=== PATIENT | female | born 1940 | race Caucasian/White ===

== ENCOUNTER 2022-10-30 19:25 | Inpatient (IN) ==
[2022-10-30 19:59] LABS: Hematocrit (blood only) 32.7 % (34.1-44.9); Hemoglobin 11.2 g/dl (12.0-16.0); Mean Corpuscular Hemoglobin 30.9 pg (25.0-34.0); Mean Corpuscular Hgb Conc 34.3 g/dL (32.0-36.0); Mean Corpuscular Volume 90.1 fL (80.0-100.0); Mean Platelet Volume 12.8 fL (9.4-12.3); Platelet Count 140 K/uL (130-400); RDW Coefficient of Variation 13.8 % (11.5-14.5); RDW Standard Deviation 45.6 fL (36.4-46.3); Red Blood Count 3.63 M/uL (3.93-5.22); White Blood Count 18.56 K/ul (4.8-10.8)
[2022-10-30 20:15] LABS: Basophils # (auto) 0.05 K/uL (0-0.2); Basophils % (auto) 0.3 %; Eosinophils # (auto) 0.01 K/uL (0-0.50); Eosinophils % (auto) 0.1 %; Immature Granulocytes # (auto) 0.21 K/uL (0.00-0.02); Immature Granulocytes % (auto) 1.1 %; Lymphocytes # (auto) 0.77 K/uL (1.2-3.4); Lymphocytes % (auto) 4.1 %; Monocytes # (auto) 1.13 K/uL (0.24-0.82); Monocytes % (auto) 6.1 %; Neutrophils # (auto) 16.39 K/uL (1.4-6.5); Neutrophils % (auto) 88.3 %
[2022-10-30 20:34] LABS: Appearance Urine Cloudy (Clear); Bacteria Urine Automated Negative (Negative); Blood Urine Negative (Negative); Color Urine Dark Yellow; Epithelial Cell Urine Auto >30 /lpf (0-5); Glucose Urine UA Negative (Negative); Ketones Urine Trace (Negative); Leukocyte Esterase Urine Negative (Negative); Nitrite Urine Negative (Negative); Protein Urine 1+ (Negative); RBC Urine Automated 0-4 /hpf (0-4); Specific Gravity Urine 1.024 (1.000-1.030); Urobilinogen Urine Negative (Negative)
--- NOTE | 2022-10-30 20:34 | Emergency Department Note ---
Impression & Plan Abdominal pain, LOLITA (acute kidney injury), Hyponatremia ED Provider Note ED Provider Note NAME: DONTRELL ZHENG AGE:82 SEX: Female : 1940 ARRIVES VIA: EMS INFORMANT: Patient ED PROVIDER(s): Marisol Perea DO CHIEF COMPLAINT: Abdominal pain, constipation HPI: This is an 82-year-old female presents emergency department due to concern for abdominal pain, and constipation. Patient states her last bowel movement w as on Saturday. She states she began feeling increased sense of pressure and developing pain in her abdomen on Saturday. She states following the bowel movement she had a slight improvement however symptoms slowly began again on Saturday and persisted through the weekend, slowly worsening. She states she feels distended and bloated. She states she does have an increase in her chronic back pain additionally. She states she has had a decrease in her appetite but no overt nausea or vomiting. She denies any change in her urine, and states she is staying well-hydrated. She states she did have a low-grade fever at home, no overt chills. She denies any recent change in diet or medication. No known sick contacts. Patient has had prior abdominal surgeries. PAST MEDICAL HISTORY:See Below PAST SURGICAL HISTORY:See Below FAMILY HISTORY:See Below SOCIAL HISTORY:See Below HOME MEDICATIONS:See Below ALLERGIES:See Below VITALS:See Below PHYSICAL EXAMINATION: GENERAL: alert, well appearing, well nourished, no distress, non-toxic, BMI>47 EYE EXAM: normal conjunctiva, PERRL and EOM's grossly intact OROPHARYNX: no exudate, no erythema, lips, buccal mucosa, and tongue normal and mucous membranes are dry NECK: supple, no nuchal rigidity, no adenopathy, non-tender LUNGS: Clear to auscultation. Normal chest wall mechanics, no w/r/r HEART: no murmurs, S1 normal and S2 normal ABDOMEN: abdomen soft, generalized discomfort with palpation, normo-active bowel sounds, no masses, no rebound or guarding. Dull to percussion. BACK: Back is symmetrical on inspection and there is no deformity, no midline tenderness, no CVA tenderness. SKIN: no rashes, petechiae, orbruising UPPER EXTREMITIES: upper extremities are grossly normal. FROM, nml pulses b/l. LOWER EXTREMITIES: No pitting edema. FROM, nml pulses b/l. NEURO EXAM: Normal sensorium, cranial nerves II-XII grossly intact, normal speech, no facial droop,nogross weakness of arms, no gross weakness of legs. Gross sensation intact. No ataxia. Vital Signs: reviewed and remarkable Differential Diagnosis: Differential diagnoses includes but is not limited to gastritis, peptic ulcer disease, GERD, gallbladder disease, pancreatitis, small bowel obstruction, acute coronary syndrome, AAA, dissection, ischemic bowel, irritable bowel disease, irritable bowel syndrome, diverticulitis, malignancy, hernia, urinary tract infection, perforation, trauma, infectious. MEDICAL DECISION MAKING: This is an 82 yo female who presents with abdominal pain and constipation and concern for bowel obstruction. VS stable. Labs drawn and sent, IV started, and CT ordered. Patient started on IVF and given medication for nausea and pain. Labs with new hyponatremia, leukocytosis, LOLITA, and mild hyperglycemia. CT without obstruction or other acute process. Patient covered with IV antibiotics prior to results of CT due to age, history, and leukocytosis. UA reassuring. Patient did feel improved per her report. We discussed all results at bedside as well as plan for additional inpatient monitory and treatment, she verbalized understanding and was in agreement with the plan. Tachycardia improved with hydration and pain control. Hyponatremia possibly related to medications and LOLITA. Patient did appear clinically dehydration on initial exam. Cultures sent as a precaution. Hypomagnesemia noted and pt given IV repletion in the ER. Consultation(s): 2244: Discussed with Dr. Sanchez. ER Treatment Provided: See below Diagnostics Interpreted By Me: -ECG: Sinus tachycardia 113, normal QRS and QTc, normal axis, no acute ST/T wave changes. -Cardiac Monitoring: An order was placed for continuous cardiac monitoring. The monitor shows a rate of 106 with sinus tachycardia rhythm. -Laboratory studies: As stated above and show below. 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 GERD (gastroesophageal reflux disease) HTN (hypertension) Hypothyroid Leg length discrepancy Lumbar radicular pain Pain of right sacroiliac joint Spinal stenosis of lumbar region Tachycardia Surgical History History of knee replacement both knees S/P appendectomy Social History (Updated 10/31/22 @ 05:12 by Linh Marquez RN) Smoking Status: Never smoker Second Hand Exposure: No; Do You Dip or Chew Tobacco: No; Tobacco Cessation Education Requested by Patient: No Hx Alcohol Use: Yes Alcohol type: wine Alcohol type Comment: special occasions, less than 1/month Hx Substance Use: No Preferred Language: Albanian Communication Ability: Effective Visual Impairment: No Limitations Hearing Ability: Hard of Hearing Theater Education Teacher Required: No Beliefs That Will Affect Care: None marital status: / Current Living Situation: Alone Current Living Situation Comment: with dog current occupational status: retired 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 [place] Other Information That Helps Us Care for You: No Feels Safe at Home: Yes Safety Concerns: Feels Safe At This Time Assistive Devices: Walker and Wheelchair Allergies Allergies Allergy/AdvReac Type Severity Reaction Status Date / Time cefdinir Allergy Severe ANAPHYLAXIS Verified 10/30/22 22:59 - ED adm 06/03/16 doxycycline Allergy Intermediate Rash/Hives Verified 10/30/22 22:59 Sulfa (Sulfonamide Allergy Intermediate HIVES/RASH Verified 10/30/22 22:59 Antibiotics) Sulfonylureas Allergy Unknown ON [facility] MED Verified 10/30/22 22:59 LIST alendronate sodium AdvReac Intermediate Abdominal Verified 10/30/22 22:59 Pain/ GI Upset heparin AdvReac Unknown AVOID FOR Verified 10/30/22 22:59 LOW PLATELETS Home Meds Home Medications Medication Instructions Recorded Confirmed atorvastatin 10 mg tablet 10 mg PO QAM 03/06/19 10/30/22 levothyroxine 75 mcg tablet 75 mcg PO DAILYBB 03/06/19 10/30/22 metoprolol succinate 50 mg 50 mg PO HS 03/06/19 10/30/22 tablet,extended release 24 hr venlafaxine 150 mg 150 mg PO DAILY 03/06/19 10/30/22 capsule,extended release 24 hr acetaminophen 500 mg tablet 1,000 mg PO Q6H PRN Pain 07/05/21 10/30/22 (Tylenol Extra Strength) celecoxib 200 mg capsule 200 mg PO DAILY 01/30/22 10/30/22 metformin 500 mg tablet,extended 500 mg PO QAM 02/17/22 10/30/22 release 24 hr plecanatide 3 mg tablet (Trulance) 3 mg PO QAM 02/17/22 10/30/22 Bifidobacterium infantis 4 mg 4 mg PO DAILY 10/30/22 10/30/22 capsule (Align) cholecalciferol (vitamin D3) 50 50 mcg PO DAILY 10/30/22 10/30/22 mcg (2,000 unit) capsule (Vitamin D3) fluticasone propionate 50 2 spray intranasal DAILY PRN Nasal 10/30/22 10/30/22 mcg/actuation nasal Congestion spray,suspension multivitamin 1 tab PO DAILY 10/30/22 10/30/22 oxycodone 5 mg tablet 5 mg PO DAILY PRN pain 10/30/22 10/30/22 pantoprazole 40 mg tablet,delayed 40 mg PO DAILY 10/30/22 10/30/22 release Results & Data (ED) Vital Signs Vital Signs - 24 hr 10/30/22 19:30 10/30/22 21:11 10/30/22 22:00 Temperature 37.6 C H 37 C Temperature Source Oral Oral Pulse Rate 115 H Pulse Rate [Apical] 124 H 96 H Pulse Rhythm Regular Pulse Rhythm [Apical] Regular Regular Pulse Strength Normal Pulse Strength [Apical] Normal Normal Respiratory Rate 32 H 20 25 H Respiratory Effort / Characteristics Non-Labored Non-Labored Non-Labored Respiratory Depth Normal Normal Normal Respiratory Pattern Regular Regular Regular Blood Pressure 150/81 H Blood Pressure [Right Arm] 124/74 109/70 Blood Pressure Mean 104 Blood Pressure Mean [Right Arm] 90 83 Blood Pressure Position Lying Blood Pressure Position [Right Arm] Lying Lying Pulse Oximetry 96 96 95 Oxygen Delivery Method Room Air Room Air Room Air Sepsis Recent Fever Within 48 Hours Yes Sepsis New/Unexplained Change in Mental Status N/A Sepsis Action Taken by Nursing Physician Notified Laboratory Data 10/30/22 19:42 10/30/22 19:42 Lab Results 10/30/22 10/30/22 10/30/22 Range/Units 19:42 19:42 19:42 WBC 18.56 H (4.8-10.8) K/ul RBC 3.63 L (3.93-5.22) M/uL Hgb 11.2 L (12.0-16.0) g/dl Hct 32.7 L (34.1-44.9) % MCV 90.1 (80.0-100.0) fL MCH 30.9 (25.0-34.0) pg MCHC 34.3 (32.0-36.0) g/dL RDW Std Deviation 45.6 (36.4-46.3) fL RDW Coeff of Morgan 13.8 (11.5-14.5) % Plt Count 140 (130-400) K/uL MPV 12.8 H (9.4-12.3) fL Immature Gran % (Auto) 1.1 % Neut % (Auto) 88.3 % Lymph % (Auto) 4.1 % [place] % (Auto) 6.1 % Eos % (Auto) 0.1 % Baso % (Auto) 0.3 % Neut # (Auto) 16.39 H (1.4-6.5) K/uL Lymph # (Auto) 0.77 L (1.2-3.4) K/uL [place] # (Auto) 1.13 H (0.24-0.82) K/uL Eos # (Auto) 0.01 (0-0.50) K/uL Baso # (Auto) 0.05 (0-0.2) K/uL Immature Gran # (Auto) 0.21 H (0.00-0.02) K/uL Sodium 125 L (136-145) mmol/L Potassium TNP Chloride 91 L (98-107) mmol/L Carbon Dioxide 20 L (21-32) mmol/L Anion Gap 14 H (3-11) BUN 26 H (6-23) mg/dl Creatinine 1.49 H (0.6-1.2) mg/dl Est Cr Clr Drug Dosing 32.8 ml/min Est GFR ( Amer) 37.5 ml/min Est GFR (Non-Af Amer) 32.4 ml/min BUN/Creatinine Ratio 17.4 (10-20) Glucose 147 H (70-99(Fasting)) mg/dl Osmolality (280-300) mOsm/kg Lactate 1.4 (0.4-2.0) mmol/L Calcium 8.4 L (8.5-10.1) mg/dl Magnesium 1.4 L (1.7-2.4) mg/dl Total Bilirubin 0.7 (0.2-1.0) mg/dl AST TNP ALT 15 (7-52) U/L Alkaline Phosphatase 76 (34-104) U/L Troponin I High Sens 13.7 (0-14) pg/ml Total Protein 7.0 (6.0-8.3) gm/dl Albumin 3.2 L (3.4-5.0) gm/dl Globulin 3.8 (2.5-4.0) gm/dl Albumin/Globulin Ratio 0.8 L (0.9-2) Lipase 3 L (11-82) U/L Procalcitonin (0-0.5) ng/ml TSH (0.300-4.500) uIu/ml Urine Color Urine Appearance (Clear) Urine pH (4.5-7.5) Ur Specific [place] (1.000-1.030) Urine Protein (Negative) Urine Glucose (UA) (Negative) Urine Ketones (Negative) Urine Blood (Negative) Urine Nitrite (Negative) Urine Bilirubin (Negative) Urine Urobilinogen (Negative) Ur Leukocyte Esterase (Negative) Urine WBC (Auto) (0-5) /hpf Urine RBC (Auto) (0-4) /hpf U Hyaline Cast (Auto) (0-5) /lpf U Epithel Cells (Auto) (0-5) /lpf Urine Bacteria (Auto) (Negative) Urine Yeast (None Prsent) SARS-CoV-2 (PCR) (Negative) Influenza Type A (PCR) (Neg) Influenza Type B (PCR) (Neg) RSV (RT-PCR) (Neg) 10/30/22 10/30/22 10/30/22 Range/Units 19:42 19:42 19:42 WBC (4.8-10.8) K/ul RBC (3.93-5.22) M/uL Hgb (12.0-16.0) g/dl Hct (34.1-44.9) % MCV (80.0-100.0) fL MCH (25.0-34.0) pg MCHC (32.0-36.0) g/dL RDW Std Deviation (36.4-46.3) fL RDW Coeff of Morgan (11.5-14.5) % Plt Count (130-400) K/uL MPV (9.4-12.3) fL Immature Gran % (Auto) % Neut % (Auto) % Lymph % (Auto) % [place] % (Auto) % Eos % (Auto) % Baso % (Auto) % Neut # (Auto) (1.4-6.5) K/uL Lymph # (Auto) (1.2-3.4) K/uL [place] # (Auto) (0.24-0.82) K/uL Eos # (Auto) (0-0.50) K/uL Baso # (Auto) (0-0.2) K/uL Immature Gran # (Auto) (0.00-0.02) K/uL Sodium (136-145) mmol/L Potassium Chloride (98-107) mmol/L Carbon Dioxide (21-32) mmol/L Anion Gap (3-11) BUN (6-23) mg/dl Creatinine (0.6-1.2) mg/dl Est Cr Clr Drug Dosing ml/min Est GFR ( Amer) ml/min Est GFR (Non-Af Amer) ml/min BUN/Creatinine Ratio (10-20) Glucose (70-99(Fasting)) mg/dl Osmolality 270 L (280-300) mOsm/kg Lactate (0.4-2.0) mmol/L Calcium (8.5-10.1) mg/dl Magnesium (1.7-2.4) mg/dl Total Bilirubin (0.2-1.0) mg/dl AST ALT (7-52) U/L Alkaline Phosphatase (34-104) U/L Troponin I High Sens (0-14) pg/ml Total Protein (6.0-8.3) gm/dl Albumin (3.4-5.0) gm/dl Globulin (2.5-4.0) gm/dl Albumin/Globulin Ratio (0.9-2) Lipase (11-82) U/L Procalcitonin 6.53 H (0-0.5) ng/ml TSH 0.845 (0.300-4.500) uIu/ml Urine Color Urine Appearance (Clear) Urine pH (4.5-7.5) Ur Specific [place] (1.000-1.030) Urine Protein (Negative) Urine Glucose (UA) (Negative) Urine Ketones (Negative) Urine Blood (Negative) Urine Nitrite (Negative) Urine Bilirubin (Negative) Urine Urobilinogen (Negative) Ur Leukocyte Esterase (Negative) Urine WBC (Auto) (0-5) /hpf Urine RBC (Auto) (0-4) /hpf U Hyaline Cast (Auto) (0-5) /lpf U Epithel Cells (Auto) (0-5) /lpf Urine Bacteria (Auto) (Negative) Urine Yeast (None Prsent) SARS-CoV-2 (PCR) (Negative) Influenza Type A (PCR) (Neg) Influenza Type B (PCR) (Neg) RSV (RT-PCR) (Neg) 10/30/22 10/30/22 10/30/22 Range/Units 20:52 22:50 Unknown WBC (4.8-10.8) K/ul RBC (3.93-5.22) M/uL Hgb (12.0-16.0) g/dl Hct (34.1-44.9) % MCV (80.0-100.0) fL MCH (25.0-34.0) pg MCHC (32.0-36.0) g/dL RDW Std Deviation (36.4-46.3) fL RDW Coeff of Morgan (11.5-14.5) % Plt Count (130-400) K/uL MPV (9.4-12.3) fL Immature Gran % (Auto) % Neut % (Auto) % Lymph % (Auto) % [place] % (Auto) % Eos % (Auto) % Baso % (Auto) % Neut # (Auto) (1.4-6.5) K/uL Lymph # (Auto) (1.2-3.4) K/uL [place] # (Auto) (0.24-0.82) K/uL Eos # (Auto) (0-0.50) K/uL Baso # (Auto) (0-0.2) K/uL Immature Gran # (Auto) (0.00-0.02) K/uL Sodium (136-145) mmol/L Potassium 4.0 Chloride (98-107) mmol/L Carbon Dioxide (21-32) mmol/L Anion Gap (3-11) BUN (6-23) mg/dl Creatinine (0.6-1.2) mg/dl Est Cr Clr Drug Dosing ml/min Est GFR ( Amer) ml/min Est GFR (Non-Af Amer) ml/min BUN/Creatinine Ratio (10-20) Glucose (70-99(Fasting)) mg/dl Osmolality (280-300) mOsm/kg Lactate (0.4-2.0) mmol/L Calcium (8.5-10.1) mg/dl Magnesium (1.7-2.4) mg/dl Total Bilirubin (0.2-1.0) mg/dl AST 13 ALT (7-52) U/L Alkaline Phosphatase (34-104) U/L Troponin I High Sens (0-14) pg/ml Total Protein (6.0-8.3) gm/dl Albumin (3.4-5.0) gm/dl Globulin (2.5-4.0) gm/dl Albumin/Globulin Ratio (0.9-2) Lipase (11-82) U/L Procalcitonin (0-0.5) ng/ml TSH (0.300-4.500) uIu/ml Urine Color Dark Yellow Urine Appearance Cloudy A (Clear) Urine pH 5.0 (4.5-7.5) Ur Specific [place] 1.024 (1.000-1.030) Urine Protein 1+ H (Negative) Urine Glucose (UA) Negative (Negative) Urine Ketones Trace H (Negative) Urine Blood Negative (Negative) Urine Nitrite Negative (Negative) Urine Bilirubin 1+ H (Negative) Urine Urobilinogen Negative (Negative) Ur Leukocyte Esterase Negative (Negative) Urine WBC (Auto) 1-5 (0-5) /hpf Urine RBC (Auto) 0-4 (0-4) /hpf U Hyaline Cast (Auto) 1-5 (0-5) /lpf U Epithel Cells (Auto) >30 H (0-5) /lpf Urine Bacteria (Auto) Negative (Negative) Urine Yeast Budding A (None Prsent) SARS-CoV-2 (PCR) NEGATIVE (Negative) Influenza Type A (PCR) Negative (Neg) Influenza Type B (PCR) Negative (Neg) RSV (RT-PCR) Negative (Neg) Administered Medications Acetaminophen (Acetaminophen 325 Mg Tab) 650 mg PO Q4H PRN PRN Reason: Pain or Fever Stop: 11/30/22 02:35 Last Admin: 11/01/22 11:16 Dose: 650 mg Documented By: KAITLIN Co-signed By: ZACKERY Admin: 11/01/22 05:33 Dose: 650 mg Documented By: Admin: 10/31/22 18:56 Dose: 650 mg Documented By: Admin: 10/31/22 07:49 Dose: 650 mg Documented By: CHELSEA Diclofenac Sodium (Diclofenac Sod 1% Gel 100 Gm Tube) 2 gm EXT TID PREETI; Protocol Stop: 12/01/22 13:59 Last Admin: 11/01/22 15:53 Dose: 2 gm Documented By: ZACKERY Aztreonam 1,000 mg/ Dextrose 110 mls @ 100 mls/hr IV Q12H PREETI; Protocol Stop: 11/10/22 09:59 Last Infusion: 11/01/22 12:06 Dose: 0 mls/hr Documented By: Admin: 11/01/22 11:00 Dose: 100 mls/hr Documented By: KAITLIN Co-signed By: ZACKERY Infusion: 10/31/22 23:46 Dose: 0 mls/hr Documented By: Admin: 10/31/22 22:27 Dose: 100 mls/hr Documented By: RUTHIE Insulin Aspart (Insulin Aspart Per Unit) 0 units SC ACHS PREETI Stop: 11/30/22 02:35 Last Admin: 11/01/22 13:30 Dose: 3 units Documented By: ZACKERY Co-signed By: BETHANY Admin: 11/01/22 10:40 Dose: 4 units Documented By: KAITLIN Co-signed By: ZACKERY Admin: 10/31/22 21:26 Dose: 1 units Documented By: RUTHIE Co-signed By: REBECCA Admin: 10/31/22 18:49 Dose: Not Given Documented By: Admin: 10/31/22 12:24 Dose: 2 units Documented By: SUSAN Co-signed By: HEATH Admin: 10/31/22 09:26 Dose: Not Given Documented By: Admin: 10/31/22 03:04 Dose: 3 units Documented By: PAPO Co-signed By: MONY Lactobacillus Acidophilus (Advanced Probiotic 1250 Mg Capsule) 2 cap PO DAILY [facility] Stop: 11/30/22 08:59 Last Admin: 11/01/22 10:52 Dose: 2 cap Documented By: KAITLIN Co-signed By: ZACKERY Admin: 10/31/22 08:17 Dose: 2 cap Documented By: CHELSEA Levothyroxine Sodium (Levothyroxine Sodium 75 Mcg Tablet) 75 mcg PO DAILYBB [facility] Stop: 11/30/22 06:29 Last Admin: 11/01/22 05:29 Dose: 75 mcg Documented By: Admin: 10/31/22 05:59 Dose: 75 mcg Documented By: JANETTE Metoprolol Succinate (Metoprolol Succ 50mg Ext Rel Tab) 50 mg PO HS [facility] Stop: 11/30/22 20:59 Last Admin: 10/31/22 19:57 Dose: 50 mg Documented By: RUTHIE Multivitamins (Multivitamin Tab) 1 tab PO DAILY PREETI Stop: 11/30/22 08:59 Last Admin: 11/01/22 10:51 Dose: 1 tab Documented By: KAITLIN Co-signed By: ZACKERY Admin: 10/31/22 08:17 Dose: 1 tab Documented By: CHELSEA Oxycodone HCl (Oxycodone Hcl Ir 5 Mg Tab (Immediate Release)) 5 mg PO BID PRN PRN Reason: pain Stop: 11/14/22 02:35 Last Admin: 11/01/22 13:22 Dose: 5 mg Documented By: Admin: 10/31/22 18:56 Dose: 5 mg Documented By: Admin: 10/31/22 10:42 Dose: 5 mg Documented By: CHELSEA Pantoprazole Sodium (Pantoprazole 40 Mg Tab) 40 mg PO DAILY PREETI Stop: 11/30/22 08:59 Last Admin: 11/01/22 10:51 Dose: 40 mg Documented By: KAITLIN Co-signed By: ZACKERY Admin: 10/31/22 08:17 Dose: 40 mg Documented By: CHELSEA Senna/Docusate Sodium (Docusate Sodium/Senna 50/8.6mg Tab) 1 tab PO QAM PREETI Stop: 11/30/22 08:59 Last Admin: 11/01/22 10:53 Dose: 1 tab Documented By: KAITLIN Co-signed By: ZACKERY Admin: 10/31/22 08:18 Dose: 1 tab Documented By: CHELSEA Discontinued Medications Fentanyl Citrate (Fentanyl Citrate 100 Mcg/2 Ml Vial) 50 mcg IV NOW STA Stop: 10/30/22 20:44 Last Admin: 10/30/22 21:01 Dose: 50 mcg Documented By: JANETTE Ciprofloxacin (Cipro / D5w) 400 mg in 200 mls @ 100 mls/hr IV NOW STA; Protocol Stop: 10/30/22 22:42 Last Infusion: 10/31/22 00:22 Dose: 0 mls/hr Documented By: Admin: 10/30/22 22:21 Dose: 100 mls/hr Documented By: JANETTE Metronidazole (Flagyl) 500 mg in 100 mls @ 100 mls/hr IV NOW STA Stop: 10/30/22 21:42 Last Infusion: 10/31/22 02:29 Dose: 0 mls/hr Documented By: Admin: 10/31/22 01:28 Dose: 100 mls/hr Documented By: JANETTE Acetaminophen (Ofirmev) 1,000 mg in 100 mls @ 400 mls/hr IV NOW STA Stop: 10/30/22 20:57 Last Infusion: 10/30/22 21:56 Dose: 0 mls/hr Documented By: Admin: 10/30/22 21:01 Dose: 400 mls/hr Documented By: JANETTE Magnesium Sulfate/Dextrose (Magnesium Sulfate / D5w) 1 gm in 100 mls @ 100 mls/hr IV Q1H PREETI Stop: 10/30/22 23:11 Last Infusion: 10/31/22 00:11 Dose: 0 mls/hr Documented By: Admin: 10/30/22 23:08 Dose: 100 mls/hr Documented By: Infusion: 10/30/22 23:08 Dose: 0 mls/hr Documented By: Admin: 10/30/22 22:04 Dose: 100 mls/hr Documented By: JANETTE Aztreonam 1,000 mg/ Dextrose 110 mls @ 100 mls/hr IV NOW STA; Protocol Stop: 10/31/22 00:06 Last Infusion: 10/31/22 01:29 Dose: 0 mls/hr Documented By: Admin: 10/31/22 00:16 Dose: 100 mls/hr Documented By: JANETTE Daptomycin 425 mg/ Syringe 8.5 mls @ 4.25 mls/min IV NOW STA; Protocol Stop: 10/30/22 23:02 Last Admin: 10/31/22 00:16 Dose: 4.25 mls/min Documented By: JANETTE Albumin Human (Albumin 25% 100 Ml) 25 gm in 100 mls @ 50 mls/hr IV ONE ONE Stop: 10/31/22 03:26 Last Infusion: 10/31/22 05:10 Dose: 0 mls/hr Documented By: Admin: 10/31/22 02:57 Dose: 50 mls/hr Documented By: PAPO Aztreonam 1,000 mg/ Dextrose 110 mls @ 100 mls/hr IV Q8H PREETI; Protocol Stop: 11/10/22 09:59 Last Infusion: 10/31/22 14:04 Dose: 0 mls/hr Documented By: Admin: 10/31/22 11:45 Dose: 100 mls/hr Documented By: CHELSEA Lactated Ringer's (Lr) 1,000 mls @ 60 mls/hr IV .[id number] ONE Stop: 11/01/22 04:58 Last Infusion: 11/01/22 05:28 Dose: 0 mls/hr Documented By: Admin: 10/31/22 12:29 Dose: 60 mls/hr Documented By: SUSAN Ioversol (Optiray 350 100ml) 82 ml IV ONCE ONE Stop: 10/30/22 21:34 Last Admin: 10/30/22 21:33 Dose: 82 ml Documented By: KRISTAN Metoprolol Tartrate (Metoprolol Tartrate 1 Mg/Ml Vial) 5 mg IV NOW STA Stop: 10/31/22 17:04 Last Admin: 10/31/22 17:10 Dose: 5 mg Documented By: CHELSEA Ondansetron HCl (Ondansetron Inj 2 Mg/Ml 2 Ml Vial) 4 mg IV NOW STA Stop: 10/30/22 20:44 Last Admin: 10/30/22 21:01 Dose: 4 mg Documented By: JANETTE Polyethylene Glycol (Polyethylene (Miralax) 17 Gm Pack) 17 gm PO NOW STA Stop: 10/31/22 01:39 Last Admin: 10/31/22 02:56 Dose: 17 gm Documented By: PAPO Senna/Docusate Sodium (Docusate Sodium/Senna 50/8.6mg Tab) 1 tab PO NOW STA Stop: 10/31/22 01:39 Last Admin: 10/31/22 02:56 Dose: 1 tab Documented By: PAPO Imaging Data Radiologist's Impression: Abdomen/Pelvis CT 10/30/22 19:41 CT SCAN OF THE ABDOMEN AND PELVIS WITH IV CONTRAST CLINICAL HISTORY: Generalized abdominal pain. Constipation. COMPARISON STUDY: Abdominal CT dated 02/17/2022. TECHNIQUE: Following the IV administration of 82 cc of Optiray 350, CT scan of the abdomen and pelvis is performed from the lung bases to the proximal femora. Images are reviewed in the axial, sagittal, and coronal planes. IV contrast was administered without complication. A dose lowering technique was utilized adhering to the principles of ALARA. CT DOSE: 927.63 mGy.cm FINDINGS: Lung bases: The heart is enlarged and without pericardial effusion. The lung bases are clear noting bibasilar scarring versus. A small hiatal hernia is noted. Liver: The contrast-enhanced liver is normal in size, contour, and attenuation. There is no intrahepatic biliary ductal dilatation. The hepatic veins and portal veins are patent. A 1.5 cm low-attenuation right lobe hepatic lesion is u nchanged. Gallbladder: Unremarkable. Spleen: Normal in size and attenuation. Pancreas: Atrophic and grossly unremarkable. Adrenal glands: Unremarkable. Kidneys: The contrast enhanced kidneys demonstrate cortical atrophy and are without hydronephrosis. The kidneys enhance symmetrically. Scattered hepatic cysts measuring up to 2.3 cm. A presumed complex cyst in the anterior interpolar right kidney on image #147 measures 1.4 cm. Additional subcentimeter cortical hypodensities also likely represent cysts but are too small for definitive characterization. There is a punctate nonobstructing right renal calculus. Abdominal vasculature: The abdominal aorta is normal in course and caliber noting moderate to advanced atherosclerotic calcification. Bowel: There is mild colonic diverticulosis without CT evidence of acute diverticulitis. No bowel obstruction is seen. Mild fecal retention is noted throughout the colon. The appendix is not identified and reportedly surgically absent. Peritoneum: There is no intraperitoneal free air or abdominal ascites. There is a fat-containing umbilical hernia. Lymphadenopathy: None. Pelvic viscera: The bladder is normal as visualized. The uterus is surgically absent. No adnexal lesion is seen. Skeletal structures: The skeletal structures are osteopenic. There is moderate lumbosacral spondylosis. Grade 1 anterolisthesis is noted at L4-L5. Lytic or blastic lesions are seen. IMPRESSION: 1. No acute infectious or inflammatory findings are identified in the abdomen or pelvis. 2. Cardiomegaly. 3. Mild colonic diverticulosis without CT evidence of acute diverticulitis. 4. Right-sided nephrolithiasis. 5. Additional findings as above. ACT 112: Negative or not required by law. Electronically signed by: Barry Valencia M.D. 10/30/2022 9:51 PM Discharge Plan Visit Data Chief Complaint: Abdominal Pain ED Provider: Marisol Perea Discharge Problem: Abdominal pain, LOLITA (acute kidney injury), Hyponatremia Patient Disposition: Admitted As Inpatient Discharge Instructions Interventions: ED Discharge Assessment Last Done: 10/31/22 02:35
[2022-10-30 20:36] LABS: Bilirubin Urine 1+ (Negative)
[2022-10-30 20:38] LABS: Alanine Aminotransferase 15 U/L (7-52); Albumin Globulin Ratio 0.8 (0.9-2); Albumin Level 3.2 gm/dl (3.4-5.0); Alkaline Phosphatase 76 U/L (34-104); Anion Gap 14 (3-11); BUN Creatinine Ratio 17.4 (10-20); Bilirubin,Total 0.7 mg/dl (0.2-1.0); Blood Urea Nitrogen 26 mg/dl (6-23); Calcium 8.4 mg/dl (8.5-10.1); Carbon Dioxide 20 mmol/L (21-32); Chloride 91 mmol/L (98-107); Creatinine Clr Calc Pharmacy 32.8 ml/min; Est GFR (African American) 37.5 ml/min; Est GFR (Non-African American) 32.4 ml/min; Globulin 3.8 gm/dl (2.5-4.0); Glucose 147 mg/dl (70-99(Fasting)); Lipase 3 U/L (11-82); Magnesium 1.4 mg/dl (1.7-2.4); Sodium 125 mmol/L (136-145); Troponin I High Sensitivity 13.7 pg/ml (0-14)
[2022-10-30] MEDS ORDERED: CIPROFLOXACIN / D5W 400 MG/200 ML BAG IV STA (20:43)
[2022-10-30] MEDS ORDERED: ACETAMINOPHEN 1,000 MG/100 ML VIAL IV STA (20:43)
[2022-10-30] MEDS ORDERED: metroNIDAZOLE 500 MG/100 ML BAG IV STA (20:43)
[2022-10-30] MEDS ORDERED: ONDANSETRON INJ 2 MG/ML 2 ML VIAL IV STA (20:43)
[2022-10-30] MEDS ORDERED: fentaNYL citrate 100 MCG/2 ML VIAL IV STA (20:43)
[2022-10-30] MEDS ORDERED: OPTIRAY 350 100ml IV ONE (21:33)
--- NOTE | 2022-10-30 21:53 | CT Scan Report ---
CT SCAN OF THE ABDOMEN AND PELVIS WITH IV CONTRAST CLINICAL HISTORY: Generalized abdominal pain. Constipation. COMPARISON STUDY: Abdominal CT dated 02/17/2022. TECHNIQUE: Following the IV administration of 82 cc of Optiray 350, CT scan of the abdomen and pelvi s is performed from the lung bases to the proximal femora. Images are reviewed in the axial, sagittal , and coronal planes. IV contrast was administered without complication. A dose lowering technique wa s utilized adhering to the principles of ALARA. CT DOSE: 927.63 mGy.cm FINDINGS: Lung bases: The heart is enlarged and without pericardial effusion. The lung bases are clear noting b ibasilar scarring versus. A small hiatal hernia is noted. Liver: The contrast-enhanced liver is normal in size, contour, and attenuation. There is no intrahepa tic biliary ductal dilatation. The hepatic veins and portal veins are patent. A 1.5 cm low-attenuatio n right lobe hepatic lesion is unchanged. Gallbladder: Unremarkable. Spleen: Normal in size and attenuation. Pancreas: Atrophic and grossly unremarkable. Adrenal glands: Unremarkable. Kidneys: The contrast enhanced kidneys demonstrate cortical atrophy and are without hydronephrosis. T he kidneys enhance symmetrically. Scattered hepatic cysts measuring up to 2.3 cm. A presumed complex cyst in the anterior interpolar right kidney on image #147 measures 1.4 cm. Additional subcentimeter cortical hypodensities also likely represent cysts but are too small for definitive characterization. There is a punctate nonobstructing right renal calculus. Abdominal vasculature: The abdominal aorta is normal in course and caliber noting moderate to advance d atherosclerotic calcification. Bowel: There is mild colonic diverticulosis without CT evidence of acute diverticulitis. No bowel obs truction is seen. Mild fecal retention is noted throughout the colon. The appendix is not identified and reportedly surgically absent. Peritoneum: There is no intraperitoneal free air or abdominal ascites. There is a fat-containing umbi lical hernia. Lymphadenopathy: None. Pelvic viscera: The bladder is normal as visualized. The uterus is surgically absent. No adnexal lesi on is seen. Skeletal structures: The skeletal structures are osteopenic. There is moderate lumbosacral spondylosi s. Grade 1 anterolisthesis is noted at L4-L5. Lytic or blastic lesions are seen. IMPRESSION: 1. No acute infectious or inflammatory findings are identified in the abdomen or pelvis. 2. Cardiomegaly. 3. Mild colonic diverticulosis without CT evidence of acute diverticulitis. 4. Right-sided nephrolithiasis. 5. Additional findings as above. ACT 112: Negative or not required by law. Electronically signed by: Barry Valencia M.D. 10/30/2022 9:51 PM
[2022-10-30] MEDS: MAGNESIUM SULFATE / D5W 1 GM/100 ML BAG IV SCH ×2 (22:04→23:08)
[2022-10-30] MEDS ORDERED: AZTREONAM 1,000 MG in DEXTROSE 5% 100 ML IV STA (23:01)
[2022-10-30] MEDS ORDERED: DAPTOmycin 425 MG in SYRINGE 0 ML IV STA (23:01)
--- NOTE | 2022-10-30 23:21 | XRay Report ---
SINGLE VIEW CHEST CLINICAL HISTORY: Hyponatremia. FINDINGS: An AP, portable, upright chest radiograph is compared to study dated 02/17/2022 and correlate d with chest CT dated 03/06/2019. The examination is degraded by portable technique and patient rotati on. The heart is enlarged noting atherosclerotic calcification of the thoracic aorta. There is pulmon lan vascular congestion. Chronic interstitial thickening is similar to previous. Scarring/atelectasis is noted at the lung bases. No airspace consolidation or large pleural effusion is identified. No pn eumothorax is seen. The skeletal structures are osteopenic. The bony thorax is grossly intact. IMPRESSION: Cardiomegaly with pulmonary vascular congestion. ACT 112: Negative or not required by law. Electronically signed by: Barry Valencia M.D. 10/30/2022 11:20 PM
[2022-10-30 23:55] LABS: Influenza A virus by PCR Negative (Neg); Influenza B virus by PCR Negative (Neg); RSV by PCR Negative (Neg); SARS CoV2 RNA(COVID-19) Ceph NEGATIVE (Negative)
[2022-10-31] MEDS ORDERED: ALBUMIN 25% 100 mL 25 GM/100 ML VIAL IV ONE (01:27)
[2022-10-31] MEDS ORDERED: POLYETHYLENE (MIRALAX) 17 GM PACK PO PRN (01:38)
[2022-10-31] MEDS ORDERED: DOCUSATE SODIUM/SENNA 50/8.6MG TAB PO STA (01:38)
[2022-10-31] MEDS ORDERED: POLYETHYLENE (MIRALAX) 17 GM PACK PO STA (01:38)
--- NOTE | 2022-10-31 01:38 | History & Physical Report ---
Date of Service October 31, 2022 Assessment & Plan (1) Severe sepsis: Plan: SIRS plus ARF Secondary to complicated UTI, hx recurrent infections (Enterococcus, Pseudomonas, MDR E. coli on previous urine CS) Acute on chronic hyponatremia secondary to illness Serum sodium noted to be low since last year on review of outpatient blood work SSRI, NSAID Rx contributory hypertension, slightly elevated hyperlipidemia on statin Rx DM2 on oral medications, well-controlled as of recent hemoglobin A1c of 6.7 this month hypothyroidism, euthyroid as of today's TSH chronic anemia, hemoglobin at baseline chronic ITP as per records Constipation Medical telemetry CS, Daptomycin and Azactam on the basis of microbiologic history Careful correction of sodium Monitor serum creatinine, sodium response to initial IVF bolus given at the ER Appropriate to hold SSRI and home celecoxib for now until serum sodium, kidney function back to baseline Hyponatremia work-up Nephrology consult if without improvement Bowel regimen Basal bolus insulin, ISS BG goal 1 10-1 40, carb count coverage DVT prophylaxis. SCDs Re: ITP Full code Text document was generated using [employer] voice recognition software. It may contain grammatical or spelling errors. Kindly contact undersigned for clarification of any documentation item in question. History of Present Illness Chief Complaint: Abdominal pain Primary Care Provider: Claus Rojas MD History obtained from patient and records. Medical history significant for hypertension, hyperlipidemia, recurrent UTIs, DM2 on oral medications, hypothyroidism, ankylosing spondylitis as per records, chronic anemia (baseline hemoglobin of 11), chronic ITP as per records. Last confinement July 2016 for complicated UTI/kidney stone. Few days history of achy lower abdominal pain, constipation, dysuria symptoms. Poor appetite. No fever, no chills. No chest pain, no shortness of breath. Patient given ciprofloxacin at that Emergency room. Medical History as above Surgical History : Left knee surgery, sinus surgery, right ankle surgery, urologic procedures, cataract surgeries, tonsillectomy/adenoidectomy Family History : Heart disease, blood cancer, uterine cancer Personal/Social history : Non-smoker, occasional EtOH intake Allergies Allergy/AdvReac Type Severity Reaction Status Date / Time cefdinir Allergy Severe ANAPHYLAXIS Verified 10/30/22 22:59 - ED adm 06/03/16 doxycycline Allergy Intermediate Rash/Hives Verified 10/30/22 22:59 Sulfa (Sulfonamide Allergy Intermediate HIVES/RASH Verified 10/30/22 22:59 Antibiotics) Sulfonylureas Allergy Unknown ON [facility] MED Verified 10/30/22 22:59 LIST alendronate sodium AdvReac Intermediate Abdominal Verified 10/30/22 22:59 Pain/ GI Upset heparin AdvReac Unknown AVOID FOR Verified 10/30/22 22:59 LOW PLATELETS Home Medications Medication Instructions Recorded Confirmed Type atorvastatin 10 mg tablet 10 mg PO QAM 03/06/19 10/30/22 History levothyroxine 75 mcg tablet 75 mcg PO DAILYBB 03/06/19 10/30/22 History metoprolol succinate 50 mg 50 mg PO HS 03/06/19 10/30/22 History tablet,extended release 24 hr venlafaxine 150 mg 150 mg PO DAILY 03/06/19 10/30/22 History capsule,extended release 24 hr acetaminophen 500 mg tablet 1,000 mg PO Q6H PRN Pain 07/05/21 10/30/22 History (Tylenol Extra Strength) celecoxib 200 mg capsule 200 mg PO DAILY 01/30/22 10/30/22 History metformin 500 mg tablet,extended 500 mg PO QAM 02/17/22 10/30/22 History release 24 hr plecanatide 3 mg tablet (Trulance) 3 mg PO QAM 02/17/22 10/30/22 History Bifidobacterium infantis 4 mg 4 mg PO DAILY 10/30/22 10/30/22 History capsule (Align) cholecalciferol (vitamin D3) 50 50 mcg PO DAILY 10/30/22 10/30/22 History mcg (2,000 unit) capsule (Vitamin D3) fluticasone propionate 50 2 spray intranasal DAILY PRN Nasal 10/30/22 10/30/22 History mcg/actuation nasal Congestion spray,suspension multivitamin 1 tab PO DAILY 10/30/22 10/30/22 History oxycodone 5 mg tablet 5 mg PO DAILY PRN pain 10/30/22 10/30/22 History pantoprazole 40 mg tablet,delayed 40 mg PO DAILY 10/30/22 10/30/22 History release Past Med/Surg History Medical History Ambulatory dysfunction Chronic perineal pain in female GERD (gastroesophageal reflux disease) HTN (hypertension) Hypothyroid Leg length discrepancy Lumbar radicular pain Pain of right sacroiliac joint Spinal stenosis of lumbar region Tachycardia Surgical History History of knee replacement both knees S/P appendectomy Social History (Updated 10/31/22 @ 05:12 by Linh Marquez RN) Smoking Status: Never smoker Second Hand Exposure: No; Do You Dip or Chew Tobacco: No; Tobacco Cessation Education Requested by Patient: No Hx Alcohol Use: Yes Alcohol type: wine Alcohol type Comment: special occasions, less than 1/month Hx Substance Use: No Preferred Language: Croatian Communication Ability: Effective Visual Impairment: No Limitations Hearing Ability: Hard of Hearing Principal Systems Architect Required: No Beliefs That Will Affect Care: None marital status: / Current Living Situation: Alone Current Living Situation Comment: with dog current occupational status: retired 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 [place] Other Information That Helps Us Care for You: No Feels Safe at Home: Yes Safety Concerns: Feels Safe At This Time Assistive Devices: Walker and Wheelchair Review of Systems Review of Systems: As per HPI, all other systems reviewed and negative Physical Exam Physical Exam: GENERAL: Slightly uncomfortable, morbidly obese, slightly hard of hearing, no respiratory distress SKIN: Pallor, warm HEENT pale palpebral conjunctivae, no ptosis, dry buccal mucosa NECK : Supple, no tenderness CHEST : CTA, no tenderness HEART : RRR, no obvious murmurs ABDOMEN: Some distention, hypogastric tenderness EXTREMITIES : Minimal LE swelling, no LE tenderness, no other conspicuous deformities noted NEUROLOGIC : Coherent, no facial asymmetry, slightly hard of hearing, gait and stance not assessed Results & Data Results & Data ([facility]) Vital Signs (Past 12 Hours) Vital Signs Temp Pulse Pulse Resp BP BP Pulse Ox 10/31/22 00:00 82 18 126/73 96 10/30/22 22:00 37 C 96 H 25 H 109/70 95 10/30/22 21:11 124 H 20 124/74 96 10/30/22 19:30 37.6 C H 115 H 32 H 150/81 H 96 O2 Del Method 10/31/22 00:00 Room Air 10/30/22 22:00 Room Air 10/30/22 21:11 Room Air 10/30/22 19:30 Room Air Laboratory Results Laboratory Results WBC 18.56 K/ul (4.8-10.8) H 10/30/22 19:42 RBC 3.63 M/uL (3.93-5.22) L 10/30/22 19:42 Hgb 11.2 g/dl (12.0-16.0) L 10/30/22 19:42 Hct 32.7 % (34.1-44.9) L 10/30/22 19:42 MCV 90.1 fL (80.0-100.0) 10/30/22 19:42 MCH 30.9 pg (25.0-34.0) 10/30/22 19:42 MCHC 34.3 g/dL (32.0-36.0) 10/30/22 19:42 RDW Std Deviation 45.6 fL (36.4-46.3) 10/30/22 19:42 RDW Coeff of [place] 13.8 % (11.5-14.5) 10/30/22 19:42 Plt Count 140 K/uL (130-400) 10/30/22 19:42 MPV 12.8 fL (9.4-12.3) H 10/30/22 19:42 Immature Gran % (Auto) 1.1 % 10/30/22 19:42 Neut % (Auto) 88.3 % 10/30/22 19:42 Lymph % (Auto) 4.1 % 10/30/22 19:42 [place] % (Auto) 6.1 % 10/30/22 19:42 Eos % (Auto) 0.1 % 10/30/22 19:42 Baso % (Auto) 0.3 % 10/30/22 19:42 Neut # (Auto) 16.39 K/uL (1.4-6.5) H 10/30/22 19:42 Lymph # (Auto) 0.77 K/uL (1.2-3.4) L 10/30/22 19:42 [place] # (Auto) 1.13 K/uL (0.24-0.82) H 10/30/22 19:42 Eos # (Auto) 0.01 K/uL (0-0.50) 10/30/22 19:42 Baso # (Auto) 0.05 K/uL (0-0.2) 10/30/22 19:42 Immature Gran # (Auto) 0.21 K/uL (0.00-0.02) H 10/30/22 19:42 Sodium 125 mmol/L (136-145) L 10/30/22 19:42 Potassium 4.0 mmol/L (3.5-5.1) 10/30/22 20:52 Chloride 91 mmol/L (98-107) L 10/30/22 19:42 Carbon Dioxide 20 mmol/L (21-32) L 10/30/22 19:42 Anion Gap 14 (3-11) H 10/30/22 19:42 BUN 26 mg/dl (6-23) H 10/30/22 19:42 Creatinine 1.49 mg/dl (0.6-1.2) H 10/30/22 19:42 Est Cr Clr Drug Dosing 32.8 ml/min 10/30/22 19:42 Est GFR ( Amer) 37.5 ml/min 10/30/22 19:42 Est GFR (Non-Af Amer) 32.4 ml/min 10/30/22 19:42 BUN/Creatinine Ratio 17.4 (10-20) 10/30/22 19:42 Glucose 147 mg/dl (70-99(Fasting)) H 10/30/22 19:42 Osmolality 270 mOsm/kg (280-300) L 10/30/22 19:42 Lactate 1.4 mmol/L (0.4-2.0) 10/30/22 19:42 Calcium 8.4 mg/dl (8.5-10.1) L 10/30/22 19:42 Magnesium 1.4 mg/dl (1.7-2.4) L 10/30/22 19:42 Total Bilirubin 0.7 mg/dl (0.2-1.0) 10/30/22 19:42 AST 13 U/L (13-39) 10/30/22 20:52 ALT 15 U/L (7-52) 10/30/22 19:42 Alkaline Phosphatase 76 U/L (34-104) 10/30/22 19:42 Troponin I High Sens 13.7 pg/ml (0-14) 10/30/22 19:42 Total Protein 7.0 gm/dl (6.0-8.3) 10/30/22 19:42 Albumin 3.2 gm/dl (3.4-5.0) L 10/30/22 19:42 Globulin 3.8 gm/dl (2.5-4.0) 10/30/22 19:42 Albumin/Globulin Ratio 0.8 (0.9-2) L 10/30/22 19:42 Lipase 3 U/L (11-82) L 10/30/22 19:42 Procalcitonin 6.53 ng/ml (0-0.5) H 10/30/22 19:42 TSH 0.845 uIu/ml (0.300-4.500) 10/30/22 19:42 Urine Color Dark Yellow 10/30/22 Unknown Urine Appearance Cloudy (Clear) A 10/30/22 Unknown Urine pH 5.0 (4.5-7.5) 10/30/22 Unknown Ur Specific [place] 1.024 (1.000-1.030) 10/30/22 Unknown Urine Protein 1+ (Negative) H 10/30/22 Unknown Urine Glucose (UA) Negative (Negative) 10/30/22 Unknown Urine Ketones Trace (Negative) H 10/30/22 Unknown Urine Blood Negative (Negative) 10/30/22 Unknown Urine Nitrite Negative (Negative) 10/30/22 Unknown Urine Bilirubin 1+ (Negative) H 10/30/22 Unknown Urine Urobilinogen Negative (Negative) 10/30/22 Unknown Ur Leukocyte Esterase Negative (Negative) 10/30/22 Unknown Urine WBC (Auto) 1-5 /hpf (0-5) 10/30/22 Unknown Urine RBC (Auto) 0-4 /hpf (0-4) 10/30/22 Unknown U Hyaline Cast (Auto) 1-5 /lpf (0-5) 10/30/22 Unknown U Epithel Cells (Auto) >30 /lpf (0-5) H 10/30/22 Unknown Urine Bacteria (Auto) Negative (Negative) 10/30/22 Unknown Urine Yeast Budding (None Prsent) A 10/30/22 Unknown SARS-CoV-2 (PCR) NEGATIVE (Negative) 10/30/22 22:50 Influenza Type A (PCR) Negative (Neg) 10/30/22 22:50 Influenza Type B (PCR) Negative (Neg) 10/30/22 22:50 RSV (RT-PCR) Negative (Neg) 01/17/23 22:50 Impressions Abdomen/Pelvis CT 10/30/22 19:41 CT SCAN OF THE ABDOMEN AND PELVIS WITH IV CONTRAST CLINICAL HISTORY: Generalized abdominal pain. Constipation. COMPARISON STUDY: Abdominal CT dated 02/17/2022. TECHNIQUE: Following the IV administration of 82 cc of Optiray 350, CT scan of the abdomen and pelvis is performed from the lung bases to the proximal femora. Images are reviewed in the axial, sagittal, and coronal planes. IV contrast was administered without complication. A dose lowering technique was utilized adhering to the principles of ALARA. CT DOSE: 927.63 mGy.cm FINDINGS: Lung bases: The heart is enlarged and without pericardial effusion. The lung bases are clear noting bibasilar scarring versus. A small hiatal hernia is noted. Liver: The contrast-enhanced liver is normal in size, contour, and attenuation. There is no intrahepatic biliary ductal dilatation. The hepatic veins and portal veins are patent. A 1.5 cm low-attenuation right lobe hepatic lesion is unchanged. Gallbladder: Unremarkable. Spleen: Normal in size and attenuation. Pancreas: Atrophic and grossly unremarkable. Adrenal glands: Unremarkable. Kidneys: The contrast enhanced kidneys demonstrate cortical atrophy and are without hydronephrosis. The kidneys enhance symmetrically. Scattered hepatic cysts measuring up to 2.3 cm. A presumed complex cyst in the anterior interpolar right kidney on image #147 measures 1.4 cm. Additional subcentimeter cortical hypodensities also likely represent cysts but are too small for definitive characterization. There is a punctate nonobstructing right renal calculus. Abdominal vasculature: The abdominal aorta is normal in course and caliber noting moderate to advanced atherosclerotic calcification. Bowel: There is mild colonic diverticulosis without CT evidence of acute diverticulitis. No bowel obstruction is seen. Mild fecal retention is noted throughout the colon. The appendix is not identified and reportedly surgically absent. Peritoneum: There is no intraperitoneal free air or abdominal ascites. There is a fat-containing umbilical hernia. Lymphadenopathy: None. Pelvic viscera: The bladder is normal as visualized. The uterus is surgically absent. No adnexal lesion is seen. Skeletal structures: The skeletal structures are osteopenic. There is moderate lumbosacral spondylosis. Grade 1 anterolisthesis is noted at L4-L5. Lytic or blastic lesions are seen. IMPRESSION: 1. No acute infectious or inflammatory findings are identified in the abdomen or pelvis. 2. Cardiomegaly. 3. Mild colonic diverticulosis without CT evidence of acute diverticulitis. 4. Right-sided nephrolithiasis. 5. Additional findings as above. ACT 112: Negative or not required by law. Electronically signed by: Barry Valencia M.D. 10/30/2022 9:51 PM Chest X-Ray 10/30/22 22:54 SINGLE VIEW CHEST CLINICAL HISTORY: Hyponatremia. FINDINGS: An AP, portable, upright chest radiograph is compared to study dated 02/17/2022 and correlated with chest CT dated 03/06/2019. The examination is degraded by portable technique and patient rotation. The heart is enlarged noting atherosclerotic calcification of the thoracic aorta. There is pulmonary vascular congestion. Chronic interstitial thickening is similar to previous. Scarring/atelectasis is noted at the lung bases. No airspace consolidation or large pleural effusion is identified. No pneumothorax is seen. The skeletal structures are osteopenic. The bony thorax is grossly intact. IMPRESSION: Cardiomegaly with pulmonary vascular congestion. ACT 112: Negative or not required by law. Electronically signed by: Barry Valencia M.D. 10/30/2022 11:20 PM Diagnostic Findings EKG as per my interpretation :Rate 115, sinus tachycardia, normal axis, T wave abnormalities inferior and septal leads
[2022-10-31] MEDS ORDERED: GLUCOSE 10 TAB/TUBE PO PRN (02:36)
[2022-10-31] MEDS ORDERED: GLUCOSE 40% GEL 15 GM TUBE PO PRN (02:36)
[2022-10-31] MEDS ORDERED: GLUCAGON FOR INJ 1 MG VIAL SQ PRN (02:36)
[2022-10-31] MEDS ORDERED: FLUTICASONE PROPIONATE NA SPR 16 GM BTL NAE PRN (02:36)
[2022-10-31] MEDS ORDERED: CARBOHYDRATES FOR HYPOGLYCEMIA PO PRN (02:36)
[2022-10-31] MEDS ORDERED: DEXTROSE 50% 50 ML SYRINGE IV PRN (02:36)
[2022-10-31] MEDS: INSULIN ASPART PER UNIT SC SCH ×5 (03:04→21:26)
[2022-10-31 05:28] LABS: Hematocrit (blood only) 29.4 % (34.1-44.9); Hemoglobin 9.9 g/dl (12.0-16.0); Mean Corpuscular Hemoglobin 30.6 pg (25.0-34.0); Mean Corpuscular Hgb Conc 33.7 g/dL (32.0-36.0); Mean Corpuscular Volume 90.7 fL (80.0-100.0); Mean Platelet Volume 12.7 fL (9.4-12.3); Platelet Count 125 K/uL (130-400); RDW Coefficient of Variation 13.7 % (11.5-14.5); RDW Standard Deviation 45.8 fL (36.4-46.3); Red Blood Count 3.24 M/uL (3.93-5.22); White Blood Count 21.07 K/ul (4.8-10.8)
[2022-10-31 05:29] LABS: BUN Creatinine Ratio 17.9 (10-20); Basophils # (auto) 0.04 K/uL (0-0.2); Basophils % (auto) 0.2 %; Calcium 8.3 mg/dl (8.5-10.1); Creatinine Clr Calc Pharmacy 29.1 ml/min; Dohle Bodies 2+; Eosinophils # (auto) 0.09 K/uL (0-0.50); Eosinophils % (auto) 0.4 %; Est GFR (African American) 32.5 ml/min; Immature Granulocytes # (auto) 0.09 K/uL (0.00-0.02); Immature Granulocytes % (auto) 0.4 %; Lymphocytes # (auto) 1.28 K/uL (1.2-3.4); Lymphocytes % (auto) 6.1 %; Magnesium 2.2 mg/dl (1.7-2.4); Monocytes % (auto) 7.1 %; Neutrophils # (auto) 18.07 K/uL (1.4-6.5); Neutrophils % (auto) 85.8 %; Polychromasia 1+; Toxic Vacuolation 2+
[2022-10-31] MEDS: LEVOTHYROXINE SODIUM 75 MCG TABLET PO SCH (05:59)
[2022-10-31] MEDS: ACETAMINOPHEN 325 MG TAB PO PRN ×2 (07:49→18:56)
[2022-10-31] MEDS: MULTIVITAMIN TAB PO SCH (08:17)
[2022-10-31] MEDS: PANTOprazole 40 MG TAB PO SCH (08:17)
[2022-10-31] MEDS: ADVANCED PROBIOTIC 1250 MG CAPSULE PO SCH (08:17)
[2022-10-31] MEDS: DOCUSATE SODIUM/SENNA 50/8.6MG TAB PO SCH (08:18)
[2022-10-31] MEDS ORDERED: AZTREONAM 1,000 MG in DEXTROSE 5% 100 ML IV SCH (10:00)
[2022-10-31] MEDS: oxyCODONE HCL IR 5 MG TAB (IMMEDIATE RELEASE) PO PRN ×2 (10:42→18:56)
[2022-10-31] MEDS ORDERED: LACTATED RINGER'S 1,000 ML IV ONE (12:19)
--- NOTE | 2022-10-31 13:54 | Communication Note ---
Date of Service: October 31, 2022 82-year-old female significant past medical history of hypertension, hyperlipidemia, recurrent UTI, type 2 diabetes, hypothyroidism, ankylosing spondylitis was admitted with abdominal pain likely secondary to urinary retention and will rule out UTI. She has been feeling a little better since admission and she has been on intravenous antibiotic and minimal amount of IV fluid for LOLITA. The full progress note will be done tomorrow. Dr Mary Brito
[2022-10-31] MEDS ORDERED: METOPROLOL TARTRATE 1 MG/ML VIAL IV STA (17:03)
[2022-10-31] MEDS: METOPROLOL SUCC 50MG EXT REL TAB PO SCH (19:57)
[2022-10-31 22:15] LABS: Urine Chloride < 15 mmol/L; Urine Sodium 11 mmol/L
[2022-10-31] MEDS: AZTREONAM 1,000 MG in DEXTROSE 5% 100 ML IV SCH (22:27)
[2022-11-01] MEDS ORDERED: DAPTOmycin 425 MG in SYRINGE 0 ML IV SCH
[2022-11-01] MEDS: LEVOTHYROXINE SODIUM 75 MCG TABLET PO SCH (05:29)
[2022-11-01] MEDS: ACETAMINOPHEN 325 MG TAB PO PRN ×3 (05:33→20:48)
--- NOTE | 2022-11-01 06:40 | Electrocardiogram Report ---
Test Reason : Blood Pressure : / mmHG Vent. Rate : 113 BPM Atrial Rate : 113 BPM P-R Int : 136 ms QRS Dur : 070 ms QT Int : 342 ms P-R-T Axes : 041 017 021 degrees QTc Int : 469 ms Sinus tachycardia Cannot rule out Anterior infarct , age undetermined Nonspecific ST and T wave abnormality Abnormal ECG When compared with ECG of 17-FEB-2022 13:03, Vent. rate has increased BY 41 BPM Confirmed by Tani Quinones ([id number]) on 11/01/2022 6:40:08 AM Referred By: REFERRED SELF Confirmed By:Tani Quinones
[2022-11-01 08:42] LABS: Hematocrit (blood only) 29.7 % (34.1-44.9); Hemoglobin 10.2 g/dl (12.0-16.0); Mean Corpuscular Hgb Conc 34.3 g/dL (32.0-36.0); Mean Corpuscular Volume 90.3 fL (80.0-100.0); Mean Platelet Volume 12.4 fL (9.4-12.3); Platelet Count 150 K/uL (130-400); RDW Coefficient of Variation 13.9 % (11.5-14.5); RDW Standard Deviation 45.6 fL (36.4-46.3); Red Blood Count 3.29 M/uL (3.93-5.22); White Blood Count 18.36 K/ul (4.8-10.8)
[2022-11-01 08:50] LABS: BUN Creatinine Ratio 22.7 (10-20); Calcium 7.9 mg/dl (8.5-10.1); Creatinine Clr Calc Pharmacy 26.4 ml/min; Est GFR (African American) 28.9 ml/min; Est GFR (Non-African American) 24.9 ml/min; Potassium 3.9 mmol/L (3.5-5.1)
[2022-11-01 09:32] LABS: Basophils # (auto) 0.06 K/uL (0-0.2); Basophils % (auto) 0.3 %; Eosinophils # (auto) 0.47 K/uL (0-0.50); Eosinophils % (auto) 2.6 %; Immature Granulocytes # (auto) 0.07 K/uL (0.00-0.02); Immature Granulocytes % (auto) 0.4 %; Lymphocytes % (auto) 4.4 %; Monocytes % (auto) 3.8 %; Neutrophils # (auto) 16.26 K/uL (1.4-6.5); Neutrophils % (auto) 88.5 %
[2022-11-01] MEDS: INSULIN ASPART PER UNIT SC SCH ×4 (10:40→20:49)
[2022-11-01] MEDS ORDERED: MAGNESIUM HYDROXIDE SUSP 30 ML UDC PO ONE (10:45)
[2022-11-01] MEDS: MULTIVITAMIN TAB PO SCH (10:51)
[2022-11-01] MEDS: PANTOprazole 40 MG TAB PO SCH (10:51)
[2022-11-01] MEDS: ADVANCED PROBIOTIC 1250 MG CAPSULE PO SCH (10:52)
[2022-11-01] MEDS: DOCUSATE SODIUM/SENNA 50/8.6MG TAB PO SCH (10:53)
[2022-11-01] MEDS: AZTREONAM 1,000 MG in DEXTROSE 5% 100 ML IV SCH ×2 (11:00→22:29)
--- NOTE | 2022-11-01 12:57 | Hospitalist Progress Note ---
Date of Service November 01, 2022 Assessment & Plan (1) Severe sepsis: Plan: SIRS plus ARF Secondary to complicated UTI, hx recurrent infections (Enterococcus, Pseudomonas, MDR E. coli on previous urine CS) Urine culture is growing 3 types of organisms likely contaminant Blood cultures have been We will continue aztreonam for now and discontinued daptomycin White count is minimally better and no fever and or chills PT/OT eval Hyperlipidemia on statin Rx DM2 on oral medications, well-controlled as of recent hemoglobin A1c of 6.7 this month Basal bolus insulin, ISS BG goal 1 10-1 40, carb count coverage Chronic anemia, hemoglobin at baseline Constipation Has been getting bowel regimen Suppository and/or Fleet enema may be needed (2) Hyponatremia: Plan: Acute on chronic hyponatremia secondary to illness Serum sodium noted to be low since last year on review of outpatient blood work SSRI, NSAID Rx contributory Urine osmolarity low as 330 Urine Sodium is 11 which is consistent with hyponatremia Sodium is improved to 127 today We will continue fluid restriction and monitor PRP (3) LOLITA (acute kidney injury): Plan: Creatinine remains elevated at 1.87 today Will not give any intravenous fluid due to possible pulmonary edema Patient is not having any shortness of breath and has not been requiring any oxygen to maintain saturation (4) Chronic perineal pain in female: Plan: Continues to have chronic peritoneal pain Pain in the sacral area No definite decubiti Will apply local diclofenac sodium (5) HTN (hypertension): Plan: Blood pressure is controlled (6) Hypothyroidism: Plan: Continue supplement (7) GERD (gastroesophageal reflux disease): (8) Anxiety: Plan: To anxiety and depression No acute delirium Continue current medication Plan DVT prophylaxis. SCDs Re: ITP Chronic ITP as per records Full code Admission and Anticipated Discharge Date Admission Date: October 31, 2022 Subjective 11/01/2022 The patient was seen and examined in medical telemetry unit She complains abdominal discomfort and distention without any pain Still has the sacral pain and pelvic pain without any radiation No fever and or chills, no chest pain, palpitation or shortness of breath Review of Systems Review of Systems: All systems reviewed and are unremarkable except as noted below Physical Exam Physical Exam: Lying in bed with minimal discomfort due to abdominal distention and bowel not moved Constitutional: well developed, well nourished, + ill appearing and + obese Eyes: PERRL, conjunctivae normal, anicteric sclerae ENMT: external ear and nose normal, oropharynx normal Neck: trachea midline, no thyromegaly Respiratory: no respiratory distress Auscultation: + diminished lung sounds and + crackles (Minimal crackles at the bases) Cardiovascular: Rate/Rhythm: regular rate and regular rhythm; not tachycardic Heart Sounds: normal S1 and normal S2; no murmur Extremities: + edema (Trace edema bilaterally) Gastrointestinal (Abdomen): Inspection/Auscultation: + abdomen distended and normal bowel sounds Percussion/Palpation: abdomen soft; abdomen nontender Musculoskeletal: No acute arthritis involving any joint. Movements of the lower extremities did not produce any significant pain in the hips and her knees Neurologic: normal touch/pain/proprioception and moves all extremities; no focal motor deficits Lymphatic: no cervical or axillary lymphadenopathy Results & Data Results & Data ([facility]) Vital Signs (Past 12 Hours) Vital Signs Temp Pulse Pulse Resp BP Pulse Ox O2 Del Method 11/01/22 11:54 36.8 C 87 18 114/69 97 Room Air 11/01/22 07:51 36.5 C 85 20 107/68 97 Room Air 11/01/22 07:29 85 11/01/22 02:57 36.4 C L 82 18 114/71 94 Room Air Laboratory Results Short CBC 11/01/22 Range/Units 08:06 WBC 18.36 H (4.8-10.8) K/ul Hgb 10.2 L (12.0-16.0) g/dl Hct 29.7 L (34.1-44.9) % Plt Count 150 (130-400) K/uL BMP 11/01/22 08:06 Sodium 127 L Potassium 3.9 Chloride 93 L Carbon Dioxide 25 BUN 42 H Creatinine 1.85 H Glucose 109 H Calcium 7.9 L Cardiac Enzymes 11/01/22 Range/Units 08:06 Total Creatine Kinase 38 (26-192) U/L Medications Administered Current Inpatient Medications Acetaminophen (Acetaminophen 325 Mg Tab) 650 mg PO Q4H PRN PRN Reason: Pain or Fever Stop: 11/30/22 02:35 Last Admin: 11/01/22 11:16 Dose: 650 mg Dextrose (Dextrose 50% 50 Ml Syringe) 25 - 50 ml IV UD PRN; Protocol PRN Reason: Hypoglycemia Protocol Stop: 11/30/22 02:35 Diclofenac Sodium (Diclofenac Sod 1% Gel 100 Gm Tube) 2 gm EXT TID [facility]; Protocol Stop: 12/01/22 13:59 Fluticasone Propionate (Fluticasone Propionate Na Spr 16 Gm Btl) 2 sprays WALDEMAR DAILY PRN PRN Reason: Nasal Congestion Stop: 11/30/22 02:35 Glucagon (Glucagon For Inj 1 Mg Vial) 1 mg SQ UD PRN; Protocol PRN Reason: Hypoglycemia Protocol Stop: 11/30/22 02:35 Glucose (Glucose 40% Gel 15 Gm Tube) 15 - 30 gm PO UD PRN; Protocol PRN Reason: Hypoglycemia Protocol Stop: 11/30/22 02:35 Glucose (Glucose 10 Tab/Tube) 4 - 8 tab PO UD PRN; Protocol PRN Reason: Hypoglycemia Treatment Stop: 11/30/22 02:35 Aztreonam 1,000 mg/ Dextrose 110 mls @ 100 mls/hr IV Q12H [facility]; Protocol Stop: 11/10/22 09:59 Last Infusion: 11/01/22 12:06 Dose: Infused Insulin Aspart (Insulin Aspart Per Unit) 0 units SC ACHS [facility] Stop: 11/30/22 02:35 Last Admin: 11/01/22 10:40 Dose: 4 units Lactobacillus Acidophilus (Advanced Probiotic 1250 Mg Capsule) 2 cap PO DAILY [facility] Stop: 11/30/22 08:59 Last Admin: 11/01/22 10:52 Dose: 2 cap Levothyroxine Sodium (Levothyroxine Sodium 75 Mcg Tablet) 75 mcg PO DAILYBB [facility] Stop: 11/30/22 06:29 Last Admin: 11/01/22 05:29 Dose: 75 mcg Metoprolol Succinate (Metoprolol Succ 50mg Ext Rel Tab) 50 mg PO HS [facility] Stop: 11/30/22 20:59 Last Admin: 10/31/22 19:57 Dose: 50 mg Miscellaneous (Carbohydrates For Hypoglycemia ) 15 - 30 gm PO UD PRN PRN Reason: Hypoglycemia Protocol Stop: 11/30/22 02:35 Multivitamins (Multivitamin Tab) 1 tab PO DAILY [facility] Stop: 11/30/22 08:59 Last Admin: 11/01/22 10:51 Dose: 1 tab Oxycodone HCl (Oxycodone Hcl Ir 5 Mg Tab (Immediate Release)) 5 mg PO BID PRN PRN Reason: pain Stop: 11/14/22 02:35 Last Admin: 10/31/22 18:56 Dose: 5 mg Pantoprazole Sodium (Pantoprazole 40 Mg Tab) 40 mg PO DAILY [facility] Stop: 11/30/22 08:59 Last Admin: 11/01/22 10:51 Dose: 40 mg Polyethylene Glycol (Polyethylene (Miralax) 17 Gm Pack) 17 gm PO DAILY PRN PRN Reason: Constipation Stop: 11/30/22 01:37 Senna/Docusate Sodium (Docusate Sodium/Senna 50/8.6mg Tab) 1 tab PO QAM [facility] Stop: 11/30/22 08:59 Last Admin: 11/01/22 10:53 Dose: 1 tab
[2022-11-01] MEDS: oxyCODONE HCL IR 5 MG TAB (IMMEDIATE RELEASE) PO PRN (13:22)
[2022-11-01] MEDS: DICLOFENAC SOD 1% GEL 100 GM TUBE EXT SCH ×2 (15:53→20:49)
[2022-11-01] MEDS: METOPROLOL SUCC 50MG EXT REL TAB PO SCH (20:49)
[2022-11-02] MEDS ORDERED: DAPTOmycin 425 MG in SYRINGE 0 ML IV SCH
[2022-11-02] MEDS: LEVOTHYROXINE SODIUM 75 MCG TABLET PO SCH (05:52)
[2022-11-02] MEDS: ACETAMINOPHEN 325 MG TAB PO PRN (05:59)
[2022-11-02 08:04] LABS: Basophils # (auto) 0.08 K/uL (0-0.2); Basophils % (auto) 0.5 %; Eosinophils # (auto) 0.64 K/uL (0-0.50); Eosinophils % (auto) 3.8 %; Hematocrit (blood only) 31.3 % (34.1-44.9); Hemoglobin 10.7 g/dl (12.0-16.0); Immature Granulocytes # (auto) 0.18 K/uL (0.00-0.02); Immature Granulocytes % (auto) 1.1 %; Lymphocytes # (auto) 1.19 K/uL (1.2-3.4); Mean Corpuscular Hgb Conc 34.2 g/dL (32.0-36.0); Mean Corpuscular Volume 90.7 fL (80.0-100.0); Mean Platelet Volume 12.2 fL (9.4-12.3); Monocytes # (auto) 1.22 K/uL (0.24-0.82); Monocytes % (auto) 7.2 %; Neutrophils # (auto) 13.69 K/uL (1.4-6.5); Neutrophils % (auto) 80.4 %; Platelet Count 172 K/uL (130-400); RDW Standard Deviation 46.5 fL (36.4-46.3); Red Blood Count 3.45 M/uL (3.93-5.22)
[2022-11-02 08:47] LABS: Calcium 8.2 mg/dl (8.5-10.1); Magnesium 2.4 mg/dl (1.7-2.4); Potassium 4.1 mmol/L (3.5-5.1)
[2022-11-02 08:53] LABS: Creatinine Clr Calc Pharmacy 33.6 ml/min; Est GFR (African American) 43.4 ml/min; Est GFR (Non-African American) 37.5 ml/min; Phosphorus 3.3 mg/dl (2.5-4.9)
[2022-11-02] MEDS: ADVANCED PROBIOTIC 1250 MG CAPSULE PO SCH (09:08)
[2022-11-02] MEDS: PANTOprazole 40 MG TAB PO SCH (09:08)
[2022-11-02] MEDS: MULTIVITAMIN TAB PO SCH (09:08)
[2022-11-02] MEDS: DICLOFENAC SOD 1% GEL 100 GM TUBE EXT SCH ×3 (09:13→20:42)
[2022-11-02] MEDS: INSULIN ASPART PER UNIT SC SCH ×4 (09:20→20:37)
[2022-11-02] MEDS: AZTREONAM 1,000 MG in DEXTROSE 5% 100 ML IV SCH ×2 (10:00→17:48)
[2022-11-02] MEDS ORDERED: SOD PHOSPHATE/SOD BIPHOSPHATE ENEMA 132 ML BTL PR STA ×2 (10:20→15:19)
[2022-11-02] MEDS: oxyCODONE HCL IR 5 MG TAB (IMMEDIATE RELEASE) PO PRN (12:24)
[2022-11-02] MEDS: DOCUSATE SODIUM/SENNA 50/8.6MG TAB PO SCH (12:27)
--- NOTE | 2022-11-02 14:33 | Hospitalist Progress Note ---
Date of Service November 02, 2022 Assessment & Plan (1) Severe sepsis: Plan: SIRS plus ARF Secondary to complicated UTI, hx recurrent infections (Enterococcus, Pseudomonas, MDR E. coli on previous urine CS) Urine culture is growing 3 types of organisms likely contaminant Blood cultures have been We will continue aztreonam for now and discontinued daptomycin White count is minimally better and no fever and or chills PT/OT eval-appreciate input and recommendation for rehab No more fever and or chills and white count is gradually improving Urine culture is contaminant Plan to continue antibiotic for a total of 5 days Left shoulder pain Doubt any arthritis Injured the shoulder during the fall Will apply local Voltaren (2) Hyponatremia: Plan: Acute on chronic hyponatremia secondary to illness Serum sodium noted to be low since last year on review of outpatient blood work SSRI, NSAID Rx contributory Urine osmolarity low as 330 Urine Sodium is 11 which is consistent with hyponatremia Sodium level has gone up to 131 Will monitor PRP (3) LOLITA (acute kidney injury): Plan: Creatinine remains elevated at 1.87 today Will not give any intravenous fluid due to possible pulmonary edema Patient is not having any shortness of breath and has not been requiring any oxygen to maintain saturation Advised to drink little bit more fluid Creatinine has improved to 1.32 (4) Chronic perineal pain in female: Plan: Continues to have chronic peritoneal pain Pain in the sacral area No definite decubiti Will apply local diclofenac sodium (5) HTN (hypertension): Plan: Blood pressure is controlled (6) Hypothyroidism: Plan: Continue supplement (7) GERD (gastroesophageal reflux disease): (8) Anxiety: Plan: To anxiety and depression No acute delirium Continue current medication Plan Hyperlipidemia on statin Rx DM2 on oral medications, well-controlled as of recent hemoglobin A1c of 6.7 this month Basal bolus insulin, ISS BG goal 1 10-1 40, carb count coverage Chronic anemia, hemoglobin at baseline Constipation Has been getting bowel regimen Suppository and/or Fleet enema may be needed Still has abdominal distention and bowel is not moved Will try Fleet enema DVT prophylaxis. SCDs Re: ITP Chronic ITP as per records Full code Admission and Anticipated Discharge Date Admission Date: October 31, 2022 Subjective 11/01/2022 The patient was seen and examined in medical telemetry unit She complains abdominal discomfort and distention without any pain Still has the sacral pain and pelvic pain without any radiation No fever and or chills, no chest pain, palpitation or shortness of breath 11/10/2022 The patient was seen and examined in medical telemetry unit She has been complaining of vague symptoms including left shoulder pain that she cannot move, left sided neck pain, constipation and general unwell Has not been having any acute distress No fever and no chills, no abdominal pain nausea no vomiting Review of Systems Review of Systems: All systems reviewed and are unremarkable except as noted below Physical Exam Physical Exam: Lying in bed with minimal discomfort due to abdominal distention and bowel not moved Constitutional: well developed, well nourished, + ill appearing and + obese Eyes: PERRL, conjunctivae normal, anicteric sclerae ENMT: external ear and nose normal, oropharynx normal Neck: trachea midline, no thyromegaly Respiratory: no respiratory distress Auscultation: + diminished lung sounds and + crackles (Minimal crackles at the bases) Cardiovascular: Rate/Rhythm: regular rate and regular rhythm; not tachycardic Heart Sounds: normal S1 and normal S2; no murmur Extremities: + edema (Trace edema bilaterally) Gastrointestinal (Abdomen): Inspection/Auscultation: + abdomen distended and normal bowel sounds Percussion/Palpation: abdomen soft; abdomen nontender Musculoskeletal: Shoulder: + skin erythema (Posterior part of left shoulder); normal ROM of shoulder and no joint line tenderness Neurologic: normal touch/pain/proprioception and moves all extremities; no focal motor deficits Lymphatic: no cervical or axillary lymphadenopathy Results & Data Results & Data ([facility]) Vital Signs (Past 12 Hours) Vital Signs Temp Pulse Pulse Resp BP BP Pulse Ox 11/02/22 08:00 11/02/22 11:30 36.6 C 81 20 132/67 97 11/02/22 07:52 36.8 C 82 18 149/64 H 97 11/02/22 07:12 82 11/02/22 03:28 36.8 C 83 18 141/74 H 98 O2 Del Method 11/02/22 08:00 Room Air 11/02/22 11:30 Room Air 11/02/22 07:52 Room Air 11/02/22 07:12 11/02/22 03:28 Room Air Laboratory Results Short CBC 11/02/22 Range/Units 07:42 WBC 17.00 H (4.8-10.8) K/ul Hgb 10.7 L (12.0-16.0) g/dl Hct 31.3 L (34.1-44.9) % Plt Count 172 (130-400) K/uL [facility] 11/02/22 07:42 Sodium 131 L Potassium 4.1 Chloride 98 Carbon Dioxide 24 BUN 37 H Creatinine 1.32 H D Glucose 114 H Calcium 8.2 L Medications Administered Current Inpatient Medications Acetaminophen (Acetaminophen 325 Mg Tab) 650 mg PO Q4H PRN PRN Reason: Pain or Fever Stop: 11/30/22 02:35 Last Admin: 11/02/22 05:59 Dose: 650 mg Dextrose (Dextrose 50% 50 Ml Syringe) 25 - 50 ml IV UD PRN; Protocol PRN Reason: Hypoglycemia Protocol Stop: 11/30/22 02:35 Diclofenac Sodium (Diclofenac Sod 1% Gel 100 Gm Tube) 2 gm EXT TID PREETI; Protocol Stop: 12/01/22 13:59 Last Admin: 11/02/22 09:13 Dose: 2 gm Fluticasone Propionate (Fluticasone Propionate Na Spr 16 Gm Btl) 2 sprays WALDEMAR DAILY PRN PRN Reason: Nasal Congestion Stop: 11/30/22 02:35 Glucagon (Glucagon For Inj 1 Mg Vial) 1 mg SQ UD PRN; Protocol PRN Reason: Hypoglycemia Protocol Stop: 11/30/22 02:35 Glucose (Glucose 40% Gel 15 Gm Tube) 15 - 30 gm PO UD PRN; Protocol PRN Reason: Hypoglycemia Protocol Stop: 11/30/22 02:35 Glucose (Glucose 10 Tab/Tube) 4 - 8 tab PO UD PRN; Protocol PRN Reason: Hypoglycemia Treatment Stop: 11/30/22 02:35 Aztreonam 1,000 mg/ Dextrose 110 mls @ 100 mls/hr IV Q8H [facility]; Protocol Stop: 11/10/22 09:59 Insulin Aspart (Insulin Aspart Per Unit) 0 units SC ACHS [facility] Stop: 11/30/22 02:35 Last Admin: 11/02/22 12:31 Dose: 6 units Lactobacillus Acidophilus (Advanced Probiotic 1250 Mg Capsule) 2 cap PO DAILY [facility] Stop: 11/30/22 08:59 Last Admin: 11/02/22 09:08 Dose: 2 cap Levothyroxine Sodium ([facility]othyroxine Sodium 75 Mcg Tablet) [facility] Stop: 11/30/22 06:29 Last Admin: 11/02/22 05:52 Dose: 75 mcg Metoprolol Succinate (Metoprolol Succ 50mg Ext Rel Tab) 50 mg PO HS [facility] Stop: 11/30/22 20:59 Last Admin: 11/01/22 20:49 Dose: 50 mg Miscellaneous (Carbohydrates For Hypoglycemia ) 15 - 30 gm PO UD PRN PRN Reason: Hypoglycemia Protocol Stop: 11/30/22 02:35 Multivitamins (Multivitamin Tab) 1 tab PO DAILY [facility] Stop: 11/30/22 08:59 Last Admin: 11/02/22 09:08 Dose: 1 tab Oxycodone HCl (Oxycodone Hcl Ir 5 Mg Tab (Immediate Release)) 5 mg PO BID PRN PRN Reason: pain Stop: 11/14/22 02:35 Last Admin: 11/02/22 12:24 Dose: 5 mg Pantoprazole Sodium (Pantoprazole 40 Mg Tab) 40 mg PO DAILY [facility] Stop: 11/30/22 08:59 Last Admin: 11/02/22 09:08 Dose: 40 mg Polyethylene Glycol (Polyethylene (Miralax) 17 Gm Pack) 17 gm PO DAILY PRN PRN Reason: Constipation Stop: 11/30/22 01:37 Senna/Docusate Sodium (Docusate Sodium/Senna 50/8.6mg Tab) 1 tab PO QAM [facility] Stop: 11/30/22 08:59 Last Admin: 11/02/22 12:27 Dose: 1 tab
[2022-11-02] MEDS: METOPROLOL SUCC 50MG EXT REL TAB PO SCH (20:42)
[2022-11-02] MEDS ORDERED: ONDANSETRON INJ 2 MG/ML 2 ML VIAL IV STA (21:17)
[2022-11-03] MEDS: AZTREONAM 1,000 MG in DEXTROSE 5% 100 ML IV SCH ×3 (01:58→17:50)
[2022-11-03] MEDS: oxyCODONE HCL IR 5 MG TAB (IMMEDIATE RELEASE) PO PRN (01:58)
[2022-11-03] MEDS: LEVOTHYROXINE SODIUM 75 MCG TABLET PO SCH (05:38)
[2022-11-03 08:06] LABS: Basophils # (auto) 0.07 K/uL (0-0.2); Basophils % (auto) 0.6 %; Hematocrit (blood only) 30.3 % (34.1-44.9); Hemoglobin 10.3 g/dl (12.0-16.0); Immature Granulocytes # (auto) 0.54 K/uL (0.00-0.02); Immature Granulocytes % (auto) 4.3 %; Lymphocytes % (auto) 8.8 %; Mean Corpuscular Hemoglobin 30.9 pg (25.0-34.0); Mean Platelet Volume 11.7 fL (9.4-12.3); Monocytes # (auto) 1.12 K/uL (0.24-0.82); Monocytes % (auto) 8.9 %; Neutrophils # (auto) 9.22 K/uL (1.4-6.5); Neutrophils % (auto) 73.4 %; Platelet Count 213 K/uL (130-400); RDW Coefficient of Variation 14.2 % (11.5-14.5); RDW Standard Deviation 47.5 fL (36.4-46.3); Red Blood Count 3.33 M/uL (3.93-5.22); White Blood Count 12.55 K/ul (4.8-10.8)
[2022-11-03 09:10] LABS: Calcium 8.2 mg/dl (8.5-10.1)
[2022-11-03] MEDS: INSULIN ASPART PER UNIT SC SCH ×4 (09:12→21:26)
[2022-11-03] MEDS: DOCUSATE SODIUM/SENNA 50/8.6MG TAB PO SCH (09:13)
[2022-11-03] MEDS: PANTOprazole 40 MG TAB PO SCH (09:13)
[2022-11-03] MEDS: MULTIVITAMIN TAB PO SCH (09:13)
[2022-11-03] MEDS: ADVANCED PROBIOTIC 1250 MG CAPSULE PO SCH (09:13)
[2022-11-03 09:16] LABS: BUN Creatinine Ratio 24.8 (10-20); Creatinine Clr Calc Pharmacy 40.2 ml/min; Est GFR (African American) 52.4 ml/min; Est GFR (Non-African American) 45.2 ml/min
[2022-11-03] MEDS: DICLOFENAC SOD 1% GEL 100 GM TUBE EXT SCH ×3 (09:23→19:38)
[2022-11-03] MEDS: POLYETHYLENE (MIRALAX) 17 GM PACK PO SCH (10:04)
[2022-11-03] MEDS: ACETAMINOPHEN 325 MG TAB PO PRN ×3 (11:26→19:38)
--- NOTE | 2022-11-03 16:40 | Hospitalist Progress Note ---
Date of Service November 03, 2022 Assessment & Plan (1) Severe sepsis: Plan: Per Dr. Brito's notes with addendum: (1) Severe sepsis: Plan: SIRS plus ARF Secondary to complicated UTI, hx recurrent infections (Enterococcus, Pseudomonas, MDR E. coli on previous urine CS) Urine culture is growing 3 types of organisms likely contaminant Blood cultures have been We will continue aztreonam for now and discontinued daptomycin White count is minimally better and no fever and or chills PT/OT eval-appreciate input and recommendation for rehab No more fever and or chills and white count is gradually improving Urine culture is contaminant Plan to continue antibiotic for a total of 5 days 11/03 Urine culture: Negative Blood cultures: Negative Afebrile On empiric aztreonam day #2 Left shoulder pain Doubt any arthritis Injured the shoulder during the fall Will apply local Voltaren Pain improving (2) Hyponatremia: Plan: Acute on chronic hyponatremia secondary to illness Serum sodium noted to be low since last year on review of outpatient blood work SSRI, NSAID Rx contributory Urine osmolarity low as 330 Urine Sodium is 11 which is consistent with hyponatremia Sodium level has gone up to 131 11/03 Sodium 133 (3) LOLITA (acute kidney injury): Plan: Creatinine remains elevated at 1.87 today Will not give any intravenous fluid due to possible pulmonary edema Patient is not having any shortness of breath and has not been requiring any oxygen to maintain saturation Advised to drink little bit more fluid Creatinine has improved to 1.32 11/03 Creatinine 1.1 (4) Chronic perineal pain in female: Plan: Continues to have chronic peritoneal pain Pain in the sacral area No definite decubiti Will apply local diclofenac sodium 11/03 No reported pain today (5) HTN (hypertension): Plan: Blood pressure stable (6) Hypothyroidism: Plan: Continue supplement (7) GERD (gastroesophageal reflux disease): (8) Anxiety: Plan: To anxiety and depression No acute delirium Continue current medication Plan Hyperlipidemia on statin Rx DM2 on oral medications, well-controlled as of recent hemoglobin A1c of 6.7 this month Basal bolus insulin, ISS BG goal 1 10-1 40, carb count coverage BSG 141-174 Chronic anemia, hemoglobin at baseline Constipation Has been getting bowel regimen Suppository and/or Fleet enema may be needed Still has abdominal distention and bowel is not moved Will try Fleet enema 11/03 Positive BMs last night DVT prophylaxis. SCDs Re: ITP Chronic ITP as per records Full code Disposition Will need acute rehab or usp facility Admission and Anticipated Discharge Date Admission Date: October 31, 2022 Subjective Follow-up for possible UTI, etc. Seen resting in bed, comfortable, not in distress, in good spirits States she still feels tired No fevers or chills, urinary symptoms, abdominal pain, nausea vomiting, cough, shortness of breath No other new symptoms Review of Systems Review of Systems: all noted and negative except for above Physical Exam Physical Exam: General- oriented x 3, not in distress, speaks in sentences with no effort or accessory muscle use Eyes- anicteric Neck- no JVD Lungs- clear breath sounds bilaterally, no crackles or wheezing Heart- normal rate, regular rhythm; no murmurs Abdomen- normal bowel sounds, nondistended, soft, nontender Extremities- no pretibial edema, no calf tenderness Neuro- alert, oriented x 3; no gross focal neurologic deficits Skin- warm & dry Results & Data Results & Data ([facility]) Vital Signs (Past 12 Hours) Vital Signs Temp Pulse Pulse Resp BP BP Pulse Ox 11/03/22 14:38 36.7 C 80 16 130/80 95 11/03/22 13:25 11/03/22 11:23 36.5 C 79 16 129/83 95 11/03/22 08:13 36.7 C 81 19 137/81 96 11/03/22 07:35 79 O2 Del Method 11/03/22 14:38 Room Air 11/03/22 13:25 Room Air 11/03/22 11:23 Room Air 11/03/22 08:13 Room Air 11/03/22 07:35 all noted and reviewed including below
[2022-11-03] MEDS: METOPROLOL SUCC 50MG EXT REL TAB PO SCH (19:38)
[2022-11-03] MEDS: MELATONIN 3 MG TAB PO PRN (21:30)
[2022-11-04] MEDS: AZTREONAM 1,000 MG in DEXTROSE 5% 100 ML IV SCH ×3 (02:30→17:40)
[2022-11-04] MEDS: LEVOTHYROXINE SODIUM 75 MCG TABLET PO SCH (06:39)
[2022-11-04] MEDS: ACETAMINOPHEN 325 MG TAB PO PRN ×4 (06:42→22:51)
[2022-11-04] MEDS: DICLOFENAC SOD 1% GEL 100 GM TUBE EXT SCH ×3 (09:06→20:56)
[2022-11-04] MEDS: ADVANCED PROBIOTIC 1250 MG CAPSULE PO SCH (09:06)
[2022-11-04] MEDS: PANTOprazole 40 MG TAB PO SCH (09:06)
[2022-11-04] MEDS: MULTIVITAMIN TAB PO SCH (09:06)
[2022-11-04] MEDS: POLYETHYLENE (MIRALAX) 17 GM PACK PO SCH (09:10)
[2022-11-04] MEDS: INSULIN ASPART PER UNIT SC SCH ×4 (09:16→20:56)
[2022-11-04] MEDS ORDERED: ALUMINUM/MAGNESIUM SUSP 30 ML UDC PO STA (13:54)
[2022-11-04] MEDS ORDERED: oxyCODONE HCL IR 5 MG TAB (IMMEDIATE RELEASE) PO STA ×2 (14:14→14:28)
[2022-11-04] MEDS ORDERED: NITROGLYCERIN SL 0.4 MG/TAB TAB SL STA (14:16)
--- NOTE | 2022-11-04 16:01 | Hospitalist Progress Note ---
Date of Service November 04, 2022 Assessment & Plan (1) Severe sepsis: Plan: Per Dr. Brito's notes with addendum: (1) Severe sepsis: Plan: SIRS plus ARF Secondary to complicated UTI, hx recurrent infections (Enterococcus, Pseudomonas, MDR E. coli on previous urine CS) Urine culture is growing 3 types of organisms likely contaminant Blood cultures have been We will continue aztreonam for now and discontinued daptomycin White count is minimally better and no fever and or chills PT/OT eval-appreciate input and recommendation for rehab No more fever and or chills and white count is gradually improving Urine culture is contaminant Plan to continue antibiotic for a total of 5 days 11/04 Urine culture: Negative Blood cultures: Negative Afebrile d/c aztreonam Left shoulder pain Doubt any arthritis Injured the shoulder during the fall local Voltaren Pain improving Epigastric Pain likely GERD resolved with Maalox EKG negative Troponin negative (2) Hyponatremia: Plan: Acute on chronic hyponatremia secondary to illness Serum sodium noted to be low since last year on review of outpatient blood work SSRI, NSAID Rx contributory Urine osmolarity low as 330 Urine Sodium is 11 which is consistent with hyponatremia Sodium level has gone up to 131 11/04 Sodium 133 (3) LOLITA (acute kidney injury): Plan: Creatinine remains elevated at 1.87 today Will not give any intravenous fluid due to possible pulmonary edema Patient is not having any shortness of breath and has not been requiring any oxygen to maintain saturation Advised to drink little bit more fluid Creatinine has improved to 1.32 11/04 Creatinine 1.1 (4) Chronic perineal pain in female: Plan: Continues to have chronic peritoneal pain Pain in the sacral area No definite decubiti Will apply local diclofenac sodium 11/04 No reported pain today (5) HTN (hypertension): Plan: Blood pressure stable (6) Hypothyroidism: Plan: Continue supplement (7) GERD (gastroesophageal reflux disease): (8) Anxiety: Plan: To anxiety and depression No acute delirium Continue current medication Plan Hyperlipidemia on statin Rx DM2 on oral medications, well-controlled as of recent hemoglobin A1c of 6.7 this month Basal bolus insulin, ISS BG goal 1 10-1 40, carb count coverage Chronic anemia, hemoglobin at baseline Constipation Has been getting bowel regimen Suppository and/or Fleet enema may be needed Still has abdominal distention and bowel is not moved Will try Fleet enema 11/04 Positive BMs DVT prophylaxis. SCDs Re: ITP Chronic ITP as per records Full code Disposition Will need acute rehab or usp facility Admission and Anticipated Discharge Date Admission Date: October 31, 2022 Subjective ff up for UTI, etc seen resting in bed, comfortable having epigastric pain, sharp radiating to left arm no chest pain, dyspnea, palpitations, dizziness no other symptoms given Miralax- epigastric pain resolving EKG negative troponin negative Review of Systems Review of Systems: all noted and negative except for above Physical Exam Physical Exam: General- oriented x 3, not in distress, speaks in sentences with no effort or accessory muscle use Eyes- anicteric Neck- no JVD Lungs- clear BS bilaterally, no rales/wheezes Heart- normal rate, regular rhythm; no murmurs Abdomen- normal bowel sounds, nondistended, soft, nontender Extremities- no pretibial edema, no calf tenderness Neuro- alert, oriented x 3; no gross focal neurologic deficits Skin- warm & dry Results & Data Results & Data ([facility] [place]) Vital Signs (Past 12 Hours) Vital Signs Temp Pulse Resp BP Pulse Ox O2 Del Method 11/04/22 14:58 36.7 C 86 16 160/80 H 94 Room Air 11/04/22 13:45 36.7 C 83 16 147/76 H 97 Room Air 11/04/22 09:00 Room Air 11/04/22 07:31 36.5 C 85 16 167/84 H 94 Room Air all noted and reviewed including below
[2022-11-04] MEDS: METOPROLOL SUCC 50MG EXT REL TAB PO SCH (20:55)
[2022-11-04] MEDS: MELATONIN 3 MG TAB PO PRN (21:04)
--- NOTE | 2022-11-04 23:50 | Hospitalist Progress Note ---
Date of Service November 04, 2022 Assessment & Plan Admission and Anticipated Discharge Date Admission Date: October 31, 2022 Subjective ff up for s/p fall, etc seen resting in bed, comfortable on 2 L states she feels ok overall reports L shoulder pain no chest pain, dyspnea, palpitations, dizziness no other symptoms Review of Systems Review of Systems: all noted and negative except for above Physical Exam Physical Exam: General- oriented x 3, not in distress, speaks in sentences with no effort or accessory muscle use Eyes- anicteric Neck- no JVD Lungs- clear BS bilaterally, no rales/wheezes Heart- normal rate, regular rhythm; no murmurs Abdomen- normal bowel sounds, nondistended, soft, nontender Extremities- no pretibial edema, no calf tenderness L shoulder- mild edema and erythema Neuro- alert, oriented x 3; no gross focal neurologic deficits Skin- warm & dry Results & Data Results & Data ([facility]) Vital Signs (Past 12 Hours) Vital Signs Temp Pulse Resp BP BP Pulse Ox O2 Del Method 11/04/22 19:30 Room Air 11/04/22 20:50 36.5 C 97 H 20 159/82 H 98 Room Air 11/04/22 14:58 36.7 C 86 16 160/80 H 94 Room Air 11/04/22 13:45 36.7 C 83 16 147/76 H 97 Room Air all noted and reviewed including below
[2022-11-05] MEDS: AZTREONAM 1,000 MG in DEXTROSE 5% 100 ML IV SCH ×3 (02:24→17:34)
[2022-11-05] MEDS ORDERED: ALUMINUM/MAGNESIUM/SIMETH (MAALOX MAX) 30 ML UDC PO STA (02:30)
[2022-11-05] MEDS: LEVOTHYROXINE SODIUM 75 MCG TABLET PO SCH (06:03)
[2022-11-05] MEDS: ACETAMINOPHEN 325 MG TAB PO PRN ×2 (08:27→15:20)
[2022-11-05] MEDS: DICLOFENAC SOD 1% GEL 100 GM TUBE EXT SCH ×3 (08:28→20:36)
[2022-11-05] MEDS: MULTIVITAMIN TAB PO SCH (08:28)
[2022-11-05] MEDS: PANTOprazole 40 MG TAB PO SCH (08:28)
[2022-11-05] MEDS: ADVANCED PROBIOTIC 1250 MG CAPSULE PO SCH (08:28)
[2022-11-05] MEDS: POLYETHYLENE (MIRALAX) 17 GM PACK PO SCH (08:40)
[2022-11-05] MEDS: INSULIN ASPART PER UNIT SC SCH ×4 (09:00→21:22)
[2022-11-05] MEDS ORDERED: KETOROLAC TROMETHAMINE 15 MG/ML VIAL IV ONE (09:31)
--- NOTE | 2022-11-05 09:49 | Electrocardiogram Report ---
Test Reason : Blood Pressure : / mmHG Vent. Rate : 083 BPM Atrial Rate : 083 BPM P-R Int : 150 ms QRS Dur : 084 ms QT Int : 380 ms P-R-T Axes : 051 015 046 degrees QTc Int : 446 ms Normal sinus rhythm Normal ECG When compared with ECG of 30-OCT-2022 19:33, No significant change was found Confirmed by Nuno Robertson [id number] on 11/05/2022 9:48:54 AM Referred By: REFERRED SELF Confirmed By:Seven Robertson
--- NOTE | 2022-11-05 11:10 | XRay Report ---
XR shoulder LT min 2V routine HISTORY: 82 years-old Female R/o Fracture acute left shoulder pain status post trauma COMPARISON: Chest radiograph 10/30/2022 TECHNIQUE: 2 views of the left shoulder FINDINGS: Mild AC joint with moderate glenohumeral osteoarthritis. There is no acute fracture, dislocation, opa que foreign body or osseous erosion identified. The imaged lung coates appear generally clear. IMPRESSION: No acute fracture or dislocation identified. ACT 112: Negative or not required by law. The above report was generated using voice recognition software. It may contain grammatical, syntax o r spelling errors. Electronically signed by: Lobo Tolliver M.D. 11/05/2022 11:08 AM
[2022-11-05] MEDS: CALCIUM CARBONATE 500 MG CHEWABLE TAB PO PRN (13:16)
--- NOTE | 2022-11-05 15:51 | Hospitalist Progress Note ---
Date of Service November 05, 2022 Assessment & Plan (1) Severe sepsis: Plan: SIRS plus ARF Secondary to complicated UTI, hx recurrent infections (Enterococcus, Pseudomonas, MDR E. coli on previous urine CS) Urine culture is growing 3 types of organisms likely contaminant Blood cultures have been We will continue aztreonam for now and discontinued daptomycin White count is minimally better and no fever and or chills PT/OT eval-appreciate input and recommendation for rehab No more fever and or chills and white count is gradually improving Urine culture is contaminant Plan to continue antibiotic for a total of 5 days Antibiotic has been discontinued Patient remains afebrile and free of any urinary symptoms and/or respiratory symptoms Left shoulder pain Doubt any arthritis Injured the shoulder during the fall Will apply local Voltaren Left posterior shoulder is inflamed-likely secondary to fall with minor trauma X-ray of the left shoulder remains unremarkable (2) Hyponatremia: Plan: Acute on chronic hyponatremia secondary to illness Serum sodium noted to be low since last year on review of outpatient blood work SSRI, NSAID Rx contributory Urine osmolarity low as 330 Urine Sodium is 11 which is consistent with hyponatremia Sodium level has gone up to 131 Sodium level remains around 133 (3) LOLITA (acute kidney injury): Plan: Creatinine remains elevated at 1.87 today Will not give any intravenous fluid due to possible pulmonary edema Patient is not having any shortness of breath and has not been requiring any oxygen to maintain saturation Advised to drink little bit more fluid Creatinine has improved to 1.32 (4) Chronic perineal pain in female: Plan: Continues to have chronic peritoneal pain Pain in the sacral area No definite decubiti Will apply local diclofenac sodium (5) HTN (hypertension): Plan: Blood pressure is controlled (6) Hypothyroidism: Plan: Continue supplement (7) GERD (gastroesophageal reflux disease): Plan: Will add Tums 1 g every 6 hourly as needed for dyspepsia (8) Anxiety: Plan: To anxiety and depression No acute delirium Continue current medication Plan Hyperlipidemia on statin Rx DM2 on oral medications, well-controlled as of recent hemoglobin A1c of 6.7 this month Basal bolus insulin, ISS BG goal 1 10-1 40, carb count coverage Chronic anemia, hemoglobin at baseline Constipation Has been getting bowel regimen Suppository and/or Fleet enema may be needed Still has abdominal distention and bowel is not moved Will try Fleet enema DVT prophylaxis. SCDs Re: ITP Chronic ITP as per records Full code Awaiting placement Admission and Anticipated Discharge Date Admission Date: October 31, 2022 Subjective 11/01/2022 The patient was seen and examined in medical telemetry unit She complains abdominal discomfort and distention without any pain Still has the sacral pain and pelvic pain without any radiation No fever and or chills, no chest pain, palpitation or shortness of breath 11/02/2022 The patient was seen and examined in medical telemetry unit She has been complaining of vague symptoms including left shoulder pain that she cannot move, left sided neck pain, constipation and general unwell Has not been having any acute distress No fever and no chills, no abdominal pain nausea no vomiting 11/05/2022 The patient was seen and examined in medical floor He has been feeling much better today Minimal pain left shoulder and epigastric discomfort with nausea Review of Systems Review of Systems: All systems reviewed and are unremarkable except as noted below Physical Exam Physical Exam: Lying in bed with minimal discomfort due to abdominal distention and bowel not moved Constitutional: well developed, well nourished, + ill appearing and + obese Eyes: PERRL, conjunctivae normal, anicteric sclerae ENMT: external ear and nose normal, oropharynx normal Neck: trachea midline, no thyromegaly Respiratory: no respiratory distress Auscultation: + diminished lung sounds and + crackles (Minimal crackles at the bases) Cardiovascular: Rate/Rhythm: regular rate and regular rhythm; not tachycardic Heart Sounds: normal S1 and normal S2; no murmur Extremities: + edema (Trace edema bilaterally) Gastrointestinal (Abdomen): Inspection/Auscultation: + abdomen distended and normal bowel sounds Percussion/Palpation: abdomen soft; abdomen nontender Musculoskeletal: Shoulder: + skin erythema (Posterior part of left shoulder); normal ROM of shoulder and no joint line tenderness Neurologic: normal touch/pain/proprioception and moves all extremities; no focal motor deficits Lymphatic: no cervical or axillary lymphadenopathy Results & Data Results & Data ([facility]) Vital Signs (Past 12 Hours) Vital Signs Temp Pulse Resp BP BP Pulse Ox O2 Del Method 11/05/22 14:50 36.6 C 86 16 152/78 H 100 Room Air 11/05/22 08:30 Room Air 11/05/22 08:20 90 149/85 H 98 Room Air 11/05/22 07:21 36.6 C 91 H 16 179/91 H 97 Room Air Medications Administered Current Inpatient Medications Acetaminophen (Acetaminophen 325 Mg Tab) 650 mg PO Q4H PRN PRN Reason: Pain or Fever Stop: 11/30/22 02:35 Last Admin: 11/05/22 15:20 Dose: 650 mg Calcium Carbonate (Calcium Carbonate 500 Mg Chewable Tab) 1,000 mg PO Q6H PRN PRN Reason: Indigestion Stop: 12/05/22 12:35 Last Admin: 11/05/22 13:16 Dose: 1,000 mg Dextrose (Dextrose 50% 50 Ml Syringe) 25 - 50 ml IV UD PRN; Protocol PRN Reason: Hypoglycemia Protocol Stop: 11/30/22 02:35 Diclofenac Sodium (Diclofenac Sod 1% Gel 100 Gm Tube) 2 gm EXT TID PREETI; Protocol Stop: 12/01/22 13:59 Last Admin: 11/05/22 13:11 Dose: 2 gm Fluticasone Propionate (Fluticasone Propionate Na Spr 16 Gm Btl) 2 sprays WALDEMAR DAILY PRN PRN Reason: Nasal Congestion Stop: 11/30/22 02:35 Glucagon (Glucagon For Inj 1 Mg Vial) 1 mg SQ UD PRN; Protocol PRN Reason: Hypoglycemia Protocol Stop: 11/30/22 02:35 Glucose (Glucose 40% Gel 15 Gm Tube) 15 - 30 gm PO UD PRN; Protocol PRN Reason: Hypoglycemia Protocol Stop: 11/30/22 02:35 Glucose (Glucose 10 Tab/Tube) 4 - 8 tab PO UD PRN; Protocol PRN Reason: Hypoglycemia Treatment Stop: 11/30/22 02:35 Aztreonam 1,000 mg/ Dextrose 110 mls @ 100 mls/hr IV Q8H PREETI; Protocol Stop: 11/10/22 09:59 Last Infusion: 11/05/22 11:36 Dose: Infused Insulin Aspart (Insulin Aspart Per Unit) 0 units SC ACHS [facility] Stop: 11/30/22 02:35 Last Admin: 11/05/22 13:10 Dose: 3 units Levothyroxine Sodium (Levothyroxine Sodium 75 Mcg Tablet) 75 mcg PO DAILYBB [facility] Stop: 11/30/22 06:29 Last Admin: 11/05/22 06:03 Dose: 75 mcg Melatonin (Melatonin 3 Mg Tab) 3 mg PO HS PRN PRN Reason: Sleep Stop: 12/03/22 09:34 Last Admin: 11/04/22 21:04 Dose: 3 mg Metoprolol Succinate (Metoprolol Succ 50mg Ext Rel Tab) 50 mg PO HS PREETI Stop: 11/30/22 20:59 Last Admin: 11/04/22 20:55 Dose: 50 mg Miscellaneous (Carbohydrates For Hypoglycemia ) 15 - 30 gm PO UD PRN PRN Reason: Hypoglycemia Protocol Stop: 11/30/22 02:35 Multivitamins (Multivitamin Tab) 1 tab PO DAILY PREETI Stop: 11/30/22 08:59 Last Admin: 11/05/22 08:28 Dose: 1 tab Pantoprazole Sodium (Pantoprazole 40 Mg Tab) 40 mg PO DAILY PREETI Stop: 11/30/22 08:59 Last Admin: 11/05/22 08:28 Dose: 40 mg Polyethylene Glycol (Polyethylene (Miralax) 17 Gm Pack) 17 gm PO DAILY PRN PRN Reason: Constipation Stop: 11/30/22 01:37 Polyethylene Glycol (Polyethylene (Miralax) 17 Gm Pack) 17 gm PO DAILY PREETI Stop: 12/03/22 09:59 Last Admin: 11/05/22 08:40 Dose: 17 gm
[2022-11-05] MEDS: oxyCODONE/ACETAMINOPHEN 5mg/325mg TAB PO PRN ×2 (17:34→23:41)
[2022-11-05] MEDS: METOPROLOL SUCC 50MG EXT REL TAB PO SCH (20:36)
[2022-11-06] MEDS: AZTREONAM 1,000 MG in DEXTROSE 5% 100 ML IV SCH ×2 (02:16→10:15)
[2022-11-06] MEDS: LEVOTHYROXINE SODIUM 75 MCG TABLET PO SCH (05:39)
[2022-11-06] MEDS: oxyCODONE/ACETAMINOPHEN 5mg/325mg TAB PO PRN ×3 (07:43→21:14)
[2022-11-06] MEDS: POLYETHYLENE (MIRALAX) 17 GM PACK PO SCH (07:44)
[2022-11-06] MEDS: PANTOprazole 40 MG TAB PO SCH (07:44)
[2022-11-06] MEDS: DICLOFENAC SOD 1% GEL 100 GM TUBE EXT SCH ×3 (07:44→20:03)
[2022-11-06] MEDS: MULTIVITAMIN TAB PO SCH (07:44)
[2022-11-06 08:30] LABS: Hematocrit (blood only) 32.7 % (34.1-44.9); Hemoglobin 10.8 g/dl (12.0-16.0); Mean Corpuscular Hemoglobin 30.7 pg (25.0-34.0); Mean Corpuscular Volume 92.9 fL (80.0-100.0); Mean Platelet Volume 10.6 fL (9.4-12.3); Platelet Count 276 K/uL (130-400); RDW Coefficient of Variation 14.2 % (11.5-14.5); RDW Standard Deviation 48.6 fL (36.4-46.3); Red Blood Count 3.52 M/uL (3.93-5.22); White Blood Count 24.85 K/ul (4.8-10.8)
[2022-11-06] MEDS: INSULIN ASPART PER UNIT SC SCH ×4 (09:04→21:36)
[2022-11-06 09:17] LABS: BUN Creatinine Ratio 23.7 (10-20); Calcium 8.9 mg/dl (8.5-10.1); Creatinine Clr Calc Pharmacy 59.7 ml/min; Est GFR (African American) 84.7 ml/min; Est GFR (Non-African American) 73.1 ml/min; Potassium 4.6 mmol/L (3.5-5.1)
[2022-11-06 09:18] LABS: Basophils % (auto) 0.4 %; Eosinophils # (auto) 0.43 K/uL (0-0.50); Eosinophils % (auto) 1.7 %; Immature Granulocytes # (auto) 1.48 K/uL (0.00-0.02); Lymphocytes # (auto) 1.93 K/uL (1.2-3.4); Lymphocytes % (auto) 7.8 %; Monocytes % (auto) 6.8 %; Neutrophils # (auto) 19.21 K/uL (1.4-6.5); Neutrophils % (auto) 77.3 %
--- NOTE | 2022-11-06 10:02 | Consultation ---
Date of Consultation November 06, 2022 Assessment & Plan (1) Spinal stenosis of lumbar region: Dr. Saucedo has reviewed imaging and case. In light of her acute sepsis and complicated urinary tract infection would not recommend aggressive surgical intervention at this point in time. Her urinary symptoms are improving with antibiotic treatment. Would suggest follow-up in our office once she has discontinued her antibiotic therapy. She can also follow-up with pain management. She responded well to these injections over the past 6 months. Any type of surgical intervention would be quite extensive and involving a multilevel lumbar decompression instrumented fusion. History of Present Illness Reason for Consultation: Spinal stenosis Attending Physician: Tila Brito MD History of Present Illness This is a 82-year-old female that we are asked to see in consultation regarding her lumbar spinal stenosis. She presented to the ER on October 30 with complaints of abdominal discomfort and constipation. She was admitted and found to have a complicated urinary tract infection with subsequent sepsis and ARF. We are now asked to see her regarding her lumbar stenosis. She has been under the pain management care of Ruben Jimenez and received injections over the past several months. She states they do provide long-term relief. She does have some perineum warm sensation. This is improving since her admission to the hospital and sebsequent antibiotic therapy for her urinary tract infection/sepsis. She notices numbness predominantly down the right leg but now starting to get on the left. She lives at home alone. She typically ambulates independently but will use a scooter when she is out in public. Allergies Allergy/AdvReac Type Severity Reaction Status Date / Time cefdinir Allergy Severe ANAPHYLAXIS Verified 10/30/22 22:59 - ED adm 06/03/16 doxycycline Allergy Intermediate Rash/Hives Verified 10/30/22 22:59 Sulfa (Sulfonamide Allergy Intermediate HIVES/RASH Verified 10/30/22 22:59 Antibiotics) Sulfonylureas Allergy Unknown ON [facility] MED Verified 10/30/22 22:59 LIST alendronate sodium AdvReac Intermediate Abdominal Verified 10/30/22 22:59 Pain/ GI Upset heparin AdvReac Unknown AVOID FOR Verified 10/30/22 22:59 LOW PLATELETS Home Medications Medication Instructions Recorded Confirmed Type atorvastatin 10 mg tablet 10 mg PO QAM 03/06/19 10/30/22 History levothyroxine 75 mcg tablet 75 mcg PO DAILYBB 03/06/19 10/30/22 History metoprolol succinate 50 mg 50 mg PO HS 03/06/19 10/30/22 History tablet,extended release 24 hr venlafaxine 150 mg 150 mg PO DAILY 03/06/19 10/30/22 History capsule,extended release 24 hr acetaminophen 500 mg tablet 1,000 mg PO Q6H PRN Pain 07/05/21 10/30/22 History (Tylenol Extra Strength) celecoxib 200 mg capsule 200 mg PO DAILY 01/30/22 10/30/22 History metformin 500 mg tablet,extended 500 mg PO QAM 02/17/22 10/30/22 History release 24 hr plecanatide 3 mg tablet (Trulance) 3 mg PO QAM 02/17/22 10/30/22 History Bifidobacterium infantis 4 mg 4 mg PO DAILY 10/30/22 10/30/22 History capsule (Align) cholecalciferol (vitamin D3) 50 50 mcg PO DAILY 10/30/22 10/30/22 History mcg (2,000 unit) capsule (Vitamin D3) fluticasone propionate 50 2 spray intranasal DAILY PRN Nasal 10/30/22 10/30/22 History mcg/actuation nasal Congestion spray,suspension multivitamin 1 tab PO DAILY 10/30/22 10/30/22 History oxycodone 5 mg tablet 5 mg PO DAILY PRN pain 10/30/22 10/30/22 History pantoprazole 40 mg tablet,delayed 40 mg PO DAILY 10/30/22 10/30/22 History release Patient History Medical History Ambulatory dysfunction Chronic perineal pain in female GERD (gastroesophageal reflux disease) HTN (hypertension) Hypothyroid Leg length discrepancy Lumbar radicular pain Pain of right sacroiliac joint Spinal stenosis of lumbar region Tachycardia Surgical History History of knee replacement both knees S/P appendectomy Social History Smoking Status: Never smoker Second Hand Exposure: No; Do You Dip or Chew Tobacco: No; Tobacco Cessation Education Requested by Patient: No Hx Alcohol Use: Yes Alcohol type: wine Alcohol type Comment: special occasions, less than 1/month Hx Substance Use: No Preferred Language: Iranian Communication Ability: Effective Visual Impairment: No Limitations Hearing Ability: Hard of Hearing Master Baker Required: No Beliefs That Will Affect Care: None marital status: / Current Living Situation: Alone Current Living Situation Comment: with dog current occupational status: retired 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 [place] Other Information That Helps Us Care for You: No Feels Safe at Home: Yes Safety Concerns: Feels Safe At This Time Assistive Devices: Walker and Wheelchair Review of Systems Review of Systems: All systems reviewed & are unremarkable except as noted in HPI & below Physical Exam Physical Exam: She is lying in bed in no acute distress Alert and oriented x3 Negative logrolling bilaterally Negative tension signs bilaterally Motor testing is 5 5 bilateral EHL, dorsiflexion, plantarflexion, quadriceps, hamstrings Constitutional: well developed and + morbidly obese Eyes: normal visual coates by confrontation ENMT: Ears: + hearing impairment Neck: normal visual inspection Respiratory: normal respiratory effort Cardiovascular: Extremities: normal capillary refill Gastrointestinal (Abdomen): Inspection/Auscultation: abdomen normal to inspection Musculoskeletal: Extremities: extremities normal to inspection and strength 5/5 throughout Skin: no rashes, warm and dry Neurologic: normal touch/pain/proprioception and moves all extremities Psychiatric: A+Ox3, euthymic affect Eye Contact: good eye contact Results & Data ([facility]) Vital Signs (Past 12 Hours) Vital Signs Temp Pulse Resp BP Pulse Ox O2 Del Method 11/06/22 08:00 Room Air 11/06/22 07:38 37.4 C 97 H 16 147/64 H 95 Room Air Diagnostic Findings [place], [place] [phone] Magnetic Resonance Report Patient:DONTRELL ZHENG Admit Date:05/25/22 MR#:[id number] Address1:[facility] [address] Acct ID:[id number] Address2: Date:[address] [facility] Zip:[place] [address] Age:81 Location:ED Sex:F Room/Bed: Att Phy: Diagnosis:LEG PAIN Gely Phy:Claus Rojas MD Service Date:05/25/22 [facility] Phy: Interpreting Phy:Kirill Macdonald MDAit Phy: Ordering Phy:Dalia Reina PA-C cc: ~ MR lumbar spine wo con CLINICAL HISTORY: R lower back pain into RLE TECHNIQUE: Multiplanar sequences through the lumbar spine were obtained, without intravenous contrast. Comparison: Comparison is made to MRI lumbar spine 05/12/2020 FINDINGS: Grade 1 anterolisthesis of L4-L5 is seen. L1-L2: No significant abnormality. L2-L3: There is a moderate broad-based posterior disc bulge and facet arthropathy resulting in severe canal stenosis, AP diameter 5 mm, as well as severe bilateral neuroforaminal stenosis. L3-L4: Broad-based posterior disc bulge and facet arthropathy combine to create severe canal stenosis, AP diameter 3 mm, with severe bilateral neuroforaminal stenosis. L4-L5: Facet arthropathy and posterior disc bulge result in severe canal stenosis, AP diameter 4 mm, with moderate to severe bilateral neural foraminal stenosis. L5-S1: Posterior disc bulge results in severe canal stenosis and moderate bilateral neural foraminal stenosis. The spinal ligaments are intact, without evidence of disruption or abnormal signal intensity. The spinal cord is normal in signal intensity and there is no evidence of cord contusion. There is no evidence of an extradural, intradural, extramedullary or intramedullary lesion. Visualized soft tissues are normal. IMPRESSION: Redemonstration of multilevel degenerative changes resulting in up to severe canal stenosis, AP diameter of 3 mm, severe bilateral neural foraminal stenosis. Overall findings are similar in extent to prior exam. ACT 112: Negative or not required by law. Electronically signed by: Kirill Macdonald M.D. 05/25/2022 1:26 PM Dictated:05/25/22 1310 Transcribed: 05/25/22 1310
[2022-11-06] MEDS: AMPICILLIN/SULBACTAM SOD 3,000 MG in 0.9 % SODIUM CHLORIDE 100 ML IV SCH ×3 (11:14→23:07)
[2022-11-06] MEDS: CALCIUM CARBONATE 500 MG CHEWABLE TAB PO PRN (11:14)
--- NOTE | 2022-11-06 12:50 | Hospitalist Progress Note ---
Date of Service November 06, 2022 Assessment & Plan (1) Severe sepsis: Plan: SIRS plus ARF Secondary to complicated UTI, hx recurrent infections (Enterococcus, Pseudomonas, MDR E. coli on previous urine CS) Urine culture is growing 3 types of organisms likely contaminant Blood cultures have been We will continue aztreonam for now and discontinued daptomycin White count is minimally better and no fever and or chills PT/OT eval-appreciate input and recommendation for rehab No more fever and or chills and white count is gradually improving Urine culture is contaminant Plan to continue antibiotic for a total of 5 days Aztreonam was discontinued on 11/05/2022 White count went up to 20 4K this morning Will start Unasyn intravenously to cover likely staph infection involving the left shoulder Left shoulder pain-injury during the fall Doubt any arthritis Injured the shoulder during the fall Will apply local Voltaren Left posterior shoulder is inflamed-likely secondary to fall with minor trauma X-ray of the left shoulder remains unremarkable Posterior part of left shoulder is inflamed without any fluctuation, 2 pimples Doubt any abscess, Unasyn has been added with an intention to change to oral Augmentin on discharge Spinal stenosis with radiculopathy pain Has chronic back pain with radiculopathy She has been complaining of more pain with No localized tenderness at the lumbar spine area Appreciate Ortho input and recommendation (2) Hyponatremia: Plan: Acute on chronic hyponatremia secondary to illness Serum sodium noted to be low since last year on review of outpatient blood work SSRI, NSAID Rx contributory Urine osmolarity low as 330 Urine Sodium is 11 which is consistent with hyponatremia Sodium level has gone up to 131 Sodium level remains around 133 (3) LOLITA (acute kidney injury): Plan: Creatinine remains elevated at 1.87 today Will not give any intravenous fluid due to possible pulmonary edema Patient is not having any shortness of breath and has not been requiring any oxygen to maintain saturation Advised to drink little bit more fluid Creatinine has improved to 1.32 (4) Chronic perineal pain in female: Plan: Continues to have chronic peritoneal pain Pain in the sacral area No definite decubiti Will apply local diclofenac sodium (5) HTN (hypertension): Plan: Blood pressure is controlled (6) Hypothyroidism: Plan: Continue supplement (7) GERD (gastroesophageal reflux disease): Plan: Will add Tums 1 g every 6 hourly as needed for dyspepsia Denies any more dyspeptic symptoms (8) Anxiety: Plan: To anxiety and depression No acute delirium Continue current medication Plan Hyperlipidemia on statin Rx DM2 on oral medications, well-controlled as of recent hemoglobin A1c of 6.7 this month Basal bolus insulin, ISS BG goal 1 10-1 40, carb count coverage Chronic anemia, hemoglobin at baseline Constipation Has been getting bowel regimen Suppository and/or Fleet enema may be needed Still has abdominal distention and bowel is not moved Will try Fleet enema DVT prophylaxis. SCDs Re: ITP Chronic ITP as per records Full code Awaiting placement Admission and Anticipated Discharge Date Admission Date: October 31, 2022 Subjective 11/01/2022 The patient was seen and examined in medical telemetry unit She complains abdominal discomfort and distention without any pain Still has the sacral pain and pelvic pain without any radiation No fever and or chills, no chest pain, palpitation or shortness of breath 11/02/2022 The patient was seen and examined in medical telemetry unit She has been complaining of vague symptoms including left shoulder pain that she cannot move, left sided neck pain, constipation and general unwell Has not been having any acute distress No fever and no chills, no abdominal pain nausea no vomiting 11/05/2022 The patient was seen and examined in medical floor He has been feeling much better today Minimal pain left shoulder and epigastric discomfort with nausea 11/06/2022 The patient was seen and examined in medical floor She has been complaining of back pain which seems to be chronic with radiation to the right leg Did not have any fever and or chills but her white count was elevated to 20 4K this morning Left shoulder is inflamed without fluctuation or any septic arthritis Review of Systems Review of Systems: All systems reviewed and are unremarkable except as noted below Physical Exam Physical Exam: Lying in bed with minimal discomfort due to abdominal distention and bowel not moved Constitutional: well developed, well nourished, + ill appearing and + obese Eyes: PERRL, conjunctivae normal, anicteric sclerae ENMT: external ear and nose normal, oropharynx normal Neck: trachea midline, no thyromegaly Respiratory: no respiratory distress Auscultation: + diminished lung sounds and + crackles (Minimal crackles at the bases) Cardiovascular: Rate/Rhythm: regular rate and regular rhythm; not tachycardic Heart Sounds: normal S1 and normal S2; no murmur Extremities: + edema (Trace edema bilaterally) Gastrointestinal (Abdomen): Inspection/Auscultation: + abdomen distended and normal bowel sounds Percussion/Palpation: abdomen soft; abdomen nontender Musculoskeletal: Shoulder: + skin erythema (Posterior part of left shoulder); normal ROM of shoulder and no joint line tenderness Neurologic: normal touch/pain/proprioception and moves all extremities; no focal motor deficits Psychiatric: A+Ox3, euthymic affect Lymphatic: no cervical or axillary lymphadenopathy Results & Data Results & Data ([facility]) Vital Signs (Past 12 Hours) Vital Signs Temp Pulse Resp BP Pulse Ox O2 Del Method 11/06/22 08:00 Room Air 11/06/22 07:38 37.4 C 97 H 16 147/64 H 95 Room Air Laboratory Results Short CBC 11/06/22 Range/Units 07:56 WBC 24.85 H (4.8-10.8) K/ul Hgb 10.8 L (12.0-16.0) g/dl Hct 32.7 L (34.1-44.9) % Plt Count 276 (130-400) K/uL BMP 11/06/22 07:56 Sodium 131 L Potassium 4.6 Chloride 98 Carbon Dioxide 28 BUN 18 Creatinine 0.76 Glucose 132 H Calcium 8.9 Medications Administered Current Inpatient Medications Acetaminophen (Acetaminophen 325 Mg Tab) 650 mg PO Q4H PRN PRN Reason: Pain or Fever Stop: 11/30/22 02:35 Last Admin: 11/05/22 15:20 Dose: 650 mg Calcium Carbonate (Calcium Carbonate 500 Mg Chewable Tab) 1,000 mg PO Q6H PRN PRN Reason: Indigestion Stop: 12/05/22 12:35 Last Admin: 11/06/22 11:14 Dose: 1,000 mg Dextrose (Dextrose 50% 50 Ml Syringe) 25 - 50 ml IV UD PRN; Protocol PRN Reason: Hypoglycemia Protocol Stop: 11/30/22 02:35 Diclofenac Sodium (Diclofenac Sod 1% Gel 100 Gm Tube) 2 gm EXT TID PREETI; Protocol Stop: 12/01/22 13:59 Last Admin: 11/06/22 07:44 Dose: 2 gm Fluticasone Propionate (Fluticasone Propionate Na Spr 16 Gm Btl) 2 sprays WALDEMAR DAILY PRN PRN Reason: Nasal Congestion Stop: 11/30/22 02:35 Glucagon (Glucagon For Inj 1 Mg Vial) 1 mg SQ UD PRN; Protocol PRN Reason: Hypoglycemia Protocol Stop: 11/30/22 02:35 Glucose (Glucose 40% Gel 15 Gm Tube) 15 - 30 gm PO UD PRN; Protocol PRN Reason: Hypoglycemia Protocol Stop: 11/30/22 02:35 Glucose (Glucose 10 Tab/Tube) 4 - 8 tab PO UD PRN; Protocol PRN Reason: Hypoglycemia Treatment Stop: 11/30/22 02:35 Ampicillin Sodium/Sulbactam Sodium 3,000 mg/ Sodium Chloride 108 mls @ 216 mls/hr IV Q6H [facility]; Protocol Stop: 11/13/22 10:59 Last Infusion: 11/06/22 11:48 Dose: Infused Insulin Aspart (Insulin Aspart Per Unit) 0 units SC ACHS [facility] Stop: 11/30/22 02:35 Last Admin: 11/06/22 09:04 Dose: 3 units Levothyroxine Sodium (Levothyroxine Sodium 75 Mcg Tablet) 75 mcg PO DAILYBB [facility] Stop: 11/30/22 06:29 Last Admin: 11/06/22 05:39 Dose: 75 mcg Melatonin (Melatonin 3 Mg Tab) 3 mg PO HS PRN PRN Reason: Sleep Stop: 12/03/22 09:34 Last Admin: 11/04/22 21:04 Dose: 3 mg Metoprolol Succinate (Metoprolol Succ 50mg Ext Rel Tab) 50 mg PO HS [facility] Stop: 11/30/22 20:59 Last Admin: 11/05/22 20:36 Dose: 50 mg Miscellaneous (Carbohydrates For Hypoglycemia ) 15 - 30 gm PO UD PRN PRN Reason: Hypoglycemia Protocol Stop: 11/30/22 02:35 Multivitamins (Multivitamin Tab) 1 tab PO DAILY [facility] Stop: 11/30/22 08:59 Last Admin: 11/06/22 07:44 Dose: 1 tab Oxycodone/Acetaminophen (Oxycodone/Acetaminophen 5mg/325mg Tab) 1 tab PO Q6H PRN PRN Reason: Moderate-Severe Pain Stop: 11/19/22 16:55 Last Admin: 11/06/22 07:43 Dose: 1 tab Pantoprazole Sodium (Pantoprazole 40 Mg Tab) 40 mg PO DAILY [facility] Stop: 11/30/22 08:59 Last Admin: 01/24/23 07:44 Dose: 40 mg Polyethylene Glycol (Polyethylene (Miralax) 17 Gm Pack) 17 gm PO DAILY PRN PRN Reason: Constipation Stop: 11/30/22 01:37 Polyethylene Glycol (Polyethylene (Miralax) 17 Gm Pack) 17 gm PO DAILY PREETI Stop: 12/03/22 09:59 Last Admin: 11/06/22 07:44 Dose: 17 gm
[2022-11-06] MEDS: METOPROLOL SUCC 50MG EXT REL TAB PO SCH (20:03)
[2022-11-06] MEDS: ACETAMINOPHEN 325 MG TAB PO PRN (23:46)
[2022-11-07] MEDS: AMPICILLIN/SULBACTAM SOD 3,000 MG in 0.9 % SODIUM CHLORIDE 100 ML IV SCH ×4 (05:33→23:21)
[2022-11-07] MEDS: oxyCODONE/ACETAMINOPHEN 5mg/325mg TAB PO PRN ×3 (05:40→20:53)
[2022-11-07] MEDS: LEVOTHYROXINE SODIUM 75 MCG TABLET PO SCH (05:40)
[2022-11-07] MEDS: CALCIUM CARBONATE 500 MG CHEWABLE TAB PO PRN (08:27)
[2022-11-07] MEDS: PANTOprazole 40 MG TAB PO SCH (08:28)
[2022-11-07] MEDS: MULTIVITAMIN TAB PO SCH (08:28)
[2022-11-07] MEDS: DICLOFENAC SOD 1% GEL 100 GM TUBE EXT SCH ×3 (08:29→21:00)
[2022-11-07 11:18] LABS: ANC (manual) 18.14 K/uL (1.4-6.5); BUN Creatinine Ratio 19.1 (10-20); Calcium 8.8 mg/dl (8.5-10.1); Eosinophils % (manual) 1 %; Est GFR (Non-African American) 60.4 ml/min; Hematocrit (blood only) 31.9 % (34.1-44.9); Hemoglobin 10.5 g/dl (12.0-16.0); Lymphocytes % (manual) 6 %; Mean Corpuscular Hemoglobin 30.6 pg (25.0-34.0); Mean Corpuscular Hgb Conc 32.9 g/dL (32.0-36.0); Mean Platelet Volume 10.5 fL (9.4-12.3); Metamyelocytes % (manual) 1 %; Monocytes % (manual) 1 %; Neutrophils # (manual) 18.14 K/uL (1.4-6.5); Neutrophils % (manual) 91 %; Platelet Count 249 K/uL (130-400); Potassium 4.4 mmol/L (3.5-5.1); RDW Coefficient of Variation 14.3 % (11.5-14.5); RDW Standard Deviation 48.9 fL (36.4-46.3); Red Blood Count 3.43 M/uL (3.93-5.22); White Blood Count 19.93 K/ul (4.8-10.8)
[2022-11-07] MEDS: INSULIN ASPART PER UNIT SC SCH ×4 (11:32→21:48)
[2022-11-07] MEDS ORDERED: VANCOMYCIN CONSULT ACTIVE PRN (11:37)
[2022-11-07] MEDS ORDERED: VANCOMYCIN HCL 1,500 MG in SODIUM CHLORIDE 0.9% 500 ML IV SCH (11:45)
[2022-11-07] MEDS ORDERED: VANCOMYCIN HCL 2,000 MG in SODIUM CHLORIDE 0.9% 500 ML IV ONE (13:15)
[2022-11-07] MEDS: POLYETHYLENE (MIRALAX) 17 GM PACK PO SCH (13:29)
--- NOTE | 2022-11-07 14:52 | Pharmacy Report ---
Pharmacy PK ABX Note - Date of Service November 07, 2022 - Assessment and Plan Assessment 82 year old F receiving vancomycin and ampicillin/sulbactam for treatment of posterior left shoulder skin infection. Pertinent microbiologic data includes: Blood cultures drawn 10/30 NGTD. Day #8 of total antimicrobial therapy, day # 1 of vancomycin. Plan Vancomycin * Loading dose: 2000 mg IV x 1 * Maintenance dose: 1000 mg IV once on 11/08, will schedule future doses after drug level reported tomorrow AM. * Regimen is predicted to achieve target AUC/YAYA of 400-600 mg/L.hr * Random level ordered for: 11/08/22 with AM labs. Pharmacy will continue to follow and will adjust dose/frequency as necessary. Thank you. Pharmacy has transitioned to AUC monitoring for vancomycin. AUC/YAYA is the preferred PK/PD target and is associated with decreased risk of nephrotoxicity compared to traditional trough targets.
--- NOTE | 2022-11-07 16:25 | Hospitalist Progress Note ---
Date of Service November 07, 2022 Assessment & Plan (1) Severe sepsis: Plan 82-year-old lady with PMH of HTN, HLD, recurrent UTIs, DM2 on oral meds, hypothyroidism, ankylosing spondylitis, chronic anemia [baseline hemoglobin of 11], chronic ITP presented to the ED 10/31 with complaint of lower abdominal pain, poor appetite and trauma to the back of left shoulder with cabinet door. She is being managed for the following: Severe sepsis POA: SIRS plus ARF at presentation. Believed secondary to complicated UTI, hx recurrent infections (Enterococcus, Pseudomonas, MDR E. coli on previous urine CS) Admitting urine culture was contaminant, admitting blood culture no growth for 5 days. White count was elevated at presentation, which improved with antibiotic, once UTI was ruled out, antibiotic was held and white count again went up. --> Patient was started on Unasyn to cover staph infection involving the left shoulder. Patient was febrile earlier in admission, has been afebrile for the last several days. Left shoulder cellulitis: Patient reports hitting the back of left shoulder by the kitchen cabinet door. X-ray left shoulder with no acute fracture or dislocation. Patient has erythema/tenderness/swelling at the back of left shoulder with a small superficial abscess, patient is getting Unasyn 11/06, added vancomycin 11/07 We will continue to monitor left shoulder cellulitis. Pain management, continue with antibiotic Unasyn 11/06 and vancomycin 11/07. Chronic back pain: Spinal stenosis with radiculopathy pain Has chronic back pain with radiculopathy No localized tenderness at the lumbar spine area Appreciate Ortho input and recommendation, f/u orthospine as OP. Acute on chronic hyponatremia: Admitting sodium of 125, likely secondary to acute illness at presentation. Sodium level back in 130s, stable lately. Acute kidney injury: Likely secondary to acute illness, resolved. Chronic perineal pain in female: Continue pain management. Will benefit from pain management follow-up as an outpatient. Other chronic medical conditions: HTN, hypothyroidism, GERD, anxiety, DM2, H LD----continue with home meds as able Constipation: Likely secondary to pain medication use due to ongoing chronic pain, continue with bowel regimen. Patient reports moving bowels okay. DVT prophylaxis: SCDs, ITP. Full code Disposition: Pending improvement in her left shoulder cellulitis. Admission and Anticipated Discharge Date Admission Date: October 31, 2022 Subjective Patient seen and examined at bedside as a follow-up of severe sepsis POA, left shoulder cellulitis, concern for complicated UTI, hyponatremia. Patient was lying semiupright in bed, on room air, NAD, reports no new acute event overnight, reports improvement in her left shoulder pain, reports eating okay and moving bowels okay, denies headache/dizziness/chest pain/palpitation/sore throat/cough/other review of symptoms. Physical Exam Physical Exam: GENERAL: Alert and oriented x3. NAD, on RA. HEENT: No pallor, no icterus. Pupils equal, round and reactive to light. Oral mucosa moist. NECK: No JVD, no neck masses. HEART: S1 and S2 heard. Regular rate and rhythm. No murmur, no gallop. RESPIRATORY SYSTEM: Normal AP diameter. No accessory muscle use. No wheezing, no crackles. ABDOMEN: Soft, bowel sounds present, nontender, no distention. CENTRAL NERVOUS SYSTEM: No facial droop. Speech is clear. Obeys simple commands. Moves extremities. EXTREMITIES: trace edema, no erythema seen. Posterior left shoulder w/ erythema/swelling/tenderness w/ small superficial abscess. Results & Data Results & Data ([facility]) Vital Signs (Past 12 Hours) Vital Signs Temp Pulse Resp BP Pulse Ox O2 Del Method 11/07/22 15:25 36.8 C 90 16 125/76 93 Room Air 11/07/22 08:30 36.5 C 70 16 145/82 H 98 Room Air
[2022-11-07] MEDS: MELATONIN 3 MG TAB PO PRN (20:53)
[2022-11-07] MEDS: METOPROLOL SUCC 50MG EXT REL TAB PO SCH (20:54)
[2022-11-08] MEDS: ACETAMINOPHEN 325 MG TAB PO PRN ×2 (01:51→05:49)
[2022-11-08] MEDS: AMPICILLIN/SULBACTAM SOD 3,000 MG in 0.9 % SODIUM CHLORIDE 100 ML IV SCH ×4 (05:49→23:09)
[2022-11-08] MEDS: LEVOTHYROXINE SODIUM 75 MCG TABLET PO SCH (05:50)
[2022-11-08] MEDS: CALCIUM CARBONATE 500 MG CHEWABLE TAB PO PRN (05:54)
[2022-11-08] MEDS: oxyCODONE/ACETAMINOPHEN 5mg/325mg TAB PO PRN ×2 (08:06→21:08)
[2022-11-08] MEDS: DICLOFENAC SOD 1% GEL 100 GM TUBE EXT SCH ×3 (08:08→21:09)
[2022-11-08] MEDS: PANTOprazole 40 MG TAB PO SCH (08:08)
[2022-11-08] MEDS: MULTIVITAMIN TAB PO SCH (08:08)
[2022-11-08 08:28] LABS: BUN Creatinine Ratio 19.5 (10-20); Calcium 8.5 mg/dl (8.5-10.1); Est GFR (African American) 83.3 ml/min; Est GFR (Non-African American) 71.9 ml/min; Magnesium 1.8 mg/dl (1.7-2.4); Phosphorus 3.7 mg/dl (2.5-4.9); Potassium 4.1 mmol/L (3.5-5.1)
[2022-11-08 08:34] LABS: Troponin I High Sensitivity 9.9 pg/ml (0-14)
[2022-11-08] MEDS ORDERED: VANCOMYCIN HCL 1,000 MG in SODIUM CHLORIDE 0.9% 250 ML IV ONE (09:00)
--- NOTE | 2022-11-08 09:14 | Electrocardiogram Report ---
Test Reason : Blood Pressure : / mmHG Vent. Rate : 072 BPM Atrial Rate : 072 BPM P-R Int : 150 ms QRS Dur : 076 ms QT Int : 430 ms P-R-T Axes : 050 014 037 degrees QTc Int : 470 ms Normal sinus rhythm Normal ECG When compared with ECG of 04-NOV-2022 13:59, Inverted T waves have replaced nonspecific T wave abnormality in Anterior leads Confirmed by Nuno Robertson ([id number]) on 11/08/2022 9:13:26 AM Referred By: REFERRED SELF Confirmed By:Seven Robertson
[2022-11-08] MEDS: POLYETHYLENE (MIRALAX) 17 GM PACK PO SCH (09:15)
[2022-11-08] MEDS: INSULIN ASPART PER UNIT SC SCH ×4 (09:17→21:09)
[2022-11-08 09:28] LABS: Hematocrit (blood only) 28.8 % (37.0-47.0); Hemoglobin 9.6 g/dl (12.0-16.0); Mean Corpuscular Hemoglobin 30.4 pg (25.0-34.0); Mean Corpuscular Hgb Conc 33.3 g/dL (32.0-36.0); Mean Corpuscular Volume 91.1 fL (80.0-100.0); Mean Platelet Volume 10.7 fL (9.4-12.4); Platelet Count 226 K/uL (130-400); RDW Coefficient of Variation 14.1 % (11.5-14.5); RDW Standard Deviation 47.8 fL (36.4-46.3); Red Blood Count 3.16 M/uL (4.20-5.40); White Blood Count 20.89 K/ul (4.8-10.8)
[2022-11-08 13:01] LABS: Estimated Average Glucose 148 mg/dl; Hemoglobin A1C 6.8 % (4.5-5.6)
--- NOTE | 2022-11-08 13:21 | Pharmacy Report ---
Pharmacy PK ABX Note - Date of Service November 08, 2022 - Assessment and Plan Assessment 11/08/22 * Level drawn at ~0745 this AM at 10.6 to provide additional data for AUC predictive calculations. 1000mg dose given shortly after. * Dose increased to 1000mg q12H starting tonight at 2100 to more efficiently reach AUC target. Pharmacy will continue to trend and reduce dose when AUC sufficiently achieved to prevent supratherapeutic level and associated nephrotoxicity. * Day 2 of vancomycin therapy; Level to be drawn with AM labs tomorrow. 11/07/22, Initial Assessment: * 82 year old F receiving vancomycin and ampicillin/sulbactam for treatment of posterior left shoulder skin infection. Pertinent microbiologic data includes: Blood cultures drawn 10/30 NGTD. * Day #8 of total antimicrobial therapy, day # 1 of vancomycin. Plan Vancomycin * Loading dose: 2000 mg IV x 1 * Maintenance dose: 1000 mg IV BID. * Regimen is predicted to achieve target AUC/YAYA of 400-600 mg/L.hr * Random level ordered for 11/08/22 with AM labs. Pharmacy will continue to follow and will adjust dose/frequency as necessary. Thank you. Pharmacy has transitioned to AUC monitoring for vancomycin. AUC/YAYA is the preferred PK/PD target and is associated with decreased risk of nephrotoxicity compared to traditional trough targets.
--- NOTE | 2022-11-08 17:25 | Hospitalist Progress Note ---
Date of Service November 08, 2022 Assessment & Plan (1) Severe sepsis: Plan 82-year-old lady with PMH of HTN, HLD, recurrent UTIs, DM2 on oral meds, hypothyroidism, ankylosing spondylitis, chronic anemia [baseline hemoglobin of 11], chronic ITP presented to the ED 10/31 with complaint of lower abdominal pain, poor appetite and trauma to the back of left shoulder with cabinet door. She is being managed for the following: Severe sepsis POA: SIRS plus ARF at presentation. Believed secondary to complicated UTI, hx recurrent infections (Enterococcus, Pseudomonas, MDR E. coli on previous urine CS) Admitting urine culture was contaminant, admitting blood culture no growth for 5 days. White count was elevated at presentation, which improved with antibiotic, once UTI was ruled out, antibiotic was held and white count again went up. --> Patient was started on Unasyn to cover staph infection involving the left shoulder. Patient was febrile earlier in admission, has been afebrile for the last several days. Left shoulder cellulitis: Patient reports hitting the back of left shoulder by the kitchen cabinet door. X-ray left shoulder with no acute fracture or dislocation. Patient has erythema/tenderness/swelling at the back of left shoulder with a small superficial abscess, patient is getting Unasyn 11/06, added vancomycin 11/07 We will continue to monitor left shoulder cellulitis. Pain management, continue with antibiotic Unasyn 11/06 and vancomycin 11/07. Patient had allergies to sulfa and doxycycline (skin rash to doxy) many years ago, will need MRSA coverage with clindamycin on discharge, will use probiotics along with clindamycin for the duration of antibiotic. Chronic back pain: Spinal stenosis with radiculopathy pain Has chronic back pain with radiculopathy No localized tenderness at the lumbar spine area Appreciate Ortho input and recommendation, f/u orthospine as OP. Acute on chronic hyponatremia: Admitting sodium of 125, likely secondary to acut e illness at presentation. Sodium level back in 130s, stable lately. Acute kidney injury: Likely secondary to acute illness, resolved. Chronic perineal pain in female: Continue pain management. Will benefit from pain management follow-up as an outpatient. Other chronic medical conditions: HTN, hypothyroidism, GERD, anxiety, DM2, HLD----continue with home meds as able Constipation: Likely secondary to pain medication use due to ongoing chronic pain, continue with bowel regimen. Patient reports moving bowels okay. DVT prophylaxis: SCDs, ITP. Full code Disposition: Likely DC tomorrow on oral antibiotic. CM to assist with DC planning. Admission and Anticipated Discharge Date Admission Date: October 31, 2022 Subjective Patient seen and examined at bedside as a follow-up of severe sepsis POA, left shoulder cellulitis, concern for complicated UTI, hyponatremia. Patient was lying semiupright in bed, on room air, NAD, reports no new acute event overnight, reports improvement in her left shoulder pain, reports eating okay and moving bowels okay, denies headache/dizziness/chest pain/palpitation/sore throat/cough/other review of symptoms. Physical Exam Physical Exam: GENERAL: Alert and oriented x3. NAD, on RA. HEENT: No pallor, no icterus. Pupils equal, round and reactive to light. Oral mucosa moist. NECK: No JVD, no neck masses. HEART: S1 and S2 heard. Regular rate and rhythm. No murmur, no gallop. RESPIRATORY SYSTEM: Normal AP diameter. No accessory muscle use. No wheezing, no crackles. ABDOMEN: Soft, bowel sounds present, nontender, no distention. CENTRAL NERVOUS SYSTEM: No facial droop. Speech is clear. Obeys simple commands. Moves extremities. EXTREMITIES: trace edema, no erythema seen. Posterior left shoulder w/ erythema/swelling/tenderness w/ small superficial abscess --> erythema improving, small abscess point dried up, looks significantly better. Results & Data Results & Data ([facility]) Vital Signs (Past 12 Hours) Vital Signs Temp Pulse Resp BP Pulse Ox O2 Del Method 11/08/22 15:41 36.9 C 78 16 155/76 H 97 Room Air 11/08/22 11:21 36.9 C 85 159/82 H 99 Room Air 11/08/22 07:25 Room Air 11/08/22 07:23 36.5 C 72 18 151/82 H 99 Room Air
[2022-11-08] MEDS: METOPROLOL SUCC 50MG EXT REL TAB PO SCH (21:08)
[2022-11-08] MEDS: VANCOMYCIN HCL 1,000 MG in SODIUM CHLORIDE 0.9% 250 ML IV SCH (21:08)
[2022-11-08] MEDS: MELATONIN 3 MG TAB PO PRN (21:08)
[2022-11-09] MEDS: AMPICILLIN/SULBACTAM SOD 3,000 MG in 0.9 % SODIUM CHLORIDE 100 ML IV SCH ×2 (06:01→11:51)
[2022-11-09] MEDS: LEVOTHYROXINE SODIUM 75 MCG TABLET PO SCH (06:01)
[2022-11-09] MEDS: ACETAMINOPHEN 325 MG TAB PO PRN (06:04)
[2022-11-09] MEDS ORDERED: ADVANCED PROBIOTIC 1250 MG CAPSULE PO SCH (09:00)
[2022-11-09] MEDS: DICLOFENAC SOD 1% GEL 100 GM TUBE EXT SCH ×2 (09:40→14:04)
[2022-11-09] MEDS: POLYETHYLENE (MIRALAX) 17 GM PACK PO SCH (09:40)
[2022-11-09] MEDS: MULTIVITAMIN TAB PO SCH (09:41)
[2022-11-09] MEDS: PANTOprazole 40 MG TAB PO SCH (09:41)
[2022-11-09 09:42] LABS: Hematocrit (blood only) 30.6 % (37.0-47.0); Hemoglobin 9.9 g/dl (12.0-16.0); Mean Corpuscular Hemoglobin 30.1 pg (25.0-34.0); Mean Corpuscular Hgb Conc 32.4 g/dL (32.0-36.0); Platelet Count 204 K/uL (130-400); RDW Coefficient of Variation 14.2 % (11.5-14.5); RDW Standard Deviation 48.5 fL (36.4-46.3); Red Blood Count 3.29 M/uL (4.20-5.40); White Blood Count 18.78 K/ul (4.8-10.8)
[2022-11-09] MEDS: VANCOMYCIN HCL 1,000 MG in SODIUM CHLORIDE 0.9% 250 ML IV SCH (09:44)
[2022-11-09] MEDS: INSULIN ASPART PER UNIT SC SCH ×2 (09:48→14:03)
[2022-11-09 10:22] LABS: Est GFR (African American) 83.3 ml/min; Est GFR (Non-African American) 71.9 ml/min
--- NOTE | 2022-11-09 10:43 | Pharmacy Report ---
Pharmacy PK ABX Note - Date of Service November 09, 2022 - Assessment and Plan Assessment 11/09/22 * Random AM drug level obtained at 0905 resulted at 13.4 mcg/mL. * Will continue current vanco dose as this is predicted to achieve goal AUC. * Will continue to monitor drug closely due to BMI 42. 11/08/22 * Level drawn at ~0745 this AM at 10.6 to provide additional data for AUC predictive calculations. 1000mg dose given shortly after. * Dose increased to 1000mg q12H starting tonight at 2100 to more efficiently reach AUC target. Pharmacy will continue to trend and reduce dose when AUC sufficiently achieved to prevent supratherapeutic level and associated nephrotoxicity. * Day 2 of vancomycin therapy; Level to be drawn with AM labs tomorrow. 11/07/22, Initial Assessment: * 82 year old F receiving vancomycin and ampicillin/sulbactam for treatment of posterior left shoulder skin infection. Pertinent microbiologic data includes: Blood cultures drawn 10/30 NGTD. * Day #8 of total antimicrobial therapy, day # 1 of vancomycin. Plan Continue vancomycin 1000 mg IV q12h * Regimen is predicted to achieve target AUC/YAYA of 400-600 mg/L.hr * predicted AUC at steady state: 488 * predicated trough at steady state: 15.4 mcg/mL Pharmacy will continue to follow and will adjust dose/frequency as necessary. Thank you.
[2022-11-09] MEDS: oxyCODONE/ACETAMINOPHEN 5mg/325mg TAB PO PRN (11:53)
--- NOTE | 2022-11-09 12:10 | Discharge Summary ---
Discharge Summary Date of Service November 09, 2022 Notes For Next Care Provider Complete 10-day course of linezolid and Augmentin for left shoulder cellulitis. Medication Changes From Visit Patient instructed to hold venlafaxine until 1 week after completing linezolid treatment. Continue all other home medications as prescribed. Admission HPI Per Admitting Provider History obtained from patient and records. Medical history significant for hypertension, hyperlipidemia, recurrent UTIs, DM2 on oral medications, hypothyroidism, ankylosing spondylitis as per records, chronic anemia (baseline hemoglobin of 11), chronic ITP as per records. Last confinement July 2016 for complicated UTI/kidney stone. Few days history of achy lower abdominal pain, constipation, dysuria symptoms. Poor appetite. No fever, no chills. No chest pain, no shortness of breath. Patient given ciprofloxacin at that Emergency room. Medical History as above Surgical History : Left knee surgery, sinus surgery, right ankle surgery, urologic procedures, cataract surgeries, tonsillectomy/adenoidectomy Family History : Heart disease, blood cancer, uterine cancer Personal/Social history : Non-smoker, occasional EtOH intake Admission Exam Per Admitting Provider GENERAL: Slightly uncomfortable, morbidly obese, slightly hard of hearing, no respiratory distress SKIN: Pallor, warm HEENT pale palpebral conjunctivae, no ptosis, dry buccal mucosa NECK : Supple, no tenderness CHEST : CTA, no tenderness HEART : RRR, no obvious murmurs ABDOMEN: Some distention, hypogastric tenderness EXTREMITIES : Minimal LE swelling, no LE tenderness, no other conspicuous deformities noted NEUROLOGIC : Coherent, no facial asymmetry, slightly hard of hearing, gait and stance not assessed Principal Dx & Hospital Course #1 = Principal Diagnosis (1) Severe sepsis: (2) Cellulitis of left shoulder: (3) Hyponatremia: (4) Anxiety: (5) Depression: (6) HTN (hypertension): Plan This is a 82-year-old lady with PMH of HTN, HLD, recurrent UTIs, DM2 on oral meds, hypothyroidism, ankylosing spondylitis, chronic anemia [baseline hemoglobin of 11], chronic ITP presented to the ED 10/31 with complaint of lower abdominal pain, poor appetite and trauma to the back of left shoulder with cabinet door and was found to have severe sepsis secondary to left shoulder cellulitis. X-ray left shoulder with no acute fracture or dislocation. Was treated with Unasyn and vancomycin and will be transition to Augmentin and linezolid upon discharge for total 10-day course each. Also instructed to take 2-week course of probiotics. Instructed to hold venlafaxine until 1 week following completion of linezolid due to drug drug interaction. Initially c oncern for complicated UTI due to recurrent infection but urine culture was a contaminant and no blood culture growth for 5 days. Has chronic pain due to spinal stenosis with radicular pain. No localized tenderness. Evaluated by orthopedic spine and recommended to follow-up in the clinic as outpatient. Initially noted to be hyponatremic with sodium of 125 likely secondary to illness at presentation. Sodium back to 130 and stable. Directed to continue bowel regimen with use of ongoing narcotics at home for chronic back and perineal pain. Patient comfortable at time of discharge and hemodynamically stable. Has home health set up at home. Discharge Exam Gen: WD/WN, NAD, sitting up in bed, A&Ox3 HEENT: Normocephalic, atraumatic, conjunctivae moist, sclerae anicteric, mucous membranes moist Lung: Clear to Auscultation bilaterally, no wheezes/rales/rhonchi Heart: Regular rate, regular rhythm, no murmurs, rubs, or gallops Abdomen: Soft, NT, ND +BS x 4 Extremities: no edema Skin: Warm, no rash. + L shoulder posterior aspect with improving overall appearance -still some erythema, swelling with healing of small abscess Updated Medication List Medication Instructions Recorded Confirmed Type atorvastatin 10 mg tablet 10 mg PO QAM 03/06/19 10/30/22 History levothyroxine 75 mcg tablet 75 mcg PO DAILYBB 03/06/19 10/30/22 History metoprolol succinate 50 mg 50 mg PO HS 03/06/19 10/30/22 History tablet,extended release 24 hr venlafaxine 150 mg 150 mg PO DAILY 03/06/19 10/30/22 History capsule,extended release 24 hr acetaminophen 500 mg tablet 1,000 mg PO Q6H PRN Pain 07/05/21 10/30/22 History (Tylenol Extra Strength) celecoxib 200 mg capsule 200 mg PO DAILY 01/30/22 10/30/22 History metformin 500 mg tablet,extended 500 mg PO QAM 02/17/22 10/30/22 History release 24 hr plecanatide 3 mg tablet (Trulance) 3 mg PO QAM 02/17/22 10/30/22 History Bifidobacterium infantis 4 mg 4 mg PO DAILY 10/30/22 10/30/22 History capsule (Align) cholecalciferol (vitamin D3) 50 50 mcg PO DAILY 10/30/22 10/30/22 History mcg (2,000 unit) capsule (Vitamin D3) fluticasone propionate 50 2 spray intranasal DAILY PRN Nasal 10/30/22 10/30/22 History mcg/actuation nasal Congestion spray,suspension multivitamin 1 tab PO DAILY 10/30/22 10/30/22 History oxycodone 5 mg tablet 5 mg PO DAILY PRN pain 10/30/22 10/30/22 History pantoprazole 40 mg tablet,delayed 40 mg PO DAILY 10/30/22 10/30/22 History release amoxicillin 875 mg-potassium 1 tab PO BID #13 tabs 11/09/22 Rx clavulanate 125 mg tablet lactobacillus combination no.4 3 3,000 mmu cells PO DAILY #14 caps 11/09/22 Rx billion cell capsule (Probiotic) linezolid 600 mg tablet 600 mg PO BID 9 days #17 tabs 11/09/22 Rx Hospital Stay Data Consultations 10/30/22 22:43 ED Decision to Admit Stat 11/05/22 16:55 Consult Orthopedic Surgery Routine Diagnostic Imagining Performed 10/30/22 19:41 CT abd pelvis IV con only Stat Pending Results Patient Have Any Pending Studies at Discharge: No Discharge Instructions Given to Patient (Per Discharging Provider) You were admitted for skin infection of left shoulder. Please continue 2 anti biotics until completed. Take probiotics for the next 2 weeks as well. Shoulder pain is improved. X-ray left shoulder with no acute fracture or dislocation. Sodium was initially low due to acute infection but has resolved and is back to baseline. Please hold venlafaxine until 1 week after Linezolid antibiotic has been completed -Okay to resume on November 24 SUMMARY OF TEST RESULTS: No growth on urine or blood cultures Hgb a1c 11/08/21: 6.8 PENDING TEST RESULTS: None RECOMMENDATIONS FOR FOLLOW-UP: Complete antibiotics and probiotics Continue low carb diet and good diabetes control Follow up with PCP as scheduled above OTHER INSTRUCTIONS: Seek medical attention if you have: * temperature above 101 * chest pain or trouble breathing * abdominal pain, nausea, vomiting * diarrhea, dark stools or bloody stools * any unanswered questions or concerns Call 911 if symptoms are severe. Please take good care of yourself. Call if you have any questions or problems. You can reach a [facility] hospitalist on duty at [facility] 24 hours a day by calling [phone]. Jeannette Santillan PA-C [facility] Hospitalist Total Time Total Time Spent Total Time Spent (In Minutes): 50 Supervising Physician Co-Signing Physician Notes 82-year-old lady with PMH of HTN, HLD, recurrent UTIs, DM2 on oral meds, hypothyroidism, ankylosing spondylitis, chronic anemia [baseline hemoglobin of 11], chronic ITP presented to the ED 10/31 with complaint of lower abdominal pain, poor appetite and trauma to the back of left shoulder with cabinet door. She was being managed for severe sepsis POA and left shoulder cellulitis along with her chronic back pain. She is to complete her antibiotic therapy in the form of Augmentin and linezolid to complete 10 days of therapy from 11/06 and 11/07 respectively. Probiotics has been added for 2 weeks. Patient has been recommended to go to rehab multiple times, patient has been declining and adamant on going home/patient reports she has caregivers. On examination, left shoulder cellulitis with significant decreasing erythema/swelling/tenderness, small pus point has dried out. No fluctuation noted. Rest of the examination as above. I have seen and examined the patient and have discussed the case with the provider above. I agree with the assessment and plan as stated. Patient to follow-up with her PCP in a week time upon discharge. Patient to not take her venlafaxine up to 1 week after completion of her linezolid course.
== END 2022-11-09 15:24 | disposition home health service (06) | DRG 872 ==
LOC: ED 19:25 → EDINP 10-31 01:45 → SUATTDRO 10-31 01:45 → 2N 10-31 02:35 → 3W 11-03 11:12
DX: K59.00 Constipation, unspecified; E78.5 Hyperlipidemia, unspecified; F41.8 Other specified anxiety disorders; M45.9 Ankylosing spondylitis of unspecified sites in spine; N39.0 Urinary tract infection, site not specified; R65.20 Severe sepsis without septic shock; R33.9 Retention of urine, unspecified; A41.9 Sepsis, unspecified organism; I10 Essential (primary) hypertension; E11.9 Type 2 diabetes mellitus without complications; E87.1 Hypo-osmolality and hyponatremia; L03.114 Cellulitis of left upper limb; Z79.84 Long term (current) use of oral hypoglycemic drugs; E03.9 Hypothyroidism, unspecified; Z79.890 Hormone replacement therapy; Z88.8 Allergy status to other drugs, medicaments and biological substances; N17.9 Acute kidney failure, unspecified; Z88.2 Allergy status to sulfonamides; D69.3 Immune thrombocytopenic purpura

== ENCOUNTER 2024-07-15 10:06 | Inpatient (IN) ==
[2024-07-15] MEDS: SODIUM CHLORIDE 0.9% 500 ML IV STA (11:02)
[2024-07-15] MEDS: MoRPHine SULFATE 4 MG/ML 1 ML CARP\\VIAL IV PRN (11:02)
[2024-07-15] MEDS: ONDANSETRON INJ 2 MG/ML 2 ML VIAL IV STA (11:03)
[2024-07-15 11:04] LABS: Alanine Aminotransferase 11 U/L (7-52); Albumin Globulin Ratio 1.1 (0.9-2); Albumin Level 3.7 gm/dl (3.4-5.0); Alkaline Phosphatase 83 U/L (34-104); Anion Gap 7 (3-11); Aspartate Aminotransferase 11 U/L (13-39); BUN Creatinine Ratio 18.9 (10-20); Basophils # (auto) 0.06 K/uL (0.00-0.20); Basophils % (auto) 0.7 %; Bilirubin,Total 0.3 mg/dl (0.2-1.0); Blood Urea Nitrogen 18 mg/dl (6-23); Calcium 8.9 mg/dl (8.6-10.3); Carbon Dioxide 26 mmol/L (21-32); Chloride 101 mmol/L (98-107); Eosinophils # (auto) 0.17 K/uL (0.00-0.50); Eosinophils % (auto) 2.1 %; Est GFR (African American) 64.2 ml/min; Est GFR (Non-African American) 55.4 ml/min; Globulin 3.4 gm/dl (2.5-4.0); Glucose 145 mg/dl (70-99(Fasting)); Hematocrit (blood only) 31.3 % (37.0-47.0); Hemoglobin 10.2 g/dl (12.0-16.0); Immature Granulocytes # (auto) 0.03 K/uL (0.01-0.20); Immature Granulocytes % (auto) 0.4 %; Lipase 19 U/L (11-82); Lymphocytes # (auto) 1.41 K/uL (1.20-3.40); Lymphocytes % (auto) 17.2 %; Mean Corpuscular Hemoglobin 29.2 pg (25.0-34.0); Mean Corpuscular Hgb Conc 32.6 g/dL (32.0-36.0); Mean Corpuscular Volume 89.7 fL (80.0-100.0); Mean Platelet Volume 12.5 fL (9.4-12.4); Monocytes # (auto) 0.57 K/uL (0.11-0.59); Neutrophils # (auto) 5.96 K/uL (1.40-6.50); Neutrophils % (auto) 72.6 %; Platelet Count 138 K/uL (130-400); Potassium 4.8 mmol/L (3.5-5.1); RDW Standard Deviation 45.9 fL (36.4-46.3); Red Blood Count 3.49 M/uL (4.20-5.40); Sodium 134 mmol/L (136-145); Total Protein 7.1 gm/dl (6.0-8.3)
--- NOTE | 2024-07-15 11:06 | Emergency Department Note ---
Impression & Plan Ureteral stone with hydronephrosis, Right sided abdominal pain, Mass of right kidney ED Provider Note NAME: DONTRELL ZHENG AGE: 83 SEX: F : 1940 ARRIVES VIA: Walk-In INFORMANT: Patient, ED PROVIDER(S): Frank Phillips DO CHIEF COMPLAINT: Abdominal pain HPI: The patient is an 83-year-old female who presented to the emergency department for an evaluation of abdominal pain. The patient describes right lower quadrant abdominal pain which is moderate. She also had loose stool this morning. She has no history of bowel obstruction in the past. She has not been seen by her family doctor. She called her family doctor but was referred to the emergency department for further evaluation. The patient denies having any rectal bleeding. ROS: See above HPI for pertinent positives & negatives. A total of 10 systems reviewed and were otherwise negative. PAST MEDICAL HISTORY: See Below PAST SURGICAL HISTORY: See Below FAMILY HISTORY: See Below SOCIAL HISTORY: See Below HOME MEDICATIONS: See Below ALLERGIES: See Below VITALS: See Below PHYSICAL EXAMINATION: GENERAL: The patient is awake and alert. The patient is very anxious and appears to be uncomfortable. EYES: The conjunctivae are clear. The pupils are round and reactive. EARS, NOSE, MOUTH AND THROAT: The nose is without any evidence of any deformity. NECK: The neck is nontender and supple. RESPIRATORY: Normal respiratory effort is noted there is no evidence of wheezing rhonchi or rales CARDIOVASCULAR: Regular rate and rhythm noted there no murmurs rubs or gallops normal S1 normal S2. GASTROINTESTINAL: The abdomen is moderately distended. There is tenderness in the right lower quadrant. There is guarding in the right lower quadrant. MUSCULOSKELETAL/EXTREMITIES: There is no evidence of gross deformity full range of motion is noted in the hips and shoulders. SKIN: There is no obvious evidence of any rash. There are no petechiae, pallor or cyanosis noted. NEUROLOGIC: Patient is awake alert and oriented x3 MEDICAL DECISION MAKING: The patient is an 83-year-old female who presented to the emergency department for an evaluation of loose stool and abdominal pain. The patient had abdominal distention and a physical exam that I was concerned was consistent with a surgical abdomen. For this reason further laboratory and radiographic studies were obtained. As it turns out the patient had a distal right ureteral calculus. She did have very significant pain with this and was treated with multiple rounds of IV pain medication. The patient was not significantly improved on reevaluation. Given the size of her kidney stone as well as her other findings on CAT scan I did discuss this case with the on-call [facility]ist. They have agreed to evaluate the patient in the emergency department for further management and disposition. The patient did not have a fever. Urinalysis was not consistent with infection. I will defer any antibiotics to the admitting team although the patient's degree of hydronephrosis could indicate there was a infection proximal to the stone. Triage Nursing notes reviewed. Prior medical records reviewed Vital Signs: reviewed and remarkable for no significant abnormalities Differential diagnosis: Etiologies such as appendicitis, diverticulitis, obstruction, inflammatory bowel disease, renal colic, PUD, biliary pathology, pancreatitis, mesenteric ischemia, aortic pathology, infections, genitourinary, UTI, perforated viscus, as well as others were entertained. ER treatment provided: See below Diagnostics interpreted by me: ECG: none Cardiac Monitoring: An order was placed for continuous cardiac monitoring. The monitor shows a rate of 76/min with sinus rhythm. Laboratory studies: As stated above and show below. Imaging studies: See below. Radiographic imaging was reviewed by myself Consultation(s): I discussed this case with the nurse practitioner, Atilio, who is on for the [facility]ist group. They have agreed to evaluate the patient in the emergency department. Past Med/Surg History Problem List (Updated 07/15/24 @ 14:49 by Noemi Suarez RN) Mass of right kidney (Acute) Right sided abdominal pain (Acute) Cellulitis of left shoulder Severe sepsis Hyponatremia Hyponatremia (Acute) LOLITA (acute kidney injury) (Acute) Abdominal pain (Acute) Chronic perineal pain in female Spinal stenosis of lumbar region Lumbar radicular pain Ambulatory dysfunction Pain of right sacroiliac joint Leg length discrepancy Thrombocytopenia (Chronic) Recurrent UTI H/O sinus surgery (Chronic) History of bone marrow biopsy (Chronic) S/P tonsillectomy and adenoidectomy (Chronic) S/P appendectomy (Chronic) History of hysterectomy (Chronic) History of diverticulitis (Chronic) Anxiety (Chronic) Depression (Chronic) Osteoarthritis (Chronic) GERD (gastroesophageal reflux disease) (Chronic) HTN (hypertension) (Chronic) Tachycardia Hypothyroidism (Chronic) Ureteral stone with hydronephrosis (Acute) Ankylosing spondylitis (Acute) Cervical radiculopathy (Acute) Sciatica (Acute) (ankylosing spondylitis) (Chronic) Medical History (Updated 07/15/24 @ 14:49 by Noemi Suarez RN) Hypothyroid Sciatica Spinal stenosis Hx of ankylosing spondylitis Hx of fracture of ankle right ankle surgery with screws and plates GERD (gastroesophageal reflux disease) Hypothyroid Tachycardia HTN (hypertension) Surgical History (Updated 07/15/24 @ 14:49 by Noemi Suarez RN) Hx of hysterectomy History of right cataract surgery History of left cataract surgery Hx of cataract surgery Hx of tonsillectomy History of knee replacement both knees S/P appendectomy Social History Smoking Status: Never smoker Second Hand Exposure: No; Do You Dip or Chew Tobacco: No; Hx Alcohol Use: Yes Alcohol type: wine Alcohol type Comment: special occasions, less than 1/month Hx Substance Use: No Preferred Language: Mauritian Communication Ability: Effective Visual Impairment: No Limitations Hearing Ability: Hard of Hearing Network Pricing Consultant Required: No Beliefs That Will Affect Care: None marital status: / Current Living Situation: Alone Current Living Situation Comment: with dog current occupational status: retired 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 [place] Feels Safe at Home: Yes Assistive Devices: Walker and Wheelchair Allergies Allergies Allergy/AdvReac Type Severity Reaction Status Date / Time cefdinir Allergy Severe ANAPHYLAXIS Verified 07/15/24 14:39 - ED adm 06/03/16 doxycycline Allergy Intermediate Rash/Hives Verified 07/15/24 14:39 Sulfa (Sulfonamide Allergy Intermediate HIVES/RASH Verified 07/15/24 14:39 Antibiotics) Sulfonylureas Allergy Unknown ON [facility] MED Verified 07/15/24 14:39 LIST alendronate sodium AdvReac Intermediate Abdominal Verified 07/15/24 14:39 Pain/ GI Upset heparin AdvReac Unknown AVOID FOR Verified 07/15/24 14:39 LOW PLATELETS Home Meds Home Medications Medication Instructions Recorded Confirmed atorvastatin 10 mg tablet 10 mg PO QAM 03/06/19 07/15/24 levothyroxine 75 mcg tablet 75 mcg PO DAILYBB 03/06/19 07/15/24 metoprolol succinate 50 mg 50 mg PO HS 03/06/19 07/15/24 tablet,extended release 24 hr venlafaxine 150 mg 150 mg PO HS 03/06/19 07/15/24 capsule,extended release 24 hr acetaminophen 500 mg tablet 1,000 mg PO Q6H PRN Pain 07/05/21 07/15/24 (Tylenol Extra Strength) celecoxib 200 mg capsule 200 mg PO DAILY 01/30/22 07/15/24 metformin 500 mg tablet,extended 500 mg PO QAM 02/17/22 07/15/24 release 24 hr cholecalciferol (vitamin D3) 50 50 mcg PO DAILY 10/30/22 07/15/24 mcg (2,000 unit) capsule (Vitamin D3) multivitamin 1 tab PO DAILY 10/30/22 07/15/24 oxycodone 5 mg tablet 5 mg PO QAM pain 10/30/22 07/15/24 pantoprazole 40 mg tablet,delayed 40 mg PO DAILY 10/30/22 07/15/24 release clobetasol 0.05 % topical ointment 1 applic topical 03/09/23 07/15/24 melatonin 3 mg tablet 3 mg PO HS 03/09/23 07/15/24 triamcinolone acetonide 0.1 % 1 applic topical 03/09/23 07/15/24 topical cream lubiprostone 24 mcg capsule 24 mcg PO BID 07/15/24 07/15/24 Results & Data (ED) Vital Signs Vital Signs - 24 hr 07/15/24 10:10 07/15/24 10:17 07/15/24 10:34 Temperature 36.9 C Temperature Source Temporal Artery Scan Pulse Rate 77 Pulse Rate [Apical] Pulse Rhythm [Apical] Pulse Strength [Apical] Respiratory Rate 14 22 Respiratory Effort / Characteristics Non-Labored Respiratory Depth Normal Respiratory Pattern Blood Pressure 137/91 Blood Pressure [Right Arm] Blood Pressure Mean 106 Blood Pressure Mean [Right Arm] Blood Pressure Position [Right Arm] Pulse Oximetry 96 Oxygen Delivery Method Room Air Room Air Oxygen Flow Rate Sepsis New/Unexplained Change in Mental Status No Sepsis Action Taken by Nursing No Action Required 07/15/24 12:06 07/15/24 12:15 07/15/24 14:00 Temperature Temperature Source Pulse Rate 85 Pulse Rate [Apical] 78 78 Pulse Rhythm [Apical] Pulse Strength [Apical] Respiratory Rate 22 22 Respiratory Effort / Characteristics Non-Labored Respiratory Depth Normal Normal Respiratory Pattern Blood Pressure Blood Pressure [Right Arm] 171/79 H 137/82 Blood Pressure Mean Blood Pressure Mean [Right Arm] 109 100 Blood Pressure Position [Right Arm] Pulse Oximetry 97 97 Oxygen Delivery Method Room Air Room Air Oxygen Flow Rate Sepsis New/Unexplained Change in Mental Status Sepsis Action Taken by Nursing 07/15/24 14:30 07/15/24 14:38 07/15/24 15:26 Temperature 36.8 C 36.9 C Temperature Source Oral Temporal Artery Scan Pulse Rate Pulse Rate [Apical] 82 85 Pulse Rhythm [Apical] Regular Regular Pulse Strength [Apical] Normal Respiratory Rate 20 14 Respiratory Effort / Characteristics Non-Labored Spontaneous Normal for Patient Non-Labored Spontaneous Normal for Patient Respiratory Depth Normal Normal Respiratory Pattern Regular Regular Blood Pressure Blood Pressure [Right Arm] 200/103 H 188/92 H 137/68 Blood Pressure Mean Blood Pressure Mean [Right Arm] 135 124 91 Blood Pressure Position [Right Arm] Semi-fowlers Semi-fowlers Semi-fowlers Pulse Oximetry 99 100 Oxygen Delivery Method Room Air Oxymask Oxygen Flow Rate 4 Sepsis New/Unexplained Change in Mental Status Sepsis Action Taken by Nursing 07/15/24 15:35 07/15/24 15:45 07/15/24 15:55 Temperature Temperature Source Pulse Rate Pulse Rate [Apical] 87 83 82 Pulse Rhythm [Apical] Regular Regular Regular Pulse Strength [Apical] Normal Normal Normal Respiratory Rate 19 19 18 Respiratory Effort / Characteristics Non-Labored Spontaneous Normal for Patient Non-Labored Spontaneous Normal for Patient Non-Labored Spontaneous Normal for Patient Respiratory Depth Normal Normal Normal Respiratory Pattern Regular Regular Regular Blood Pressure Blood Pressure [Right Arm] 160/99 H 187/79 H 188/105 H Blood Pressure Mean Blood Pressure Mean [Right Arm] 119 115 132 Blood Pressure Position [Right Arm] Semi-fowlers Semi-fowlers Semi-fowlers Pulse Oximetry 97 98 96 Oxygen Delivery Method Oxymask Oxymask Room Air Oxygen Flow Rate 3 2 Sepsis New/Unexplained Change in Mental Status Sepsis Action Taken by Nursing 07/15/24 16:05 07/15/24 16:08 07/15/24 16:10 Temperature Temperature Source Pulse Rate 79 Pulse Rate [Apical] 77 76 Pulse Rhythm [Apical] Regular Regular Pulse Strength [Apical] Normal Normal Respiratory Rate 18 15 Respiratory Effort / Characteristics Non-Labored Spontaneous Normal for Patient Non-Labored Spontaneous Normal for Patient Respiratory Depth Normal Normal Respiratory Pattern Regular Regular Blood Pressure 188/105 H Blood Pressure [Right Arm] 180/75 H 153/62 H Blood Pressure Mean Blood Pressure Mean [Right Arm] 110 92 Blood Pressure Position [Right Arm] Semi-fowlers Semi-fowlers Pulse Oximetry 93 93 Oxygen Delivery Method Room Air Room Air Oxygen Flow Rate Sepsis New/Unexplained Change in Mental Status Sepsis Action Taken by Intermediate Medications Current Medication List: was personally reviewed by me Laboratory Data Attestation: I reviewed the patient's lab results. 07/15/24 10:07/15/24 10: Lab Results 07/15/24 07/15/24 Range/Units 10: 12:03 WBC 8.20 (4.8-10.8) K/ul RBC 3.49 L (4.20-5.40) M/uL Hgb 10.2 L (12.0-16.0) g/dl Hct 31.3 L (37.0-47.0) % MCV 89.7 (80.0-100.0) fL MCH 29.2 (25.0-34.0) pg MCHC 32.6 (32.0-36.0) g/dL RDW Std Deviation 45.9 (36.4-46.3) fL RDW Coeff of Morgan 14.0 (11.5-14.5) % Plt Count 138 (130-400) K/uL MPV 12.5 H (9.4-12.4) fL Immature Gran % (Auto) 0.4 % Neut % (Auto) 72.6 % Lymph % (Auto) 17.2 % [place] % (Auto) 7.0 % Eos % (Auto) 2.1 % Baso % (Auto) 0.7 % Neut # (Auto) 5.96 (1.40-6.50) K/uL Lymph # (Auto) 1.41 (1.20-3.40) K/uL [place] # (Auto) 0.57 (0.11-0.59) K/uL Eos # (Auto) 0.17 (0.00-0.50) K/uL Baso # (Auto) 0.06 (0.00-0.20) K/uL Immature Gran # (Auto) 0.03 (0.01-0.20) K/uL PT 10.4 (9.0-12.0) Seconds INR 1.0 (0.9-1.1) Sodium 134 L (136-145) mmol/L Potassium 4.8 (3.5-5.1) mmol/L Chloride 101 (98-107) mmol/L Carbon Dioxide 26 (21-32) mmol/L Anion Gap 7 (3-11) BUN 18 (6-23) mg/dl Creatinine 0.95 (0.6-1.2) mg/dl Est Cr Clr Drug Dosing Not Reportable Est GFR ( Amer) 64.2 ml/min Est GFR (Non-Af Amer) 55.4 ml/min BUN/Creatinine Ratio 18.9 (10-20) Glucose 145 H (70-99(Fasting)) mg/dl Calcium 8.9 (8.6-10.3) mg/dl Total Bilirubin 0.3 (0.2-1.0) mg/dl AST 11 L (13-39) U/L ALT 11 (7-52) U/L Alkaline Phosphatase 83 (34-104) U/L Total Protein 7.1 (6.0-8.3) gm/dl Albumin 3.7 (3.4-5.0) gm/dl Globulin 3.4 (2.5-4.0) gm/dl Albumin/Globulin Ratio 1.1 (0.9-2) Lipase 19 (11-82) U/L Urine Color Yellow Urine Appearance Clear (Clear) Urine pH 7.5 (4.5-7.5) Ur Specific Macy > 1.045 H (1.000-1.030) Urine Protein Negative (Negative) Urine Glucose (UA) Negative (Negative) Urine Ketones Negative (Negative) Urine Blood Negative (Negative) Urine Nitrite Negative (Negative) Urine Bilirubin Negative (Negative) Urine Urobilinogen Negative (Negative) Ur Leukocyte Esterase Negative (Negative) Administered Medications Ciprofloxacin (Cipro / D5w) 400 mg in 200 mls @ 100 mls/hr IV PREOP PREETI; Protocol Stop: 07/16/24 14:24 Last Admin: 07/15/24 14:56 Dose: 100 mls/hr Documented By: [id number] Lactated Ringer's (Lr) 1,000 mls @ 15 mls/hr IV .Q24H PREETI Stop: 08/14/24 14:29 Last Infusion: 07/15/24 14:54 Dose: Infused Documented By: Admin: 07/15/24 14:40 Dose: 15 mls/hr Documented By: FANNIE Morphine Sulfate (Morphine Sulfate 4 Mg/Ml 1 Ml Carp\Vial) 4 mg IV Q15M PRN PRN Reason: Pain Stop: 07/29/24 10:54 Last Admin: 07/15/24 11:34 Dose: 4 mg Documented By: Admin: 07/15/24 11:02 Dose: 4 mg Documented By: MMG Discontinued Medications Diatrizoate Meglumine (Diatrizoate Meglumine 30% 100ml Vial) 8 ml INSTIL UD ONE Stop: 07/15/24 15:29 Last Admin: 07/15/24 15:15 Dose: 8 ml Documented By: [id number] Sodium Chloride (Nss) 500 mls @ 999 mls/hr IV .Q31M STA Stop: 07/15/24 11:25 Last Infusion: 07/15/24 11:34 Dose: Infused Documented By: Admin: 07/15/24 11:02 Dose: 999 mls/hr Documented By: LAMAR Ioversol (Optiray 320 100ml) 93 ml IV ONCE ONE Stop: 07/15/24 11:28 Last Admin: 07/15/24 11:27 Dose: 93 ml Documented By: BILLY Labetalol HCl (Labetalol Hcl Iv 5 Mg/Ml 20ml) Confirm Administered Dose 10 mg IV .STK-MED ONE Stop: 07/15/24 16:03 Last Admin: 07/15/24 16:09 Dose: Not Given Documented By: SED Labetalol HCl (Labetalol Hcl Iv 5 Mg/Ml 20ml) 10 mg IV NOW STA Stop: 07/15/24 16:05 Last Admin: 07/15/24 16:08 Dose: 10 mg Documented By: SED Ondansetron HCl (Ondansetron Inj 2 Mg/Ml 2 Ml Vial) 4 mg IV NOW STA Stop: 07/15/24 10:56 Last Admin: 07/15/24 11:03 Dose: 4 mg Documented By: LAMAR Imaging Data Attestation: I personally reviewed and interpreted this imaging study as follows: My Impression: CT of the abdomen and pelvis was obtained in the emergency department. My interpretation is no free air, there was hydronephrosis noted, final report below. Radiologist's Impression: Abdomen/Pelvis CT 07/15/24 10:55 CT SCAN OF THE ABDOMEN AND PELVIS WITH IV CONTRAST CLINICAL HISTORY: Right-sided abdominal pain. COMPARISON STUDY: Abdominal CT dated 10/30/2022. TECHNIQUE: Following the IV administration of 93 cc of Optiray 320, CT scan of the abdomen and pelvis is performed from the lung bases to the proximal femora. Images are reviewed in the axial, sagittal, and coronal planes. IV contrast was administered without complication. A dose lowering technique was utilized adhering to the principles of ALARA. CT DOSE: 1479.25 mGy.cm FINDINGS: Lung bases: The heart is normal in size and without pericardial effusion. There is a small hiatal hernia. Chronic scarring/atelectasis is seen at the lung bases. No airspace consolidation typical for pneumonia or pleural effusion is identified. Liver: The contrast-enhanced liver is normal in size, contour, and attenuation. There is no intrahepatic biliary ductal dilatation. The hepatic veins and portal veins are patent. A 1.9 cm right lobe hypodensity on image #87 is unchanged and likely representing hemangioma. Gallbladder: Unremarkable. Spleen: Normal in size and attenuation. Pancreas: Moderately atrophic and grossly unremarkable. Adrenal glands: Unremarkable. Kidneys: The contrast enhanced kidneys are normal in size. There is a 5 mm obstructing calculus protruding from the right vesicoureteral junction seen on image #319. This causes moderate right hydroureteronephrosis. There is associated right-sided perinephric stranding and fluid. There is diminished enhancement of the right kidney as compared to the left. There are at least 3 additional nonobstructing right renal calculi which measure up to 3 mm. There are 2 nonobstructing right renal calculi which measure up to 2 mm1. There are at least 2 left renal cysts which measure up to 2.5 cm. There is irregular/nodular urothelial thickening and enhancement in the left renal pelvis seen on image #153 with mild surrounding infiltration. Abdominal vasculature: The abdominal aorta is normal in course and caliber noting moderate to advanced atherosclerotic calcification. Bowel: There is mild to moderate colonic diverticulosis without CT evidence of acute diverticulitis. No bowel obstruction is seen. The appendix is not visualized. Peritoneum: There is no intraperitoneal free air or abdominal ascites. There is a fat-containing umbilical hernia. Lymphadenopathy: None. Pelvic viscera: The bladder is normal as visualized. The uterus is surgically absent. No adnexal lesion is seen. Skeletal structures: The skeletal structures are osteopenic. There is moderate lumbosacral spondylosis. No lytic or blastic lesions are seen. IMPRESSION: 1. There is a 5 mm obstructing calculus protruding from the right vesicoureteral junction. This causes moderate right hydroureteronephrosis. 2. Additional nonobstructing renal calculi are seen bilaterally. 3. There is irregular/nodular soft tissue thickening and enhancement in left renal pelvis. Although this could be inflammatory, the appearance is more suspicious for urothelial neoplasm. Follow-up with urology is recommended. 4. Colonic diverticulosis without CT evidence of acute diverticulitis. 5. Additional findings as above. ACT 112: Positive. There are findings on this exam that require communication between the performing entity and the patient following Patient Test Result Information Act ([place] Act 112) guidelines. Electronically signed by: Barry Valencia M.D. 07/15/2024 11:56 AM Retrograde Pyelogram 07/15/24 14:30 FL retrograde includes kub CLINICAL HISTORY: CYSTO RIGHT SIDE WITH LASERright-sided cystourethrogram COMPARISON STUDY: CT of same day FLUOROSCOPY TIME: 6.5 seconds FLUOROSCOPY IMAGES: 2 EXPOSURE DOSE: 2.12 mGy FINDINGS: Persistent hydronephrosis. A guidewire projects over a superior pole calyx. Subsequent image demonstrates placement of a right ureteral stent, proximal portion overlying the renal pelvis and distal portion is not imaged. IMPRESSION: Fluoroscopic assistance as above. ACT 112: Negative or not required by law. Electronically signed by: Lobo Tolliver M.D. 07/15/2024 4:14 PM Discharge Plan Visit Data Chief Complaint: Abdominal Pain Stated Complaint: LOWER R ABD PAIN/DIARRHEA ED Provider: Frank Phillips Discharge Problem: Ureteral stone with hydronephrosis, Right sided abdominal pain, Mass of right kidney Patient Disposition: Admitted As Inpatient Discharge Instructions Interventions: ED Discharge Assessment Last Done: 07/15/24 14:13
[2024-07-15 11:13] LABS: Prothrombin Time 10.4 Seconds (9.0-12.0)
[2024-07-15] MEDS: OPTIRAY 320 100ml IV ONE (11:27)
--- NOTE | 2024-07-15 11:58 | CT Scan Report ---
CT SCAN OF THE ABDOMEN AND PELVIS WITH IV CONTRAST CLINICAL HISTORY: Right-sided abdominal pain. COMPARISON STUDY: Abdominal CT dated 10/30/2022. TECHNIQUE: Following the IV administration of 93 cc of Optiray 320, CT scan of the abdomen and pelvi s is performed from the lung bases to the proximal femora. Images are reviewed in the axial, sagittal , and coronal planes. IV contrast was administered without complication. A dose lowering technique wa s utilized adhering to the principles of ALARA. CT DOSE: 1479.25 mGy.cm FINDINGS: Lung bases: The heart is normal in size and without pericardial effusion. There is a small hiatal her sharda. Chronic scarring/atelectasis is seen at the lung bases. No airspace consolidation typical for pn eumonia or pleural effusion is identified. Liver: The contrast-enhanced liver is normal in size, contour, and attenuation. There is no intrahepa tic biliary ductal dilatation. The hepatic veins and portal veins are patent. A 1.9 cm right lobe hyp odensity on image #87 is unchanged and likely representing hemangioma. Gallbladder: Unremarkable. Spleen: Normal in size and attenuation. Pancreas: Moderately atrophic and grossly unremarkable. Adrenal glands: Unremarkable. Kidneys: The contrast enhanced kidneys are normal in size. There is a 5 mm obstructing calculus protr uding from the right vesicoureteral junction seen on image #319. This causes moderate right hydrouret eronephrosis. There is associated right-sided perinephric stranding and fluid. There is diminished en hancement of the right kidney as compared to the left. There are at least 3 additional nonobstructing right renal calculi which measure up to 3 mm. There are 2 nonobstructing right renal calculi which m easure up to 2 mm1. There are at least 2 left renal cysts which measure up to 2.5 cm. There is irregu lar/nodular urothelial thickening and enhancement in the left renal pelvis seen on image #153 with mi ld surrounding infiltration. Abdominal vasculature: The abdominal aorta is normal in course and caliber noting moderate to advance d atherosclerotic calcification. Bowel: There is mild to moderate colonic diverticulosis without CT evidence of acute diverticulitis. No bowel obstruction is seen. The appendix is not visualized. Peritoneum: There is no intraperitoneal free air or abdominal ascites. There is a fat-containing umbi lical hernia. Lymphadenopathy: None. Pelvic viscera: The bladder is normal as visualized. The uterus is surgically absent. No adnexal lesi on is seen. Skeletal structures: The skeletal structures are osteopenic. There is moderate lumbosacral spondylosi s. No lytic or blastic lesions are seen. IMPRESSION: 1. There is a 5 mm obstructing calculus protruding from the right vesicoureteral junction. This cause s moderate right hydroureteronephrosis. 2. Additional nonobstructing renal calculi are seen bilaterally. 3. There is irregular/nodular soft tissue thickening and enhancement in left renal pelvis. Although t his could be inflammatory, the appearance is more suspicious for urothelial neoplasm. Follow-up with urology is recommended. 4. Colonic diverticulosis without CT evidence of acute diverticulitis. 5. Additional findings as above. ACT 112: Positive. There are findings on this exam that require communication between the performing entity and the patient following Patient Test Result Information Act [place] Act 112) guidelines. Electronically signed by: Barry Valencia M.D. 07/15/2024 11:56 AM
[2024-07-15 12:29] LABS: Appearance Urine Clear (Clear); Bilirubin Urine Negative (Negative); Blood Urine Negative (Negative); Color Urine Yellow; Glucose Urine UA Negative (Negative); Ketones Urine Negative (Negative); Leukocyte Esterase Urine Negative (Negative); Nitrite Urine Negative (Negative); Protein Urine Negative (Negative); Specific Gravity Urine > 1.045 (1.000-1.030); Urobilinogen Urine Negative (Negative); pH Urine 7.5 (4.5-7.5)
--- NOTE | 2024-07-15 13:56 | Urology Consultation ---
Date of Consultation July 15, 2024 Assessment & Plan (1) Ureteral stone with hydronephrosis: Plan 83-year-old female admitted with a right distal ureteral calculus as her pain could not be controlled. Afebrile with stable vitals. Labs showed a white count of 8.2, creatinine of 0.95 and a urinalysis which was negative. CT scan independently reviewed which shows a right distal ureteral calculus with subsequent right hydronephrosis possibly a punctate stone in the kidney although may be in the parenchyma. It did show some thickening of the left renal pelvis and was concerning for urothelial neoplasm. Plan to go the OR for cystoscopy, right retrograde pyelogram, possible right ureteroscopy with stone treatment, right ureteral stent placement We will address her stone first and I will likely get a CT urogram and postoperative follow-up both to ensure right hydronephrosis has resolved and no further evaluate left renal pelvis abnormality seen on CT scan. Ancef to the OR Patient consented and marked -Primary urologist is Dr. Bernal, will send back to him once stone is treated so he can follow up left renal findings on CT scan History of Present Illness History of Present Illness 83-year-old female admitted with a right distal ureteral calculus as her pain could not be controlled. Afebrile with stable vitals. Labs showed a white count of 8.2, creatinine of 0.95 and a urinalysis which was negative. CT scan independently reviewed which shows a right distal ureteral calculus with subsequent right hydronephrosis possibly a punctate stone in the kidney although may be in the parenchyma. It did show some thickening of the left renal pelvis and was concerning for urothelial neoplasm. Allergies Allergy/AdvReac Type Severity Reaction Status Date / Time cefdinir Allergy Severe ANAPHYLAXIS Verified 03/09/23 20:30 - ED adm 06/03/16 doxycycline Allergy Intermediate Rash/Hives Verified 03/09/23 20:30 Sulfa (Sulfonamide Allergy Intermediate HIVES/RASH Verified 03/09/23 20:30 Antibiotics) Sulfonylureas Allergy Unknown ON [facility] MED Verified 03/09/23 20:30 LIST alendronate sodium AdvReac Intermediate Abdominal Verified 03/09/23 20:30 Pain/ GI Upset heparin AdvReac Unknown AVOID FOR Verified 03/09/23 20:30 LOW PLATELETS Home Medications Medication Instructions Recorded Confirmed Type atorvastatin 10 mg tablet 10 mg PO QAM 03/06/19 07/15/24 History levothyroxine 75 mcg tablet 75 mcg PO DAILYBB 03/06/19 07/15/24 History metoprolol succinate 50 mg 50 mg PO HS 03/06/19 07/15/24 History tablet,extended release 24 hr venlafaxine 150 mg 150 mg PO HS 03/06/19 07/15/24 History capsule,extended release 24 hr acetaminophen 500 mg tablet 1,000 mg PO Q6H PRN Pain 07/05/21 07/15/24 History (Tylenol Extra Strength) celecoxib 200 mg capsule 200 mg PO DAILY 01/30/22 07/15/24 History metformin 500 mg tablet,extended 500 mg PO QAM 02/17/22 07/15/24 History release 24 hr cholecalciferol (vitamin D3) 50 50 mcg PO DAILY 10/30/22 07/15/24 History mcg (2,000 unit) capsule (Vitamin D3) multivitamin 1 tab PO DAILY 10/30/22 07/15/24 History oxycodone 5 mg tablet 5 mg PO QAM pain 10/30/22 07/15/24 History pantoprazole 40 mg tablet,delayed 40 mg PO DAILY 10/30/22 07/15/24 History release clobetasol 0.05 % topical ointment 1 applic topical HS 03/09/23 07/15/24 History melatonin 3 mg tablet 3 mg PO HS 03/09/23 07/15/24 History triamcinolone acetonide 0.1 % 1 applic topical HS 03/09/23 07/15/24 History topical cream lubiprostone 24 mcg capsule 24 mcg PO BID 07/15/24 07/15/24 History Patient History Medical History GERD (gastroesophageal reflux disease) Hypothyroid Tachycardia HTN (hypertension) Surgical History History of knee replacement both knees S/P appendectomy Social History Smoking Status: Never smoker Second Hand Exposure: No; Do You Dip or Chew Tobacco: No; Hx Alcohol Use: Yes Alcohol type: wine Alcohol type Comment: special occasions, less than 1/month Hx Substance Use: No Preferred Language: [place] Communication Ability: Effective Visual Impairment: No Limitations Hearing Ability: Hard of Hearing International Relations Professor Required: No Beliefs That Will Affect Care: None marital status: / Current Living Situation: Alone Current Living Situation Comment: with dog current occupational status: retired 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 [place] Feels Safe at Home: Yes Assistive Devices: Walker and Wheelchair Physical Exam Physical Exam: General: Alert and oriented, no acute distress HEENT: Normocephalic, mucous membranes moist Pulmonary: Nonlabored respirations Abdomen: Nondistended Extremities: Moves all 4 spontaneously Neuro: No gross deficits Skin: Warm, dry, no rashes noted Results & Data Vital Signs (Past 12 Hours) Vital Signs Temp Pulse Pulse Resp BP BP Pulse Ox 07/15/24 12:15 85 07/15/24 12:06 78 22 171/79 H 97 07/15/24 10:34 07/15/24 10:17 22 07/15/24 10:10 36.9 C 77 14 137/91 96 O2 Del Method 07/15/24 12:15 07/15/24 12:06 Room Air 07/15/24 10:34 Room Air 07/15/24 10:17 07/15/24 10:10 Room Air PG Care Time/CCT Total # of Minutes Spent Total Time Spent with Patient: Total time spent is greater than 50% in coordination of care (as documented) at patient's floor/unit and/or counseling patient: Coding Level of Care Code 92605 INT INP/OBS CARE 2/55MIN Diagnoses Ureteral stone with hydronephrosis N13.2
--- NOTE | 2024-07-15 14:05 | History & Physical Report ---
Date of Service July 15, 2024 Assessment & Plan (1) Mass of right kidney: (2) Hypothyroidism: (3) Ureteral stone with hydronephrosis: (4) GERD (gastroesophageal reflux disease): (5) HTN (hypertension): (6) Depression: (7) Anxiety: Plan Assessment and plan: Right obstructing kidney stone/right hydronephrosis: CT A/P showed obstructing stone and hydronephrosis Urology following, plan for OR on 07/15 for stent placement/possible stone treatment Monitor creatinine, WNL, gentle IV fluids, n.p.o. 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 Full code DVT prophylaxis: Lovenox History of Present Illness Chief Complaint: r abdominal pain Primary Care Provider: Claus Rojas MD The patient is a 83-year-old female with a past medical history of HTN, HLD, spinal stenosison chronic oxy, vitamin D deficiency, prediabetes, GERD who presents to the ED on 07/15/2024 with complaints of right abdominal pain. Reports she began having some pain last night after eating some ice cream. Woke up this morning pain was significantly worse. She reports tenderness with light palpation on exam. She denies any nausea/vomiting. Does report episode of diarrhea which is intermittent for her with her history of IBS. She otherwise denies any acute issues including fever/chills/chest pain/shortness of breath. On exam, patient still reports 5/10 pain after receiving morphine intravenously. On arrival to the ED, her labs remarkable for hemoglobin 10.2, glucose 145. UA unremarkable CT A/P showed: 1. There is a 5 mm obstructing calculus protruding from the right vesicoureteral junction. This causes moderate right hydroureteronephrosis. 2. Additional nonobstructing renal calculi are seen bilaterally. 3. There is irregular/nodular soft tissue thickening and enhancement in left renal pelvis. Although this could be inflammatory, the appearance is more suspicious for urothelial neoplasm. Follow-up with urology is recommended. 4. Colonic diverticulosis without CT evidence of acute diverticulitis. 5. Additional findings as above. The patient will be admitted for pain management consult to urology was placed for obstructing stone Allergies Allergy/AdvReac Type Severity Reaction Status Date / Time cefdinir Allergy Severe ANAPHYLAXIS Verified 07/15/24 14:39 - ED adm 06/03/16 doxycycline Allergy Intermediate Rash/Hives Verified 07/15/24 14:39 Sulfa (Sulfonamide Allergy Intermediate HIVES/RASH Verified 07/15/24 14:39 Antibiotics) Sulfonylureas Allergy Unknown ON [facility] MED Verified 07/15/24 14:39 LIST alendronate sodium AdvReac Intermediate Abdominal Verified 07/15/24 14:39 Pain/ GI Upset heparin AdvReac Unknown AVOID FOR Verified 07/15/24 14:39 LOW PLATELETS Home Medications Medication Instructions Recorded Confirmed Type atorvastatin 10 mg tablet 10 mg PO QAM 03/06/19 07/15/24 History levothyroxine 75 mcg tablet 75 mcg PO DAILYBB 03/06/19 07/15/24 History metoprolol succinate 50 mg 50 mg PO HS 03/06/19 07/15/24 History tablet,extended release 24 hr venlafaxine 150 mg 150 mg PO HS 03/06/19 07/15/24 History capsule,extended release 24 hr acetaminophen 500 mg tablet 1,000 mg PO Q6H PRN Pain 07/05/21 07/15/24 History (Tylenol Extra Strength) celecoxib 200 mg capsule 200 mg PO DAILY 01/30/22 07/15/24 History metformin 500 mg tablet,extended 500 mg PO QAM 02/17/22 07/15/24 History release 24 hr cholecalciferol (vitamin D3) 50 50 mcg PO DAILY 10/30/22 07/15/24 History mcg (2,000 unit) capsule (Vitamin D3) multivitamin 1 tab PO DAILY 10/30/22 07/15/24 History oxycodone 5 mg tablet 5 mg PO QAM pain 10/30/22 07/15/24 History pantoprazole 40 mg tablet,delayed 40 mg PO DAILY 10/30/22 07/15/24 History release clobetasol 0.05 % topical ointment 1 applic topical HS 03/09/23 07/15/24 History melatonin 3 mg tablet 3 mg PO HS 03/09/23 07/15/24 History triamcinolone acetonide 0.1 % 1 applic topical HS 03/09/23 07/15/24 History topical cream lubiprostone 24 mcg capsule 24 mcg PO BID 07/15/24 07/15/24 History Past Med/Surg History Problem List (Updated 07/15/24 @ 14:49 by Noemi Suarez, JACOBY) Mass of right kidney (Acute) Right sided abdominal pain (Acute) Cellulitis of left shoulder Severe sepsis Hyponatremia Hyponatremia (Acute) LOLITA (acute kidney injury) (Acute) Abdominal pain (Acute) Chronic perineal pain in female Spinal stenosis of lumbar region Lumbar radicular pain Ambulatory dysfunction Pain of right sacroiliac joint Leg length discrepancy Thrombocytopenia (Chronic) Recurrent UTI H/O sinus surgery (Chronic) History of bone marrow biopsy (Chronic) S/P tonsillectomy and adenoidectomy (Chronic) S/P appendectomy (Chronic) History of hysterectomy (Chronic) History of diverticulitis (Chronic) Anxiety (Chronic) Depression (Chronic) Osteoarthritis (Chronic) GERD (gastroesophageal reflux disease) (Chronic) HTN (hypertension) (Chronic) Tachycardia Hypothyroidism (Chronic) Ureteral stone with hydronephrosis (Acute) Ankylosing spondylitis (Acute) Cervical radiculopathy (Acute) Sciatica (Acute) (ankylosing spondylitis) (Chronic) Medical History (Updated 07/15/24 @ 14:49 by Noemi Suarez, JACOBY) Hypothyroid Sciatica Spinal stenosis Hx of ankylosing spondylitis Hx of fracture of ankle right ankle surgery with screws and plates GERD (gastroesophageal reflux disease) Hypothyroid Tachycardia HTN (hypertension) Surgical History (Updated 07/15/24 @ 14:49 by Noemi Suarez RN) Hx of hysterectomy History of right cataract surgery History of left cataract surgery Hx of cataract surgery Hx of tonsillectomy History of knee replacement both knees S/P appendectomy Social History Smoking Status: Never smoker Second Hand Exposure: No; Do You Dip or Chew Tobacco: No; Hx Alcohol Use: Yes Alcohol type: wine Alcohol type Comment: special occasions, less than 1/month Hx Substance Use: Yes Substance Use Type Other:: oxycotin 5mg Preferred Language: Frisian Communication Ability: Effective Visual Impairment: No Limitations Hearing Ability: Hard of Hearing Manager Provider Relations Required: No Beliefs That Will Affect Care: None marital status: / Current Living Situation: Alone and Personal Care Facility Current Living Situation Comment: has a caregiver in the mornings current occupational status: retired 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 [place] Feels Safe at Home: Yes Assistive Devices: Denture - Upper, Denture - Lower, Hearing Aid - Bilateral and Walker Review of Systems Review of Systems: All systems reviewed & are unremarkable except as noted in HPI & below Physical Exam Constitutional: WD/WN, vitals as above Eyes: PERRL, conjunctivae normal, anicteric sclerae ENMT: external ear and nose normal, oropharynx normal Neck: trachea midline, no thyromegaly Respiratory: normal respiratory effort, lungs clear to auscultation Cardiovascular: RRR, no murmur, no edema Gastrointestinal (Abdomen): normal bowel sounds, soft, nontender, no hepatosplenomegaly (Right lower quadrant tenderness with light palpation, bowel sounds otherwis) Musculoskeletal: no cyanosis or clubbing, extremities motor strength 5/5 Skin: no rashes, warm and dry Neurologic: patellar DTR's 2+ bilat, sensation intact Psychiatric: A+Ox3, euthymic affect Results & Data Results & Data Vital Signs (Past 12 Hours) Vital Signs Temp Pulse Pulse Resp BP BP Pulse Ox 07/15/24 12:15 85 07/15/24 12:06 78 22 171/79 H 97 07/15/24 10:34 07/15/24 10:17 22 07/15/24 10:10 36.9 C 77 14 137/91 96 O2 Del Method 07/15/24 12:15 07/15/24 12:06 Room Air 07/15/24 10:34 Room Air 07/15/24 10:17 07/15/24 10:10 Room Air Laboratory Results Laboratory Results WBC 8.20 K/ul (4.8-10.8) 07/15/24 10:29 RBC 3.49 M/uL (4.20-5.40) L 07/15/24 10:29 Hgb 10.2 g/dl (12.0-16.0) L 07/15/24 10:29 Hct 31.3 % (37.0-47.0) L 07/15/24 10:29 MCV 89.7 fL (80.0-100.0) 07/15/24 10: MCH 29.2 pg (25.0-34.0) 07/15/24 10: MCHC 32.6 g/dL (32.0-36.0) 07/15/24 10: RDW Std Deviation 45.9 fL (36.4-46.3) 07/15/24: RDW Coeff of [place] 14.0 % (11.5-14.5) 07/15/24 10: Plt Count 138 K/uL (130-400) 07/15/24 10: MPV 12.5 fL (9.4-12.4) H 07/15/24 10: Immature Gran % (Auto) 0.4 % 07/15/24 10: Neut % (Auto) 72.6 % 07/15/24 10: Lymph % (Auto) 17.2 % 07/15/24 10: [place] % (Auto) 7.0 % 07/15/24 10: Eos % (Auto) 2.1 % 07/15/24 10: Baso % (Auto) 0.7 % 07/15/24 10: Neut # (Auto) 5.96 K/uL (1.40-6.50) 07/15/24 10: Lymph # (Auto) 1.41 K/uL (1.20-3.40) 07/15/24 10: [place] # (Auto) 0.57 K/uL (0.11-0.59) 07/15/24 10: Eos # (Auto) 0.17 K/uL (0.00-0.50) 07/15/24 10: Baso # (Auto) 0.06 K/uL (0.00-0.20) 07/15/24 10: Immature Gran # (Auto) 0.03 K/uL (0.01-0.20) 07/15/24 10: PT 10.4 Seconds (9.0-12.0) 07/15/24 10: INR 1.0 (0.9-1.1) 07/15/24 10: Sodium 134 mmol/L (136-145) L 07/15/24 10:29 Potassium 4.8 mmol/L (3.5-5.1) 07/15/24 10:29 Chloride 101 mmol/L (98-107) 07/15/24 10:29 Carbon Dioxide 26 mmol/L (21-32) 07/15/24 10: Anion Gap 7 (3-11) 07/15/24 10: BUN 18 mg/dl (6-23) 07/15/24 10: Creatinine 0.95 mg/dl (0.6-1.2) 07/15/24 10: Est Cr Clr Drug Dosing Not Reportable 07/15/24 10:29 Est GFR ( Amer) 64.2 ml/min 07/15/24 10: Est GFR (Non-Af Amer) 55.4 ml/min 07/15/24 10: BUN/Creatinine Ratio 18.9 (10-20) 07/15/24 10: Glucose 145 mg/dl (70-99(Fasting)) H 07/15/24 10:29 Calcium 8.9 mg/dl (8.6-10.3) 07/15/24 10:29 Total Bilirubin 0.3 mg/dl (0.2-1.0) 07/15/24 10: AST 11 U/L (13-39) L 07/15/24 10: ALT 11 U/L (7-52) 07/15/24 10: Alkaline Phosphatase 83 U/L (34-104) 07/15/24 10: Total Protein 7.1 gm/dl (6.0-8.3) 07/15/24 10:29 Albumin 3.7 gm/dl (3.4-5.0) 07/15/24 10:29 Globulin 3.4 gm/dl (2.5-4.0) 07/15/24 10: Albumin/Globulin Ratio 1.1 (0.9-2) 07/15/24 10: Lipase 19 U/L (11-82) 07/15/24 10:29 Urine Color Yellow 07/15/24 12:03 Urine Appearance Clear (Clear) 07/15/24 12: Urine pH 7.5 (4.5-7.5) 07/15/24 12:03 Ur Specific [place] > 1.045 (1.000-1.030) H 07/15/24 12:03 Urine Protein Negative (Negative) 07/15/24 12:03 Urine Glucose (UA) Negative (Negative) 07/15/24 12:03 Urine Ketones Negative (Negative) 07/15/24 12:03 Urine Blood Negative (Negative) 07/15/24 12:03 Urine Nitrite Negative (Negative) 07/15/24 12:03 Urine Bilirubin Negative (Negative) 07/15/24 12:03 Urine Urobilinogen Negative (Negative) 07/15/24 12:03 Ur Leukocyte Esterase Negative (Negative) 07/15/24 12:03 Impressions Abdomen/Pelvis CT 07/15/24 10:55 CT SCAN OF THE ABDOMEN AND PELVIS WITH IV CONTRAST CLINICAL HISTORY: Right-sided abdominal pain. COMPARISON STUDY: Abdominal CT dated 10/30/2022. TECHNIQUE: Following the IV administration of 93 cc of Optiray 320, CT scan of the abdomen and pelvis is performed from the lung bases to the proximal femora. Images are reviewed in the axial, sagittal, and coronal planes. IV contrast was administered without complication. A dose lowering technique was utilized adhering to the principles of ALARA. CT DOSE: 1479.25 mGy.cm FINDINGS: Lung bases: The heart is normal in size and without pericardial effusion. There is a small hiatal hernia. Chronic scarring/atelectasis is seen at the lung bases. No airspace consolidation typical for pneumonia or pleural effusion is identified. Liver: The contrast-enhanced liver is normal in size, contour, and attenuation. There is no intrahepatic biliary ductal dilatation. The hepatic veins and portal veins are patent. A 1.9 cm right lobe hypodensity on image #87 is unchanged and likely representing hemangioma. Gallbladder: Unremarkable. Spleen: Normal in size and attenuation. Pancreas: Moderately atrophic and grossly unremarkable. Adrenal glands: Unremarkable. Kidneys: The contrast enhanced kidneys are normal in size. There is a 5 mm obstructing calculus protruding from the right vesicoureteral junction seen on image #319. This causes moderate right hydroureteronephrosis. There is associated right-sided perinephric stranding and fluid. There is diminished enhancement of the right kidney as compared to the left. There are at least 3 additional nonobstructing right renal calculi which measure up to 3 mm. There are 2 nonobstructing right renal calculi which measure up to 2 mm1. There are at least 2 left renal cysts which measure up to 2.5 cm. There is irregular/nodular urothelial thickening and enhancement in the left renal pelvis seen on image #153 with mild surrounding infiltration. Abdominal vasculature: The abdominal aorta is normal in course and caliber noting moderate to advanced atherosclerotic calcification. Bowel: There is mild to moderate colonic diverticulosis without CT evidence of acute diverticulitis. No bowel obstruction is seen. The appendix is not visualized. Peritoneum: There is no intraperitoneal free air or abdominal ascites. There is a fat-containing umbilical hernia. Lymphadenopathy: None. Pelvic viscera: The bladder is normal as visualized. The uterus is surgically absent. No adnexal lesion is seen. Skeletal structures: The skeletal structures are osteopenic. There is moderate lumbosacral spondylosis. No lytic or blastic lesions are seen. IMPRESSION: 1. There is a 5 mm obstructing calculus protruding from the right vesicoureteral junction. This causes moderate right hydroureteronephrosis. 2. Additional nonobstructing renal calculi are seen bilaterally. 3. There is irregular/nodular soft tissue thickening and enhancement in left renal pelvis. Although this could be inflammatory, the appearance is more suspicious for urothelial neoplasm. Follow-up with urology is recommended. 4. Colonic diverticulosis without CT evidence of acute diverticulitis. 5. Additional findings as above. ACT 112: Positive. There are findings on this exam that require communication between the performing entity and the patient following Patient Test Result Information Act ([place] Act 112) guidelines. Electronically signed by: Barry Valencia M.D. 07/15/2024 11:56 AM Supervising Physician Co-Signing Physician Notes Attending Addendum: Case reviewed with the advanced practitioner. I have personally performed a history and physical examination on the patient. I have reviewed the advanced practitioner's documentation on the date of service referenced in note, and I agree with, and take responsibility for the plan of care. please refer to her notes for full details patient seen and examined, records reviewed by myself as well on exam, patient seen post procedure feels fine overall states pain has resolved denies urinary symptoms, fever/chills no other symptoms VS noted and reviewed oriented x 3, not in distress, speaks in sentences with no effort nor accessory muscle use normal rate, regular rhythm, no murmurs clear breath sounds bilaterally non distended, soft, nontender no bipedal edema, erythema, warmth no neuro deficits all labs, imaging noted and reviewed ASSESSMENT AND PLAN> RIGHT UVJ STONE s/p stone removal and ureteral stent placement UA: No signs of UTI Renal function preserved Continue to monitor overnight Repeat PRP tomorrow Anticipate discharge to home tomorrow Left renal pelvis lesion Seen on CT abdomen pelvis Suspicious for underlying neoplasm Will need close follow-up and further workup as an outpatient other diagnoses and plan of care as per advanced practitioner's notes Bob Foote MD
[2024-07-15] MEDS ORDERED: PROPOFOL IV EMULSION 10 MG/ML 20 ML VIAL IV ONE (14:10)
[2024-07-15] MEDS ORDERED: ONDANSETRON INJ 2 MG/ML 2 ML VIAL ONE (14:10)
[2024-07-15] MEDS ORDERED: LIDOCAINE 2% 2 ML VIAL/AMP(20MG/ML) INFIL ONE (14:10)
[2024-07-15] MEDS ORDERED: MIDAZOLAM HCL 1 MG/ML 2ML VIAL ONE (14:10)
[2024-07-15] MEDS ORDERED: DEXAMETHASONE SOD INJ 4 MG/ML VIAL ONE (14:10)
[2024-07-15] MEDS ORDERED: fentaNYL citrate PF 100 MCG/2 ML VIAL ONE (14:11)
[2024-07-15] MEDS: LACTATED RINGER'S 1,000 ML IV SCH (14:40)
--- NOTE | 2024-07-15 14:46 | Anesthesiology Consultation ---
Date of Service July 15, 2024 Assessment & Plan Chart Review Chart Review: Acceptable Risk for Surgery Consults Requested none ASA ASA3 Proposed Anesthesia Anesthesia Type: General Risk / Benefits Reviewed With: PT / POA / Parent / Guardian, Accepts Plan and Informed Consent Obtained History Surgery Operation Date: 07/15/24 10:40 Proposed Procedures p Cystoscopy, Right Retrograde Pyelogram, Ureteroscopy, Laser Basket Treatment, Right Stent Placement - Raffi Houston MD Height/Weight Height: 5 ft Allergies Allergy/AdvReac Type Severity Reaction Status Date / Time cefdinir Allergy Severe ANAPHYLAXIS Verified 07/15/24 14:39 - ED adm 06/03/16 doxycycline Allergy Intermediate Rash/Hives Verified 07/15/24 14:39 Sulfa (Sulfonamide Allergy Intermediate HIVES/RASH Verified 07/15/24 14:39 Antibiotics) Sulfonylureas Allergy Unknown ON [facility] MED Verified 07/15/24 14:39 LIST alendronate sodium AdvReac Intermediate Abdominal Verified 07/15/24 14:39 Pain/ GI Upset heparin AdvReac Unknown AVOID FOR Verified 07/15/24 14:39 LOW PLATELETS Medications Home Medications Medication Instructions Recorded Confirmed Last Taken atorvastatin 10 mg tablet 10 mg PO QAM 03/06/19 07/15/24 03/09/23 levothyroxine 75 mcg tablet 75 mcg PO DAILYBB 03/06/19 07/15/24 07/14/24 11:00 metoprolol succinate 50 mg 50 mg PO HS 03/06/19 07/15/24 07/14/24 11:00 tablet,extended release 24 hr venlafaxine 150 mg 150 mg PO HS 03/06/19 07/15/24 03/08/23 capsule,extended release 24 hr acetaminophen 500 mg tablet 1,000 mg PO Q6H PRN Pain 07/05/21 07/15/24 07/15/24 05:00 (Tylenol Extra Strength) celecoxib 200 mg capsule 200 mg PO DAILY 01/30/22 07/15/24 03/09/23 metformin 500 mg tablet,extended 500 mg PO QAM 02/17/22 07/15/24 03/09/23 release 24 hr cholecalciferol (vitamin D3) 50 50 mcg PO DAILY 10/30/22 07/15/24 03/09/23 mcg (2,000 unit) capsule (Vitamin D3) multivitamin 1 tab PO DAILY 10/30/22 07/15/24 03/09/23 oxycodone 5 mg tablet 5 mg PO QAM pain 10/30/22 07/15/24 Unknown pantoprazole 40 mg tablet,delayed 40 mg PO DAILY 10/30/22 07/15/24 07/14/24 11:00 release clobetasol 0.05 % topical ointment 1 applic topical HS 03/09/23 07/15/24 03/08/23 melatonin 3 mg tablet 3 mg PO HS 03/09/23 07/15/24 03/08/23 triamcinolone acetonide 0.1 % 1 applic topical HS 03/09/23 07/15/24 03/08/23 topical cream lubiprostone 24 mcg capsule 24 mcg PO BID 07/15/24 07/15/24 Unknown Active Medications Generic Name Dose Route Start Last Admin Trade Name Freq PRN Reason Stop Dose Admin Lactated Ringer's 1,000 mls @ 15 mls/hr 07/15/24 14:30 07/15/24 14:40 Lr IV 08/14/24 14:29 15 mls/hr .Q24H PREETI Administration Morphine Sulfate 4 mg 07/15/24 10:55 07/15/24 11:34 Morphine Sulfate 4 Mg/Ml 1 Ml Carp\Vial IV 07/29/24 10:54 4 mg Q15M PRN Administration Pain NPO Date Last Intake of Fluids: 07/14/24 Time Last Intake of Fluids: 23:30 Date Last Intake of Solids: 07/14/24 Time Last Intake of Solids: 19:00 Past Medical History Medical History GERD (gastroesophageal reflux disease) Hypothyroid Tachycardia HTN (hypertension) Past Surgical History Surgical History History of knee replacement both knees S/P appendectomy Social History Smoking Status: Never smoker Do You Dip or Chew Tobacco: No Hx Alcohol Use: Yes Alcohol type: wine alcohol intake frequency: holidays/special occasions only Hx Substance Use: No Review of Systems ROS Unobtainable: All systems reviewed & are unremarkable except as noted in HPI & below Constitutional: as per Subjective / HPI Eyes: as per Subjective / HPI Ear, Nose, Mouth, Throat: as per Subjective / HPI Respiratory: as per Subjective / HPI Cardiovascular: as per Subjective / HPI Gastrointestinal: as per Subjective / HPI Genitourinary (Female): as per Subjective / HPI Musculoskeletal: as per Subjective / HPI Integumentary: as per Subjective / HPI Neurologic: as per Subjective / HPI Psychiatric: as per Subjective / HPI Endocrine: as per Subjective / HPI Hematologic / Lymphatic: as per Subjective / HPI Allergy / Immunological: as per Subjective / HPI Physical Exam Vital Signs Last Vital Signs Temp 36.8 C 07/15/24 14:30 Pulse 82 07/15/24 14:30 Resp 20 07/15/24 14:30 BP 200/103 H 07/15/24 14:30 Pulse Ox 99 07/15/24 14:30 O2 Del Method Room Air 07/15/24 14:30 Constitutional + morbidly obese ENMT Mouth: + edentulous Thyromental Distance: < 3.5 Finger Breadths Mallampati Class: II Neck trachea midline Respiratory Auscultation: lungs clear to auscultation bilaterally Cardiovascular Rate/Rhythm: regular rate Musculoskeletal Spine: normal cervical ROM Extremities: extremities normal to inspection Neurologic moves all extremities Psychiatric Orientation: alert and oriented x 3 Testing Laboratory Results 07/15/24 10:29 07/15/24 10:29 PT 10.4 Seconds (9.0-12.0) 07/15/24 10:29 INR 1.0 (0.9-1.1) 07/15/24 10:29 Urine Color Yellow 07/15/24 12:03 Urine Appearance Clear (Clear) 07/15/24 12: Urine pH 7.5 (4.5-7.5) 07/15/24 12: Ur Specific Hopkins > 1.045 (1.000-1.030) H 07/15/24 12:03 Urine Protein Negative (Negative) 07/15/24 12: Urine Glucose (UA) Negative (Negative) 07/15/24 12: Urine Ketones Negative (Negative) 07/15/24 12: Urine Nitrite Negative (Negative) 07/15/24 12:03 Ur Leukocyte Esterase Negative (Negative) 07/15/24 12:03
[2024-07-15] MEDS ORDERED: hydrALAZINE HCL 20 MG/ML VIAL IV PRN ×2 (14:54→18:23)
[2024-07-15] MEDS: CIPROFLOXACIN / D5W 400 MG/200 ML BAG IV SCH (14:56)
[2024-07-15] MEDS: DIATRIZOATE MEGLUMINE 30% 100ML VIAL INSTIL ONE (15:15)
--- NOTE | 2024-07-15 15:22 | Operative Report ---
PG Post Operative Report Pre & Post Diagnosis Operation Date: 07/15/24 10:40 Pre-Op Diagnosis: Ureteral stone with hydronephrosis Post-Op Diagnosis: Ureteral stone with hydronephrosis I identified the patient and participated in the time-out.: Yes Procedure Operation Date: 07/15/24 10:40 Actual Procedures p Cystoscopy, Right Retrograde Pyelogram with radiographic interpretation, Right Ureteroscopy, Basket Extraction of Stone, Right Stent Placement(Right) - Raffi Houston MD Surgeon Raffi Houston MD Grinder Set Up Operator Surface None Estimated Blood Loss 0 Findings See Below Stone in distal ureter, basket out. Remainder of ureter free of stone. Retrograde showed no extravasation. Stent in appropriate position. Specimens Right ureteral calculus Drains 6 Dutch by 24 cm right ureteral stent Anesthesia Type General Complications none Indications 83-year-old female with distal right ureteral calculus Description of Procedure After informed consent was obtained, the patient was transported to the operative suite. General anesthesia was induced. They were placed in dorsal lithotomy position and prepped and draped in sterile fashion. They received preoperative ciprofloxacin. An appropriate surgical timeout was performed. Rigid cystoscope was inserted per urethra and the bladder. Turned my attention the right ureteral orifice and advanced a sensor wire into the upper pole of the kidney. Cystoscope was removed. Advanced a needle tip semirigid ureteroscope in the distal ureter and encountered the stone. A 0 tip and all basket was advanced and the stone was basket out atraumatically. I advanced the scope back into the ureter and saw no other stones. Retrograde pyelogram was shot through the scope which showed no extravasation. Scope was removed. Cystoscope was backloaded over the wire and a 6 Dutch by 24 cm right ureteral stent was deployed with good proximal coil in the kidney confirmed fluoroscopically and a good distal coil in the bladder confirmed under direct visualization. Bladder was emptied and scope was removed. This concluded the end of the case. All counts correct at the end of the case. I was present scrubbed and actively participated for the entirety of the procedure. I attest to the content of the Intraoperative Record and any orders documented therein. Any exceptions are noted below.
--- NOTE | 2024-07-15 16:05 | Anesthesiology Progress Note ---
Date of Service July 15, 2024 Anesthesia Post Procedure Vital Signs Vital Signs: Temp Pulse Pulse Resp BP BP Pulse Ox 07/15/24 15:45 83 19 187/79 H 98 07/15/24 15:35 87 19 160/99 H 97 07/15/24 15:26 36.9 C 85 14 137/68 100 07/15/24 14:38 188/92 H 07/15/24 14:30 36.8 C 82 20 200/103 H 99 07/15/24 14:00 78 22 137/82 97 07/15/24 12:15 85 07/15/24 12:06 78 22 171/79 H 97 07/15/24 10:34 07/15/24 10:17 22 07/15/24 10:10 36.9 C 77 14 137/91 96 O2 Del Method O2 Flow Rate 07/15/24 15:45 Oxymask 2 07/15/24 15:35 Oxymask 3 07/15/24 15:26 Oxymask 4 07/15/24 14:38 07/15/24 14:30 Room Air 07/15/24 14:00 Room Air 07/15/24 12:15 07/15/24 12:06 Room Air 07/15/24 10:34 Room Air 07/15/24 10:17 07/15/24 10:10 Room Air Pain Intensity Abdomen: Pain Intensity: 2 Transfer of Care Handoff Completed per policy Notes Mental Status: alert / awake / arousable Patient Amnestic to Procedure: Yes Nausea / Vomiting: adequately controlled Pain: adequately controlled Airway Patency, RR, SpO2: stable & adequate BP & HR: stable & adequate Hydration State: stable & adequate Anesthetic Complications: no major complications apparent and Pt Satisfied with anesthetic care
[2024-07-15] MEDS: LABETALOL HCL IV 5 MG/ML 20ML IV STA (16:08)
[2024-07-15] MEDS: LABETALOL HCL IV 5 MG/ML 20ML IV ONE (16:09)
--- NOTE | 2024-07-15 16:15 | Fluoroscopy Report ---
FL retrograde includes kub CLINICAL HISTORY: CYSTO RIGHT SIDE WITH LASERright-sided cystourethrogram COMPARISON STUDY: CT of same day FLUOROSCOPY TIME: 6.5 seconds FLUOROSCOPY IMAGES: 2 EXPOSURE DOSE: 2.12 mGy FINDINGS: Persistent hydronephrosis. A guidewire projects over a superior pole calyx. Subsequent imag e demonstrates placement of a right ureteral stent, proximal portion overlying the renal pelvis and d istal portion is not imaged. IMPRESSION: Fluoroscopic assistance as above. ACT 112: Negative or not required by law. Electronically signed by: Lobo Tolliver M.D. 07/15/2024 4:14 PM
[2024-07-15] MEDS ORDERED: PROMETHAZINE 6.25 MG/50.25 ML BAG IV PRN (16:48)
[2024-07-15] MEDS ORDERED: MoRPHine SULFATE 2 MG/ML CARP IV PRN (16:48)
[2024-07-15] MEDS: ACETAMINOPHEN 500 MG TAB PO SCH (16:49)
[2024-07-15] MEDS: SODIUM CHLORIDE 0.9% 1,000 ML IV SCH (16:57)
[2024-07-15] MEDS: ENOXAPARIN INJ 40 MG/0.4 ML SYR SQ SCH (18:10)
--- NOTE | 2024-07-15 18:20 | Electrocardiogram Report ---
Test Reason : Blood Pressure : */* mmHG Vent. Rate : 78 BPM Atrial Rate : 78 BPM P-R Int : 158 ms QRS Dur : 126 ms QT Int : 448 ms P-R-T Axes : 51 -28 37 degrees QTcB Int : 510 ms Normal sinus rhythm Right bundle branch block Possible Lateral infarct , age undetermined Abnormal ECG When compared with ECG of 09-Mar-2023 19:56, Right bundle branch block is now Present Confirmed by Nuno Robertson ([id number]) on 07/15/2024 6:19:56 PM Referred By: REFERRED SELF Confirmed By: Nuno Robertson
[2024-07-15] MEDS: METOPROLOL SUCC 50MG EXT REL TAB PO SCH (19:45)
[2024-07-15] MEDS: TAMSULOSIN HCL 0.4 MG CAP PO SCH (19:46)
[2024-07-15] MEDS: VENLAFAXINE HCL XR 150 MG CAPXR PO SCH (19:46)
--- OUTSIDE RECORDS SUMMARY | 2024-07-15 20:36 | External Medical Summary | Summary of Care ---
Author Name Unknown Organization [facility] Address [address] [facility] [place] [address] Phone [phone] Care Team Providers Care Broke Beater Operator Name Role Phone Claus Rushing MD Primary Care Provider + Reason for Visit * Reason Comments eRx-Medication Refill Encounter Details Date Type Department Care Team (Late st Contact Info) Description 06/21/2024 Refill Family Practice [facility] [address] [facility] [place] [address] Claus Rushing MD [address] [facility] [place] [address] Lumbar disc herniation; Spinal stenosis of lumbar region with neurogenic claudication; Acquired hypothyroidism Allergies Active Allergy Reactions Criticality Noted Date Comments Alendronate Sodium Abdominal pain 04/05/2016 GI upset Cefdinir Anaphylaxis High 10/02/2022 Doxycycline Hives,Rash 05/14/2012 Heparin 05/14/2012 Decreased platelets Sulfa Antibiotics Hives,Rash 11/28/2012 Sulfonylureas 04/05/2003 documented as of this encounter (statuses as of 06/24/2024) Medications Medication Sig Dispensed Refills Start Date End Date Status MULTI-VITAMIN PO TABS one a day Active Cholecalciferol (VITAMIN D3) 50 MCG (1999) CapsuleIndications :Vitamin D deficiency Take 1 Cap by mouth daily. 90 Cap 1 0 Active Bisacodyl 10 MG Rectal Suppository (Dulcolax)Indicati ons:Drug-induced constipation Administer 1 Suppository into the rectum daily as needed for Constipation. Do not use for more than 1 week. 20 Suppository 1 3 Active Triamcinolone Acetonide 0.1 % External Ointment (Aristocort) Apply to vulva as needed for itching 30 g 2 3 Active Melatonin 5 MG Oral Capsule Take 1 Capsule by mouth at bedtime. Active Imvexxy Maintenance Pack 10 MCG Vaginal Insert (Estradiol)Indicat ions:Recurrent UTI Use twice weekly per vagina., 1 Each 11 3 Active Hydrocortisone (Perianal) 2.5 % External Cream (Anusol-HC)Indicat ions:Hemorrhoids, external without complications Administer into the rectum 2 times a day. 28 g 3 Active polyethylene glycol 3350 119 gram OR POWD Take 119 g by mouth once. Active Terbinafine HCl 1 % External Cream (LamISIL AT ATHLETE'S FOOT)Indications:T inea corporis,Tinea pedis of left foot Apply twice daily to left lower extremity and feet up to 6 weeks. 30 g 3 Active Pantoprazole Sodium 40 MG Oral Tablet Delayed Release (Protonix)Indicati ons:Gastroesophage al reflux disease with esophagitis TAKE 1 TABLET BY MOUTH EVERY DAY 90 Tablet 3 3 Active Clobetasol Propionate 0.05 % External Cream (Temovate)Indicati ons:Dermatitis Apply twice daily to trunk up to 2 weeks, then taper to weekends only Sat-Sun as needed 60 g 1 4 Active Proctofoam HC 1-1 % External Foam (Hydrocort-Pramoxi ne (Perianal))Indicat ions:Drug-induced constipation ADMINISTER INTO THE RECTUM, TO AFFECTED AREA OF ANUS, NEEDED FOR MODERATE PAIN (HEMORRHOIDS) 10 g 5 4 Active Additional Information Patient not taking.Reported on 03/26/2024 NATURAL SUPPLEMENT Take by mouth daily. Advance sciatic nerve suport Active Ciclopirox Olamine 0.77 % External CreamIndications:T inea pedis of left foot Apply topically to affected area 2 times a day. To affected area. 90 g 2 4 Active Cyclobenzaprine HCl 10 MG Oral Tablet (Flexeril)Indicati ons:Chronic right-sided low back pain with right-sided sciatica Take 1 Tablet by mouth at bedtime as needed for Muscle spasms. 30 Tablet 2 4 Active Hydrocortisone 2.5 % External CreamIndications:H emorrhoids, external without complications External hemorrhoid twice daily 28 g 5 4 Active Atorvastatin Calcium 10 MG Oral Tablet (Lipitor)Indicatio ns:Dyslipidemia, goal LDL below 130 TAKE 1 TABLET BY MOUTH DAILY 90 Tablet 3 4 Active Lubiprostone 24 MCG Oral Capsule (Amitiza) Take 1 Capsule by mouth 2 times a day with morning and evening meals. 60 Capsule 5 4 Active Ventolin HFA 108 (90 Base) MCG/ACT Inhalation Aerosol Solution Inhale 2 Puffs by mouth every 4 hours as needed for Wheezing. 18 g 3 4 Active Metoprolol Succinate ER 50 MG Oral Tablet Extended Release 24 Hour (toPROL XL)Indications:Ess ential hypertension with goal blood pressure less than 140/90 TAKE 1 TABLET BY MOUTH DAILY AT NIGHT 90 Tablet 2 4 Active Venlafaxine HCl ER 150 MG Oral Capsule Extended Release 24 Hour (Effexor XR) TAKE 1 CAPSULE BY MOUTH DAILY 90 Capsule 2 4 Active oxyCODONE HCl 5 MG Oral Tablet (Oxy IR)Indications:Chr onic right-sided low back pain with right-sided sciatica,MEDICATIO N USE AGREEMENT Take 1 Tablet by mouth 2 times a day as needed for Pain, Severe. 60 Tablet 4 Active metFORMIN HCl ER 500 MG Oral Tablet Extended Release 24 Hour (Glucophage XR)Indications:Anahi vated glucose TAKE 1 TABLET BY MOUTH EVERY DAY 90 Tablet 1 4 Active Celecoxib 200 MG Oral Capsule (CeleBREX)Indicati ons:Lumbar disc herniation,Spinal stenosis of lumbar region with neurogenic claudication TAKE 1 CAPSULE BY MOUTH DAILY 90 Capsule 4 Active Levothyroxine Sodium 75 MCG Oral Tablet (Levoxyl)Indicatio ns:Acquired hypothyroidism TAKE 1 TABLET BY MOUTH FIRST THING IN THE MORNING AT LEAST 1/2 HOUR BEFORE BREAKFAST OR OTHER MEDICATIONS 90 Tablet 2 4 Active Levothyroxine Sodium 75 MCG Oral Tablet (Levoxyl)Indicatio ns:Acquired hypothyroidism TAKE 1 TABLET BY MOUTH FIRST THING IN THE MORNING AT LEAST 1/2 HOUR BEFORE BREAKFAST OR OTHER MEDICATIONS 90 Tablet 1 4 024 Discontinued Celecoxib 200 MG Oral Capsule (CeleBREX)Indicati ons:Lumbar disc herniation,Spinal stenosis of lumbar region with neurogenic claudication TAKE 1 CAPSULE BY MOUTH DAILY 90 Capsule 4 024 Discontinued documented as of this encounter (statuses as of 06/24/2024) Active Problems Problem Noted Date Diagnosed Date Type 2 diabetes mellitus wit h diabetic peripheral angiopathy without gangrene 01/09/2023 Type 2 diabetes mellitus wit h hemoglobin A1c goal of less than 8.0% 06/27/2022 Irritable bowel syndrome with constipation 03/02 Spinal stenosis of lumbar re gion with neurogenic claudication 12/28/2021 DDD (degenerative disc disease), lumbar 08/25/20 Small vessel disease 09/14/2020 Overview: 2019-toes MEDICATION USE AGREEMENT 06/08/2020 Senile osteoporosis 03/04/2019 Recurrent sinus infections 01/03/2019 History of kidney stones 12/19/2018 Chronic ITP (idiopathic thrombocytopenia) 2016 Well adult exam 09/27/2016 Overview: 02/03 FOB+ Gastroesophageal reflux disease with esophagitis 08/09/2016 Acquired hypothyroidism 02/15/2016 Lumbar disc herniation 09/08/2014 Overview: 08/[address] Saucedo-L2-3 herniation, L3-4 stenosis severe. HTN, goal below 140/90 08/13/2014 GENERAL OSTEOARTHROSIS 04/05/2003 documented as of this encounter (statuses as of 06/24/2024) Resolved Problems Problem Noted Date Diagnosed Date Resolved Date Stage 3a chronic kidney disease 08/22/2020 05/29/2023 Overview: Per CKD protocol - Per CKD protocol Kidney disease, chronic, sta ge III (GFR 30-59 ml/min) 04/25/2020 08/25/2020 Overview: Per CKD protocol Body mass index (BMI) of 40. 1 to 44.9 in adult 09/18/2019 03/04/2024 Body mass index (BMI) of 40. 0 to 44.9 in adult 04/20/2019 09/21/2019 Overview: Per Obesity protocol Acute medial meniscus tear of left knee 05/28/2018 03/25/2019 Overview: 05/31 MRI Acute recurrent sinusitis 09/27/2016 UTI (urinary tract infection) 07/31/2016 03/28/2017 Nephrolithiasis 06/27/2016 12/19/2018 Overview: 06/26/16 left sided, obstructing, stented, stent removed. NSAID long-term use 04/25/2015 03/28/20 17 Other and unspecified hyperlipidemia 04/14/2015 08/09/2016 Routine general medical exam ination at a health care facility 08/13/2014 08/09/2016 Overview: Declines zostavax 06/[address] [facility] [address]--vascular congestion, possible nodularity, lizbeth 3+mo. 10/28 dx with Breast CA--didn't tolerate chemo. 01/27 PET +showed in lymph node. . Valerie lift/wheelchair for him. 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 On alendronate. 03/28 ACC 21% start lipitor Has received flexeril from myself Also methocaramol 750mg Thrombocytopenia 08/13/2014 2018 Overview: Dr Ziegler @[facility]. Ck CBC Q3-6mos . Unclear etiology. Possible autoimmune with her Ank spond. Consider pulse dose steroids if drops. had bone marrow biopsy 2013 WNL per [facility] report, EMILIE & FISH testing neg for mutations. Impacted cerumen 08/13/2014 08/09/2016 Sciatica 08/13/2014 03/28/2017 Overview: 2014 Ankylosing spondylitis 05/14/201211/21 Abdominal pain 04/03/2012 08/13/2014 Cervicalgia 04/05/2003 08/09/2016 Neck muscle spasm 04/05/2003 03/28/2017 documented as of this encounter (statuses as of 06/24/2024) Immunizations Name Administration Dates Next Due COVID-19 mRNA, LNP-s, No Pre serve, 2-Dose Series (Moderna) 12/17/2020,11/12/2020 COVID-19, mRNA, LNP-s, PF, B ooster, 100mcg/0.5mg (Moderna) 08/28/2021 Covid-19, Mrna, Lnp-s, Pf, B ivalent, 30 Mcg, IM, 12 yrs and above (Pfizer) 01/16/2023 H1N1 2009 Influenza, IM 09/27/2009 Pneumococcal Conjugate Vacc, 13 Valent (Prevnar) 02/15/2016 Pneumococcal Polysaccharide PPV23 (Pneumovax) RSV Vac., Bivalent, Perfusion F, Pf,0.5 Ml (Abry svo) 03/04/2024 Season Influenza, Quad, PF, Adjuvanted, 65+ Yrs, IM (FLUAD) 08/08/2022 Seasonal Influenza, High Dos e, Trivalent, PF, IM (Fluzone HD) 08/24/2019 Seasonal Influenza, PF, 6 M & above, IM , (FluLaval or Fluzone) 07/28/2018 Seasonal Influenza, Quadrivalent Hd (Fluzone Hd) 07/17/2023,07/28/2021 Seasonal Influenza, Quadrivalent Hd, 65+ Yrs Seasonal Influenza, Quadrivalent, No Preserve, I M 06/21/2016 Seasonal Influenza, Trivalen t, (IIV3), with Preserv, (Fluzone) 08/14/2015,07/30/2014 documented as of this encounter Social History Tobacco Use Types Packs/Day Years Used Date Smoking Tobacco: Never Smokeless Tobacco: Never Alcohol Use Standard Drinks/Week Comments Yes 0 (1 standard drink = 0.6 oz pur e alcohol) rare w/friends. PHQ-2 Answer Date Recorded PHQ Adult Total Score 0 12/12/2022 Hunger Vital Sign Answer Date Recorded Worried About Running Out of Food in the Last Ye ar Never true 12/04/2019 Ran Out of Food in the Last Year Never true 12/04/2019 Sex and Gender Information Value Date Recorded Sex Assigned at Female 03/25/2019 10:15 AM EDT Gender Identity Female 03/25/2019 10:15 AM EDT Sexual Orientation Straight 03/25/2019 10 :15 AM EDT Job Start Date Occupation Industry Not on file Not on file Not on file documented as of this encounter Functional Status Functional Status Response Date of Assess ment Are you deaf or do you have serious difficulty h earing? No 06/05/2021 Are you blind or do you have serious difficulty seeing, even when wearing glasses? No 06/05/2021 Do you have serious difficul ty walking or climbing stairs? (5 years old or older) No 06/06/2021 Do you have difficulty dress ing or bathing? (5 years old or older) No 06/05/2021 Because of a physical, menta l, or emotional condition, do you have difficulty doing errands alone such as visiting a doctor s office or shopping? (15 years old or older) No 06/05/20 Cognitive Status Response Date of Assessm ent Because of a physical, menta l, or emotional condition, do you have serious difficulty concentrating, remembering, or making decisions? (5 years old or older) No 06/05/2021 documented as of this encounter Miscellaneous Notes * Telephone Encounter - Lenard Crawford - 06/24/2024 4:20 PM EDT Received message from [facility] regarding patient needing labs. Patient was notified. Successfully contacted patient and provided [facility] message. * Telephone Encounter - Sherry Munoz RP - 06/23/2024 9:30 AM EDTSigned Prescriptions: Disp Refills Celecoxib 200 MG Oral Capsule (CeleBREX) 90 Cap*0 Sig: TAKE 1 CAPSULE BY MOUTH DAILY Authorizing Provider: CLAUS RUSHING Ordering User: SHERRY MUNOZ Levothyroxine Sodium 75 MCG Oral Tablet (L*90 Tab*2 Sig: TAKE 1 TABLET BY MOUTH FIRST THING IN THE MORNING AT LEAST 1/2 HOUR BEFORE BREAKFAST OR OTHER MED ICATIONS Authorizing Provider: CLAUS RUSHING Ordering User: SHERRY MUNOZ * Telephone Encounter - Sherry Munoz RPh - 06/23/2024 9:28 AM EDT 2nd attempt Provided 90 days supply with 0 refill(s). Per refill protocol patient should have ast/alt, cbc on file within past year. Reviewed AMP report, Care Gaps/Health Maintenance, medications list, and for any routine labs typically ordered for this patient. Lab orders placed. Please contact patient to advise of labs ordered for blood draw. Fasting is not required. Advise toobtain labs before requesting the next refill. Thanks, Sherry Munoz, PharmD Clinical Pharmacist [facility] ([facility]) [phone] 06/23/2024 9:29 AM documented in this encounter Plan of Treatment Upcoming Encounters Date Type Department Care Team (Late st Contact Info) Description 07/20/2024 9:40 AM EDT Office Visit Family Practice [facility] [address] [place] [address] Della Mead CRNP [address] [place] [address] 09/15/2024 10:40 AM EST Office Visit Otolaryngology [facility] [address] [place] [address] Graciela Sparrow PA-C [address] [place] [address] 01/11/2025 10:15 AM EDT Imaging Radiology [facility] [address] [place] [address] 01/27/2025 10:00 AM EDT Office Visit Rheumatology [address] [place] [id number] [place] [address] Ta Irvin MD [address] [facility] [place] [address] 02/01/2025 10:00 AM EDT Office Visit Urology, [facility] [address] [place] [address] Hakeem Bernal MD [address] [place] [address] 03/12/2025 9:20 AM EDT Office Visit Family Practice [facility] [address] [facility] [place] [address] Claus Rushing MD [address] [facility] [place] [address] Health Maintenance Due Date Last Done Comments Adult Wellness Visit 03/04/2016 03/04/2015 *BISPHONATE OR OTHER ACCEPTABLE MEDICATION NEEDED FOR OSTEOPOROSIS (REFER TO SMARTSET #1146) 04/27/2022 Diabetic Eye Exam 10/12/2023 10/12/2022 Diabetic Foot Exam 10/12/2023 10/12/2022 Depression Screening 12/13/2023 12/12/2022, 06/20/2017 (Declined) COVID-19 Vaccine ( season) 2024 08/12/2023, 01/16/2023, 08/28/2021, Additional history exists Influenza Vaccine (FLU shot) (#1) 2024 07/17/2023, 08/08/2022, 07/28/2021, Additional history exists HbA1c 07/29/2024 01/28/2024, 01/0 03/2023, 06/27/2022, Additional history exists Albumin/Creatinine Ratio 01/27/202501/27/2 024, 11/19/2022, 06/29/2022, Additional history exists GFR 01/27/2025 01/28/2024, 01/12, 11/16/2022, Additional history exists TSH 01/27/2025 01/28/2024, 01/12, 11/16/2022, Additional history exists DXA Scan 06/08/2026 06/08/2024, 04/13, 04/13/2020, Additional history exists Pneumococcal Vaccine: 65+ Years Completed 02/15/2016, 04/27/2013 VITAMIN D LEVEL ONCE IN A LIFETIME-USE SMARTSET# 96560 Completed 08/11/2018, 04/25/2015 DTap/Tdap Vaccines Discontinued HPV (Gardasil) Vaccine Aged Out No lo nger eligible based on patient's age to complete this topic Hepatitis B Vaccine Aged Out No longe r eligible based on patient's age to complete this topic MENINGOCOCCAL (MENACTRA/MENVEO) Aged Out No longer eligible based on patient's age to complete this topic Zoster Vaccines Discontinued documented as of this encounter Medical Devices Implanted Type Area Jewel Hole Driller Device Identifier Shelf Expiration Date Model / Serial / Lot Cement Bone G 1119-140-01 - [id number] Implanted:Qty: 1 on 10/20/2018 by Ceasar Taylor MD at OR [facility] Left: Knee [employer] 07/13/[id number] / / [id number] Cement Bone G 1119-140-01 - [id number] Implanted:Qty: 1 on 10/20/2018 by Ceasar Taylor MD at OR [facility] Left: Knee [employer] 07/13/[id number] / / [id number] Tibia Personna Left D - [id number] Implanted:Qty: 1 on 10/20/2018 by Ceasar Taylor MD at OR [facility] Left: Knee [employer] 05/13/2028 [id number] / / [id number] Persona The Personalized Knee System Femur Cemented Cr Standard Left Size 7 Implanted:Qty: 1 on 10/20/2018 by Ceasar Taylor MD at OR [facility] Left: Knee [employer] 07/13/2028 [id number] / / [id number] Patella Reaming System Patella Reamer Blade With Soliciting Freight Agent Hole 38mm Diameter Implanted:Qty: 1 on 10/20/2018 by Ceasar Taylor MD at OR [facility] Left: Knee [employer] 02/11/2028 [id number] / / [id number] Persona The Personalized Knee System Vivacit-E Highly Crosslinked Polyethylene All-Poly Patella Cemented Implanted:Qty: 1 on 10/20/2018 by Ceasar Taylor MD at OR [facility] Left: Knee [employer] 04/12/2023 [id number] / / [id number] Persona The Personalized Knee System Vivacit-E Highly Crosslinked Polyethylene Articular Surface Medial Congruent (Mc) Left Implanted:Qty: 1 on 10/20/2018 by Ceasar Taylor MD at OR [facility] Left: Knee [employer] 02/10/2022 [id number] / / [id number] Description:use with tibia s izes C-D/CR femur sizes 6-7 Lens Intraoc 20.5 - [id number] - [id number] Implanted:Qty: 1 on 11/22/2020 by Arron Titus MD at OR [facility] Left: Eye [employer] 03/13/2025 [id number] / [id number] / [id number] Lens Intraoc 21.0 - [id number] - [id number] Implanted:Qty: 1 on 12/06/2020 by Arron Titus MD at OR [facility] Right: Eye [employer] 07/13/2025 [id number] / [id number] / [id number] Persona Femur Cemented Cruciate Retaining Standard Right Implanted:Qty: 1 on 06/05/2021 by Ceasar Taylor MD at OR [facility] Right: Knee [employer] 04/12/2029 [id number] / / [id number] Component Kn Ptlr Poly Ve 32mm - [id number] Implanted:Qty: 1 on 06/05/2021 by Ceasar Taylor MD at OR [facility] Right: Knee [employer] 02/28/2026 [id number] / / [id number] Tibia Personna Right Sz D - [id number] Implanted:Qty: 1 on 06/05/2021 by Ceasar Taylor MD at OR [facility] Right: Knee [employer] 10/29/2030 [id number] / / [id number] Cement Bone Palacos Lv+G 1x40g - [id number] Implanted:Qty: 2 on 06/05/2021 by Ceasar Taylor MD at OR [facility] Right: Knee [employer] 03/13/2022 [id number] / / [id number] Psn Mc Ve Asf R 10mm 8-11 Ef - [id number] Implanted:Qty: 1 on 06/05/2021 by Ceasar Taylor MD at OR [facility] Right: Knee [employer] 05/17/2025 [id number] / / [id number] documented as of this encounter Visit Diagnoses Diagnosis Lumbar disc herniation Displacement of lumbar intervertebral disc without myelopathy Spinal stenosis of lumbar region with neurogenic claudication Spinal stenosis, lumbar region, with neurogenic claudication Acquired hypothyroidism Unspecified hypothyroidism documented in this encounter Advance Directives * Full Code (Latest Code Status on File) Date Activated Date Inactivated Comments 06/05/2021 5:32 PM 06/07/2021 3:55 PM This order r eflects the patients wishes and were consensually agreed upon. * Full Code Date Activated Date Inactivated Comments 10/22/2018 5:03 PM 10/23/2018 5:06 PM This order re flects the patients wishes and were consensually agreed upon. Care Teams Broke Beater Operator Relationship Specialty Start Date End Date Claus Rushing MD [address] [facility] [place] [address] PCP - General Family Medicine 10/12/14 documented as of this encounter
--- OUTSIDE RECORDS SUMMARY | 2024-07-15 20:36 | External Medical Summary | Summary of Care ---
Author Name Unknown Organization [facility] Address [address] [place] [address] Phone [phone] Care Team Providers Care Safety Consultant Name Role Phone Claus Rojas MD Primary Care Provider + Reason for Visit * Reason Onset Date Comments Med Request 06/05/2024 Encounter Details Date Type Department Care Team (Late st Contact Info) Description 06/05/2024 Telephone Family Practice [facility] [address] [facility] [place] [address] Claus Rojas MD [address] [facility] [place] [address] Med Request Allergies Active Allergy Reactions Criticality Noted Date Comments Alendronate Sodium Abdominal pain 04/05/2016 GI upset Cefdinir Anaphylaxis High 10/02/2022 Doxycycline Hives,Rash 05/14/2012 Heparin 05/14/2012 Decreased platelets Sulfa Antibiotics Hives,Rash 11/28/2012 Sulfonylureas 04/05/2003 documented as of this encounter (statuses as of 06/05/2024) Medications Medication Sig Dispensed Refills Start Date End Date Status MULTI-VITAMIN PO TABS one a day Active Cholecalciferol (VITAMIN D3) 50 MCG (1999) CapsuleIndications: Vitamin D deficiency Take 1 Cap by mouth daily. 90 Cap 1 06/08/2020 Active Bisacodyl 10 MG Rectal Suppository (Dulcolax)Indicatio ns:Drug-induced constipation Administer 1 Suppository into the rectum daily as needed for Constipation. Do not use for more than 1 week. 20 Suppository 1 12/12/2022 Active Triamcinolone Acetonide 0.1 % External Ointment (Aristocort) Apply to vulva as needed for itching 30 g 2 12/21/2022 Active Melatonin 5 MG Oral Capsule Take 1 Capsule by mouth at bedtime. Active Imvexxy Maintenance Pack 10 MCG Vaginal Insert (Estradiol)Indicati ons:Recurrent UTI Use twice weekly per vagina., 1 Each 11 02/04/2023 Active Hydrocortisone (Perianal) 2.5 % External Cream (Anusol-HC)Indicati ons:Hemorrhoids, external without complications Administer into the rectum 2 times a day. 28 g 04/11/2023 Active polyethylene glycol 3350 119 gram OR POWD Take 119 g by mouth once. Active Terbinafine HCl 1 % External Cream (LamISIL AT ATHLETE'S FOOT)Indications:Ti teresa corporis,Tinea pedis of left foot Apply twice daily to left lower extremity and feet up to 6 weeks. 30 g 08/27/2023 Active Pantoprazole Sodium 40 MG Oral Tablet Delayed Release (Protonix)Indicatio ns:Gastroesophageal reflux disease with esophagitis TAKE 1 TABLET BY MOUTH EVERY DAY 90 Tablet 3 09/16/2023 Active Clobetasol Propionate 0.05 % External Cream (Temovate)Indicatio ns:Dermatitis Apply twice daily to trunk up to 2 weeks, then taper to weekends only Fri-Sun as needed 60 g 1 12/02/2023 Active Levothyroxine Sodium 75 MCG Oral Tablet (Levoxyl)Indication s:Acquired hypothyroidism TAKE 1 TABLET BY MOUTH FIRST THING IN THE MORNING AT LEAST 1/2 HOUR BEFORE BREAKFAST OR OTHER MEDICATIONS 90 Tablet 1 01/01/2024 Active Proctofoam HC 1-1 % External Foam (Hydrocort-Pramoxin e (Perianal))Indicati ons:Drug-induced constipation ADMINISTER INTO THE RECTUM, TO AFFECTED AREA OF ANUS, NEEDED FOR MODERATE PAIN (HEMORRHOIDS) 10 g 5 01/07/2024 Active Additional Information Patient not taking.Reported on 03/26/2024 NATURAL SUPPLEMENT Take by mouth daily. Advance sciatic nerve suport Active Ciclopirox Olamine 0.77 % External CreamIndications:Ti teresa pedis of left foot Apply topically to affected area 2 times a day. To affected area. 90 g 2 03/04/2024 Active Cyclobenzaprine HCl 10 MG Oral Tablet (Flexeril)Indicatio ns:Chronic right-sided low back pain with right-sided sciatica Take 1 Tablet by mouth at bedtime as needed for Muscle spasms. 30 Tablet 2 03/04/2024 Active Hydrocortisone 2.5 % External CreamIndications:He morrhoids, external without complications External hemorrhoid twice daily 28 g 5 03/04/2024 Active Celecoxib 200 MG Oral Capsule (CeleBREX)Indicatio ns:Lumbar disc herniation,Spinal stenosis of lumbar region with neurogenic claudication TAKE 1 CAPSULE BY MOUTH DAILY 90 Capsule 03/23/2024 Active Atorvastatin Calcium 10 MG Oral Tablet (Lipitor)Indication s:Dyslipidemia, goal LDL below 130 TAKE 1 TABLET BY MOUTH DAILY 90 Tablet 3 03/23/2024 Active Lubiprostone 24 MCG Oral Capsule (Amitiza) Take 1 Capsule by mouth 2 times a day with morning and evening meals. 60 Capsule 5 03/26/2024 Active Ventolin HFA 108 (90 Base) MCG/ACT Inhalation Aerosol Solution Inhale 2 Puffs by mouth every 4 hours as needed for Wheezing. 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 60 Tablet 05/07/2024 Active metFORMIN HCl ER 500 MG Oral Tablet Extended Release 24 Hour (Glucophage XR)Indications:Elev ated glucose TAKE 1 TABLET BY MOUTH EVERY DAY 90 Tablet 1 06/04/2024 Active Amoxicillin-Pot Clavulanate 875-125 MG Oral Tablet (Augmentin) Take 1 Tablet by mouth in the morning and 1 Tablet before bedtime. Do all this for 10 days. 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 HTN, goal below 140/90 08/13/2014 GENERAL OSTEOARTHROSIS 04/05/2003 documented as of this encounter (statuses as of 06/05/2024) Resolved Problems Problem Noted Date Diagnosed Date [...] facility 08/13/2014 08/09/2016 Overview: Declines zostavax 06/[facility]--vascular congestion, possible nodularity, lizbeth 3+mo. 10/28 dx with Breast CA--didn't tolerate chemo. 01/27 PET +showed in lymph node. . Valerie lift/wheelchair for him. 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 On alendronate. 03/28 [facility] 21% start lipitor Has received flexeril from myself Also methocaramol 750mg Thrombocytopenia 08/13/2014 2018 Overview: Dr Ziegler @[facility]. Ck CBC Q3-6mos . Unclear etiology. Possible [...] as of this encounter (statuses as of 06/05/2024) Immunizations Name Administration Dates Next Due COVID-19 [...] 65+ Yrs, IM (FLUAD) 08/08/2022 Seasonal Influenza, PF, 6 M & above, IM , (FluLaval or Fluzone) 07/28/2018 Seasonal Influenza, Quadrivalent Hd (Fluzone Hd) 07/17/2023,07/28/2021 Seasonal Influenza, Quadrivalent Hd, 65+ Yrs Seasonal Influenza, Quadrivalent, No Preserve, I M 06/21/2016 Seasonal Influenza, Split, IIV3, With Preserve, Inj 08/14/2015,07/30/2014 Seasonal Influenza, Trivalen t, High Dose, No Preserve, IM 08/24/2019 documented as of this encounter Social History [...] encounter Miscellaneous Notes * Telephone Encounter - Elissa Hester LPN - 06/05/2024 2:23 PM EDT Called pt, aware that med sent in. * Telephone Encounter - Claus Rojas MD - 06/05/2024 2:02 PM EDT Augmentin sent-notify pt * Telephone Encounter - Elissa Hester LPN - 06/05/2024 1:52 PM EDT Patient called to c/o upper respiratory symptoms: symptoms for over 1 week. Covid home test: Negative. Sore Throat: Yes Nasal Congestion: Yes, ears also painful. Clear or white nasal drainage/mucus: Yes, turning colored. Symptoms less than 7 days: No Fever less than 102 degrees F: unsure, gets chilled Fever lasting less than 3 days: Unsure. Taking OTC allergy med only. HAS PAIN ON CHEEK, ONE SIDE ONLY "LIKE A SINUS INFECTION". ASKING FOR ABX FOR SINUS INFECTION BEFORE WEEKEND. CAREGIVER IS UNAVAILABLE, SINCE SHE IS OVER AT THE FAIR. Patient Instruction If all answers to symptom questions above are YES: 1. These symptoms are consistent with a viral illness. 2. These symptoms can last from 5 to 14 days, but generally get gradually better after 3 to 5 days. 3. Antibiotics do not help this kind of upper respiratory illness and can make you immune to them when you really need them. 4. Over the Counter remedies will make you feel better but will not shorten the duration of this illness. 5. Sinus congestion alone does not mean that you have an infection. 6. Increase fluids, rest, take steamy showers. 7. You may use saline nose drops/spray. 8. You may use Acetaminophen or Ibuprofen per package instructions for body aches and fever. 9. You may use Robitussin DM or Mucinex DM per package instructions for cough and congestion. (Store brand equivalents are just as good and less expensive and may also be used.) 10. Call back for appointment if: Fever goes above 102 degrees, your symptoms last longer than 2 weeks Drainage or cough expectorant does not lessen or has blood streaks Headache, facial pain, or chest pain with cough develops Patient Instruction If ANY answer to symptoms questions above are NO: 1. Send this information to provider and call back with further instructions. Route message to provider. * Telephone Encounter - Kishore Rondon OSA - 06/05/2024 9:12 AM EDT Pt has sinus headache starting. She cannot come to office and is requesting medication be called infor her. She states if she is not better by next week, she will make appt. documented in this encounter Plan of Treatment Upcoming Encounters Date Type Department Care Team (Late st Contact Info) Description 06/08/2024 9:30 AM EDT Imaging Radiology, [address] [place] [address] 07/20/2024 9:40 AM EDT Office Visit Family Practice [facility] [address] [place] [address] Della Mead CRNP [address] [place] [address] 09/15/2024 10:40 AM EST Office Visit Otolaryngology [facility] [address] [place] [address] Graciela Sparrow PA-C [address] [place] [address] 01/11/2025 10:15 AM EDT Imaging Radiology [facility] [address] [place] [address] 01/27/2025 10:00 AM EDT Office Visit Rheumatology [address] [place] [address] Ta Irvin MD [address] [place] [address] [place] [address] 02/01/2025 10:00 AM EDT Office Visit Urology, [facility] [address] [place] [address] Hakeem Bernal MD [address] [place] [address] 03/12/2025 9:20 AM EDT Office Visit Family Practice [facility] [address] [place] [address] Claus Rojas MD [address] [place] [address] Health Maintenance Due Date Last Done Comments Adult Wellness Visit 03/04/2016 03/04/2015 *BISPHONATE OR OTHER ACCEPTABLE MEDICATION NEEDED FOR OSTEOPOROSIS (REFER TO SMARTSET #1146) 04/27/2022 Diabetic Eye Exam 10/12/2023 10/12/2022 Diabetic Foot Exam 10/12/2023 10/12/2022 COVID-19 Vaccine ( season) 2023 08/12/2023, 01/16/2023, 08/28/2021, Additional history exists Depression Screening 12/13/2023 12/12/2022, 06/20/2017 (Declined) DXA Scan 04/25/2024 04/25/2022, 10/2019, 02/20/2018, Additional history exists Influenza Vaccine (FLU shot) (#1) 2024 07/17/2023, 08/08/2022, 07/28/2021, Additional history exists HbA1c 07/29/2024 01/28/2024, 03/2023, 06/27/2022, Additional history exists Albumin/Creatinine Ratio 01/27/2025 024, 11/19/2022, 06/29/2022, Additional history exists GFR 01/27/2025 01/28/2024, 01/12, 11/16/2022, Additional history exists TSH 01/27/2025 01/28/2024, 01/12, 11/16/2022, Additional history exists Pneumococcal Vaccine: 65+ Years Completed 02/15/2016, 04/27/2013 VITAMIN D LEVEL ONCE IN A LIFETIME-USE SMARTSET# 12532 Completed 08/11/2018, 04/25/2015 DTaP,Tdap,and Td Vaccines Discontinued HPV (Gardasil) Vaccine Aged Out [...] this encounter Medical Devices Implanted Type Area Hyperion Analyst Device Identifier Shelf Expiration Date Model / Serial / Lot Cement Bone Lv G 1119-140-01 - [id number] Implanted:Qty: 1 on 10/20/2018 by Ceasar Taylor MD at [facility] Left: Knee [employer] 07/13/2020 [id number] / / [id number] Cement Bone Lv G 1119-140-01 - [id number] Implanted:Qty: 1 on 10/20/2018 by Ceasar Taylor MD at [place] [facility] Left: Knee [employer] 07/13/2020 [id number] / / [id number] Tibia Personna Left Sz D - [id number] Implanted:Qty: 1 on 10/20/2018 by Ceasar Taylor MD at [place] [facility] Left: Knee [employer] 05/13/2028 [id number] / / [id number] Persona The Personalized Knee System Femur Cemented Cr Standard Left Size 7 Implanted:Qty: 1 on 10/20/2018 by Ceasar Taylor MD at [place] [facility] Left: Knee [employer] 07/13/2028 [id number] / / [id number] Patella Reaming System Patella Reamer Blade With Boat Designer Hole 38mm Diameter Implanted:Qty: 1 on 10/20/2018 by Ceasar Taylor MD at [place] [facility] Left: Knee [employer] 02/11/2028 [id number] / / [id number] Persona The Personalized Knee System Vivacit-E Highly Crosslinked Polyethylene All-Poly Patella Cemented Implanted:Qty: 1 on 10/20/2018 by Ceasar Taylor MD at [place] [facility] Left: Knee [employer] 04/12/2023 [id number] / / [id number] Persona The Personalized Knee System Vivacit-E Highly Crosslinked Polyethylene Articular Surface Medial Congruent (Mc) Left Implanted:Qty: 1 on 10/20/2018 by Ceasar Taylor MD at [place] [facility] Left: Knee [employer] 02/10/2022 [id number] / / [id number] Description:use with tibia s izes C-D/CR femur sizes 6-7 Lens Intraoc 20.5 - [id number] - [id number] Implanted:Qty: 1 on 11/22/2020 by Arron Titus MD at [place] [facility] Left: Eye [employer] 03/13/2025 [id number] / [id number] / [id number] Lens Intraoc 21.0 - [id number] - [id number] Implanted:Qty: 1 on 12/06/2020 by Arron Titus MD at [place] [facility] Right: Eye [employer] 07/13/2025 [id number] / [id number] / [id number] Persona Femur Cemented Cruciate Retaining Standard Right Implanted:Qty: 1 on 06/05/2021 by Ceasar Taylor MD at [place] [facility] Right: Knee [employer] 04/12/2029 [id number] / / [id number] Component Kn Ptlr Poly Ve 32mm - [id number] Implanted:Qty: 1 on 06/05/2021 by eCasar Taylor MD at [place] [facility] Right: Knee [employer] 02/28/2026 [id number] / / [id number] Tibia Personna Right Sz D - [id number] Implanted:Qty: 1 on 06/05/2021 by Ceasar Taylor MD at [place] [facility] Right: Knee [employer] 10/29/2030 [id number] / / [id number] Cement Bone Palacos Lv+G 1x40g - [id number] Implanted:Qty: 2 on 06/05/2021 by Ceasar Taylor MD at [place] [facility] Right: [facility] 03/13/2022 [id number] / / [id number] Psn Mc Ve Asf R 10mm 8-11 Ef - [id number] Implanted:Qty: 1 on 06/05/2021 by Ceasar Taylor MD at [place] [facility] Right: Knee [employer] 05/17/2025 [id number] / / [id number] documented as of this encounter Advance Directives * Full Code (Latest Code Status on File) Date Activated Date Inactivated Comments 06/05/2021 5:32 PM 06/07/2021 3:55 PM This order r eflects the patients wishes and were consensually agreed upon. * Full Code Date Activated Date Inactivated Comments 10/22/2018 5:03 PM 10/23/2018 5:06 PM This order re flects the patients wishes and were consensually agreed upon. Care Teams Safety Consultant Relationship Specialty Start Date End Date Claus Rojas MD [address] [place] [address] PCP - General Family Medicine 10/12/14 documented as of this encounter
--- OUTSIDE RECORDS SUMMARY | 2024-07-15 20:36 | External Medical Summary | Summary of Care ---
Author Name Unknown Organization [facility] Address [address] [facility] [place] [address] Phone [phone] Care Team Providers Care Inventory Control Specialist Name Role Phone Claus Rushing MD Primary Care Provider + Reason for Referral * Medication Prior Authorization - Closed Specialty Diagnoses / Procedures Referred By Contac t Referred To Contact Diagnoses Chronic right-sided low back pain with right-sided sciatica MEDICATION USE AGREEMENT Claus Rushing MD [address] [place] [address] Referral ID Status Reason Start Date Expiration Date Visits Re quested Visits Authorized [id number] Closed 999 999 Reason for Visit * Reason Onset Date Comments Medication Refill 05/07/2024 Encounter Details Date Type Department Care Team (Late st Contact Info) Description 05/07/2024 Refill Family Practice [facility] [address] [place] [address] Claus Rushing MD [address] [place] [address] Chronic right-sided low back pain with right-sided sciatica; MEDICATION USE AGREEMENT Allergies Active Allergy Reactions Criticality Noted Date Comments Alendronate Sodium Abdominal pain 04/05/2016 GI upset Cefdinir Anaphylaxis High 10/02/2022 Doxycycline Hives,Rash 05/14/2012 Heparin 05/14/2012 Decreased platelets Sulfa Antibiotics Hives,Rash 11/28/2012 Sulfonylureas 04/05/2003 documented as of this encounter (statuses as of 05/07/2024) Medications Medication Sig Dispensed Refills Start Date End Date Status MULTI-VITAMIN PO TABS one a day Active Cholecalciferol (VITAMIN D3) 50 MCG (1999 UT) CapsuleIndications: Vitamin D deficiency Take 1 Cap by mouth daily. 90 Cap 1 0 Active Bisacodyl 10 MG Rectal Suppository (Dulcolax)Indicatio [...] only Fri-Sun as needed 60 g 1 4 Active Levothyroxine Sodium 75 MCG Oral Tablet (Levoxyl)Indication s:Acquired hypothyroidism TAKE 1 TABLET BY MOUTH FIRST THING IN THE MORNING AT LEAST 1/2 HOUR BEFORE BREAKFAST OR OTHER MEDICATIONS 90 Tablet 1 4 Active metFORMIN HCl ER 500 MG Oral Tablet Extended Release 24 Hour (Glucophage XR)Indications:Elev ated glucose TAKE 1 TABLET BY MOUTH EVERY DAY 90 Tablet 1 4 Active Proctofoam HC 1-1 % [...] 2 4 Active Hydrocortisone 2.5 % External CreamIndications:He morrhoids, external without complications External hemorrhoid twice daily 28 g 5 4 Active Celecoxib 200 MG Oral Capsule (CeleBREX)Indicatio ns:Lumbar disc herniation,Spinal stenosis of lumbar region with neurogenic claudication TAKE 1 CAPSULE BY MOUTH DAILY 90 Capsule 4 Active Atorvastatin Calcium 10 MG Oral [...] oxyCODONE HCl 5 MG Oral Tablet (Oxy IR)Indications: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 60 Tablet 4 05/07/20 24 Discontinu ed(Refill) documented as of this encounter (statuses as of 05/07/2024) Active Problems Problem Noted Date Diagnosed Date Type 2 diabetes mellitus wit h diabetic peripheral angiopathy without gangrene 01/09/2023 Type 2 diabetes mellitus wit h hemoglobin A1c goal of less than 8.0% 06/27/2022 Irritable bowel syndrome with constipation 03/02 Spinal stenosis of lumbar re gion with neurogenic claudication 12/28/2021 DDD (degenerative disc disease), lumbar 08/25/20 21 Small vessel disease 09/14/2020 Overview: 2019-toes MEDICATION [...] as of this encounter (statuses as of 05/07/2024) Resolved Problems Problem Noted Date Diagnosed Date [...] facility 08/13/2014 08/09/2016 Overview: Declines zostavax 06/29 [facility]--vascular congestion, possible nodularity, lizbeth 3+mo. [...] cerumen 08/13/2014 08/09/2016 Sciatica 08/13/2014 03/28/2017 Overview: 2013 Ankylosing spondylitis 05/14/201211/21 Abdominal pain 04/03/2012 08/13/2014 Cervicalgia 04/05/2003 08/09/2016 Neck muscle spasm 04/05/2003 03/28/2017 documented as of this encounter (statuses as of 05/07/2024) Immunizations Name Administration Dates Next Due COVID-19 [...] encounter Miscellaneous Notes * Telephone Encounter - Claus Rushing MD - 05/07/2024 10:49 PM EDT Signed Prescriptions: Disp Refills oxyCODONE HCl 5 MG Oral Tablet (Oxy IR) 60 Tab*0 Sig: Take 1 Tablet by mouth 2 times a day as needed for Pain, Severe. Authorizing Provider: CLAUS RUSHING * Telephone Encounter - Dang Cunningham [facility] - 05/07/2024 12:31 PM EDT Pending Prescriptions: Disp Refills oxyCODONE HCl 5 MG Oral Tablet (Oxy IR) 60 Tab*0 Sig: Take 1 Tablet by mouth 2 times a day as needed for Pain, Severe. * Telephone Encounter - Dang Cunningham [facility] - 05/07/2024 12:30 PM EDT I have reviewed the patients controlled substance dispensing history in the Prescription Drug Monitoring Program in compliance with the [facility] regulations before prescribing a controlled substance. PDMP checked on 05/07/2024. Pending Prescriptions: Disp Refills oxyCODONE HCl 5 MG Oral Tablet (Oxy IR) 60 Tab*0 Sig: Take 1 Tablet by mouth 2 times a day as needed for Pain, Severe. Last Visit: 04/01/2024 (in office), 12/01/2020 (telemedicine) Next Visit: 07/20/2024 Date medication was last filled: 03/04/2024 Date medication is due for refill: 04/02/2024 Pharmacy: [id number] Is this request for a controlled substance? Yes and Urine Drug Screen Not completed Toxicology results: Results for orders placed or performed in visit on 10/19/22 PAIN MANAGEMENT DRUG PANEL, URINE W/ INTERPRETATION Result Value Compliance Interpretation Based upon the medication information provided, The presence of oxycodone and oxymorphone is CONSISTENT with the use of oxycodone prescription. Amphetamines Screen, U Negative Benzodiazepines Screen, U Negative Cannabinoids Screen, U Negative Cocaine Metabolite Screen, U Negative Fentanyl Screen, U Negative Hydrocodone Screen, U Negative Methadone Metabolite Screen, U Negative Morphine/Codeine Screen, U Negative Oxycodone Screen, U Refer to confirmation results (A) Valid Interpretation Normal Creatinine, U 318 Narrative Cutoff Concentrations: Drug Level Amphetamines 500 ng/mL Benzodiazepines 100 ng/mL Cannabinoids 50 ng/mL Cocaine Metabolite 150 ng/mL Fentanyl 1 ng/mL Hydrocodone / Hydromorphone 300 ng/mL Methadone Metabolite 100 ng/mL Morphine / Codeine 300 ng/mL Oxycodone / Oxymorphone 100 ng/mL Screening results are presumptive and can only be used for medical purposes. Confirmatory testing is available upon request. Results for orders placed or performed in visit on 06/08/20 TOX SCREEN, URINE, W/ CONFIRMATION Result Value Amphetamine NEGATIVE Benzodiazepines NEGATIVE Cannabinoids NEGATIVE Cocaine Metabolite NEGATIVE HYDROCODONE NEGATIVE Morphine / Codeine NEGATIVE METHADONE METABOLITE NEGATIVE OXYCODONE NEGATIVE TOX COMMENT THE ABOVE SCREENING RESULTS ARE PRESUMPTIVE AND CAN ONLY BE USED FOR MEDICAL PURPOSES. POSITIVE RESULTS REFLEX TO CONFIRMATORY TESTING. Cutoff Concentration *Note: Due to a large number of results and/or encounters for the requested time period, some results have not been displayed. A complete set of results can be found in Results Review. Please approve if appropriate. Thank you, Dang Cunningham [facility] Clinical Pharmacist [facility] ([facility]) 05/07/24 12:30 PM [phone] * Telephone Encounter - Noemi Chiang PHARM Tech - 05/07/2024 9:27 AM EDT Did you pend patient's preferred pharmacy and medication before forwarding?yes Pharmacy: [id number] [address] [place] [address] Pending Prescriptions: Disp Refills oxyCODONE HCl 5 MG Oral Tablet (Oxy IR) 60 Tab*0 Sig: Take 1 Tablet by mouth 2 times a day as needed for Pain, Severe. Last Visit: 04/01/2024 (in office), 12/01/2020 (telemedicine) Next Visit: 07/20/2024 If no future appointments scheduled, and last appointment is greater than a year ago, please schedule patient for a follow-up appointment Last date the medication was ordered: 03-04-24 Is this request for a controlled substance?Yes, What was the last refill date 03-04-24 w/ quantity 60 and dosage 5 mg and Urine Drug Screen was completed Urine Drug Screen: Results for orders placed or performed in visit on 10/19/22 PAIN MANAGEMENT DRUG PANEL, URINE W/ INTERPRETATION Result Value Compliance Interpretation Based upon the medication information provided, The presence of oxycodone and oxymorphone is CONSISTENT with the use of oxycodone prescription. Amphetamines Screen, U Negative Benzodiazepines Screen, U Negative Cannabinoids Screen, U Negative Cocaine Metabolite Screen, U Negative Fentanyl Screen, U Negative Hydrocodone Screen, U Negative Methadone Metabolite Screen, U Negative Morphine/Codeine Screen, U Negative Oxycodone Screen, U Refer to confirmation results (A) Valid Interpretation Normal Creatinine, U 318 Narrative Cutoff Concentrations: Drug Level Amphetamines 500 ng/mL Benzodiazepines 100 ng/mL Cannabinoids 50 ng/mL Cocaine Metabolite 150 ng/mL Fentanyl 1 ng/mL Hydrocodone / Hydromorphone 300 ng/mL Methadone Metabolite 100 ng/mL Morphine / Codeine 300 ng/mL Oxycodone / Oxymorphone 100 ng/mL Screening results are presumptive and can only be used for medical purposes. Confirmatory testing is available upon request. Results for orders placed or performed in visit on 06/08/20 TOX SCREEN, URINE, W/ CONFIRMATION Result Value Amphetamine NEGATIVE Benzodiazepines NEGATIVE Cannabinoids NEGATIVE Cocaine Metabolite NEGATIVE HYDROCODONE NEGATIVE Morphine / Codeine NEGATIVE METHADONE METABOLITE NEGATIVE OXYCODONE NEGATIVE TOX COMMENT THE ABOVE SCREENING RESULTS ARE PRESUMPTIVE AND CAN ONLY BE USED FOR MEDICAL PURPOSES. POSITIVE RESULTS REFLEX TO CONFIRMATORY TESTING. Cutoff Concentration *Note: Due to a large number of results and/or encounters for the requested time period, some results have not been displayed. A complete set of results can be found in Results Review. Patient Phone Numbers Labs: Lab Results Component Value Date/Time CREAT 0.9 01/28/2024 09:59 AM CREAT 1.0 03/30/2020 03:42 PM POTASSIUM 4.7 01/28/2024 09:59 AM POTASSIUM 4.6 03/30/2020 03:42 PM TSH 2.06 01/28/2024 09:59 AM TSH 1.45 03/30/2020 03:42 PM TSH 3.73 10/28/1996 01:50 PM LDLCALC 100 01/28/2024 09:59 AM LDLCALC 67 06/27/2017 09:51 AM LDLDIRECT 69 06/27/2022 03:14 PM LDLDIRECT 87 05/13/2020 11:51 AM ALT 34 11/16/2022 11:38 AM ALT 24 03/30/2020 03:42 PM HGBA1C 6.7 (H) 01/28/2024 09:59 AM HGBA1C 6.4 (H) 09/30/2018 02:23 PM documented in this encounter Plan of Treatment Upcoming Encounters Date Type Department Care Team (Late st Contact Info) Description 06/08/2024 9:30 AM EDT Imaging Radiology, [address] [place] [id number] 07/20/2024 9:40 AM EDT Office Visit Family Practice [facility] [address] [place] [address] Della Mead CRNP [address] [place] [address] 09/15/2024 10:40 AM EST Office Visit Otolaryngology [facility] [address] [place] [address] Graciela Sparrow PA-C [address] [place] [address] 01/11/2025 10:15 AM EDT Imaging Radiology [facility] [address] [place] [address] 01/27/2025 10:00 AM EDT Office Visit Rheumatology [address] [place] [address] Ta Irvin MD [address] [place] [address] [place] [address] 02/01/2025 10:00 AM EDT Office Visit Urology, [facility] [address] [place] [address] Hakeem Bernal MD [address] [place] [address] 03/12/2025 9:20 AM EDT Office Visit Family Practice [facility] [address] [place] [address] Claus Rushing MD [address] [place] [address] Health Maintenance Due Date Last Done Comments *BISPHONATE OR OTHER ACCEPTABLE MEDICATION NEEDED FOR OSTEOPOROSIS (REFER TO SMARTSET #1146) 04/27/2022 Diabetic Eye Exam 10/12/2023 10/12/2022 Diabetic Foot Exam 10/12/2023 10/12/2022 COVID-19 Vaccine ( season) 2023 08/12/2023, 01/16/2023, 08/28/2021, Additional history exists Depression Screening 12/13/2023 12/12/2022, 06/20/2017 (Declined) DXA Scan 04/25/2024 04/25/2022, 0710/2019, 02/20/2018, Additional history exists Influenza Vaccine (FLU shot) (#1) 2024 07/17/2023, 08/08/2022, 07/28/2021, Additional history exists HbA1c 07/29/2024 01/28/2024, 010 03/2023, 06/27/2022, Additional history exists Albumin/Creatinine Ratio 01/27/20252 024, 11/19/2022, 06/29/2022, Additional history exists GFR 01/27/2025 01/28/2024, 01/12, 11/16/2022, Additional history exists TSH 01/27/2025 01/28/2024, 01/12, 11/16/2022, Additional history exists Pneumococcal Vaccine: 65+ Years Completed 02/15/2016, 04/27/2013 VITAMIN D LEVEL ONCE IN A LIFETIME-USE SMARTSET# 20767 Completed 08/11/2018, 04/25/2015 DTaP,Tdap,and Td Vaccines Discontinued [...] this encounter Medical Devices Implanted Type Area Magneto Repairer Device Identifier Shelf Expiration Date Model / Serial / Lot Cement Bone G 1119-140-01 - [id number] Implanted:Qty: 1 on 10/20/2018 by Ceasar Taylor MD at [facility] Left: Knee [employer] 07/13/2020 [id number] / / [id number] Cement Bone G 1119-140-01 - [id number] Implanted:Qty: 1 on 10/20/2018 by Ceasar Taylor MD at OR [facility] Left: Knee [employer] 07/13/[id number] / / [id number] Tibia Personna Left D - [id number] Implanted:Qty: 1 on 10/20/2018 by Ceasar Taylor MD at OR [facility] Left: Knee [employer] 05/13/2028 [id number] / / [id number] Persona The Personalized Knee System Femur Cemented Cr Standard Left Size 7 Implanted:Qty: 1 on 10/20/2018 by Ceasar Taylor MD at OR [facility] Left: Knee [employer] 07/13/2028 [id number] / / [id number] Patella Reaming System Patella Reamer Blade With Activities Officer Hole 38mm Diameter Implanted:Qty: 1 on 10/20/2018 by Ceasar Taylor MD at OR [facility] Left: Knee [employer] 02/11/2028 [id number] / / [id number] Persona The Personalized Knee System Vivacit-E Highly Crosslinked Polyethylene All-Poly Patella Cemented Implanted:Qty: 1 on 10/20/2018 by Ceasar Taylor MD at OR [facility] Left: Knee [employer] 04/12/2023 [id number] / / [id number] Persona The Personalized Knee System Vivacit-E Highly Crosslinked Polyethylene Articular Surface Medial Congruent (Mc) Left Implanted:Qty: 1 on 10/20/2018 by Ceasar Taylor MD at OR [facility] Left: Knee [employer] 02/10/2022 [id number] / / [id number] Description:use with tibia s izes C-D/CR femur sizes 6-7 Lens Intraoc 20.5 - [id number] - [id number] Implanted:Qty: 1 on 11/22/2020 by Arron Titus MD at OR [facility] Left: Eye [employer] 03/13/2025 [id number] / [id number] / [id number] Lens Intraoc 21.0 - [id number] - [id number] Implanted:Qty: 1 on 12/06/2020 by Arron Titus MD at OR [facility] Right: Eye [employer]OM[employer] 07/13/2025 [id number] / [id number] / [id number] Persona Femur Cemented Cruciate Retaining Standard Right Implanted:Qty: 1 on 06/05/2021 by Ceasar Taylor MD at OR [facility] Right: Knee [employer] 04/12/2029 [id number] / / [id number] Component Kn Ptlr Poly Ve 32mm - [id number] Implanted:Qty: 1 on 06/05/2021 by Ceasar Taylor MD at OR [facility] Right: Knee [employer] 02/28/2026 [id number] / / [id number] Tibia Personna Right Sz D - [id number] Implanted:Qty: 1 on 06/05/2021 by Ceasar Taylor MD at OR [facility] Right: Knee [employer] 10/29/2030 [id number] / / [id number] Cement Bone Palacos Lv+G 1x40g - [id number] Implanted:Qty: 2 on 06/05/2021 by Ceasar Taylor MD at OR [facility] Right: Knee [facility] 03/13/2022 [id number] / / [id number] Psn Mc Ve Asf R 10mm 8-11 Ef - [id number] Implanted:Qty: 1 on 06/05/2021 by Ceasar Taylor MD at OR [facility] Right: Knee [employer] 05/17/2025 [id number] / / [id number] documented as of this encounter Visit Diagnoses Diagnosis Chronic right-sided low back pain with right-sided sciatica MEDICATION USE AGREEMENT documented in this encounter Advance Directives * [...] and were consensually agreed upon. Care Teams Inventory Control Specialist Relationship Specialty Start Date End Date Claus Ruhsing MD [address] [facility] [place] [address] PCP - General Family Medicine 10/12/14 documented as of this encounter
--- OUTSIDE RECORDS SUMMARY | 2024-07-15 20:36 | External Medical Summary | Summary of Care ---
Author Name Unknown Organization [facility] Address [address] [facility] [address] Phone [phone] Care Team Providers Care Mining Detail Draftsperson Name Role Phone Claus Rojas MD Primary Care Provider + Reason for Visit * Reason Comments Rheum Follow Up Follow up - osteoart hritis and Encounter Details Date Type Department Care Team (Latest Contact Info) Description 01/27/2024 9:40 AM EDT Office Visit Rheumatology [place] [id number] [place] [address] [address]a Riche[address] MD [facility] [place] [address] Senile osteoporosis*; Spinal stenosis of lumbar region with neurogenic claudication; GENERAL OSTEOARTHROSIS Allergies Active Allergy Reactions Criticality Noted Date Comments Alendronate Sodium Abdominal pain 04/05/2016 GI upset Cefdinir Anaphylaxis High 10/02/2022 Doxycycline Hives,Rash 05/14/2012 Heparin 05/14/2012 Decreased platelets Sulfa Antibiotics Hives,Rash 11/28/2012 Sulfonylureas 04/05/2003 documented as of this encounter (statuses as of 06/09/2024) Medications Medication Sig Dispensed Refills Start Date End Date Status MULTI-VITAMIN PO TABS one a day Active Cholecalciferol (VITAMIN D3) 50 MCG (1999) CapsuleIndications :Vitamin D deficiency Take 1 Cap by mouth daily. 90 Cap 1 06/08/20 20 Active Bisacodyl 10 MG Rectal Suppository (Dulcolax)Indicati ons:Drug-induced constipation Administer 1 Suppository into the rectum daily as needed for Constipation. Do not use for more than 1 week. 20 Suppository 1 12/13/19 23 Active Additional Information Patient not taking.Informant: Wallet Card/List, Reported on 10/30/2023 Triamcinolone Acetonide 0.1 % External Ointment (Aristocort) Apply to vulva as needed for itching 30 g 2 12/22/19 23 Active Melatonin 5 MG Oral Capsule Take 1 Capsule by mouth at bedtime. Active Imvexxy Maintenance Pack 10 MCG Vaginal Insert (Estradiol)Indicat ions:Recurrent UTI Use twice weekly per vagina., 1 Each 11 02/05/20 Active Additional Information Patient not taking.Informant: Wallet Card/List, Reported on 11/05/2023 Hydrocortisone (Perianal) 2.5 % External Cream (Anusol-HC)Indicat ions:Hemorrhoids, external without complications Administer into the rectum 2 times a day. 28 g 04/11/20 Active Additional Information Patient not taking.Informant: Wallet Card/List, Reported on 11/05/2023 polyethylene glycol 3350 119 gram OR POWD Take 119 g by mouth once. Active Terbinafine HCl 1 % External Cream (LamISIL AT ATHLETE'S FOOT)Indications:T inea corporis,Tinea pedis of left foot Apply twice daily to left lower extremity and feet up to 6 weeks. 30 g 08/27/20 23 Active Additional Information Patient not taking.Reported on 11/05/2023 Pantoprazole Sodium 40 MG Oral Tablet Delayed Release (Protonix)Indicati ons:Gastroesophage al reflux disease with esophagitis TAKE 1 TABLET BY MOUTH EVERY DAY 90 Tablet 3 09/16/20 23 Active Clobetasol Propionate 0.05 % External Cream (Temovate)Indicati ons:Dermatitis Apply twice daily to trunk up to 2 weeks, then taper to weekends only Fri-Sun as needed 60 g 1 12/02/19 24 Active Levothyroxine Sodium 75 MCG Oral Tablet (Levoxyl)Indicatio ns:Acquired hypothyroidism TAKE 1 TABLET BY MOUTH FIRST THING IN THE MORNING AT LEAST 1/2 HOUR BEFORE BREAKFAST OR OTHER MEDICATIONS 90 Tablet 1 01/01/20 24 Active Proctofoam HC 1-1 % External Foam (Hydrocort-Pramoxi ne (Perianal))Indicat ions:Drug-induced constipation ADMINISTER INTO THE RECTUM, TO AFFECTED AREA OF ANUS, NEEDED FOR MODERATE PAIN (HEMORRHOIDS) 10 g 5 01/07/20 24 Active NATURAL SUPPLEMENT Take by mouth daily. Advance sciatic nerve suport Active Celecoxib 200 MG Oral Capsule (CeleBREX)Indicati ons:Lumbar disc herniation,Spinal stenosis of lumbar region with neurogenic claudication TAKE 1 CAPSULE BY MOUTH DAILY 90 Capsule 1 08/07/20 23 024 Discontinued Atorvastatin Calcium 10 MG Oral Tablet (Lipitor)Indicatio ns:Dyslipidemia, goal LDL below 130 TAKE 1 TABLET BY MOUTH DAILY 90 Tablet 1 08/06/20 23 024 Discontinued Ciprofloxacin-dexA METHasone 0.3-0.1 % Otic Suspension Administer 4 Drops into ears in the morning and 4 Drops before bedtime. Do all this for 7 days. For 7 days.. 7.5 mL 5 10/30/19 24 024 Discontinued Metoprolol Succinate ER 50 MG Oral Tablet Extended Release 24 Hour (toPROL XL)Indications:Ess ential hypertension with goal blood pressure less than 140/90 TAKE 1 TABLET BY MOUTH DAILY AT NIGHT 90 Tablet 1 10/31/19 24 024 Discontinued Lubiprostone 24 MCG Oral Capsule (Amitiza) Take 1 Capsule by mouth 2 times a day with morning and evening meals. 60 Capsule 5 11/14/19 24 024 Discontinued(Re fill) Cyclobenzaprine HCl 10 MG Oral Tablet (Flexeril)Indicati ons:Chronic right-sided low back pain with right-sided sciatica TAKE 1 TABLET BY MOUTH AT BEDTIME NEEDED FOR MUSCLE SPASMS. 30 Tablet 2 12/09/19 24 024 Discontinued(Re fill) metFORMIN HCl ER 500 MG Oral Tablet Extended Release 24 Hour (Glucophage XR)Indications:Anahi vated glucose TAKE 1 TABLET BY MOUTH EVERY DAY 90 Tablet 1 01/07/20 24 024 Discontinued Ciclopirox Olamine 0.77 % External CreamIndications:T inea pedis of left foot APPLY TO AFFECTED AREA TWICE A DAY 15 g 2 01/07/20 24 024 Discontinued(Re fill) oxyCODONE HCl 5 MG Oral Tablet (Oxy IR)Indications:Chr onic right-sided low back pain with right-sided sciatica,MEDICATIO N USE AGREEMENT Take 1 Tablet by mouth 2 times a day as needed for Pain, Severe. 60 Tablet 01/09/20 24 024 Discontinued(Re fill) Venlafaxine HCl ER 150 MG Oral Capsule Extended Release 24 Hour (Effexor XR) TAKE 1 CAPSULE BY MOUTH DAILY 90 Capsule 01/21/20 24 024 Discontinued documented as of this encounter (statuses as of 06/09/2024) Active Problems Problem Noted Date Diagnosed Date Type 2 diabetes mellitus wit h diabetic peripheral angiopathy without gangrene 01/09/2023 Type 2 diabetes mellitus wit h hemoglobin A1c goal of less than 8.0% 06/27/2022 Irritable bowel syndrome with constipation 03/02 Spinal stenosis of lumbar re gion with neurogenic claudication 12/28/2021 DDD (degenerative disc disease), lumbar 08/25/20 Small vessel disease 09/14/2020 Overview: 2020-toes MEDICATION USE AGREEMENT 06/08/2020 Senile osteoporosis 03/04/2019 [...] as of this encounter (statuses as of 06/09/2024) Resolved Problems Problem Noted Date Diagnosed Date [...] facility 08/13/2014 08/09/2016 Overview: Declines zostavax 06/[address] [facility] [address]--vascular congestion, possible nodularity, lizbeth 3+mo. [...] as of this encounter (statuses as of 06/09/2024) Immunizations Name Administration Dates Next Due COVID-19 mRNA, LNP-s, No Pre serve, 2-Dose Series (Moderna) 12/17/2020,11/12/2020 COVID-19, mRNA, LNP-s, PF, B ooster, 100mcg/0.5mg (Moderna) 08/28/2021 Covid-19, Mrna, Lnp-s, Pf, B ivalent, 30 Mcg, IM, 12 yrs and above (Pfizer) 01/16/2023 H1N1 2009 Influenza, IM 09/27/2009 Pneumococcal Conjugate Vacc, 13 Valent (Prevnar) 02/15/2016 Pneumococcal Polysaccharide PPV23 (Pneumovax) Season Influenza, Quad, PF, Adjuvanted, 65+ Yrs, [...] Date Smoking Tobacco: Never Smokeless Tobacco: Never Tobacco Cessation:Counseling Given: Not Answered Alcohol Use Standard Drinks/Week Comments Yes 0 [...] on file documented as of this encounter Last Filed Vital Signs Vital Sign Reading Time Taken Comments Blood Pressure - - Pulse - - Temperature 36.8 C (98.2 F) 01/27/2024 9:37 AM ED T Respiratory Rate - - Oxygen Saturation - - Inhaled Oxygen Concentration - - Weight 90.3 kg (199 lb) 01/27/2024 9:37 AM EDT Height - - Body Mass Index 38.86 11/14/2023 2:41 PM EST documented in this encounter Functional Status Functional Status Response [...] No 06/05/2021 documented as of this encounter Progress Notes * Shawna Richey MD - 01/27/2024 9:42 AM EDT Subjective: Patient seen today for further follow up evaluation of osteoarthritis, osteoporosis. Since the lastvisit with Dr Charles - she has been on drug holiday from actonel. She is due for dexa this summer. She has a rolling walker at home. She has spinal stenosis and seeing pain clinic through [facility]. The recent injection helped. She has not had any falls. She is on chronic oxycodone for her pains - takes one a day. She is also on celebrex. Last kidney function was normal. Musculoskeletal ROS: . Abnormal: joint pain, back pain, and weak muscles . Pain scale (0-10): 4 Other ROS: . Constitutional: normal . Head normal . Eyes: normal . Ears, nose, throat, mouth: normal . Cardiovascular: normal . Respiratory: normal . Gastrointestinal: normal . Genitourinary: normal All other ROS reviewed and negative Social History: Social History Tobacco Use Smoking status: Never Smokeless tobacco: Never Substance Use Topics Alcohol use: Yes Comment: rare w/friends. Vaping/E-Cigarette Use Vaping/E-Cigarette Use Never User Vaping/E-Cigarette Substances Vaping/E-Cigarette Devices Current Outpatient Medications Medication Sig Dispense Refill MULTI-VITAMIN PO TABS one a day Cholecalciferol (VITAMIN D3) 50 MCG (2000 UT) Capsule Take 1 Cap by mouth daily. 90 Cap 1 Triamcinolone Acetonide 0.1 % External Ointment (Aristocort) Apply to vulva as needed for itching 30 g 2 Melatonin 5 MG Oral Capsule Take 1 Capsule by mouth at bedtime. polyethylene glycol 3350 119 gram OR POWD Take 119 g by mouth once. Celecoxib 200 MG Oral Capsule (CeleBREX) TAKE 1 CAPSULE BY MOUTH DAILY 90 Capsule 1 Atorvastatin Calcium 10 MG Oral Tablet (Lipitor) TAKE 1 TABLET BY MOUTH DAILY 90 Tablet 1 Pantoprazole Sodium 40 MG Oral Tablet Delayed Release (Protonix) TAKE 1 TABLET BY MOUTH EVERY DAY 90 Tablet 3 Metoprolol Succinate ER 50 MG Oral Tablet Extended Release 24 Hour (toPROL XL) TAKE 1 TABLET BY MOUTH DAILY AT NIGHT 90 Tablet 1 Lubiprostone 24 MCG Oral Capsule (Amitiza) Take 1 Capsule by mouth 2 times a day with morning and evening meals. 60 Capsule 5 Clobetasol Propionate 0.05 % External Cream (Temovate) Apply twice daily to trunk up to 2 weeks, then taper to weekends only Fri-Sun as needed 60 g 1 Cyclobenzaprine HCl 10 MG Oral Tablet (Flexeril) TAKE 1 TABLET BY MOUTH AT BEDTIME NEEDED FOR MUSCLE SPASMS. 30 Tablet 2 Levothyroxine Sodium 75 MCG Oral Tablet (Levoxyl) TAKE 1 TABLET BY MOUTH FIRST THING IN THE MORNINGAT LEAST 1/2 HOUR BEFORE BREAKFAST OR OTHER MEDICATIONS 90 Tablet 1 metFORMIN HCl ER 500 MG Oral Tablet Extended Release 24 Hour (Glucophage XR) TAKE 1 TABLET BY MOUTHEVERY DAY 90 Tablet 1 Ciclopirox Olamine 0.77 % External Cream APPLY TO AFFECTED AREA TWICE A DAY 15 g 2 Proctofoam HC 1-1 % External Foam (Hydrocort-Pramoxine (Perianal)) ADMINISTER INTO THE RECTUM, TO AFFECTED AREA OF ANUS, NEEDED FOR MODERATE PAIN (HEMORRHOIDS) 10 g 5 oxyCODONE HCl 5 MG Oral Tablet (Oxy IR) Take 1 Tablet by mouth 2 times a day as needed for Pain, Severe. 60 Tablet 0 Venlafaxine HCl ER 150 MG Oral Capsule Extended Release 24 Hour (Effexor XR) TAKE 1 CAPSULE BY MOUTH DAILY 90 Capsule 0 NATURAL SUPPLEMENT Take by mouth daily. Advance sciatic nerve suport Bisacodyl 10 MG Rectal Suppository (Dulcolax) Administer 1 Suppository into the rectum daily as needed for Constipation. Do not use for more than 1 week. (Patient not taking: Reported on 10/30/2023) 20 Suppository 1 Imvexxy Maintenance Pack 10 MCG Vaginal Insert (Estradiol) Use twice weekly per vagina., (Patient not taking: Reported on 11/05/2023) 1 Each 11 Hydrocortisone (Perianal) 2.5 % External Cream (Anusol-HC) Administer into the rectum 2 times a day. (Patient not taking: Reported on 11/05/2023) 28 g 0 Terbinafine HCl 1 % External Cream (LamISIL AT ATHLETE'S FOOT) Apply twice daily to left lower extremity and feet up to 6 weeks. (Patient not taking: Reported on 11/05/2023) 30 g 0 No current facility-administered medications for this visit. Physical Exam: Temp 36.8 C (98.2 F) (Infrared ) | Wt 90.3 kg (199 lb) | BMI 38.86 kg/m | BSA 1.96 m General: alert, elderly female examined in wheelchair HENT: normocephalic, external ears normal, no mucosal erythema, no mucosal edema, moist mucosa, no oral ulcers, edentulous with dentures Eye Exam: PERRL, EOMI, conjunctiva are pink and non-injected, sclera clear Neck: supple, no adenopathy, thyroid normal size, non-tender, without nodularity Lymph: no palpable lymphadenopathy Heart: regular rate & rhythm and no gallops Lungs: clear to auscultation , no rales, wheezes or rhonchi Abdomen: abdomen soft, non-tender, and normal bowel sounds Musculoskeletal Exam: Mild thoracic kyphosis noted Adequate muscle strength Osteoarthritis of the hands noted with mild flexion contracture at the left 3rd PIP Assessment: M81.0 Senile osteoporosis (primary encounter diagnosis) M48.062 Spinal stenosis of lumbar region with neurogenic claudication M15.9 GENERAL OSTEOARTHROSIS For osteoporosis will get her set up for a DEXA the summer and may consider restarting therapy based on results. Did explain to her that we got a new DEXA machine and will not be able to compare to previous studies. As for her general arthritis pains she is following with pain clinic and remains onCelebrex in oxycodone per PCP Plan: 1. Continue medications for pain 2. Continue with Pain Clinic 3. DEXA ordered-will contact with results and determine if needs treatment at that time 4. Return to clinic next year Shawna Richey MD Department of Rheumatology documented in this encounter Nursing Notes * Shaylee Post LPN - 01/27/2024 9:35 AM EDT Chief Complaint Patient presents with Rheum Follow Up Follow up - osteoarthritis and documented in this encounter Plan of Treatment Upcoming Encounters Date Type Department Care Team (Late st Contact Info) Description 07/20/2024 9:40 AM EDT [facility] [place] [address] Della Mead CRNP [address] [place] [address] 09/15/2024 10:40 AM EST Office Visit Otolaryngology [facility] [address] [place] [address] Graciela Sparrow PA-C [address] [place] [address] 01/11/2025 10:15 AM EDT Imaging Radiology [facility] [address] [address] 01/27/2025 10:00 AM EDT Office Visit Rheumatology [address] [place] [address] Shawna Richey MD [address] [place] [address] [place] [address] 02/01/2025 10:00 AM EDT Office Visit Urology, [facility] [address] [address] Hakeem Bernal MD [address] [place] [address] 03/12/2025 9:20 AM EDT Office Visit Family Practice [facility] [address] [address] Claus Rojas MD [address] [place] [address] Health Maintenance Due Date Last Done Comments Adult Wellness Visit 03/04/2016 03/04/2015 *BISPHONATE OR OTHER ACCEPTABLE MEDICATION NEEDED FOR OSTEOPOROSIS (REFER TO SMARTSET #1146) 04/27/2022 Diabetic Eye Exam 10/12/2023 10/12/2022 Diabetic Foot Exam 10/12/2023 10/12/2022 COVID-19 Vaccine (6 - 2023-24 season) 2023 08/12/2023, 01/16/2023, 08/28/2021, Additional history exists Depression Screening 12/13/2023 12/12/2022, 06/20/2017 (Declined) Influenza Vaccine (FLU shot) (#1) 2024 07/17/2023, 08/08/2022, 07/28/2021, Additional history exists HbA1c 07/29/2024 01/28/2024, 0 03/2023, 06/27/2022, Additional history exists Albumin/Creatinine Ratio 01/27/2025 024, 11/19/2022, 06/29/2022, Additional history exists GFR 01/27/2025 01/28/2024, 01/12, 11/16/2022, Additional history exists TSH 01/27/2025 01/28/2024, 01/12, 11/16/2022, Additional history exists DXA Scan 06/08/2026 06/08/2024, 04/13, 04/13/2020, Additional history exists Pneumococcal Vaccine: 65+ Years Completed 02/15/2016, 04/27/2013 VITAMIN D LEVEL ONCE IN A LIFETIME-USE SMARTSET# 20813 Completed 08/11/2018, 04/25/2015 DTap/Tdap Vaccines Discontinued HPV [...] this encounter Medical Devices Implanted Type Area Plush Weaver Device Identifier Shelf Expiration Date Model / Serial / Lot Cement Bone Lv G 1119-140-01 - [id number] Implanted:Qty: 1 on 10/20/2018 by Ceasar Taylor MD at OR [facility] Left: Knee [employer] 07/13/2020 [id number] / / [id number] Cement Bone Lv G 1119-140-01 - [id number] Implanted:Qty: 1 on 10/20/2018 by Ceasar Taylor MD at OR [facility] Left: Knee [employer] 07/13/2020 [id number] / / [id number] Tibia Personna Left Sz D - [id number] Implanted:Qty: 1 on 10/20/2018 by Ceasar Taylor MD at OR [facility] Left: Knee [employer] 05/13/2028 [id number] / / [id number] Persona The Personalized Knee System Femur Cemented Cr Standard Left Size 7 Implanted:Qty: 1 on 10/20/2018 by Ceasar Taylor MD at OR [facility] Left: Knee [employer] 07/13/2028 [id number] / / [id number] Patella Reaming System Patella Reamer Blade With Assembler 1St Shift Hole 38mm Diameter Implanted:Qty: 1 on 10/20/2018 by Ceasar Taylor MD at OR [facility] Left: Knee [employer] 02/11/2028 [id number] / / [id number] Persona The Personalized Knee System Vivacit-E Highly Crosslinked Polyethylene All-Poly Patella Cemented Implanted:Qty: 1 on 10/20/2018 by Ceasar Taylor MD at OR [facility] Left: Knee [employer] 04/12/2023 [id number] / / [id number] Persona The Personalized Knee System Vivacit-E Highly Crosslinked Polyethylene Articular Surface Medial Congruent (Mc) Left Implanted:Qty: 1 on 10/20/2018 by Ceasar Taylor MD at OR [facility] Left: Knee [employer] 02/10/2022 [id number] / / [id number] Description:use with tibia s izes C-D/CR femur sizes 6-7 Lens Intraoc 20.5 - [id number] - [id number] Implanted:Qty: 1 on 11/22/2020 by Arron Titus MD at OR [facility] Left: Eye [employer] 03/13/2025 [id number] / [id number] / [id number] Lens Intraoc 21.0 - [id number] - [id number] Implanted:Qty: 1 on 12/06/2020 by Arron Titus MD at OR [facility] Right: Eye [employer] 07/13/2025 [id number] / [id number] / [id number] Persona Femur Cemented Cruciate Retaining Standard Right Implanted:Qty: 1 on 06/05/2021 by Ceasar Taylor MD at OR [facility] Right: Knee [employer] 04/12/2029 [id number] / / [id number] Component Kn Ptlr Poly Ve 32mm - [id number] Implanted:Qty: 1 on 06/05/2021 by Ceasar Taylor MD at OR [facility] Right: Knee [employer] 02/28/2026 [id number] / / [id number] Tibia Personna Right Sz D - [id number] Implanted:Qty: 1 on 06/05/2021 by Ceasar Taylor MD at OR [facility] Right: Knee [employer] 10/29/2030 [id number] / / [id number] Cement Bone Palacos Lv+G 1x40g - [id number] Implanted:Qty: 2 on 06/05/2021 by Ceasar Taylor MD at OR [facility] Right: [facility]nee [facility] 03/13/2022 [id number] / / [id number] Psn Mc Ve Asf R 10mm 8-11 Ef - [id number] Implanted:Qty: 1 on 06/05/2021 by Ceasar Taylor MD at OR [facility] Right: Knee [employer] 05/17/2025 [id number] / / [id number] documented as of this encounter Procedures Procedure Name Priority Date/Time Associated Diagnosis Comments DEXA SCAN/BONE MINERAL AXIAL Routine 06/08/2024 9:54 AM EDT Senile osteoporosis documented in this encounter Results * DEXA SCAN/BONE MINERAL AXIAL (06/08/2024 9:54 AM EDT) Anatomical Region Laterality Modality Dexa, Vertebra, Spine, Hip, Pelvis Nuclear Medicine Impressions 06/08/2024 12:22 PM EDT S: Fracture risk is based on current National Osteoporosis Foundation (www.nof.org) Clinicians Guide and [place] Association of Clinical Endocrinology (AACE) Guidelines (www.aace.com) and the application of current WHO FRAX tool (https://www.fady.ac.uk/FRAX/) as well as the 2017 [place] [employer] Glucocorticoid Induced Osteoporosis (GIOP) Guidelines (rheumatology.org/Practice-Quality/Clinical-Support/Qlhlpkac-Vvrtbfjj-Wwfts lines) using Bone mineral density derived T-scores and clinical risk factors obtained from the patient questionnaire. 1. The fracture risk is LOW/MODERATE (does not meet NOF criteria for treatment) 2. The quality of the examination is GOOD. The values at the lumbar spine are falsely elevated, and therefore the values at the hip/femoral neck are a better reflection of fracture risk in this patient. 3. No previous study for comparison. DEXA machine was recently upgraded so comparison study can not be made SUGGESTIONS: Information concerning the evaluation and treatment of osteoporosis can be found at the National Osteoporosis Foundation website (www.nof.org) and [place] Association of Clinical Endocrinology (AACE-www.aace.com). Osteoporosis prevention and treatment begins by modifying risk factors (such as smoking cessation and avoiding alcohol excess) and by participating in weight-bearing activities and exercise. Issues related to fall prevention and home safety should be addressed. Current NOF guidelines suggest 1200 to 1500 mg of calcium from diet and or supplemental sources. It is generally felt best to get calcium from one s diet. Calcium carbonate and calcium citrate are common calcium supplement choices in most local pharmacies. If the patient is taking a proton pump inhibitor, then calcium citrate should be the preferred supplement, if that is necessary. NOF guidelines for vitamin D are 800 to 1000 units of vitamin D3 daily. However, this may best be guided by measurement of 25-OH vitamin-D level, aiming for a level between 30 to 50 units (ng/ml). Additional information can be found at the FRAX website (https://www.fady.ac.uk/FRAX/), and the [place] [employer] Rheumat[employer] website (https://www.rheumatology.org/Practice-Quality/Clinical-Support/Clinical-Pr actice-Guidelines). 1. No specific prescription therapy is needed at this point in time. 2. A repeat study should be considered in 2 years SHAWNA RICHEY M.D. ISCD Certified Clinical Slack Line Yarder Department of Rheumatology [facility] Narrative 06/08/2024 12:22 PM EDT Radiology, [facility] DXA Performed: 06/08/24 DXA Resulted: 06/08/2024 Rosemarie Dlae Reason for testing: estrogen deficient woman at clinical risk Osteoporosis treatment (per questionnaire): A. Previous treatment: Took Fosamax 2014 through 2015, Actonel 2015 through 2021 B. Current treatment: NONE Major risk factors: none Using a [employer] [facility] images of the lumbar spine, left hip were obtained using DXA.. The bone mineral density and T scores [standard, young, normal, female population] are as follows: RESULTS: Lumbar spine: INVALID Left femoral neck: 0.688 gms/cm2 T-score: -1.5 Using the NOF/WHO FRAX calculator, the 10 year absolute risk for any major osteoporotic fracture is 12 % and the risk for hip fracture is 2.9 %. Shawna Richey MD RADIOLOGY ([facility]) documented in this encounter Visit Diagnoses Diagnosis Senile osteoporosis- Primary Spinal stenosis of lumbar region with neurogenic claudication Spinal stenosis, lumbar region, with neurogenic claudication GENERAL OSTEOARTHROSIS Generalized osteoarthrosis, unspecified site documented in this encounter Advance Directives * [...] and were consensually agreed upon. Care Teams Mining Detail Draftsperson Relationship Specialty Start Date End Date Claus Rojas MD [address] [address] PCP - General Family Medicine 10/12/14 documented as of this encounter"
--- OUTSIDE RECORDS SUMMARY | 2024-07-15 20:36 | External Medical Summary | Summary of Care ---
Author Name Unknown Organization [facility] Address [address] [facility] [place] [address] Phone [phone] Care Team Providers Care Customer Greeter Name Role Phone Claus Rushing MD Primary Care Provider + Reason for Visit * Reason Onset Date Comments Medication Refill 07/02/2024 Encounter Details Date Type Department Care Team (Late st Contact Info) Description 07/02/2024 Refill Family Practice [facility] [address] [facility] [place] [address] Claus Rushing MD [address] [facility] [address] Chronic right-sided low back pain with right-sided sciatica; MEDICATION USE AGREEMENT Allergies Active Allergy Reactions Criticality Noted Date Comments Alendronate Sodium Abdominal pain 04/05/2016 GI upset Cefdinir Anaphylaxis High 10/02/2022 Doxycycline Hives,Rash 05/14/2012 Heparin 05/14/2012 Decreased platelets Sulfa Antibiotics Hives,Rash 11/28/2012 Sulfonylureas 04/05/2003 documented as of this encounter (statuses as of 07/03/2024) Medications Medication Sig Dispensed Refills Start Date [...] 2 weeks, then taper to weekends only Sat-Sat as needed 60 g 1 4 Active [...] MOUTH DAILY 90 Capsule 2 4 Active metFORMIN HCl ER 500 MG [...] OTHER MEDICATIONS 90 Tablet 2 4 Active oxyCODONE HCl 5 MG Oral Tablet (Oxy IR)Indications:Catering Service Manager redd right-sided low back pain with right-sided sciatica,MEDICATION USE AGREEMENT Take 1 Tablet by mouth 2 times a day as needed for Pain, Severe. 60 Tablet 4 Active oxyCODONE HCl 5 MG Oral Tablet (Oxy IR)Indications:Catering Service Manager redd right-sided low back pain with right-sided sciatica,MEDICATION USE AGREEMENT Take 1 Tablet by mouth 2 times a day as needed for Pain, Severe. 60 Tablet 4 07/02/20 24 Discontinu ed(Refill) documented as of this encounter (statuses as of 07/03/2024) Active Problems Problem Noted Date Diagnosed Date Type 2 diabetes mellitus wit h diabetic peripheral angiopathy without gangrene 01/09/2023 Type 2 diabetes mellitus wit h hemoglobin A1c goal of less than 8.0% 06/27/2022 Irritable bowel syndrome with constipation 03/02 Spinal stenosis of lumbar re gion with neurogenic claudication 12/28/2021 DDD (degenerative disc disease), lumbar 08/25/20 Small vessel disease 09/14/2020 Overview: 2019-toe MEDICATION USE AGREEMENT 06/08/2020 Senile osteoporosis 03/04/2019 [...] as of this encounter (statuses as of 07/03/2024) Resolved Problems Problem Noted Date Diagnosed Date [...] facility 08/13/2014 08/09/2016 Overview: Declines zostavax 06/[facility]--vascular congestion, possible nodularity, lizbeth 3+mo. 10/28 dx with Breast CA--didn't tolerate chemo. 01/27 PET +showed in lymph node. . Valerie lift/wheelchair for him. 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 On alendronate. 03/28 ACC 21% start lipitor Has received flexeril from myself Also methocaramol 750mg Thrombocytopenia 08/13/2014 2018 Overview: Dr Ziegler @[facility]. Ck CBC Q3-6mos . Unclear etiology. [...] as of this encounter (statuses as of 07/03/2024) Immunizations Name Administration Dates Next Due COVID-19 [...] Telephone Encounter - Claus Rushing MD - 07/03/2024 2:18 PM EDTSigned Prescriptions: Disp Refills oxyCODONE HCl 5 MG Oral Tablet (Oxy IR) 60 Tab*0 Sig: Take 1 Tablet by mouth 2 times a day as needed for Pain, Severe.Authorizing Provider: CLAUS RUSHING---- * Telephone Encounter - Ernst Reyna [facility] - 07/03/2024 9:55 AM EDTPending Prescriptions: Disp Refills oxyCODONE HCl 5 MG Oral Tablet (Oxy IR) 60 Tab*0 Sig: Take 1 Tablet by mouth 2 times a day as needed for Pain, Severe. * Telephone Encounter - Ernst Reyna RPh - 07/03/2024 9:55 AM EDT I have reviewed the patients controlled substance dispensing history in the Prescription Drug Monitoring Program in compliance with the [facility] regulations before prescribing a controlled substance. PDMP checked on 07/03/2024. Pending Prescriptions: Disp Refills oxyCODONE HCl 5 MG Oral Tablet (Oxy IR) 60 Tab*0 Sig: Take 1 Tablet by mouth 2 times a day as needed for Pain, Severe. Last Visit: 04/01/2024 (in office), 12/01/2020 (telemedicine) Next Visit: 07/20/2024 Date medication was last filled: 05/08/24 Date medication is due for refill: 06/06/24 Pharmacy: [facility] [id number] Is this request for a controlled [...] in Results Review. Please approve if appropriate. Thanks, Ernst Reyna Rph, Pharm D. Clinical Pharmacist [facility] [phone] 07/03/2024,9:55 AM * Telephone Encounter - Floresita Hester, card scraper - 07/02/2024 9:23 AM EDT Did you pend patient's preferred pharmacy and medication before forwarding?yes Pharmacy: [facility]/PHARMACY [id number] Pending Prescriptions: Disp Refills oxyCODONE HCl 5 [...] appointment Last date the medication was ordered: 05/07/2024 Is this request for a controlled substance?Yes, What was the last refill date 05/07/2024 w/ and dosage 5 mg and Urine Drug Screen Not completed Urine Drug Screen: Results for orders [...] 03:42 PM TSH 3.73 10/28/1996 01:50 PM LDL 100 01/28/2024 09:59 AM LDL 87 05/13/2020 11:51 AM LDL 67 06/27/2017 09:51 AM ALT 34 11/16/2022 11:38 AM ALT 24 03/30/2020 03:42 PM HGBA1C 6.7 (H) 01/28/2024 09:59 AM HGBA1C 6.4 (H) 09/30/2018 02:23 PM documented in this encounter Plan of Treatment Upcoming Encounters Date Type Department Care Team (Late st Contact Info) Description 07/20/2024 9:40 AM EDT Office Visit Family Practice [facility] [address] [place] [address] Della Mead CRNP [address] [place] [address] 09/15/2024 10:40 AM EST Office Visit Otolaryngology [facility] [address] [place] [address] Graciela Sparrow PA-C [address] [place] [address] 01/11/2025 10:15 AM EDT Imaging Radiology [facility] [address] [place] [address] 01/27/2025 10:00 AM EDT Office Visit Rheumatology [address] [place] [address] Ta Irvin MD [address] [place] [address] [place] [address] 02/01/2025 10:00 AM EDT Office Visit Urology, [facility] [address] [place] [address] Hakeem Bernal MD [address] [place] [address] 03/12/2025 9:20 AM EDT Office Visit Family Practice [facility] [address] [place] [address] Claus Rushing MD [address] [place] [address] Health Maintenance Due Date Last Done Comments [...] D LEVEL ONCE IN A LIFETIME-USE SMARTSET# 05760 Completed 08/11/2018, 04/25/2015 DTap/Tdap Vaccines Discontinued HPV [...] this encounter Medical Devices Implanted Type Area Still Cleaner Device Identifier Shelf Expiration Date Model / Serial / Lot Cement Bone Lv G 1119-140-01 - [id number] Implanted:Qty: 1 on 10/20/2018 by Ceasar Taylor MD at [facility] Left: Knee [employer] 07/13/202051-4889-540-01 / / [id number] Cement Bone Lv G 1119-140-01 - [id number] Implanted:Qty: 1 on 10/20/2018 by Ceasar Taylor MD at OR [facility] Left: Knee [employer] 07/13/202066-3048-466-01 / / [id number] Tibia Personna Left Sz D - [id number] Implanted:Qty: 1 on 10/20/2018 by Ceasar Taylor MD at OR [facility] Left: Knee [employer] 05/13/2028 60-7450-663-01 / / [id number] Persona The Personalized Knee System Femur Cemented Cr Standard Left Size 7 Implanted:Qty: 1 on 10/20/2018 by Ceasar Taylor MD at OR [facility] Left: Knee [employer] 07/13/2028 01-1856-480-01 / / [id number] Patella Reaming System Patella Reamer Blade With Program Consultant Hole 38mm Diameter Implanted:Qty: 1 on 10/20/2018 by Ceasar Taylor MD at OR [facility] Left: Knee [employer] 02/11/2028 [id number] / / [id number] Persona The Personalized Knee System Vivacit-E Highly Crosslinked Polyethylene All-Poly Patella Cemented Implanted:Qty: 1 on 10/20/2018 by Ceasar Taylor MD at OR [facility] Left: Knee [employer] 04/12/2023 [id number] / / [id number] Persona The Personalized Knee System Vivacit-E Highly Crosslinked Polyethylene Articular Surface Medial Congruent (Mc) Left Implanted:Qty: 1 on 10/20/2018 by Ceasar Taylor MD at OR [facility] Left: Knee [employer] 02/10/2022 [id number] / / [id number] Description:use with tibia s izes C-D/CR femur sizes 6-7 Lens Intraoc 20.5 - [id number] - [id number] Implanted:Qty: 1 on 11/22/2020 by Arron Titus MD at OR [facility] Left: Eye [employer] 03/13/2025 [id number] / [id number] / [id number] Lens Intraoc 21.0 - [id number] - [id number] Implanted:Qty: 1 on 12/06/2020 by Arron Titus MD at OR [facility] Right: Eye [employer] 07/13/2025 [id number] / [id number] / [id number] Persona Femur Cemented Cruciate Retaining Standard Right Implanted:Qty: 1 on 06/05/2021 by Ceasar Taylor MD at OR [facility] Right: Knee [employer] 04/12/2029 20-0883-041-02 / / [id number] Component Kn Ptlr Poly Ve 32mm - [id number] Implanted:Qty: 1 on 06/05/2021 by Ceasar Taylor MD at OR [facility] Right: Knee [employer] 02/28/2026 [id number] / / [id number] Tibia Personna Right Sz D - [id number] Implanted:Qty: 1 on 06/05/2021 by Ceasar Taylor MD at OR [facility] Right: Knee [employer] 10/29/2030 01-2020-586-02 / / [id number] Cement Bone Palacos Lv+G 1x40g - [id number] Implanted:Qty: 2 on 06/05/2021 by Ceasar Taylor MD at OR [facility] Right: Knee [employer] 03/13/2022 [id number] / / [id number] Psn Mc Ve Asf R 10mm 8-11 Ef - [id number] Implanted:Qty: 1 on 06/05/2021 by Ceasar Taylor MD at OR [facility] Right: Knee [employer] 05/17/2025 34-2333-990-11 / / [id number] documented as of this encounter Visit Diagnoses [...] and were consensually agreed upon. Care Teams Customer Greeter Relationship Specialty Start Date End Date Claus Rushing MD [address] [place] [address] PCP - General Family Medicine 10/12/14 documented as of this encounter
--- OUTSIDE RECORDS SUMMARY | 2024-07-15 20:36 | External Medical Summary | Summary of Care ---
Author Name Unknown Organization [facility] Address [address] [place] [address] Phone [phone] Care Team Providers Care Mergers And Acquisitions Manager Name Role Phone Claus Rushing MD Primary Care Provider + Reason for Visit * Reason Comments eRx-Medication Refill Encounter Details Date Type Department Care Team (Late st Contact Info) Description 06/03/2024 Refill Family Practice [facility] [address] [facility] [place] [address] Claus Rushing MD [address] [facility] [place] [place] [address] Elevated glucose Allergies Active Allergy Reactions Criticality Noted Date Comments Alendronate Sodium Abdominal pain 04/05/2016 GI upset Cefdinir Anaphylaxis High 10/02/2022 Doxycycline Hives,Rash 05/14/2012 Heparin 05/14/2012 Decreased platelets Sulfa Antibiotics Hives,Rash 11/28/2012 Sulfonylureas 04/05/2003 documented as of this encounter (statuses as of 06/04/2024) Medications Medication Sig Dispensed Refills Start Date [...] OTHER MEDICATIONS 90 Tablet 1 4 Active Proctofoam HC [...] EVERY DAY 90 Tablet 1 4 Active metFORMIN HCl ER 500 MG Oral Tablet Extended Release 24 Hour (Glucophage XR)Indications:Anahi vated glucose TAKE 1 TABLET BY MOUTH EVERY DAY 90 Tablet 1 4 024 Discontinued documented as of this encounter (statuses as of 06/04/2024) Active Problems Problem Noted Date Diagnosed Date [...] as of this encounter (statuses as of 06/04/2024) Resolved Problems Problem Noted Date Diagnosed Date [...] facility 08/13/2014 08/09/2016 Overview: Declines zostavax 06/[address] [facility] [address]--vascular congestion, possible nodularity, lizbeth 3+mo. 10/28 dx with Breast CA--didn't tolerate chemo. 01/27 PET +showed in lymph node. . Vaelrie lift/wheelchair for him. 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 On alendronate. 03/28 ACC 21% start lipitor Has received flexeril from myself Also methocaramol 750mg Thrombocytopenia 08/13/2014 2018 Overview: Dr Ziegler @[facility]. Ck CBC Q3-6mos . Unclear etiology. Possible [...] as of this encounter (statuses as of 06/04/2024) Immunizations Name Administration Dates Next Due COVID-19 [...] (15 years old or older) No 06/05/20 21 Cognitive Status Response Date of Assessm ent Because of a physical, menta l, or emotional condition, do you have serious difficulty concentrating, remembering, or making decisions? (5 years old or older) No 06/05/2021 documented as of this encounter Miscellaneous Notes * Telephone Encounter - Shawna High [facility] - 06/04/2024 6:13 PM EDTSigned Prescriptions: Disp Refills metFORMIN HCl ER 500 MG Oral Tablet Extend*90 Tab*1 Sig: TAKE 1 TABLET BY MOUTH EVERY DAYAuthorizing Provider: CLAUS RUSHING User: SHAWNA HIGH documented in this encounter Plan of Treatment Upcoming Encounters Date Type Department Care Team (Late st Contact Info) Description 06/08/2024 9:30 AM EDT Imaging Radiology, [address] [place] [address] 07/20/2024 9:40 AM EDT Office Visit Family Practice [facility] [address] [place] [address] Della Mead CRNP [address] [place] [address] 09/15/2024 10:40 AM EST Office Visit Otolaryngology [facility] [address] [place] [address] Graciela Sparrow PA-C [address] [place] [address] 01/11/2025 10:15 AM EDT Imaging Radiology [facility] [address] [place] [address] 01/27/2025 10:00 AM EDT Office Visit Rheumatology [address] [place] [address] Shawna Irvin MD [address] [place] [address] [place] [address] 02/01/2025 10:00 AM EDT Office Visit Urology, [facility] [address] [place] [address] Hakeem Bernal MD [address] [place] [address] 03/12/2025 9:20 AM EDT Office Visit Family Practice [facility] [address] [address] Claus Rushing MD [address] [place] [address] Health Maintenance Due Date Last Done Comments [...] D LEVEL ONCE IN A LIFETIME-USE SMARTSET# 60116 Completed 08/11/2018, 04/25/2015 DTaP,Tdap,and Td Vaccines Discontinued [...] this encounter Medical Devices Implanted Type Area Post Hole Digging Machine Operator Device Identifier Shelf Expiration Date Model / Serial / Lot Cement Bone Lv G 1119-140-01 - [id number] Implanted:Qty: 1 on 10/20/2018 by Ceasar Taylor MD at OR [facility] Left: Knee [employer] 07/13/202017-2456-064-01 / / [id number] Cement Bone Lv G 1119-140-01 - [id number] Implanted:Qty: 1 on 10/20/2018 by Ceasar Taylor MD at OR [facility] Left: Knee [employer] 07/13/202058-7933-752-01 / / [id number] Tibia Personna Left D - [id number] Implanted:Qty: 1 on 10/20/2018 by Ceasar Taylor MD at OR [facility] Left: Knee [employer] 05/13/2028 [id number] / / [id number] Persona The Personalized Knee System Femur Cemented Cr Standard Left Size 7 Implanted:Qty: 1 on 10/20/2018 by Ceasar Taylor MD at OR [facility] Left: Knee [employer] 07/13/2028 06-9600-849-01 / / [id number] Patella Reaming System Patella Reamer Blade With Cottage Master Hole 38mm Diameter Implanted:Qty: 1 on 10/20/2018 by Ceasar Taylor MD at OR [facility] Left: Knee [employer] 02/11/2028 [id number] / / [id number] Persona The Personalized Knee System Vivacit-E Highly Crosslinked Polyethylene All-Poly Patella Cemented Implanted:Qty: 1 on 10/20/2018 by Ceasar Taylor MD at OR [facility] Left: Knee [employer] 04/12/2023 [id number] / / [id number] Persona The Personalized Knee System Vivacit-E Highly Crosslinked Polyethylene Articular Surface Medial Congruent (Mc) Left Implanted:Qty: 1 on 10/20/2018 by Ceasar Taylor MD at OR [facility] Left: Knee [employer] 02/10/2022 [id number] / / [id number] Description:use with tibia s izes C-D/CR femur sizes 6-7 Lens Intraoc 20.5 - [id number] - [id number] Implanted:Qty: 1 on 11/22/2020 by Arron Titus MD at OR [facility] Left: Eye [employer] 03/13/2025 [id number] / [id number] / [id number] Lens Intraoc 21.0 - [id number] - [id number] Implanted:Qty: 1 on 12/06/2020 by Arron Titus MD at OR [facility] Right: Eye [employer]CH [employer]OM[employer] 07/13/2025 [id number] / [id number] / [id number] Persona Femur Cemented Cruciate Retaining Standard Right Implanted:Qty: 1 on 06/05/2021 by Ceasar Taylor MD at OR [facility] Right: Knee [employer] 04/12/2029 63-7733-934-02 / / [id number] Component Kn Ptlr Poly Ve 32mm - [id number] Implanted:Qty: 1 on 06/05/2021 by Ceasar Taylor MD at OR [facility] Right: Knee [employer] 02/28/2026 73-9824-720-32 / / [id number] Tibia Personna Right Sz D - [id number] Implanted:Qty: 1 on 06/05/2021 by Ceasar Taylor MD at OR [facility] Right: Knee [employer] 10/29/2030 35-0291-375-02 / / [id number] Cement Bone Palacos Lv+G 1x40g - [id number] Implanted:Qty: 2 on 06/05/2021 by Ceasar Taylor MD at OR [facility] Right: Knee [employer] 03/13/2022 [id number] / / [id number] Psn Mc Ve Asf R 10mm 8-11 Ef - [id number] Implanted:Qty: 1 on 06/05/2021 by Ceasar Taylor MD at OR [facility] Right: Knee [employer] 05/17/2025 10-0904-608-11 / / [id number] documented as of this encounter Visit Diagnoses Diagnosis Elevated glucose Other abnormal glucose documented in this encounter Advance Directives * [...] and were consensually agreed upon. Care Teams Mergers And Acquisitions Manager Relationship Specialty Start Date End Date Claus Rushing MD [address] [place] [address] PCP - General Family Medicine 10/12/14 documented as of this encounter
--- OUTSIDE RECORDS SUMMARY | 2024-07-15 20:37 | External Medical Summary | Summary of Care ---
Author Name Unknown Organization [facility] Address [address] [facility] [place] [address] Phone [phone] Care Team Providers Care Director Design Name Role Phone Claus Rojas MD Primary Care Provider + Encounter Details Date Type Department Care Team (Late st Contact Info) Description 03/04/2024 Refill Gastroenterology, [facility] [address] [facility] [address] [facility] [place] [address] Ronald Casanova CRNP [address] [facility] [place] [address] Allergies Active Allergy Reactions Criticality Noted Date Comments Alendronate Sodium Abdominal pain 04/05/2016 GI upset Cefdinir Anaphylaxis High 10/02/2022 Doxycycline Hives,Rash 05/14/2012 Heparin 05/14/2012 Decreased platelets Sulfa Antibiotics Hives,Rash 11/28/2012 Sulfonylureas 04/05/2003 documented as of this encounter (statuses as of 03/05/2024) Medications Medication Sig Dispensed Refills Start Date [...] 1 week. 20 Suppository 1 12/12/2022 Active Additional Information Patient not taking.Informant: Wallet Card/List, Reported on 10/30/2023 Triamcinolone Acetonide 0.1 % External Ointment (Aristocort) Apply to vulva as needed for itching 30 g 2 12/21/2022 Active Melatonin 5 MG Oral Capsule Take 1 Capsule by mouth at bedtime. Active Imvexxy Maintenance Pack 10 MCG Vaginal Insert (Estradiol)Indicati ons:Recurrent UTI Use twice weekly per vagina., 1 Each 02/04/2023 Active Hydrocortisone (Perianal) 2.5 % External Cream (Anusol-HC)Indicati ons:Hemorrhoids, external without complications Administer into the rectum 2 times a day. 28 g 04/11/2023 Active polyethylene glycol 3350 119 gram OR POWD Take 119 g by mouth once. Active Celecoxib 200 MG Oral Capsule (CeleBREX)Indicatio ns:Lumbar disc herniation,Spinal stenosis of lumbar region with neurogenic claudication TAKE 1 CAPSULE BY MOUTH DAILY 90 Capsule 1 08/07/2023 Active Atorvastatin Calcium 10 MG Oral Tablet (Lipitor)Indication s:Dyslipidemia, goal LDL below 130 TAKE 1 TABLET BY MOUTH DAILY 90 Tablet 1 08/06/2023 Active Terbinafine HCl 1 % External Cream (LamISIL AT ATHLETE'S FOOT)Indications:Ti teresa corporis,Tinea pedis of left foot Apply twice daily to left lower extremity and feet up to 6 weeks. 30 g 08/27/2023 Active Pantoprazole Sodium 40 MG Oral Tablet Delayed Release (Protonix)Indicatio ns:Gastroesophageal reflux disease with esophagitis TAKE 1 TABLET BY MOUTH EVERY DAY 90 Tablet 3 09/16/2023 Active Metoprolol Succinate ER 50 MG Oral Tablet Extended Release 24 Hour (toPROL XL)Indications:Esse ntial hypertension with goal blood pressure less than 140/90 TAKE 1 TABLET BY MOUTH DAILY AT NIGHT 90 Tablet 1 10/31/2023 Active Lubiprostone 24 MCG Oral Capsule (Amitiza) Take 1 Capsule by mouth 2 times a day with morning and evening meals. 60 Capsule 5 11/14/2023 Active Clobetasol Propionate 0.05 % External Cream (Temovate)Indicatio ns:Dermatitis Apply twice daily to trunk up to 2 weeks, then taper to weekends only Sat-Sat as needed 60 g 1 12/02/2023 Active Levothyroxine Sodium 75 MCG Oral Tablet (Levoxyl)Indication s:Acquired hypothyroidism TAKE 1 TABLET BY MOUTH FIRST THING IN THE MORNING AT LEAST 1/2 HOUR BEFORE BREAKFAST OR OTHER MEDICATIONS 90 Tablet 1 01/01/2024 Active metFORMIN HCl ER 500 MG Oral Tablet Extended Release 24 Hour (Glucophage XR)Indications:Elev ated glucose TAKE 1 TABLET BY MOUTH EVERY DAY 90 Tablet 1 01/07/2024 Active Proctofoam HC 1-1 % External Foam (Hydrocort-Pramoxin e (Perianal))Indicati ons:Drug-induced constipation ADMINISTER INTO THE RECTUM, TO AFFECTED AREA OF ANUS, NEEDED FOR MODERATE PAIN (HEMORRHOIDS) 10 g 5 01/07/2024 Active Venlafaxine HCl ER 150 MG Oral Capsule Extended Release 24 Hour (Effexor XR) TAKE 1 CAPSULE BY MOUTH DAILY 90 Capsule 01/21/2024 Active NATURAL SUPPLEMENT Take by mouth daily. Advance sciatic nerve suport Active Ciclopirox Olamine 0.77 % External CreamIndications:Ti teresa pedis of left foot Apply topically to affected area 2 times a day. To affected area. 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 60 Tablet 03/04/2024 Active Cyclobenzaprine HCl 10 MG Oral Tablet (Flexeril)Indicatio ns:Chronic right-sided low back pain with right-sided sciatica Take 1 Tablet by mouth at bedtime as needed for Muscle spasms. 30 Tablet 2 03/04/2024 Active Hydrocortisone 2.5 % External CreamIndications:He morrhoids, external without complications External hemorrhoid twice daily 28 g 5 03/04/2024 Active documented as of this encounter (statuses as of 03/05/2024) Active Problems Problem Noted Date Diagnosed Date Type 2 diabetes mellitus wit h diabetic peripheral angiopathy without gangrene 01/09/2023 Type 2 diabetes mellitus wit h hemoglobin A1c goal of less than 8.0% 06/27/2022 Irritable bowel syndrome with constipation 05/20 /2022 Spinal stenosis of lumbar re gion with [...] as of this encounter (statuses as of 03/05/2024) Resolved Problems Problem Noted Date Diagnosed Date [...] facility 08/13/2014 08/09/2016 Overview: Declines zostavax 06/[address] [facility]--vascular congestion, possible nodularity, lizbeth [...] as of this encounter (statuses as of 03/05/2024) Immunizations Name Administration Dates Next Due COVID-19 [...] encounter Miscellaneous Notes * Telephone Encounter - Jeni Ashley RN - 03/05/2024 3:41 PM EDT Called [facility] pharmacy. They state that there are still 3 refills on the medication. They are able to fill it if patient needs it. Called and made patient aware that she just needs to call the pharmacy to refill her med. She verbalizes understanding. * Telephone Encounter - Jeni Ashley RN - 03/05/2024 1:50 PM EDT [facility] pharmacy closed for lunch. Need to call back after 2PM * Telephone Encounter - Zenia Genao LPN - 03/04/2024 3:58 PM EDT Patient was in the office today for visit with PCP. She stated she needed refills for this. Im not sure if there was an issue with her refills with the pharmacy? * Telephone Encounter - Jeni Ashley RN - 03/04/2024 12:42 PM EDTPending Prescriptions: Disp Refills Lubiprostone 24 MCG Oral Capsule (Amitiza) 60 Cap*5 Sig: Take 1 Capsule by mouth 2 times a day with morning and evening meals. * Telephone Encounter - Jeni Ashley RN - 03/04/2024 12:41 PM EDT This med was just ordered on 11/14/23 with 5 refills. Is there a reason why it needs a new script already? Thanks! * Telephone Encounter - Zenia Genao LPN - 03/04/2024 11:48 AM EDT Pending Prescriptions: Disp Refills Lubiprostone 24 MCG Oral Capsule (Amitiza)60 Cap*5 Sig: Take 1 Capsule by mouth 2 times a day with morning and evening meals. Last Visit: 11/14/2023 (in office), Visit date not found (telemedicine) Next Visit: 03/26/2024 Last date the medication was ordered: 11/14/23 Patient Active Problem List Diagnosis GENERAL OSTEOARTHROSIS HTN, goal below 140/90 Lumbar disc herniation Acquired hypothyroidism Gastroesophageal reflux disease with esophagitis Well adult exam Chronic ITP (idiopathic thrombocytopenia) ([facility]) History of kidney stones Recurrent sinus infections Senile osteoporosis Body mass index (BMI) of 40.1 to 44.9 in adult ([facility]) MEDICATION USE AGREEMENT Small vessel disease ([facility]) DDD (degenerative disc disease), lumbar Spinal stenosis of lumbar region with neurogenic claudication Irritable bowel syndrome with constipation Type 2 diabetes mellitus with hemoglobin A1c goal of less than 8.0% ([facility]) Type 2 diabetes mellitus with diabetic peripheral angiopathy without gangrene ([facility]) Labs: Lab Results Component Value Date/Time CREATININE - [facility] 0.9 01/28/2024 09:59 AM CREATININE - [facility] 1.0 03/30/2020 03:42 PM CREATININE ENDY - [facility] 318 10/19/2022 02:01 PM CREATININE, RANDOM URINE - [facility] 68 01/28/2024 12:52 PM CREATININE, RANDOM URINE - [facility] 53 02/15/2016 08:30 AM CREATININE-OUTSIDE LAB 0.83 03/06/2019 12:00 AM Lab Results Component Value Date/Time POTASSIUM - [facility] 4.7 01/28/2024 09:59 AM POTASSIUM - [facility] 4.6 03/30/2020 03:42 PM POTASSIUM-OUTSIDE LAB 4.2 03/06/2019 12:00 AM Lab Results Component Value Date/Time TSH - [facility] 2.06 01/28/2024 09:59 AM TSH - [facility] 1.45 03/30/2020 03:42 PM Lab Results Component Value Date/Time LDL CHOLESTEROL (CALCULATED) - [facility] 100 01/28/2024 09:59 AM LDL CHOLESTEROL (CALCULATED) - [facility] 67 06/27/2017 09:51 AM LDL CHOLESTEROL (CALCULATED) - [facility] 152 (H) 02/09/2015 12:07 PM LDL CHOLESTEROL (DIRECT MEASURE) - [facility] 69 06/27/2022 03:14 PM LDL CHOLESTEROL (DIRECT MEASURE) - [facility] 82 12/06/2021 01:36 PM LDL CHOLESTEROL (DIRECT MEASURE) - [facility] 87 05/13/2020 11:51 AM LDL CHOLESTEROL (DIRECT MEASURE) - [facility] NOT APPLICABLE 06/27/2017 09:51 AM Lab Results Component Value Date/Time ALT - [facility] 34 11/16/2022 11:38 AM ALT - [facility] 24 03/30/2020 03:42 PM ALT-OUTSIDE LAB 31 07/03/2016 12:00 AM Hemoglobin AIC Results: Lab Results Component Value Date/Time HEMOGLOBIN A1C - [facility] 6.7 (H) 01/28/2024 09:59 AM HEMOGLOBIN A1C - [facility] 6.7 (H) 10/19/2022 02:00 PM HEMOGLOBIN A1C - [facility] 7.2 (H) 06/27/2022 03:14 PM HEMOGLOBIN A1C - [facility] 6.4 (H) 09/30/2018 02:23 PM documented in this encounter Plan of Treatment Upcoming Encounters Date Type Department Care Team (Late st Contact Info) Description 03/11/2024 10:40 AM EDT Office Visit Otolaryngology [facility] [address] [place] [address] Graciela Sparrow PA-C [address] [place] [address] 03/26/2024 10:00 AM EDT Office Visit Gastroenterology, [facility] [address] [place] [address] Ronald Casanova CRNP [address] [place] [address] 06/08/2024 9:30 AM EDT [address] [address] 07/20/2024 9:40 AM EDT Office Visit Family Practice [facility] [address] [place] [address] Della Mead CRNP [address] [place] [address] 01/11/2025 10:15 AM EDT Imaging Radiology [facility] [address] [place] [address] 01/27/2025 10:00 AM EDT Office Visit Rheumatology [address] [place] [address] Ta Irvin MD [address] [place], [place] [address] [address] 02/01/2025 10:00 AM EDT Office Visit Urology, [facility] [address] [place] [address] Hakeem Bernal MD [address] [place] [address] 03/12/2025 9:20 AM EDT Office Visit Family Practice [facility] [address] [place] [address] Claus Rojas MD [address] [facility] [place] [address] Health Maintenance Due Date Last Done Comments *BISPHONATE OR OTHER ACCEPTABLE MEDICATION NEEDED FOR OSTEOPOROSIS (REFER TO SMARTSET #1146) 04/27/2022 Diabetic Eye Exam 10/12/2023 10/12/2022 Diabetic Foot Exam 10/12/2023 10/12/2022 COVID-19 Vaccine ( season) 2023 08/12/2023, 01/16/2023, 08/28/2021, Additional history exists Depression Screening 12/13/2023 12/12/2022, 06/20/2017 (Declined) DXA Scan 04/25/2024 04/25/2022, 10/2019, 02/20/2018, Additional history exists HbA1c 07/29/2024 01/28/2024, 03/2023, 06/27/2022, Additional history exists Albumin/Creatinine Ratio 01/27/2025 024, 11/19/2022, 06/29/2022, Additional history exists GFR 01/27/2025 01/28/2024, 01/12, 11/16/2022, Additional history exists TSH 01/27/2025 01/28/2024, 01/12, 11/16/2022, Additional history exists Pneumococcal Vaccine: 65+ Years Completed 02/15/2016, 04/27/2013 VITAMIN D LEVEL ONCE IN A LIFETIME-USE SMARTSET# 68713 Completed 08/11/2018, 04/25/2015 Influenza Vaccine (FLU shot) Completed 07/17/2023, 08/08/2022, 07/28/2021, Additional history exists DTaP,Tdap,and Td Vaccines Discontinued GARDASIL-HPV IMMUNIZATION SERIES Aged Out No longer eligible based on patient's age to complete this topic Hepatitis B Aged Out No longer eligi ble based on patient's age to complete this topic MENINGOCOCCAL (MENACTRA/MENVEO) Aged Out No longer eligible based on patient's age to complete this topic Zoster Vaccines Discontinued documented as of this encounter Medical Devices Implanted Type Area Maintenance Technician 2Nd Shift Device Identifier Shelf Expiration Date Model / Serial / Lot Cement Bone Lv G 1119-140-01 - [id number] Implanted:Qty: 1 on 10/20/2018 by Ceasar Taylor MD at [place] [facility] Left: Knee [employer] 07/13/[id number] / / [id number] Cement Bone Lv G 1119-140-01 - [id number] Implanted:Qty: 1 on 10/20/2018 by Ceasar Taylor MD at [place] [facility] Left: Knee [employer] 07/13/202002-2913-683-01 / / [id number] Tibia Personna Left Sz D - [id number] Implanted:Qty: 1 on 10/20/2018 by Ceasar Taylor MD at [place] [facility] Left: Knee [employer] 05/13/2028 [id number] / / [id number] Persona The Personalized Knee System Femur Cemented Cr Standard Left Size 7 Implanted:Qty: 1 on 10/20/2018 by Ceasar Taylor MD at [place] [facility] Left: Knee [employer] 07/13/2028 [id number] / / [id number] Patella Reaming System Patella Reamer Blade With Rivet Catcher Hole 38mm Diameter Implanted:Qty: 1 on 10/20/2018 by Ceasar Taylor MD at [place] [facility] Left: Knee [employer] 02/11/2028 [id number] / / [id number] Persona The Personalized Knee System Vivacit-E Highly Crosslinked Polyethylene All-Poly Patella Cemented Implanted:Qty: 1 on 10/20/2018 by Ceasar Taylor MD at [place] [facility] Left: Knee [employer] 04/12/2023 [id number] / / [id number] Persona The Personalized Knee System Vivacit-E Highly Crosslinked Polyethylene Articular Surface Medial Congruent (Mc) Left Implanted:Qty: 1 on 10/20/2018 by Ceasar Taylor MD at [place] [facility] Left: Knee [employer] 02/10/2022 [id number] / / [id number] Description:use with tibia s izes C-D/CR femur sizes 6-7 Lens Intraoc 20.5 - [id number] - [id number] Implanted:Qty: 1 on 11/22/2020 by Arron Titus MD at [facility] Left: Eye [employer] 03/13/2025 [id number] / [id number] / [id number] Lens Intraoc 21.0 - [id number] - [id number] Implanted:Qty: 1 on 12/06/2020 by Arron Titus MD at [facility] Right: Eye [employer] 07/13/2025 [id number] / [id number] / [id number] Persona Femur Cemented Cruciate Retaining Standard Right Implanted:Qty: 1 on 06/05/2021 by Ceasar Taylor MD at [place] [facility] Right: Knee [employer] 04/12/2029 [id number] / / [id number] Component Kn Ptlr Poly Ve 32mm - [id number] Implanted:Qty: 1 on 06/05/2021 by Ceasar Taylor MD at [place] [facility] Right: Knee [employer] 02/28/2026 [id number] / / [id number] Tibia Personna Right Sz D - [id number] Implanted:Qty: 1 on 06/05/2021 by Ceasar Taylor MD at [place] [facility] Right: Knee [employer] 10/29/2030 [id number] / / [id number] Cement Bone Palacos Lv+G 1x40g - [id number] Implanted:Qty: 2 on 06/05/2021 by Ceasar Taylor MD at [place] [facility] Right: Knee [employer] 03/13/2022 [id number] / / [id number] Psn Mc Ve Asf R 10mm 8-11 Ef - [id number] Implanted:Qty: 1 on 06/05/2021 by Ceasar Taylor MD at [place] [facility] Right: Knee [employer] 05/17/2025 [id number] / / [id number] documented as of this encounter Advance Directives * Full Code (Latest Code Status on File) Date Activated Date Inactivated Comments 06/05/2021 5:32 PM 06/07/2021 3:55 PM This order r eflects the patients wishes and were consensually agreed upon. * Full Code Date Activated Date Inactivated Comments 10/22/2018 5:03 PM 10/23/2018 5:06 PM This order r eflects the patients wishes and were consensually agreed upon. Care Teams Director Design Relationship Specialty Start Date End Date Claus Rojas MD [address] [place] [address] PCP - General Family Medicine 10/12/14 documented as of this encounter
--- OUTSIDE RECORDS SUMMARY | 2024-07-15 20:37 | External Medical Summary | Summary of Care ---
Author Name Unknown Organization [facility] Address [address] [place] [address] Phone [phone] Care Team Providers Care Wholesale Manager Name Role Phone Claus Rojas MD Primary Care Provider + Reason for Visit * Reason Comments Follow Up Cerumen removal Encounter Details Date Type Department Care Team (Late st Contact Info) Description 03/11/2024 10:40 AM EDT Office Visit Otolaryngology [facility] [address] [place] [id number] Graciela Sparrow PA-C [address] [place] [id number] Bilateral impacted cerumen* Allergies Active Allergy Reactions Criticality Noted Date Comments Alendronate Sodium Abdominal pain 04/05/2016 GI upset Cefdinir Anaphylaxis High 10/02/2022 Doxycycline Hives,Rash 05/14/2012 Heparin 05/14/2012 Decreased platelets Sulfa Antibiotics Hives,Rash 11/28/2012 Sulfonylureas 04/05/2003 documented as of this encounter (statuses as of 03/11/2024) Medications Medication Sig Dispensed Refills Start Date [...] only Sat-Sun as needed 60 g 1 12/02/2023 Active [...] oxyCODONE HCl 5 MG Oral Tablet (Oxy IR)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 10/28 dx with Breast CA--didn't tolerate chemo. 01/27 PET +showed in lymph node. . Valerie lift/wheelchair for him. 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 On alendronate. 03/28 [facility] 21% start lipitor Has received flexeril from myself Also methocaramol 750mg Thrombocytopenia 08/13/2014 2018 Overview: Dr Ziegler @[facility]. Ck CBC Q3-6mos . Unclear etiology. [...] as of this encounter (statuses as of 03/11/2024) Immunizations Name Administration Dates Next Due COVID-19 mRNA, LNP-s, No Pre serve, 2-Dose Series (Moderna) 12/17/2020,11/12/2020 COVID-19, mRNA, LNP-s, PF, B ooster, 100mcg/0.5mg (Moderna) 08/28/2021 Covid-19, Mrna, Lnp-s, Pf, B ivalent, 30 Mcg, IM, 12 yrs and above ([employer]) 01/16/2023 H1N1 2009 Influenza, IM 09/27/2009 Pneumococcal [...] Pressure - - Pulse - - Temperature 36.3 C (97.3 F) 03/11/2024 10:36 AM E DT Respiratory Rate - - Oxygen Saturation - - Inhaled Oxygen Concentration - - Weight 90.3 kg (199 lb) 03/11/2024 10:36 AM EDT Height 152.4 cm (5') 03/11/2024 10:36 AM EDT Body Mass Index 38.86 03/11/2024 10:36 AM EDT documented in this encounter Functional Status Functional [...] as of this encounter Progress Notes * Graciela Sparrow PA-C - 03/11/2024 11:24 AM EDT SUBJECTIVE: Rosemarie Dale is a 83 year old female. Chief Complaint Patient presents with Follow Up Cerumen removal Nursing Notes: Ceci Weinberg LPN 03/11/24 1037 Signed Pt presents today for cerumen removal. Pt states her hearing has decreased since her last visit, her care director rn is always telling her to read her lips. HPI: Patient presents for routine 3 month return appointment for cerumen removal. No acute concernsor changes. She is considering a hearing aid. Patient Active Problem List Diagnosis GENERAL OSTEOARTHROSIS HTN, goal below 140/90 Lumbar disc herniation Acquired hypothyroidism Gastroesophageal reflux disease with esophagitis Well adult exam Chronic ITP (idiopathic thrombocytopenia) ([facility]) History of kidney stones Recurrent sinus infections Senile osteoporosis MEDICATION USE AGREEMENT Small vessel disease (HCC) DDD (degenerative disc disease), lumbar Spinal stenosis of lumbar region with neurogenic claudication Irritable bowel syndrome with constipation Type 2 diabetes mellitus with hemoglobin A1c goal of less than 8.0% (HCC) Type 2 diabetes mellitus with diabetic peripheral angiopathy without gangrene ([facility]) Current Outpatient Medications Medication Sig Dispense Refill MULTI-VITAMIN PO TABS one a day Cholecalciferol (VITAMIN D3) 50 MCG (1999 UT) Capsule Take 1 Cap by mouth daily. 90 Cap 1 Bisacodyl 10 MG Rectal Suppository (Dulcolax) Administer 1 Suppository into the rectum daily as needed for Constipation. Do not use for more than 1 week. (Patient not taking: Reported on 10/30/2023) 20 Suppository 1 Triamcinolone Acetonide 0.1 % External Ointment (Aristocort) Apply to vulva as needed for itching 30 g 2 Melatonin 5 MG Oral Capsule Take 1 Capsule by mouth at bedtime. Imvexxy Maintenance Pack 10 MCG Vaginal Insert (Estradiol) Use twice weekly per vagina., 1 Each 11 Hydrocortisone (Perianal) 2.5 % External Cream (Anusol-HC) Administer into the rectum 2 times a day. 28 g 0 polyethylene glycol 3350 119 gram OR POWD Take 119 g by mouth once. Celecoxib 200 MG Oral Capsule (CeleBREX) TAKE 1 CAPSULE BY MOUTH DAILY 90 Capsule 1 Atorvastatin Calcium 10 MG Oral Tablet (Lipitor) TAKE 1 TABLET BY MOUTH DAILY 90 Tablet 1 Terbinafine HCl 1 % External Cream (LamISIL AT ATHLETE'S FOOT) Apply twice daily to left lower extremity and feet up to 6 weeks. 30 g 0 Pantoprazole Sodium 40 MG Oral Tablet Delayed [...] only Fri-Sun as needed 60 g 1 Levothyroxine Sodium 75 MCG Oral Tablet (Levoxyl) TAKE 1 TABLET BY MOUTH FIRST THING IN THE MORNINGAT LEAST 1/2 HOUR BEFORE BREAKFAST OR OTHER MEDICATIONS 90 Tablet 1 metFORMIN HCl ER 500 MG Oral Tablet Extended Release 24 Hour (Glucophage XR) TAKE 1 TABLET BY MOUTHEVERY DAY 90 Tablet 1 Proctofoam HC 1-1 % External Foam (Hydrocort-Pramoxine (Perianal)) ADMINISTER INTO THE RECTUM, TO AFFECTED AREA OF ANUS, NEEDED FOR MODERATE PAIN (HEMORRHOIDS) 10 g 5 Venlafaxine HCl ER 150 MG Oral Capsule Extended Release 24 Hour (Effexor XR) TAKE 1 CAPSULE BY MOUTH DAILY 90 Capsule 0 NATURAL SUPPLEMENT Take by mouth daily. Advance sciatic nerve suport Ciclopirox Olamine 0.77 % External Cream Apply topically to affected area 2 times a day. To affected area. 90 g 2 oxyCODONE HCl 5 MG Oral Tablet (Oxy IR) Take 1 Tablet by mouth 2 times a day as needed for Pain, Severe. 60 Tablet 0 Cyclobenzaprine HCl 10 MG Oral Tablet (Flexeril) Take 1 Tablet by mouth at bedtime as needed for Muscle spasms. 30 Tablet 2 Hydrocortisone 2.5 % External Cream External hemorrhoid twice daily 28 g 5 No current facility-administered medications for this visit. Review of patient's allergies indicates: Allergen Reactions Cefdinir Anaphylaxis Alendronate Sodium Abdominal pain GI upset Doxycycline Hives and Rash Heparin Decreased platelets Sulfa Antibiotics Hives and Rash Sulfonylureas REVIEW OF SYSTEMS Negative for constitutional, heart, lung, liver, kidney, digestive, hematologic, neurologic, rheumatologic, or endocrine complaints except as per history of present illness and past medical history. OBJECTIVE: Temp 36.3 C (97.3 F) (Tympanic) | Ht 1.524 m (5') | Wt 90.3 kg (199 lb) | BMI 38.86 kg/m | BSA 1.96 m PHYSICAL EXAM: General: alert, healthy, no distress, well nourished and well developed Ears: Examination of the ears revealed that the auricles were normally formed with no lesions. The external auditory canals were cleaned of cerumen from both canals with forceps under microscopic guidance-see below procedure documentation. The tympanic membranes were intact and freely mobile to pneu matoscopy without perforation or significant retraction pockets Procedure -performed by myself In order to better examine the ears the patient was brought to the microscope room where her ears were examined under the operating microscope with impacted cerumen removed from both canals with forceps atraumatically. She tolerated procedure well. Encounter Diagnoses Name Primary? Bilateral impacted cerumen Yes Plan: Cerumen removed. She will return in 4-6 months. Graciela Sparrow PA-C 03/11/2024 11:25 AM documented in this encounter Nursing Notes * Ceci Weinberg LPN - 03/11/2024 10:35 AM EDT Pt presents today for cerumen removal. Pt states her hearing has decreased since her last visit, her care director rn is always telling her to read her lips. documented in this encounter Plan of Treatment Upcoming Encounters Date Type Department Care Team (Late st Contact Info) Description 03/26/2024 10:00 AM EDT Office Visit Gastroenterology, [facility] [address] [place] [address] [id number] Ronald Casanova CRNP [address] [place] [address] 06/08/2024 9:30 AM EDT Imaging Radiology, [place] [address] [address] [address] 07/20/2024 9:40 AM EDT Office Visit Family Practice [facility] [address] [place] [address] [address] Della Mead CRNP [address] [place] [address] 09/15/2024 10:40 AM EST Office Visit Otolaryngology [facility] [address] [place] [address] [address] Graciela Sparrow PA-C [address] [place] [address] 01/11/2025 10:15 AM EDT Imaging Radiology [facility] [address] [place] [address] 01/27/2025 10:00 AM EDT Office Visit Rheumatology [place] [address] [address] [address] Ta Irvin MD [address] [facility] [place] [place] [address] 02/01/2025 10:00 AM EDT Office Visit Urology, [facility] [address] [place] [address] Hakeem Bernal MD [address] [place] [address] [place] [address] 03/12/2025 9:20 AM EDT Office Visit Family Practice [facility] [address] [place] [address] Claus Rojas MD [address] [place] [address] Health Maintenance Due Date Last Done Comments *BISPHONATE OR OTHER ACCEPTABLE MEDICATION NEEDED FOR OSTEOPOROSIS (REFER TO SMARTSET #1146) 04/27/2022 Diabetic Eye Exam 10/12/2023 10/12/2022 Diabetic Foot Exam 10/12/2023 10/12/2022 COVID-19 Vaccine ( season) 2023 08/12/2023, 01/16/2023, 08/28/2021, Additional history exists Depression Screening 12/13/2023 12/12/2022, 06/20/2017 (Declined) DXA Scan 04/25/2024 04/25/2022, 0710/2019, 02/20/2018, Additional history exists HbA1c 07/29/2024 01/28/2024, 010 03/2023, 06/27/2022, Additional history exists Albumin/Creatinine Ratio 01/27/20252 024, 11/19/2022, 06/29/2022, Additional history exists GFR 01/27/2025 01/28/2024, 01/12, 11/16/2022, Additional history exists TSH 01/27/2025 01/28/2024, 01/12, 11/16/2022, Additional history exists Pneumococcal Vaccine: 65+ Years Completed 02/15/2016, 04/27/2013 VITAMIN D LEVEL ONCE IN A LIFETIME-USE SMARTSET# 44766 Completed 08/11/2018, 04/25/2015 Influenza Vaccine (FLU shot) [...] this encounter Medical Devices Implanted Type Area Physician'S Assistant Device Identifier Shelf Expiration Date Model / Serial / Lot Cement Bone G 1119-140-01 - [id number] Implanted:Qty: 1 on 10/20/2018 by Ceasar Taylor MD at OR [facility] Left: Knee [employer] 07/13/2020 [id number] / / [id number] Cement Bone G 1119-140-01 - [id number] Implanted:Qty: 1 on 10/20/2018 by Ceasar Taylor MD at OR [facility] Left: Knee [employer] 07/13/2020 [id number] / / [id number] Tibia Personna Left Sz D - [id number] Implanted:Qty: 1 on 10/20/2018 by Ceasar Taylor MD at OR [facility] Left: Knee [employer] 05/13/2028 [id number] / / [id number] Persona The Personalized Knee System Femur Cemented Cr Standard Left Size 7 Implanted:Qty: 1 on 10/20/2018 by Ceasar Taylor MD at OR [facility] Left: Knee [employer] 07/13/2028 [id number] / / [id number] Patella Reaming System Patella Reamer Blade With Tortilla Maker Hole 38mm Diameter Implanted:Qty: 1 on 10/20/2018 by Ceasar Taylor MD at OR [facility] Left: Knee [employer] 02/11/2028 [id number] / / [id number] Persona The Personalized Knee System Vivacit-E Highly Crosslinked Polyethylene All-Poly Patella Cemented Implanted:Qty: 1 on 10/20/2018 by Ceasar Taylor MD at OR [facility] Left: Knee [employer] 04/12/2023 [id number] / / [id number] Persona The Personalized Knee System Vivacit-E Highly Crosslinked Polyethylene Articular Surface Medial Congruent (Mc) Left Implanted:Qty: 1 on 10/20/2018 by Ceasar Taylor MD at OR [facility] Left: Knee [employer] 02/10/2022 [id number] / / [id number] Description:use with tibia s izes C-D/CR femur sizes 6-7 Lens Intraoc 20.5 - [id number] - [id number] Implanted:Qty: 1 on 11/22/2020 by Arron Titus MD at OR [facility] Left: Eye [employer] 03/13/2025 [id number] / [id number] / [id number] Lens Intraoc 21.0 - [id number] - [id number] Implanted:Qty: 1 on 12/06/2020 by Arron Titus MD at OR [facility] Right: Eye [employer] 07/13/2025 [id number] / [id number] / [id number] Persona Femur Cemented Cruciate Retaining Standard Right Implanted:Qty: 1 on 06/05/2021 by Ceasar Taylor MD at OR [facility] Right: Knee [employer] 04/12/2029 [id number] / / [id number] Component Kn Ptlr Poly Ve 32mm - [id number] Implanted:Qty: 1 on 06/05/2021 by Ceasar Taylor MD at OR [facility] Right: Knee [employer] 02/28/2026 [id number] / / [id number] Tibia Personna Right Sz D - [id number] Implanted:Qty: 1 on 06/05/2021 by Ceasar Taylor MD at OR [facility] Right: Knee [employer] 10/29/2030 [id number] / / [id number] Cement Bone Palacos Lv+G 1x40g - [id number] Implanted:Qty: 2 on 06/05/2021 by Ceasar Taylor MD at OR [facility] Right: Knee [employer] 03/13/2022 [id number] / / [id number] Psn Mc Ve Asf R 10mm 8-11 Ef - [id number] Implanted:Qty: 1 on 06/05/2021 by Ceasar Taylor MD at OR [facility] Right: Knee [employer] 05/17/2025 [id number] / / [id number] documented as of this encounter Visit Diagnoses Diagnosis Bilateral impacted cerumen- Primary Impacted cerumen documented in this encounter Advance Directives * [...] and were consensually agreed upon. Care Teams Wholesale Manager Relationship Specialty Start Date End Date Claus Rojas MD [address] [place] [address] PCP - General Family Medicine 10/12/14 documented as of this encounter"
--- OUTSIDE RECORDS SUMMARY | 2024-07-15 20:37 | External Medical Summary | Summary of Care ---
Author Name Unknown Organization [facility] Address [address] [facility] [place] [address] Phone [phone] Care Team Providers Care Rice Cleaning Machine Tender Name Role Phone Claus Rushing MD Primary Care Provider + Reason for Visit * Reason Comments Follow Up Encounter Details Date Type Department Care Team (Late st Contact Info) Description 01/28/2024 1:30 PM EDT Office Visit Urology, [facility] [address] [facility] [place] [address] Hakeem Bernal MD 27 [facility] [address] [place] [address] Dysuria*; Acute cystitis without hematuria; Calculus of kidney Allergies Active Allergy Reactions Criticality Noted Date Comments Alendronate Sodium Abdominal pain 04/05/2016 GI upset Cefdinir Anaphylaxis High 10/02/2022 Doxycycline Hives,Rash 05/14/2012 Heparin 05/14/2012 Decreased platelets Sulfa Antibiotics Hives,Rash 11/28/2012 Sulfonylureas 04/05/2003 documented as of this encounter (statuses as of 01/28/2024) Medications Medication Sig Dispensed Refills Start Date End Date Status MULTI-VITAMIN PO TABS one a day 0 Active Cholecalciferol (VITAMIN D3) 50 MCG (1999) CapsuleIndications :Vitamin D deficiency Take 1 Cap by mouth daily. 90 Cap 1 0 Active Bisacodyl 10 MG Rectal Suppository (Dulcolax)Indicati ons:Drug-induced constipation Administer 1 Suppository into the rectum daily as needed for Constipation. Do not use for more than 1 week. 20 Suppository 1 3 Active Additional Information Patient not taking.Informant: Wallet Card/List, Reported on 10/30/2023 Triamcinolone Acetonide 0.1 % External Ointment (Aristocort) Apply to vulva as needed for itching 30 g 2 3 Active Melatonin 5 MG Oral Capsule Take 1 Capsule by mouth at bedtime. 0 Active Imvexxy Maintenance Pack 10 MCG Vaginal Insert (Estradiol)Indicat ions:Recurrent UTI Use twice weekly per vagina., 1 Each 11 3 Active Additional Information Patient not taking.Informant: Wallet Card/List, Reported on 11/05/2023 Hydrocortisone (Perianal) 2.5 % External Cream (Anusol-HC)Indicat ions:Hemorrhoids, external without complications Administer into the rectum 2 times a day. 28 g 0 3 Active Additional Information Patient not taking.Informant: Wallet Card/List, Reported on 11/05/2023 polyethylene glycol 3350 119 gram OR POWD Take 119 g by mouth once. 0 Active Celecoxib 200 MG Oral Capsule (CeleBREX)Indicati ons:Lumbar disc herniation,Spinal stenosis of lumbar region with neurogenic claudication TAKE 1 CAPSULE BY MOUTH DAILY 90 Capsule 1 3 Active Atorvastatin Calcium 10 MG Oral Tablet (Lipitor)Indicatio ns:Dyslipidemia, goal LDL below 130 TAKE 1 TABLET BY MOUTH DAILY 90 Tablet 1 3 Active Terbinafine HCl 1 % External Cream (LamISIL AT ATHLETE'S FOOT)Indications:T inea corporis,Tinea pedis of left foot Apply twice daily to left lower extremity and feet up to 6 weeks. 30 g 0 3 Active Additional Information Patient not taking.Reported on 11/05/2023 Pantoprazole Sodium 40 MG Oral Tablet Delayed Release (Protonix)Indicati ons:Gastroesophage al reflux disease with esophagitis TAKE 1 TABLET BY MOUTH EVERY DAY 90 Tablet 3 3 Active Metoprolol Succinate ER 50 MG Oral Tablet Extended Release 24 Hour (toPROL XL)Indications:Ess ential hypertension with goal blood pressure less than 140/90 TAKE 1 TABLET BY MOUTH DAILY AT NIGHT 90 Tablet 1 4 Active Lubiprostone 24 MCG Oral Capsule (Amitiza) Take 1 Capsule by mouth 2 times a day with morning and evening meals. 60 Capsule 5 4 Active Clobetasol Propionate 0.05 % External Cream (Temovate)Indicati ons:Dermatitis Apply twice daily to trunk up to 2 weeks, then taper to weekends only Sat-Sat as needed 60 g 1 4 Active Cyclobenzaprine HCl 10 MG Oral Tablet (Flexeril)Indicati ons:Chronic right-sided low back pain with right-sided sciatica TAKE 1 TABLET BY MOUTH AT BEDTIME NEEDED FOR MUSCLE SPASMS. 30 Tablet 2 4 Active Levothyroxine Sodium 75 [...] EVERY DAY 90 Tablet 1 4 Active Ciclopirox Olamine 0.77 % External CreamIndications:T inea pedis of left foot APPLY TO AFFECTED AREA TWICE A DAY 15 g 2 4 Active Proctofoam HC 1-1 % External Foam (Hydrocort-Pramoxi ne (Perianal))Indicat ions:Drug-induced constipation ADMINISTER INTO THE RECTUM, TO AFFECTED AREA OF ANUS, NEEDED FOR MODERATE PAIN (HEMORRHOIDS) 10 g 5 4 Active oxyCODONE HCl 5 MG Oral Tablet (Oxy IR)Indications:Chr onic right-sided low back pain with right-sided sciatica,MEDICATIO N USE AGREEMENT Take 1 Tablet by mouth 2 times a day as needed for Pain, Severe. 60 Tablet 0 4 Active Venlafaxine HCl ER 150 MG Oral Capsule Extended Release 24 Hour (Effexor XR) TAKE 1 CAPSULE BY MOUTH DAILY 90 Capsule 0 4 Active NATURAL SUPPLEMENT Take by mouth daily. Advance sciatic nerve suport 0 Active Ciprofloxacin-dexA METHasone 0.3-0.1 % Otic Suspension Administer 4 Drops into ears in the morning and 4 Drops before bedtime. Do all this for 7 days. For 7 days.. 7.5 mL 5 4 024 Discontinued documented as of this encounter (statuses as of 01/28/2024) Active Problems Problem Noted Date Diagnosed Date [...] 09/14/2020 Overview: 2019-toes MEDICATION USE AGREEMENT 06/08/2020 Body mass index (BMI) of 40.1 to 44.9 in adult 1 11/19/2018 Senile osteoporosis 03/04/2019 Recurrent sinus infections 01/03/2019 History of kidney stones 12/19/2018 Chronic ITP (idiopathic thrombocytopenia) 2016 Well adult exam 09/27/2016 Overview: 02/03 FOB+ Gastroesophageal reflux disease with esophagitis 08/09/2016 Acquired hypothyroidism 02/15/2016 Lumbar disc herniation 09/08/2014 Overview: 08/[address] Saucedo-L2-3 herniation, L3-4 stenosis severe. HTN, goal below 140/90 08/13/2014 GENERAL OSTEOARTHROSIS 04/05/2003 documented as of this encounter (statuses as of 01/28/2024) Resolved Problems Problem Noted Date Diagnosed Date Resolved Date Stage 3a chronic kidney disease 08/22/2020 05/29/2023 Overview: Per CKD protocol - Per CKD protocol Kidney disease, chronic, sta ge III (GFR 30-59 ml/min) 04/25/2020 08/25/2020 Overview: Per CKD protocol Body mass index (BMI) of 40. 0 [...] facility 08/13/2014 08/09/2016 Overview: Declines zostavax 06/29 [facility] CT--vascular congestion, possible nodularity, lizbeth 3+mo. 10/28 dx with Breast CA--didn't tolerate chemo. 01/27 PET +showed in lymph node. . Valerie lift/wheelchair for him. 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 On alendronate. 03/28 [facility] 21% start lipitor Has received flexeril from myself Also methocaramol 750mg Thrombocytopenia 08/13/2014 2018 Overview: Dr Ziegler @[facility]. Ck CBC Q3-6mos . Unclear etiology. [...] as of this encounter (statuses as of 01/28/2024) Immunizations Name Administration Dates Next Due COVID-19 mRNA, LNP-s, No Pre serve, 2-Dose Series (Moderna) 12/17/2020,11/12/2020 COVID-19, mRNA, LNP-s, PF, B ooster, 100mcg/0.5mg (Moderna) 08/28/2021 Covid-19, Mrna, Lnp-s, Pf, B ivalent, 30 Mcg, IM, 12 yrs and above (Pfizer) 01/16/2023 Pneumococcal Conjugate Vacc, 13 Valent (Prevnar) 02/15/2016 [...] as of this encounter Progress Notes * Hakeem Bernal MD - 01/28/2024 1:30 PM EDT [id number] PCP: CLAUS RUSHING 132 [facility] [place] [address] [phone] Rosemarie Dale is a 83 year old female, who presents for six-month follow-up of her history of urinary tract infection. Patient's past notes reviewed. Patient's history of genital discomfort, radiating to sciatic area, managed with narcotic oral pain medication is noted. No recent urine cultures are appreciated. Last culture in February of 2023 neg for infection. No recent renal imaging is noted. Patient is here today with caregiver. UTI: Admitted at [facility] Oct 2022. Negative urine culture February 2023. Cysto March 2023 - no worrisome findings. Urolithiasis: Patient is being seen for stone disease today. Problem has been present for years.. They have been hospitalized for stone in the past. and They have previously required surgery for stone management. Severity is mild Problem is about the same. Patient has had the following imaging done: CT scan and KUB. In the past they have had ureteral stent placement and ureteroscopy with laser lithotripsy to manage their stones. Previous evaluation was done by urologist. Current Outpatient Medications Medication Sig Dispense Refill [...] taking: Reported on 11/05/2023) 28 g 0 polyethylene glycol 3350 119 [...] taking: Reported on 11/05/2023) 30 g 0 Pantoprazole Sodium 40 MG [...] by mouth daily. Advance sciatic nerve suport No current facility-administered medications for this visit. Review of patient's allergies indicates: Allergen Reactions Cefdinir Anaphylaxis Alendronate Sodium Abdominal pain GI upset Doxycycline Hives and Rash Heparin Decreased platelets Sulfa Antibiotics Hives and Rash Sulfonylureas Social History: Social History Tobacco Use Smoking status: Never Smokeless tobacco: Never Substance Use Topics Alcohol use: Yes Comment: rare w/friends. Vaping/E-Cigarette Use Vaping/E-Cigarette Use Never User Vaping/E-Cigarette Substances Vaping/E-Cigarette Devices Family History Problem Relation Age of Onset Arthritis Mother Heart Disorder Mother Uterine cancer Mother Cancer Father 70 blood cancer Heart Disorder Brother 60 [place] Breast Cancer Aunt (Maternal) Past Surgical History: Procedure Laterality Date ARTHROPLASTY KNEE TOTAL Left 10/20/2018 ARTHROPLASTY KNEE TOTAL performed by Ceasar Taylor Jr., MD at OR [facility] ARTHROPLASTY KNEE TOTAL Right 06/05/2021 ARTHROPLASTY KNEE TOTAL performed by Ceasar Taylor Jr., MD at OR [facility] BONE MARROW BIOPSY 06/2014 [facility] COLONOSCOPY, DIAGNOSTIC (RECTUM) 04/24/2023 biopsies show adenomatous polyps/COLONOSCOPY FLEXIBLE PROXIMAL DIAGNOSTIC performed by Sujatha Rincon MD at ENDOSCOPY [facility] MISCELLANEOUS ORDER ([facility] ONLY) 1983 repair right ankle - has hardware MISCELLANEOUS ORDER ([facility] ONLY) [address] Traore MISCELLANEOUS ORDER ([facility] ONLY) Left 06/26/2016 Urethral stent-stone Dr Tipton MISCELLANEOUS ORDER ([facility] ONLY) Left 07/04/2016 cystoscopy/laser lithotripsy/stent exchange MISCELLANEOUS ORDER ([facility] ONLY) Left 08/01/2016 cystoscopy/stent removal REMOVAL OF APPENDIX 03/1961 REMOVE CATARACT, INSERT LENS PROSTH Left 11/22/2020 LEFT EXTRACAPSULAR CATARACT REMOVAL WITH INTRAOCULAR LENS performed by Arron Titus MD at OR [facility] REMOVE CATARACT, INSERT LENS PROSTH Right 12/06/2020 RIGHT EXTRACAPSULAR CATARACT REMOVAL WITH INTRAOCULAR LENS performed by Arron Titus MD at OR [facility] REMOVE TONSILS & ADENOIDS, UNDER 12 1946 SACROILIAC JOINT INJECT W/GUIDANCE 02/21/2022 Dr Elissa Mathews [facility] SACROILIAC JOINT INJECT W/GUIDANCE Right 07/25/2022 Dr Mina TOTAL ABD HYSTERECTOMY W/WO REMOVAL OF TUBE(S) 1986 Past Medical History: Diagnosis Date Acquired hypothyroidism 02/15/2016 Acute medial meniscus tear of left knee 05/28/201805/31 MRI Acute recurrent sinusitis 09/27/2016 Ankylosing spondylitis (HCC) Cervical radiculopathy Cervicalgia 04/05/2003 Chronic mastoiditis Closed right ankle fracture DDD (degenerative disc disease), cervical DDD (degenerative disc disease), thoracolumbar Depression with anxiety Diverticulitis GERD (gastroesophageal reflux disease) Hearing loss HTN, goal below 140/90 08/13/2014 Hyperlipidemia Hypothyroidism age 50 Insomnia Lumbar disc herniation 09/08/201408/[address] Saucedo-L2-3 herniation, L3-4 stenosis severe. MEDICATION USE AGREEMENT 06/08/2020 Nephrolithiasis 06/27/2016 Osteoarthritis Other and unspecified hyperlipidemia 04/14/2015 Sciatica 08/13/2014 2014 Small vessel disease ([facility]) 09/14/20202019-toes Thrombocytopenia ([facility]) 08/13/2014 Dr Ziegler @[facility] Urticaria Vertigo Patient Active Problem List Diagnosis Code GENERAL OSTEOARTHROSIS M15.9 HTN, goal below 140/90 I10 Lumbar disc herniation M51.26 Acquired hypothyroidism E03.9 Gastroesophageal reflux disease with esophagitis K21.00 Well adult exam Z00.00 Chronic ITP (idiopathic thrombocytopenia) ([facility]) D69.3 History of kidney stones Z87.442 Recurrent sinus infections J32.9 Senile osteoporosis M81.0 Body mass index (BMI) of 40.1 to 44.9 in adult ([facility]) Z68.41 MEDICATION USE AGREEMENT [id number] Small vessel disease ([facility]) I73.9 DDD (degenerative disc disease), lumbar M51.36 Spinal stenosis of lumbar region with neurogenic claudication M48.062 Irritable bowel syndrome with constipation K58.1 Type 2 diabetes mellitus with hemoglobin A1c goal of less than 8.0% ([facility]) E11.9 Type 2 diabetes mellitus with diabetic peripheral angiopathy without gangrene ([facility]) E11.51 Constitutional: (-) fever and (-) chills ENT: (-) stridor Female : (+) see HPI Musculoskeletal: (+) back pain/problems Neurology: (+) loss of balance Physical Exam Nursing note reviewed. Constitutional: General: She is not in acute distress. Appearance: She is not toxic-appearing. Comments: Using walker HENT: Head: Normocephalic and atraumatic. Right Ear: External ear normal. Left Ear: External ear normal. Nose: Nose normal. Mouth/Throat: Mouth: Mucous membranes are moist. Eyes: Extraocular Movements: Extraocular movements intact. Cardiovascular: Pulses: Normal pulses. Pulmonary: Effort: Pulmonary effort is normal. No respiratory distress. Abdominal: General: There is no distension. Skin: Coloration: Skin is not pale. Neurological: Motor: Weakness present. Gait: Gait abnormal. Psychiatric: Behavior: Behavior normal. Thought Content: Thought content normal. Impression/Plan: 83 yo female with a history of UTI. We are pleased with the patient's current level of symptom control. Will plan on 1 year follow-up with renal ultrasound. Standing order for urine culture is provided p.r.n. UTI symptoms. Patient willcontact us with any significant deterioration in her voiding. Above content is personally reviewed.Patient vocalizes good understanding of the treatment plan. Hakeem Bernal MD 8:12 AM 01/28/2024 documented in this encounter Nursing Notes * Luann Venegas LPN - 01/28/2024 1:19 PM EDT 6 month ret UTI, stones C/o- patient states gets warmth in vaginal tract and spreads to sciatic, taking oxycodone and that helps. documented in this encounter Plan of Treatment Upcoming Encounters Date Type Department Care Team (Late st Contact Info) Description 03/04/2024 11:40 AM EDT Office Visit Family Practice [facility] 132 [facility] [place] [address] Claus Rushing MD 132 [facility] [place] [address] 03/11/2024 10:40 AM EDT Office Visit Otolaryngology [facility] [address] [facility] [place] [address] Graciela Sparrow PA-C 132 [facility] [place] [address] 03/26/2024 10:00 AM EDT Office Visit Gastroenterology, [facility] 132 [facility] [place] [address] Ronald Casanova CRNP [facility] [address] 06/08/2024 9:30 AM EDT Imaging Radiology, [address] [place] [address] 01/11/2025 10:15 AM EDT Imaging Radiology [facility] [address] [facility] [place] [address] 01/27/2025 10:00 AM EDT Office Visit Rheumatology [address] [place] [address] Ta Irvin MD [address] [place] [address] [place] [address] 02/01/2025 10:00 AM EDT Office Visit Urology, [facility] [address] [facility] [place] [address] Hakeem Bernal MD [address] [place] [address] [place] [address] Scheduled Orders Name Type Priority Associated Diagnoses Order Schedule CULTURE, URINE, QUANTITATIVE Lab Routine Dysuria 6 Occurrences starting 01/28/2024 until 01/27/2025 RENAL Medical Imaging Routine Calculus of kidney Expected: 01/11/2025, Expires: 02/26/2025 Health Maintenance Due Date Last Done Comments DTaP,Tdap,and Td Vaccines (1 - Tdap) 1959 Zoster Vaccines (1 of 2) 1990 *BISPHONATE OR OTHER ACCEPTABLE MEDICATION NEEDED FOR OSTEOPOROSIS (REFER TO SMARTSET #1146) 04/27/2022 HbA1c 04/18/2023 10/19/2022, 06/14, 12/06/2021, Additional history exists Diabetic Eye Exam 10/12/2023 10/12/2022 Diabetic Foot Exam 10/12/2023 10/12/2022 Albumin/Creatinine Ratio 11/19/2023 023, 06/29/2022, 05/24/2021, Additional history exists Depression Screening 12/13/2023 12/12/2022, 06/20/2017 (Declined) TSH 01/26/2024 01/25/2023, 02/0 12/2022, 11/14/2021, Additional history exists DXA Scan 04/25/2024 04/25/2022, 07/0 10/2019, 02/20/2018, Additional history exists GFR 01/27/2025 01/28/2024, 01/12, 11/16/2022, Additional history exists Pneumococcal Vaccine: 65+ Years Completed 02/15/2016, 04/27/2013 VITAMIN D LEVEL ONCE IN A LIFETIME-USE SMARTSET# 77136 Completed 08/11/2018, 04/25/2015 Influenza Vaccine (FLU shot) Completed 01/2023, 08/08/2022, 07/28/2021, Additional history exists COVID-19 Vaccine Completed 08/12/2023, 02/2023, 08/28/2021, Additional history exists GARDASIL-HPV IMMUNIZATION SERIES Aged Out No longer eligible based on patient's age to complete this topic Hepatitis B Aged Out No longer eligi ble based on patient's age to complete this topic MENINGOCOCCAL (MENACTRA/MENVEO) Aged Out No longer eligible based on patient's age to complete this topic documented as of this encounter Medical Devices Implanted Type Area Director Of Maternity Services Device Identifier Shelf Expiration Date Model / Serial / Lot Cement Bone Lv G 1119-140-01 - [id number] Implanted:Qty: 1 on 10/20/2018 by Ceasar Taylor MD at OR [facility] Left: Knee [employer] 07/13/202039-5536-705-01 / / [id number] Cement Bone Lv G 1119-140-01 - [id number] Implanted:Qty: 1 on 10/20/2018 by Ceasar Taylor MD at OR [facility] Left: Knee [employer] 07/13/202092-5506-522- / / [id number] Tibia Personna Left Sz D - [id number] Implanted:Qty: 1 on 10/20/2018 by Ceasar Taylor MD at OR [facility] Left: Knee [employer] 05/13/2028 [id number] / / [id number] Persona The Personalized Knee System Femur Cemented Cr Standard Left Size 7 Implanted:Qty: 1 on 10/20/2018 by Ceasar Taylor MD at OR [facility] Left: Knee [employer] 07/13/2028 [id number] / / [id number] Patella Reaming System Patella Reamer Blade With On Call Hole 38mm Diameter Implanted:Qty: 1 on 10/20/2018 by Ceasar Taylor MD at OR [facility] Left: Knee [employer] 02/11/2028 [id number] / / [id number] Persona The Personalized Knee System Vivacit-E Highly Crosslinked Polyethylene All-Poly Patella Cemented Implanted:Qty: 1 on 10/20/2018 by Ceasar Taylor MD at OR [facility] Left: Knee [employer] 04/12/2023 [id number] / / [id number] Persona The Personalized Knee System Vivacit-E Highly Crosslinked Polyethylene Articular Surface Medial Congruent (Mc) Left Implanted:Qty: 1 on 10/20/2018 by Ceasar Taylor MD at OR [facility] Left: Knee [employer] 02/10/2022 [id number] / / [id number] Description:use with tibia s izes C-D/CR femur sizes 6-7 Lens Intraoc 20.5 - [id number] - [id number] Implanted:Qty: 1 on 11/22/2020 by Arron Titus MD at OR [facility] Left: Eye [employer] 03/13/2025 [id number] / [id number] / [id number] Lens Intraoc 21.0 - [id number] - [id number] Implanted:Qty: 1 on 12/06/2020 by Arron Titus MD at OR [facility] Right: Eye [employer] 07/13/2025 [id number] / [id number] / [id number] Persona Femur Cemented Cruciate Retaining Standard Right Implanted:Qty: 1 on 06/05/2021 by Ceasar Taylor MD at OR [facility] Right: Knee [employer] 04/12/2029 [id number] / / [id number] Component Kn Ptlr Poly Ve 32mm - [id number] Implanted:Qty: 1 on 06/05/2021 by Ceasar Taylor MD at OR [facility] Right: Knee [employer] 02/28/2026 [id number] / / [id number] Tibia Personna Right Sz D - [id number] Implanted:Qty: 1 on 06/05/2021 by Ceasar Taylor MD at OR [facility] Right: Knee [employer] 10/29/2030 [id number] / / [id number] Cement Bone Palacos Lv+G 1x40g - [id number] Implanted:Qty: 2 on 06/05/2021 by Ceasar Taylor MD at OR [facility] Right: Knee [employer] 03/13/2022 [id number] / / [id number] Psn Mc Ve Asf R 10mm 8-11 Ef - [id number] Implanted:Qty: 1 on 06/05/2021 by Ceasar Taylor MD at OR [facility] Right: Knee [employer] 05/17/2025 [id number] / / [id number] documented as of this encounter Visit Diagnoses Diagnosis Dysuria- Primary Acute cystitis without hematuria Acute cystitis Calculus of kidney documented in this encounter Advance Directives Latest Code Status on File Code Status Date Activated Date Inactivated Comments Full Code 06/05/2021 5:32 PM 06/07/2021 3:55 PM This order reflects the patients wishes and were consensually agreed upon. Code Status History Code Status Date Activated Date Inactivated Comments Full Code 10/22/2018 5:03 PM 10/23/2018 5:06 PM This o rder reflects the patients wishes and were consensually agreed upon. Care Teams Rice Cleaning Machine Tender Relationship Specialty Start Date End Date Claus Rushing MD [address] [place] [address] PCP - General Family Medicine 10/12/14 documented as of this encounter
--- OUTSIDE RECORDS SUMMARY | 2024-07-15 20:37 | External Medical Summary | Summary of Care ---
Author Name Unknown Organization [facility] Address [address] [facility] [place] [address] Phone [phone] Care Team Providers Care Ingot Stripper Name Role Phone Claus Rojas MD Primary Care Provider + Reason for Visit * Reason Onset Date Comments Test Results 04/01/2024 Encounter Details Date Type Department Care Team (Late st Contact Info) Description 04/01/2024 Telephone Family Practice [facility] [address] [facility] [place] [address] Elma Goldstein CRNP [address] [facility] [address] Test Results Allergies Active Allergy Reactions Criticality Noted Date Comments Alendronate Sodium Abdominal pain 04/05/2016 GI upset Cefdinir Anaphylaxis High 10/02/2022 Doxycycline Hives,Rash 05/14/2012 Heparin 05/14/2012 Decreased platelets Sulfa Antibiotics Hives,Rash 11/28/2012 Sulfonylureas 04/05/2003 documented as of this encounter (statuses as of 04/02/2024) Medications Medication Sig Dispensed Refills Start Date [...] AT NIGHT 90 Tablet 1 10/31/2023 Active Clobetasol Propionate 0.05 % External Cream [...] Additional Information Patient not taking.Reported on 03/26/2024 Venlafaxine HCl ER 150 MG Oral Capsule [...] oxyCODONE HCl 5 MG Oral Tablet (Oxy IR)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 18 g 3 04/01/2024 Active documented as of this encounter (statuses as of 04/02/2024) Active Problems Problem Noted Date Diagnosed Date [...] as of this encounter (statuses as of 04/02/2024) Resolved Problems Problem Noted Date Diagnosed Date [...] 08/09/2016 Overview: Declines zostavax 06/29 [facility] CT--vascular congestion, possible nodularity, lizbeth 3+mo. [...] as of this encounter (statuses as of 04/02/2024) Immunizations Name Administration Dates Next Due COVID-19 mRNA, LNP-s, No Pre serve, 2-Dose Series (Moderna) 12/17/2020,11/12/2020 COVID-19, mRNA, LNP-s, PF, B ooster, 100mcg/0.5mg (Moderna) 08/28/2021 Covid-19, Mrna, Lnp-s, Pf, B ivalent, 30 Mcg, IM, 12 yrs and above ([employer]) 01/16/2023 H1N1 2009 Influenza, IM 09/27/2009 Pneumococcal [...] encounter Miscellaneous Notes * Telephone Encounter - Zenia Genao LPN - 04/02/2024 1:23 PM EDT Called and spoke with patient. Notified of below. Patient verbalized understanding. No further questions at this time. * Telephone Encounter - Elma Goldstein CRNP - 04/01/2024 4:13 PM EDT Please call patient- chest x ray is normal KAREL Ch, DANIEL [facility] documented in this encounter Plan of Treatment Upcoming Encounters Date Type Department Care Team (Late st Contact Info) Description 06/08/2024 9:30 AM EDT Imaging Radiology, [address] [place] [address] 07/20/2024 9:40 AM EDT Office Visit Family Practice [facility] [address] [place] [address] Della Mead CRNP [address] [place] [address] 09/15/2024 10:40 AM EST Office Visit Otolaryngology [facility] [address] [place] [address] Graciela Sparrow PA-C [address] [place] [address] 01/11/2025 10:15 AM EDT Imaging Radiology [facility] [address] [place] [address] 01/27/2025 10:00 AM EDT Office Visit Rheumatology [address] [place] [address] Ta Irvin MD [address] [place] [address] [place] [address] 02/01/2025 10:00 AM EDT Office Visit Urology, [facility] [address] [place] [address] Hakeem Bernal MD 27 [facility] [address] [place] [address] 03/12/2025 9:20 AM EDT Office Visit [facility] Practice [facility] [place] [address] Claus Rojas MD [address] [place] [address] Health Maintenance Due Date Last Done Comments *BISPHONATE OR OTHER ACCEPTABLE MEDICATION NEEDED FOR OSTEOPOROSIS (REFER TO SMARTSET #1146) 04/27/2022 Diabetic Eye Exam 10/12/2023 10/12/2022 Diabetic Foot Exam 10/12/2023 10/12/2022 COVID-19 Vaccine ( season) 2023 08/12/2023, 01/16/2023, 08/28/2021, Additional history exists Depression Screening 12/13/2023 12/12/2022, 06/20/2017 (Declined) DXA Scan 04/25/2024 04/25/2022, 07/0 10/2019, 02/20/2018, Additional history exists HbA1c 07/29/2024 01/28/2024, 01/0 03/2023, 06/27/2022, Additional history exists Albumin/Creatinine Ratio 01/27/2025 024, 11/19/2022, 06/29/2022, Additional history exists GFR 01/27/2025 01/28/2024, 01/12, 11/16/2022, Additional history exists TSH 01/27/2025 01/28/2024, 01/12, 11/16/2022, Additional history exists Pneumococcal Vaccine: 65+ Years Completed 02/15/2016, 04/27/2013 VITAMIN D LEVEL ONCE IN A LIFETIME-USE SMARTSET# 29329 Completed 08/11/2018, 04/25/2015 Influenza Vaccine (FLU shot) [...] this encounter Medical Devices Implanted Type Area Drywall Hanger Framer Device Identifier Shelf Expiration Date Model / Serial / Lot Cement Bone Lv G 1119-140-01 - [id number] Implanted:Qty: 1 on 10/20/2018 by Ceasar Taylor MD at OR [facility] Left: Knee [employer] 07/13/2020 [id number] / / [id number] Cement Bone Lv G 1119-140-01 - [id number] Implanted:Qty: 1 on 10/20/2018 by Ceasar Taylor MD at OR [facility] Left: Knee [employer] 07/13/2020 [id number] / / [id number] Tibia Personna Left D - [id number] Implanted:Qty: 1 on 10/20/2018 by Ceasar Taylor MD at OR [facility] Left: Knee [employer] 05/13/2028 69-6465-972-01 / / [id number] Persona The Personalized Knee System Femur Cemented Cr Standard Left Size 7 Implanted:Qty: 1 on 10/20/2018 by Ceasar Taylor MD at OR [facility] Left: Knee [employer] 07/13/2028 [id number] / / [id number] Patella Reaming System Patella Reamer Blade With Welder Railcar Mechanic Hole 38mm Diameter Implanted:Qty: 1 on 10/20/2018 by Ceasar Taylor MD at OR [facility] Left: Knee [employer] 02/11/2028 [id number] / / [id number] Persona The Personalized Knee System Vivacit-E Highly Crosslinked Polyethylene All-Poly Patella Cemented Implanted:Qty: 1 on 10/20/2018 by Ceasar Taylor MD at OR [facility] Left: Knee [employer] 04/12/2023 [id number] / / [id number] Persona The Personalized Knee System Vivacit-E Highly Crosslinked Polyethylene Articular Surface Medial Congruent (Mc) Left Implanted:Qty: 1 on 10/20/2018 by Ceasar Taylor MD at OR [facility] Left: Knee [employer] 02/10/2022 [id number] / / [id number] Description:use with tibia s izes C-D/CR femur sizes 6-7 Lens Intraoc 20.5 - [id number] - [id number] Implanted:Qty: 1 on 11/22/2020 by Arron Titus MD at OR [facility] Left: Eye [employer] 03/13/2025 [id number] / [id number] / [id number] Lens Intraoc 21.0 - [id number] - [id number] Implanted:Qty: 1 on 12/06/2020 by Arron Titus MD at OR [facility] Right: Eye [employer] 07/13/2025 [id number] / [id number] / [id number] Persona Femur Cemented Cruciate Retaining Standard Right Implanted:Qty: 1 on 06/05/2021 by Ceasar Taylor MD at OR [facility] Right: Knee [employer] 04/12/2029 [id number] / / [id number] Component Kn Ptlr Poly Ve 32mm - [id number] Implanted:Qty: 1 on 06/05/2021 by Ceasar Taylor MD at OR [facility] Right: Knee [employer] 02/28/2026 [id number] / / [id number] Tibia Personna Right Sz D - [id number] Implanted:Qty: 1 on 06/05/2021 by Ceasar Taylor MD at OR [facility] Right: Knee [employer] 10/29/2030 [id number] / / [id number] Cement Bone Palacos Lv+G 1x40g - [id number] Implanted:Qty: 2 on 06/05/2021 by Ceasar Taylor MD at OR [facility] Right: Knee [employer] 03/13/2022 [id number] / / [id number] Psn Mc Ve Asf R 10mm 8-11 Ef - [id number] Implanted:Qty: 1 on 06/05/2021 by Ceasar Taylor MD at OR [facility] Right: Knee [employer] 05/17/2025 [id number] / / [id number] documented as of this encounter Advance Directives [...] and were consensually agreed upon. Care Teams Ingot Stripper Relationship Specialty Start Date End Date Claus Rojas MD [address] [place] [address] PCP - General Family Medicine 10/12/14 documented as of this encounter
--- OUTSIDE RECORDS SUMMARY | 2024-07-15 20:37 | External Medical Summary | Summary of Care ---
Author Name Unknown Organization [facility] Address [address] [facility] [place] [address] Phone [phone] Care Team Providers Care Health Science Writer Name Role Phone Claus Rojas MD Primary Care Provider + Encounter Details Date Type Department Care Team (Late st Contact Info) Description 03/28/2024 Orders Only PATIENT PORTAL DO NOT DELETE THIS DEPT USED BY [place] SMITH [id number] Allergies Active Allergy Reactions Criticality Noted Date Comments Alendronate Sodium Abdominal pain 04/05/2016 GI upset Cefdinir Anaphylaxis High 10/02/2022 Doxycycline Hives,Rash 05/14/2012 Heparin 05/14/2012 Decreased platelets Sulfa Antibiotics Hives,Rash 11/28/2012 Sulfonylureas 04/05/2003 documented as of this encounter (statuses as of 03/28/2024) Medications Medication Sig Dispensed Refills Start Date [...] oxyCODONE HCl 5 MG Oral Tablet (Oxy IR)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 60 Capsule 5 03/26/2024 Active documented as of this encounter (statuses as of 03/28/2024) Active Problems Problem Noted Date Diagnosed Date [...] as of this encounter (statuses as of 03/28/2024) Resolved Problems Problem Noted Date Diagnosed Date [...] 08/13/2014 08/09/2016 Overview: Declines zostavax 06/[address] [facility] [address]--vascular congestion, possible nodularity, lizbeth 3+mo. 10/28 dx with Breast CA--didn't tolerate chemo. 01/27 PET +showed in lymph node. . Valerie lift/wheelchair for him. 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 On alendronate. 03/28 ACC 21% start lipitor Has received flexeril from myself Also methocaramol 750mg Thrombocytopenia 08/13/2014 2018 Overview: Dr Ziegler @[facility]. Ck CBC Q3-6mos . Unclear etiology. [...] as of this encounter (statuses as of 03/28/2024) Immunizations Name Administration Dates Next Due COVID-19 [...] No 06/05/2021 documented as of this encounter Plan of Treatment Upcoming Encounters Date Type Department Care Team (Late st Contact Info) Description 06/08/2024 9:30 AM EDT Imaging Radiology, [address] [place] [address] 07/20/2024 9:40 AM EDT Office Visit Family Practice [facility] 132 [facility] [place] [address] Della Mead CRNP 132 [facility] [place] [address] 09/15/2024 10:40 AM EST Office Visit Otolaryngology [facility] [place] [address] Graciela Sparrow PA-C 132 [facility] [place] [address] 01/11/2025 10:15 AM EDT Imaging Radiology [facility] [address] [facility] [place] [address] 01/27/2025 10:00 AM EDT Office Visit Rheumatology [address] [place] [address] Ta Irvin MD [address] [place] [address] [place] [address] 02/01/2025 10:00 AM EDT Office Visit Urology, [facility] [place] [address] Hakeem Bernal MD 27 [facility] [address] [place] [address] 03/12/2025 9:20 AM EDT Office Visit Family Practice [facility] [address] [place] [address] Claus Rojsa MD [address] [place] [address] Health Maintenance Due Date Last Done Comments [...] D LEVEL ONCE IN A LIFETIME-USE SMARTSET# 00496 Completed 08/11/2018, 04/25/2015 Influenza Vaccine (FLU shot) [...] this encounter Medical Devices Implanted Type Area Boot Trimmer Device Identifier Shelf Expiration Date Model / Serial / Lot Cement Bone Lv G 1119-140-01 - [id number] Implanted:Qty: 1 on 10/20/2018 by Ceasar aTylor MD at OR [facility] Left: Knee [employer] 07/13/202044-5555-830-01 / / [id number] Cement Bone Lv G 1119-140-01 - [id number] Implanted:Qty: 1 on 10/20/2018 by Ceasar Taylor MD at OR [facility] Left: Knee [employer] 07/13/202032-2176-669-01 / / [id number] Tibia Personna Left Sz D - [id number] Implanted:Qty: 1 on 10/20/2018 by Ceasar Taylor MD at OR [facility] Left: Knee [employer] 05/13/2028 [id number] / / [id number] Persona The Personalized Knee System Femur Cemented Cr Standard Left Size 7 Implanted:Qty: 1 on 10/20/2018 by Ceasar Taylor MD at OR [facility] Left: Knee [employer] 07/13/2028 [id number] / / [id number] Patella Reaming System Patella Reamer Blade With Physician Scientist Hole 38mm Diameter Implanted:Qty: 1 on 10/20/2018 by Ceasar Taylor MD at OR [facility] Left: Knee [employer] 02/11/2028 [id number] / / [id number] Persona The Personalized Knee System Vivacit-E Highly Crosslinked Polyethylene All-Poly Patella Cemented Implanted:Qty: 1 on 10/20/2018 by Ceasar Taylor MD at OR [facility] Left: Knee [employer] 04/12/2023 [id number] / / [id number] Persona The Personalized Knee System Vivacit-E Highly Crosslinked Polyethylene Articular Surface Medial Congruent (Mc) Left Implanted:Qty: 1 on 10/20/2018 by Ceasar Taylor MD at OR [facility] Left: Knee [employer] 02/10/2022 [id number] / / [id number] Description:use with tibia s izes C-D/CR femur sizes 6-7 Lens Intraoc 20.5 - [id number] - [id number] Implanted:Qty: 1 on 11/22/2020 by Arron Titus MD at OR [facility] Left: Eye [employer] 03/13/2025 [id number] / [id number] / [id number] Lens Intraoc 21.0 - [id number] - [id number] Implanted:Qty: 1 on 12/06/2020 by Arron Titus MD at OR [facility] Right: Eye [employer] 07/13/2025 [id number] / [id number] / [id number] Persona Femur Cemented Cruciate Retaining Standard Right Implanted:Qty: 1 on 06/05/2021 by Ceasar Taylor MD at OR [facility] Right: Knee [employer] 04/12/2029 [id number] / / [id number] Component Kn Ptlr Poly Ve 32mm - [id number] Implanted:Qty: 1 on 06/05/2021 by Ceasar Taylor MD at OR [facility] Right: Knee [employer] 02/28/2026 [id number] / / [id number] Tibia Personna Right Sz D - [id number] Implanted:Qty: 1 on 06/05/2021 by Ceasar Taylor MD at OR [facility] Right: Knee [employer] 10/29/2030 [id number] / / [id number] Cement Bone Palacos Lv+G 1x40g - [id number] Implanted:Qty: 2 on 06/05/2021 by Ceasar Taylor MD at OR [facility] Right: Knee [employer] 03/13/2022 [id number] / / [id number] Psn Mc Ve Asf R 10mm 8-11 Ef - [id number] Implanted:Qty: 1 on 06/05/2021 by Ceasar Taylor MD at OR [facility] Right: Knee [employer] 05/17/2025 [id number] / / [id number] documented as of this encounter Advance Directives [...] and were consensually agreed upon. Care Teams Health Science Writer Relationship Specialty Start Date End Date Claus Rojas MD [address] [place] [address] PCP - General Family Medicine 10/12/14 documented as of this encounter
--- OUTSIDE RECORDS SUMMARY | 2024-07-15 20:37 | External Medical Summary | Summary of Care ---
Author Name Unknown Organization [facility] Address [address] [facility] [place] [address] Phone [phone] Care Team Providers Care Dry Charge Process Attendant Name Role Phone Claus Rojas MD Primary Care Provider + Reason for Visit * Reason Comments Outpatient Testing Encounter Details Date Type Department Care Team (Late st Contact Info) Description 01/28/2024 1:00 PM EDT Laboratory Laboratory, [facility] [address] [facility] [place] [address] [facility] [address] [place] [address] Type 2 diabetes mellitus with hemoglobin A1c goal of less than 8.0% ([facility]); Acquired hypothyroidism; Encounter for long-term (current) use of medications Allergies Active Allergy Reactions Criticality Noted Date [...] per vagina., 1 Each 11 02/04/2023 Active Additional Information Patient not taking.Informant: Wallet Card/List, Reported on 11/05/2023 Hydrocortisone (Perianal) 2.5 % External Cream (Anusol-HC)Indicati ons:Hemorrhoids, external without complications Administer into the rectum 2 times a day. 28 g 0 04/11/2023 Active Additional Information Patient not taking.Informant: Wallet Card/List, Reported on 11/05/2023 polyethylene glycol 3350 119 gram OR POWD Take 119 g by mouth once. 0 Active Celecoxib 200 MG Oral Capsule (CeleBREX)Indicatio [...] up to 6 weeks. 30 g 0 08/27/2023 Active Additional Information Patient not taking.Reported on [...] 2 weeks, then taper to weekends only Fri-Sat as needed 60 g 1 12/02/2023 Active Cyclobenzaprine HCl 10 MG Oral Tablet (Flexeril)Indicatio ns:Chronic right-sided low back pain with right-sided sciatica TAKE 1 TABLET BY MOUTH AT BEDTIME NEEDED FOR MUSCLE SPASMS. 30 Tablet 2 12/09/2023 Active Levothyroxine Sodium 75 MCG Oral Tablet (Levoxyl)Indication s:Acquired hypothyroidism TAKE 1 TABLET BY MOUTH FIRST THING IN THE MORNING AT LEAST 1/2 HOUR BEFORE BREAKFAST OR OTHER MEDICATIONS 90 Tablet 1 01/01/2024 Active metFORMIN HCl ER 500 MG Oral Tablet Extended Release 24 Hour (Glucophage XR)Indications:Elev ated glucose TAKE 1 TABLET BY MOUTH EVERY DAY 90 Tablet 1 01/07/2024 Active Ciclopirox Olamine 0.77 % External CreamIndications:Ti teresa pedis of left foot APPLY TO AFFECTED AREA TWICE A DAY 15 g 2 01/07/2024 Active Proctofoam HC 1-1 % External Foam (Hydrocort-Pramoxin e (Perianal))Indicati ons:Drug-induced constipation ADMINISTER INTO THE RECTUM, TO AFFECTED AREA OF ANUS, NEEDED FOR MODERATE PAIN (HEMORRHOIDS) 10 g 5 01/07/2024 Active oxyCODONE HCl 5 MG Oral Tablet (Oxy IR)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 60 Tablet 0 01/09/2024 Active Venlafaxine HCl ER 150 MG Oral Capsule Extended Release 24 Hour (Effexor XR) TAKE 1 CAPSULE BY MOUTH DAILY 90 Capsule 0 01/21/2024 Active NATURAL SUPPLEMENT Take by mouth daily. Advance sciatic nerve suport 0 Active documented as of this encounter (statuses [...] 09/14/2020 Overview: 2020-toes MEDICATION USE AGREEMENT 06/08/2020 Body mass index [...] facility 08/13/2014 08/09/2016 Overview: Declines zostavax 06/[address] [facility]--vascular congestion, possible nodularity, [...] 01/28/2024 1:30 PM EDT Office Visit Urology, [facility] [address] [place] [address] Hakeem Bernal MD [address] [facility] [address] [place] [address] 03/04/2024 11:40 AM EDT Office Visit Family Practice [facility] [address] [place] [address] Claus Rojas MD [address] [place] [id number] 03/11/2024 10:40 AM EDT Office Visit Otolaryngology [facility] [address] [place] [address] Graciela Sparrow PA-C [address] [place] [address] 03/26/2024 10:00 AM EDT Office Visit Gastroenterology, [facility] [address] [place] [address] Ronald Casanova CRNP [address] [place] [address] 06/08/2024 9:30 AM EDT [address] [address] 01/27/2025 10:00 AM EDT Office Visit Rheumatology [facility] [place] [address] [facility] [place] [address] Ta Irvin MD [address] [place] [address] Pending Results Name Type Priority Associated Diagnoses Date /Time HEMOGLOBIN A1C Lab Routine Type 2 diabetes mellitus with hemoglobin A1c goal of less than 8.0% ([facility]) 01/28/2024 9:59 AM EDT BASIC METABOLIC PANEL Lab Routine Type 2 diabetes mellitus with hemoglobin A1c goal of less than 8.0% ([facility]) 01/28/2024 9:59 AM EDT LIPID PANEL WITH DIRECT LDL IF TG IS HIGH Lab Routine Type 2 diabetes mellitus with hemoglobin A1c goal of less than 8.0% ([facility]) 01/28/2024 9:59 AM EDT TSH WITH FREE T4 IF INDICATED Lab Routine Acquired hypothyroidism 01/28/2024 9:59 AM EDT VITAMIN B12 Lab Routine Encounter for long-term (current) use of medications 01/28/2024 9:59 AM EDT Health Maintenance Due Date Last Done Comments [...] exists Depression Screening 12/13/2023 12/12/2022, 06/20/2017 (Declined) GFR 01/26/2024 01/25/2023, 020 12/2022, 06/27/2022, Additional history exists TSH 01/26/2024 01/25/2023, 02/0 12/2022, 11/14/2021, Additional history exists DXA Scan 04/25/2024 04/25/2022, 07/0 10/2019, 02/20/2018, Additional history exists Pneumococcal Vaccine: 65+ Years Completed 02/15/2016, 04/27/2013 VITAMIN D LEVEL ONCE IN A LIFETIME-USE SMARTSET# [id number] Completed 08/11/2018, 04/25/2015 Influenza Vaccine (FLU shot) [...] this encounter Medical Devices Implanted Type Area Lease Broker Device Identifier Shelf Expiration Date Model / Serial / Lot Cement Bone G 1119-140-01 - [id number] Implanted:Qty: 1 on 10/20/2018 by Ceasar Taylor MD at OR [facility] Left: Knee [employer] 07/13/2020 [id number] / / [id number] Cement Bone G 1119-140-01 - [id number] Implanted:Qty: 1 on 10/20/2018 by Ceasar Taylor MD at OR [facility] Left: Knee [employer] 07/13/2020 [id number] / / [id number] Tibia Personna Left D - [id number] Implanted:Qty: 1 on 10/20/2018 by Ceasar Taylor MD at OR [facility] Left: Knee [employer] 05/13/2028 [id number] / / [id number] Persona The Personalized Knee System Femur Cemented Cr Standard Left Size 7 Implanted:Qty: 1 on 10/20/2018 by Ceasar Taylor MD at OR [facility] Left: Knee [employer] 07/13/2028 [id number] / / [id number] Patella Reaming System Patella Reamer Blade With Civil Engineer Helper Hole 38mm Diameter Implanted:Qty: 1 on 10/20/2018 by Ceasar Taylor MD at OR [facility] Left: Knee [employer] 02/11/2028 [id number] / / [id number] Persona The Personalized Knee System Vivacit-E Highly Crosslinked Polyethylene All-Poly Patella Cemented Implanted:Qty: 1 on 10/20/2018 by Ceasar Taylor MD at OR [facility] Left: Knee [employer] 04/12/2023 [id number] / / [id number] Persona The Personalized Knee System Vivacit-E Highly Crosslinked Polyethylene Articular Surface Medial Congruent (Mc) Left Implanted:Qty: 1 on 10/20/2018 by Ceasar Taylor MD at OR [facility] Left: Knee [employer] 02/10/2022 [id number] / / [id number] Description:use with tibia s izes C-D/CR femur sizes 6-7 Lens Intraoc 20.5 - [id number] - [id number] Implanted:Qty: 1 on 11/22/2020 by Arron Titus MD at OR [facility] Left: Eye [employer] 03/13/2025 [id number] / [id number] / [id number] Lens Intraoc 21.0 - [id number] - [id number] Implanted:Qty: 1 on 12/06/2020 by Arron Titus MD at OR [facility] Right: Eye [employer]OM[employer] 07/13/2025 [id number] / [id number] / [id number] Persona Femur Cemented Cruciate Retaining Standard Right Implanted:Qty: 1 on 06/05/2021 by Ceasar Taylor MD at OR [facility] Right: Knee [employer] 04/12/2029 [id number] / / [id number] Component Kn Ptlr Poly Ve 32mm - [id number] Implanted:Qty: 1 on 06/05/2021 by Ceasar Taylor MD at OR [facility] Right: Knee [employer] 02/28/2026 [id number] / / [id number] Tibia Personna Right Sz D - [id number] Implanted:Qty: 1 on 06/05/2021 by Ceasar Taylor MD at OR [facility] Right: Knee [employer] 10/29/2030 [id number] / / [id number] Cement Bone Palacos Lv+G 1x40g - [id number] Implanted:Qty: 2 on 06/05/2021 by Ceasar Taylor MD at OR [facility] Right: Knee [employer] 03/13/2022 [id number] / / [id number] Psn Mc Ve Asf R 10mm 8-11 Ef - [id number] Implanted:Qty: 1 on 06/05/2021 by Ceasar Taylor MD at OR [facility] Right: Knee [employer] 05/17/2025 [id number] / / [id number] documented as of this encounter Visit Diagnoses Diagnosis Type 2 diabetes mellitus with hemoglobin A1c goal of less than 8.0% ([facility]) Acquired hypothyroidism Unspecified hypothyroidism Encounter for long-term (current) use of medications Encounter for long-term (current) use of other medications documented in this encounter Advance Directives Latest [...] and were consensually agreed upon. Care Teams Dry Charge Process Attendant Relationship Specialty Start Date End Date Claus Rojas MD [address] [facility] [place] [address] PCP - General Family Medicine 10/12/14 documented as of this encounter
--- OUTSIDE RECORDS SUMMARY | 2024-07-15 20:37 | External Medical Summary | Summary of Care ---
Author Name Unknown Organization [facility] Address [address] [place] [address] Phone [phone] Care Team Providers Care Wardrobe Consultant Name Role Phone Claus Rojas MD Primary Care Provider + Reason for Referral * Evaluate & Treat - Unlimited Visits (Within 30 days (routine)) - Authorized Specialty Diagnoses / Procedures Referred By Dion bui Referred To Contact Physical Therapy / Home Care Diagnoses Generalized weakness Claus Rojas MD [address] [place] [address] Referral ID Status Reason Start Date Expiration Date Visits Requested Visits Authorized [id number] Authorized Specialty Services Required 03/04/2024 999 999 Question Answer Referral Priority Within 30 days (routine) Where should this appointment be scheduled? External - [facility] Comments Documentation of Kupz-pp-Tmsz Encounter Addendum Patient Name: Rosemarie Dale I certify that this patient is under my care and that I, or a nurse practitioner or physician's carpenter assistant installer working with me, had a [id number] encounter that meets the physician tczr-sf-njji encounter requirements with this patient on: 03/04/2024 The encounter with the patient was in whole, or in part, for the following medical condition, which is the primary reason for home health care (List medical condition): Gait dysfunction I certify that, based on my findings, the following services are medically necessary home health services: Physical Therapy To provide the following care/treatments: (All hospitalists not following the patient after discharge should complete this section): physical therapy & home nursing. For general strengthening. Primary Care Physician to follow home care plan of care after discharge: Dr. Rojas My clinical findings support the need for the above services because: see OV notes Further, I certify that my clinical findings support that this patient is homebound (i.e. Absences from home require considerable and taxing effort and are for medical reasons or anabaptism services or infrequently or of short duration when for other reason) because: Absences from home require considerable and taxing effort and are for medical reasons Physician Signature: Claus Rojas MD Date of Signature: 03/04/2024 Physician Printed Name: Zenia Genao LPN Reason for Visit * Reason Comments Return Visit 6 month return Encounter Details Date Type Department Care Team (Latest Contact Info) Description 03/04/2024 11:40 AM EDT Office Visit Family Practice 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 ([facility]); Hemorrhoids, external without complications Allergies Active Allergy Reactions Criticality Noted Date Comments Alendronate Sodium Abdominal pain 04/05/2016 GI upset Cefdinir Anaphylaxis High 10/02/2022 Doxycycline Hives,Rash 05/14/2012 Heparin 05/14/2012 Decreased platelets Sulfa Antibiotics Hives,Rash 11/28/2012 Sulfonylureas 04/05/2003 documented as of this encounter (statuses as of 03/04/2024) Medications Medication Sig Dispensed Refills Start Date [...] PAIN (HEMORRHOIDS) 10 g 5 4 Active Venlafaxine HCl ER 150 MG Oral Capsule Extended Release 24 Hour (Effexor XR) TAKE 1 CAPSULE BY MOUTH DAILY 90 Capsule 4 Active NATURAL SUPPLEMENT Take by mouth daily. Advance sciatic nerve suport Active Ciclopirox Olamine 0.77 % External CreamIndications:Ti teresa pedis of left foot Apply topically to affected area 2 times a day. To affected area. 90 g 2 4 Active oxyCODONE HCl 5 MG Oral Tablet (Oxy IR)Indications:Track Man redd right-sided low back pain with right-sided sciatica,MEDICATION USE AGREEMENT Take 1 Tablet by mouth 2 times a day as needed for Pain, Severe. 60 Tablet 4 Active Cyclobenzaprine HCl 10 MG Oral Tablet (Flexeril)Indicatio ns:Chronic right-sided low back pain with right-sided sciatica Take 1 Tablet by mouth at bedtime as needed for Muscle spasms. 30 Tablet 2 4 Active Hydrocortisone 2.5 % External CreamIndications:He morrhoids, external without complications External hemorrhoid twice daily 28 g 5 4 Active Cyclobenzaprine HCl 10 MG Oral Tablet (Flexeril)Indicatio ns:Chronic right-sided low back pain with right-sided sciatica TAKE 1 TABLET BY MOUTH AT BEDTIME NEEDED FOR MUSCLE SPASMS. 30 Tablet 2 4 03/04/20 24 Discontinu ed(Refill) Ciclopirox Olamine 0.77 % External CreamIndications:Ti teresa pedis of left foot APPLY TO AFFECTED AREA TWICE A DAY 15 g 2 4 03/04/20 24 Discontinu ed(Refill) oxyCODONE HCl 5 MG Oral Tablet (Oxy IR)Indications:Track Man redd right-sided low back pain with right-sided sciatica,MEDICATION USE AGREEMENT Take 1 Tablet by mouth 2 times a day as needed for Pain, Severe. 60 Tablet 4 03/04/20 24 Discontinu ed(Refill) documented as of this encounter (statuses as of 03/04/2024) Active Problems Problem Noted Date Diagnosed Date [...] as of this encounter (statuses as of 03/04/2024) Resolved Problems Problem Noted Date Diagnosed Date [...] facility 08/13/2014 08/09/2016 Overview: Declines zostavax 06/[address] [facility] [address]--vascular congestion, possible nodularity, lizbeth 3+mo. 10/28 dx with Breast CA--didn't tolerate chemo. 01/27 PET +showed in lymph node. . Valerie lift/wheelchair for him. 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 On alendronate. 03/28 [facility] 21% start lipitor Has received flexeril from myself Also methocaramol 750mg Thrombocytopenia 08/13/2014 2018 Overview: Dr Ziegler @[facility]. CBC Q3-6mos . Unclear etiology. Possible autoimmune [...] as of this encounter (statuses as of 03/04/2024) Immunizations Name Administration Dates Next Due COVID-19 [...] Sign Reading Time Taken Comments Blood Pressure 118/60 03/04/2024 11:58 AM EDT Pulse 72 03/04/2024 11:58 AM EDT Temperature - - Respiratory Rate 18 03/04/2024 11:58 AM EDT Oxygen Saturation 97% 03/04/2024 11:58 AM EDT Inhaled Oxygen Concentration - - Weight - - Height - - Body Mass Index - - documented in this encounter Functional Status Functional [...] as of this encounter Progress Notes * Claus Rojas MD - 03/04/2024 12:27 PM EDT SUBJECTIVE: Rosemarie Dale is a 83 year old female here for Return Visit (6 month return) . Here for f/u with caregiver, Monica, from [facility]. No fever, chills, chest pain, shortness of breath, headache, nausea, vomit, diarrhea, constipation or vision changes Patient complains of rectal itching most days. Worse after having a bath or bowel movement. Sometimes also feels a spasm with some bilateral weakness. Usually asked to lie down. She takes oxycodone IR typically only in the morning for her chronic low back pain helps her with her ADLs. Still with chronic back pain is in a wheelchair much of the time were uses a walker. She does have soft bowel movements with the addition of prune juice. She has a caregiver Saturday through Saturday for 4 hours in the morning than in the weekends typicallythere another caregiver or her brother or sometimes none. She is getting meals mail ordered which she is finds great. ROS: Negative except above. Past Medical History: Diagnosis Date Acquired hypothyroidism [...] 04/14/2015 Sciatica 08/13/2014 2014 Small vessel disease (HCC) 09/14/20202019-toes Thrombocytopenia (HCC) 08/13/2014 Dr Ziegler @[facility] Urticaria Vertigo Past Surgical History: Procedure Laterality Date ARTHROPLASTY KNEE TOTAL Left 10/20/2018 ARTHROPLASTY KNEE TOTAL performed by Ceasar Taylor Jr., MD at OR [facility] ARTHROPLASTY KNEE TOTAL Right 06/05/2021 ARTHROPLASTY KNEE TOTAL performed by Ceasar Taylor Jr., MD at OR [facility] BONE MARROW BIOPSY 06/2014 [facility] COLONOSCOPY, DIAGNOSTIC (RECTUM) 04/24/2023 biopsies show adenomatous polyps/COLONOSCOPY FLEXIBLE PROXIMAL DIAGNOSTIC performed by Sujatha Rincon MD at ENDOSCOPY [facility] MISCELLANEOUS ORDER ([facility] ONLY) 1983 repair right [...] LENS performed by Arron Titus MD at [facility] REMOVE CATARACT, INSERT LENS PROSTH Right 12/06/2020 RIGHT EXTRACAPSULAR CATARACT REMOVAL WITH INTRAOCULAR LENS performed by Arron Titus MD at OR 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 Drug use: Not Currently Types: Marijuana Comment: medical marijuana Sexual activity: Not Currently Partners: Male Comment: 2017. 2 kids (Denise and [place]), 4 grandkids. Other Topics Concern Service Not Asked Blood Transfusions Not Asked Caffeine Concern Not Asked Occupational Exposure Not Asked Hobby Hazards Not Asked Sleep Concern Not Asked Stress Concern Not Asked Weight Concern Not Asked Special Diet Not Asked Back Care Not Asked Exercise Not Asked Bike Helmet Not Asked Seat Belt Yes Self-Exams Not Asked Social History Narrative Likes puzzles, friends, time w/grandchildren, online kids. Social Determinants of Health Financial Resource Strain: Not on file Food Insecurity: No Food Insecurity (12/04/2019) Hunger Vital Sign Worried About Running Out of Food in the Last Year: Never true Ran Out of Food in the Last Year: Never true Transportation Needs: Not on file Physical Activity: Not on file Stress: Not on file Social Connections: Not on file Intimate Partner Violence: Not on file Housing Stability: Not on file Family History Problem Relation Name Age of Onset Arthritis Mother Heart Disorder Mother Uterine cancer Mother Cancer Father 70 blood cancer Heart Disorder Brother 60 ID Breast Cancer Aunt (Maternal) Anna Marie Current Outpatient Medications Medication Sig Dispense Refill [...] needed for Muscle spasms. 30 Tablet 2 Abrysvo 120 MCG/0.5ML Intramuscular Solution Reconstituted (RSV Pre-Fusion F A&B Vac Rcmb) Inject 0.5 mL into a large muscle once for 1 dose. 0.5 mL 0 Hydrocortisone 2.5 % External Cream External hemorrhoid twice daily 28 g 5 Bisacodyl 10 MG Rectal Suppository (Dulcolax) Administer 1 Suppository into the rectum daily as needed for Constipation. Do not use for more than 1 week. (Patient not taking: Reported on 10/30/2023) 20 Suppository 1 No current facility-administered medications for this visit. Physical: BP 118/60 | Pulse 72 | Resp 18 | SpO2 97% General-No apparent Distress Head, Eyes, Ears, Nose, Throat--Normocephalic, atraumatic Neck-Supple Lymph-no lymphadenopathy Lungs-Clear to Auscultation bilaterally Cardiovascular--Regular rate & Rhythm, +s1, s2, no murmur Abdomen-soft, nontender, nondistended + bowel sounds Rectal-small ext hemorrhoids , tender. Extremities--no edema Neuro-alert & oriented x3 gen weakness (R53.1) Generalized weakness (primary encounter diagnosis) Plan: HOME HEALTH REFERRAL OP Labs reviewed/ordered Home PT for strengthening -rec to have an emergency alert on her (she owns, doesn't always wear) (B35.3) Tinea pedis of left foot Plan: Ciclopirox Olamine 0.77 % External Cream (M54.41, G89.29) Chronic right-sided low back pain with right-sided sciatica Plan: oxyCODONE HCl 5 MG Oral Tablet (Oxy IR), Cyclobenzaprine HCl 10 MG Oral Tablet (Flexeril) (DT5831) MEDICATION USE AGREEMENT Plan: oxyCODONE HCl 5 MG Oral Tablet (Oxy IR) (D69.3) Chronic ITP (idiopathic thrombocytopenia) (HCC) Plan: cont mgmt (E11.51) Type 2 diabetes mellitus with diabetic peripheral angiopathy without gangrene, unspecifiedwhether intermediate insulin use (HCC) Plan: HEMOGLOBIN A1C (K64.4) Hemorrhoids, external without complications Plan: Hydrocortisone 2.5 % External Cream Consider spasm--nitroglycerin cream, etc (This note was completed using the dictation program Fluency Direct. As such, there may be misspellings, word substitutions, or other variations that should not change the essence of the clinical content of this encounter note.If there is need for further clarification, please direct questions to the provider listed above.) Claus Rojas MD documented in this encounter Nursing Notes * Zenia Genao LPN - 03/04/2024 11:55 AM EDT The patient has been properly identified by confirmation of name and date of . Chief Complaint Patient presents with Return Visit 6 month return documented in this encounter Plan of Treatment Upcoming Encounters Date Type Department Care Team (Late st Contact Info) Description 03/11/2024 10:40 AM EDT Office Visit Otolaryngology [facility] 132 [facility] [place] [address] Graciela Sparrow PA-C 132 [facility] [place] [address] 03/26/2024 10:00 AM EDT Office Visit Gastroenterology, [facility] [address] [facility] [place] [address] Ronald Casanova CRNP [address] [address] 06/08/2024 9:30 AM EDT [address] [address] 07/20/2024 9:40 AM EDT Office Visit [facility] [address] [facility] [place] [address] Della Mead CRNP [address] [place] [address] 01/11/2025 10:15 AM EDT Imaging Radiology [facility] [address] [facility] [place] [address] 01/27/2025 10:00 AM EDT Office [address] [address] Ta Irvin MD [address] [place] [address], [place] [address] 02/01/2025 10:00 AM EDT Office Visit Urology, [facility] 132 [facility] [place] [address] Hakeem Bernal MD [address] [address] [place] [address] 03/12/2025 9:20 AM EDT Office Visit Family Practice 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 (HCC) Expected: 08/04/2024 (Approximate), Expires: 03/04/2025 Scheduled Referrals Name Type Priority Associated Diagnoses Orde r Schedule HOME HEALTH REFERRAL OP Referral Within 30 days (routine) Generalized weakness Ordered: 03/04/2024 Health Maintenance Due Date Last Done Comments [...] D LEVEL ONCE IN A LIFETIME-USE SMARTSET# 32288 Completed 08/11/2018, 04/25/2015 Influenza Vaccine (FLU shot) [...] this encounter Medical Devices Implanted Type Area Manager Animation Device Identifier Shelf Expiration Date Model / Serial / Lot Cement Bone Lv G 1119-140-01 - [id number] Implanted:Qty: 1 on 10/20/2018 by Ceasar Taylor MD at OR [facility] Left: Knee [employer] 07/13/2020 [id number] / / [id number] Cement Bone Lv G 1119-140-01 - [id number] Implanted:Qty: 1 on 10/20/2018 by Ceasar Taylor MD at OR [facility] Left: Knee [employer] 07/13/[id number] / / [id number] Tibia Personna Left Sz D - [id number] Implanted:Qty: 1 on 10/20/2018 by Ceasar Taylor MD at OR [facility] Left: Knee [employer] 05/13/2028 [id number] / / [id number] Persona The Personalized Knee System Femur Cemented Cr Standard Left Size 7 Implanted:Qty: 1 on 10/20/2018 by Ceasar Taylor MD at OR [facility] Left: Knee [employer] 07/13/2028 [id number] / / [id number] Patella Reaming System Patella Reamer Blade With Public Relations Senior Associate Hole 38mm Diameter Implanted:Qty: 1 on 10/20/2018 by Ceasar Taylor MD at OR [facility] Left: Knee [employer] 02/11/2028 [id number] / / [id number] Persona The Personalized Knee System Vivacit-E Highly Crosslinked Polyethylene All-Poly Patella Cemented Implanted:Qty: 1 on 10/20/2018 by Ceasar Taylor MD at OR [facility] Left: Knee [employer] 04/12/2023 [id number] / / [id number] Persona The Personalized Knee System Vivacit-E Highly Crosslinked Polyethylene Articular Surface Medial Congruent (Mc) Left Implanted:Qty: 1 on 10/20/2018 by Ceasar Taylor MD at OR [facility] Left: Knee [employer] 02/10/2022 [id number] / / [id number] Description:use with tibia s izes C-D/CR femur sizes 6-7 Lens Intraoc 20.5 - [id number] - [id number] Implanted:Qty: 1 on 11/22/2020 by Arron Titus MD at OR [facility] Left: Eye [employer] 03/13/2025 [id number] / [id number] / [id number] Lens Intraoc 21.0 - [id number] - [id number] Implanted:Qty: 1 on 12/06/2020 by Arron Titus MD at OR [facility] Right: Eye [employer] 07/13/2025 [id number] / [id number] / [id number] Persona Femur Cemented Cruciate Retaining Standard Right Implanted:Qty: 1 on 06/05/2021 by Ceasar Taylor MD at OR [facility] Right: Knee [employer] 04/12/2029 [id number] / / [id number] Component Kn Ptlr Poly Ve 32mm - [id number] Implanted:Qty: 1 on 06/05/2021 by Ceasar Taylor MD at OR [facility] Right: Knee [employer] 02/28/2026 [id number] / / [id number] Tibia Personna Right Sz D - [id number] Implanted:Qty: 1 on 06/05/2021 by Ceasar Taylor MD at OR [facility] Right: Knee [employer] 10/29/2030 [id number] / / [id number] Cement Bone Palacos Lv+G 1x40g - [id number] Implanted:Qty: 2 on 06/05/2021 by Ceasar Taylor MD at OR [facility] Right: Knee [facility] 03/13/2022 [id number] / / [id number] Psn Mc Ve Asf R 10mm 8-11 Ef - [id number] Implanted:Qty: 1 on 06/05/2021 by Ceasar Taylor MD at OR 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 Care Teams Wardrobe Consultant Relationship Specialty Start Date End Date Claus Rojas MD [address] [place] [address] PCP - General Family Medicine 10/12/14 documented as of this encounter"
--- OUTSIDE RECORDS SUMMARY | 2024-07-15 20:37 | External Medical Summary | Summary of Care ---
Author Name Unknown Organization [facility] Address [address] [facility] [place] [address] Phone [phone] Care Team Providers Care Steward/Stewardess [employer] Name Role Phone Claus Rushing MD Primary Care Provider + Reason for Visit * Reason Comments eRx-Medication Refill Encounter Details Date Type Department Care Team (Late st Contact Info) Description 04/12/2024 Refill Family Practice [facility] [address] [facility] [place] [address] Claus Rushing MD [address] [facility] [place] [address] Essential hypertension with goal blood pressure less than 140/90 Allergies Active Allergy Reactions Criticality Noted Date Comments Alendronate Sodium Abdominal pain 04/05/2016 GI upset Cefdinir Anaphylaxis High 10/02/2022 Doxycycline Hives,Rash 05/14/2012 Heparin 05/14/2012 Decreased platelets Sulfa Antibiotics Hives,Rash 11/28/2012 Sulfonylureas 04/05/2003 documented as of this encounter (statuses as of 04/13/2024) Medications Medication Sig Dispensed Refills Start Date End Date Status MULTI-VITAMIN PO TABS one a day Active Cholecalciferol (VITAMIN D3) 50 MCG (1999 UT) CapsuleIndications :Vitamin D deficiency Take 1 Cap [...] MOUTH DAILY 90 Capsule 2 4 Active Metoprolol Succinate ER 50 MG Oral Tablet Extended Release 24 Hour (toPROL XL)Indications:Ess ential hypertension with goal blood pressure less than 140/90 TAKE 1 TABLET BY MOUTH DAILY AT NIGHT 90 Tablet 1 4 024 Discontinued Venlafaxine HCl ER 150 MG Oral Capsule Extended Release 24 Hour (Effexor XR) TAKE 1 CAPSULE BY MOUTH DAILY 90 Capsule 4 024 Discontinued documented as of this encounter (statuses as of 04/13/2024) Active Problems Problem Noted Date Diagnosed Date [...] as of this encounter (statuses as of 04/13/2024) Resolved Problems Problem Noted Date Diagnosed Date [...] facility 08/13/2014 08/09/2016 Overview: Declines zostavax 06/29 [facility]--vascular congestion, possible nodularity, lizbeth 3+mo. 10/28 dx with Breast CA--didn't tolerate chemo. 01/27 PET +showed in lymph node. . Valerie lift/wheelchair for him. 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 On alendronate. 03/28 [facility] 21% start lipitor Has received flexeril from myself Also methocaramol 750mg Thrombocytopenia 08/13/2014 2018 Overview: Dr Ziegler @[facility]. Ck CBC Q3-6mos . Unclear etiology. [...] as of this encounter (statuses as of 04/13/2024) Immunizations Name Administration Dates Next Due COVID-19 [...] encounter Miscellaneous Notes * Telephone Encounter - Catherine Ludwig RPh - 04/13/2024 11:09 AM EDT Signed Prescriptions: Disp Refills Metoprolol Succinate ER 50 MG Oral Tablet *90 Tab*2 Sig: TAKE 1 TABLET BY MOUTH DAILY AT NIGHTAuthorizing Provider: CLAUS RUSHING User: CATHERINE LUDWIG Venlafaxine HCl ER 150 MG Oral Capsule Ext*90 Cap*2 Sig: TAKE 1 CAPSULE BY MOUTH DAILYAutho rizing Provider: CLAUS RUSHING User: CATHERINE LUDWIG documented in this encounter Plan of Treatment Upcoming Encounters Date Type Department Care Team (Late st Contact Info) Description 06/08/2024 9:30 AM EDT Imaging Radiology, [address] [place] [address] 07/20/2024 9:40 AM EDT Office Visit Family Practice [facility] [address] [place] [address] Della Mead CRNP [address] [place] [address] 09/15/2024 10:40 AM EST Office Visit Otolaryngology [facility] [address] [place] [address] Graciela Sparrow PA-C [address] [facility] [place] [address] 01/11/2025 10:15 AM EDT Imaging Radiology [facility] [address] [place] [address] 01/27/2025 10:00 AM EDT Office Visit Rheumatology [address] [place] [address] Ta Irvin MD [address] [place] [address] [place] [address] 02/01/2025 10:00 AM EDT Office Visit Urology, [facility] [address] [facility] [place] [address] Hakeem Bernal MD [address] [place] [address] 03/12/2025 9:20 AM EDT Office Visit Family Practice [facility] [address] [place] [address] Claus Rushing MD [address] [place] [address] Health Maintenance Due Date Last Done Comments [...] D LEVEL ONCE IN A LIFETIME-USE SMARTSET# 45052 Completed 08/11/2018, 04/25/2015 Influenza Vaccine (FLU shot) [...] this encounter Medical Devices Implanted Type Area Tentering Machine Feeder Device Identifier Shelf Expiration Date Model / Serial / Lot Cement Bone Lv G 1119-140-01 - [id number] Implanted:Qty: 1 on 10/20/2018 by Ceasar Taylor MD at OR [facility] Left: Knee [employer] 07/13/2020 [id number] / / [id number] Cement Bone Lv G 1119-140-01 - [id number] Implanted:Qty: 1 on 10/20/2018 by Ceasar Taylor MD at OR [facility] Left: Knee [employer] 07/13/[id number] / / [id number] Tibia Personna Left Sz D - [id number] Implanted:Qty: 1 on 10/20/2018 by Ceasar Taylor MD at OR [facility] Left: Knee [employer] 05/13/2028 [id number] / / [id number] Persona The Personalized Knee System Femur Cemented Cr Standard Left Size 7 Implanted:Qty: 1 on 10/20/2018 by Ceasar Taylor MD at OR [facility] Left: Knee [employer] 07/13/2028 [id number] / / [id number] Patella Reaming System Patella Reamer Blade [employer] Consultant Hole 38mm Diameter Implanted:Qty: 1 on 10/20/2018 by Ceasar Taylor MD at OR [facility] Left: Knee [employer] 02/11/2028 [id number] / / [id number] Persona The Personalized Knee System Vivacit-E Highly Crosslinked Polyethylene All-Poly Patella Cemented Implanted:Qty: 1 on 10/20/2018 by Ceasar Taylor MD at OR [facility] Left: Knee [employer] 04/12/2023 [id number] / / [id number] Persona The Personalized Knee System Vivacit-E Highly Crosslinked Polyethylene Articular Surface Medial Congruent (Mc) Left Implanted:Qty: 1 on 10/20/2018 by Ceasar Taylor MD at OR [facility] Left: Knee [employer] 02/10/2022 [id number] / / [id number] Description:use with tibia s izes C-D/CR femur sizes 6-7 Lens Intraoc 20.5 - [id number] - [id number] Implanted:Qty: 1 on 11/22/2020 by Arron Titus MD at OR [facility] Left: Eye [employer] 03/13/2025 [id number] / [id number] / [id number] Lens Intraoc 21.0 - [id number] - [id number] Implanted:Qty: 1 on 12/06/2020 by Arron Titus MD at OR [facility] Right: Eye [employer] 07/13/2025 [id number] / [id number] / [id number] Persona Femur Cemented Cruciate Retaining Standard Right Implanted:Qty: 1 on 06/05/2021 by Ceasar Taylor MD at OR [facility] Right: Knee [employer] 04/12/2029 [id number] / / [id number] Component Kn Ptlr Poly Ve 32mm - [id number] Implanted:Qty: 1 on 06/05/2021 by Ceasar Taylor MD at OR [facility] Right: Knee [employer] 02/28/2026 [id number] / / [id number] Tibia Personna Right Sz D - [id number] Implanted:Qty: 1 on 06/05/2021 by Ceasar Taylor MD at OR [facility] Right: Knee [employer] 10/29/2030 [id number] / / [id number] Cement Bone Palacos Lv+G 1x40g - [id number] Implanted:Qty: 2 on 06/05/2021 by Ceasar Taylor MD at OR [facility] Right: Knee [employer] 03/13/2022 [id number] / / [id number] Psn Mc Ve Asf R 10mm 8-11 Ef - [id number] Implanted:Qty: 1 on 06/05/2021 by Ceasar Taylor MD at OR [facility] Right: Knee [employer] 05/17/2025 [id number] / / [id number] documented as of this encounter Visit Diagnoses Diagnosis Essential hypertension with goal blood pressure less than 140/90 documented in this encounter Advance Directives * [...] and were consensually agreed upon. Care Teams Steward/Stewardess [employer] Relationship Specialty Start Date End Date Claus Rushing MD [address] [place] [address] PCP - General Family Medicine 10/12/14 documented as of this encounter
--- OUTSIDE RECORDS SUMMARY | 2024-07-15 20:37 | External Medical Summary | Summary of Care ---
Author Name Unknown Organization [facility] Address [address] [facility] [place] [address] Phone [phone] Care Team Providers Care Sales And Leasing Agent Name Role Phone Claus Rojas MD Primary Care Provider + Reason for Visit * Reason Comments Re-Check Patient presents in office today for wheezing -- per her GI doctor at her recent appointment they noted wheezing when listening to her lungs and advised she follow-up with PCP office to get checked out/listened to. Encounter Details Date Type Department Care Team (Late st Contact Info) Description 04/01/2024 9:40 AM EDT Office Visit Family Practice [facility] [address] [facility] [place] [address] Elma Goldstein CRNP [address] [facility] [place] [address] Wheezing* Allergies Active Allergy Reactions Criticality Noted Date Comments Alendronate Sodium Abdominal pain 04/05/2016 GI upset Cefdinir Anaphylaxis High 10/02/2022 Doxycycline Hives,Rash 05/14/2012 Heparin 05/14/2012 Decreased platelets Sulfa Antibiotics Hives,Rash 11/28/2012 Sulfonylureas 04/05/2003 documented as of this encounter (statuses as of 04/01/2024) Medications Medication Sig Dispensed Refills Start Date End Date Status MULTI-VITAMIN PO TABS one a day Active Cholecalciferol (VITAMIN D3) 50 MCG (2000 UT) CapsuleIndications: Vitamin D deficiency Take 1 [...] oxyCODONE HCl 5 MG Oral Tablet (Oxy IR)Indications: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 18 g 3 04/01/2024 Active Hospital, Clinic, or Other Facility Administered Medication Ordered Dose Route Frequency Start Date End Date Status Albuterol Sulfate (Proventil) (2.5 MG/3ML) 0.083% inhalation solution 2.5 mgIndications:Wheezing 2.5 mg NEBULIZER ONCE 04/01/2024 04/01/2024 En ded documented as of this encounter (statuses as of 04/01/2024) Active Problems Problem Noted Date Diagnosed Date [...] as of this encounter (statuses as of 04/01/2024) Resolved Problems Problem Noted Date Diagnosed Date [...] facility 08/13/2014 08/09/2016 Overview: Declines zostavax 06/[address] [facility] [address]--vascular congestion, possible nodularity, lizbeth 3+mo. [...] as of this encounter (statuses as of 04/01/2024) Immunizations Name Administration Dates Next Due COVID-19 [...] Sign Reading Time Taken Comments Blood Pressure 122/70 04/01/2024 9:44 AM EDT Pulse 74 04/01/2024 9:44 AM EDT Temperature - - Respiratory Rate 18 04/01/2024 9:44 AM EDT Oxygen Saturation 96% 04/01/2024 9:44 AM EDT Inhaled Oxygen Concentration - - Weight 90.7 kg (200 lb) 04/01/2024 9:44 AM EDT Height 152.4 cm (5') 04/01/2024 9:44 AM EDT Body Mass Index 39.06 04/01/2024 9:44 AM EDT documented in this encounter Functional [...] as of this encounter Progress Notes * Elma Goldstein CRNP - 04/01/2024 9:45 AM EDT Follow up Family Medicine Visit CC: Chief Complaint Patient presents with Re-Check Patient presents in office today for wheezing -- per her GI doctor at her recent appointment they noted wheezing when listening to her lungs and advised she follow-up with PCP office to get checked out/listened to. History of Present Illness: Rosemarie Dale is a 83 year old female presenting today due to wheezing heard on exam at GI. Deniesshortness of breath. She does have leg swelling but not chronically and only occasionally. Denies hx of lung disease per her report. Denies hx of smoking. 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 Drug use: Not Currently Types: Marijuana Comment: medical marijuana Sexual activity: Not Currently Partners: Male Comment: 2018. 2 kids (Denise and [place]), 4 grandkids. [...] Never true Transportation Needs: Not on file Social Connections: Unknown (04/01/2024) Social Connections How often do you feel lonely or isolated from those around you? (Adult - for ages 18 years and over): Not on file Housing Stability: Not on file PMH: Past Medical History: Diagnosis Date Acquired hypothyroidism [...] (HCC) 09/14/20202019-toes Thrombocytopenia (HCC) 08/13/2014 Dr Ziegler @[facility] Urticaria Vertigo Past Surgical History: Procedure Laterality Date ARTHROPLASTY KNEE TOTAL Left 10/20/2018 ARTHROPLASTY KNEE TOTAL performed by Ceasar Taylor Jr., MD at OR [facility] ARTHROPLASTY KNEE TOTAL Right 06/05/2021 ARTHROPLASTY KNEE TOTAL performed by Ceasar Taylor Jr., MD at OR [facility] BONE MARROW BIOPSY 06/2014 [facility] COLONOSCOPY, DIAGNOSTIC (RECTUM) 04/24/2023 biopsies show adenomatous polyps/COLONOSCOPY FLEXIBLE PROXIMAL DIAGNOSTIC performed by Sujatha Rincon MD at ENDOSCOPY [facility] MISCELLANEOUS ORDER ([facility] ONLY) 1983 repair right [...] LENS performed by Arron Titus MD at [facility] REMOVE CATARACT, INSERT LENS PROSTH Right 12/06/2020 RIGHT EXTRACAPSULAR CATARACT REMOVAL WITH INTRAOCULAR LENS performed by Arron Titus MD at OR [facility] REMOVE TONSILS & ADENOIDS, UNDER 12 1946 SACROILIAC JOINT INJECT W/GUIDANCE 02/21/2022 Dr Elissa Mathews [facility] SACROILIAC JOINT INJECT W/GUIDANCE Right 07/25/2022 Dr Mina TOTAL ABD HYSTERECTOMY W/WO REMOVAL OF TUBE(S) 1987 Current Outpatient Medications Medication Sig Dispense Refill Lubiprostone 24 MCG Oral Capsule (Amitiza) Take 1 Capsule by mouth 2 times a day with morning and evening meals. 60 Capsule 5 Atorvastatin Calcium 10 MG Oral Tablet (Lipitor) TAKE 1 TABLET BY MOUTH DAILY 90 Tablet 3 Celecoxib 200 MG Oral Capsule (CeleBREX) TAKE 1 CAPSULE BY MOUTH DAILY 90 Capsule 0 Ciclopirox Olamine 0.77 % External Cream Apply topically to affected area 2 times a day. To affected area. 90 g 2 Cyclobenzaprine HCl 10 MG Oral Tablet (Flexeril) Take 1 Tablet by mouth at bedtime as needed for Muscle spasms. 30 Tablet 2 Hydrocortisone 2.5 % External Cream External hemorrhoid twice daily 28 g 5 oxyCODONE HCl 5 MG Oral Tablet (Oxy IR) Take 1 Tablet by mouth 2 times a day as needed for Pain, Severe. 60 Tablet 0 NATURAL SUPPLEMENT Take by mouth daily. Advance sciatic nerve suport Venlafaxine HCl ER 150 MG Oral Capsule Extended Release 24 Hour (Effexor XR) TAKE 1 CAPSULE BY MOUTH DAILY 90 Capsule 0 metFORMIN HCl ER 500 MG Oral Tablet Extended Release 24 Hour (Glucophage XR) TAKE 1 TABLET BY MOUTHEVERY DAY 90 Tablet 1 Levothyroxine Sodium 75 MCG Oral Tablet (Levoxyl) TAKE 1 TABLET BY MOUTH FIRST THING IN THE MORNINGAT LEAST 1/2 HOUR BEFORE BREAKFAST OR OTHER MEDICATIONS 90 Tablet 1 Clobetasol Propionate 0.05 % External Cream (Temovate) Apply twice daily to trunk up to 2 weeks, then taper to weekends only Fri-Sun as needed 60 g 1 Metoprolol Succinate ER 50 MG Oral Tablet Extended Release 24 Hour (toPROL XL) TAKE 1 TABLET BY MOUTH DAILY AT NIGHT 90 Tablet 1 Pantoprazole Sodium 40 MG Oral Tablet Delayed Release (Protonix) TAKE 1 TABLET BY MOUTH EVERY DAY 90 Tablet 3 Terbinafine HCl 1 % External Cream (LamISIL AT ATHLETE'S FOOT) Apply twice daily to left lower extremity and feet up to 6 weeks. 30 g 0 Hydrocortisone (Perianal) 2.5 % External Cream (Anusol-HC) Administer into the rectum 2 times a day. 28 g 0 Imvexxy Maintenance Pack 10 MCG Vaginal Insert (Estradiol) Use twice weekly per vagina., 1 Each 11 Melatonin 5 MG Oral Capsule Take 1 Capsule by mouth at bedtime. Triamcinolone Acetonide 0.1 % External Ointment (Aristocort) Apply to vulva as needed for itching 30 g 2 Bisacodyl 10 MG Rectal Suppository (Dulcolax) Administer 1 Suppository into the rectum daily as needed for Constipation. Do not use for more than 1 week. 20 Suppository 1 Cholecalciferol (VITAMIN D3) 50 MCG (2000 UT) Capsule Take 1 Cap by mouth daily. 90 Cap 1 MULTI-VITAMIN PO TABS one a day Proctofoam HC 1-1 % External Foam (Hydrocort-Pramoxine (Perianal)) ADMINISTER INTO THE RECTUM, TO AFFECTED AREA OF ANUS, NEEDED FOR MODERATE PAIN (HEMORRHOIDS) (Patient not taking: Reported on 03/26/2024) 10 g 5 polyethylene glycol 3350 119 gram OR POWD Take 119 g by mouth once. (Patient not taking: Reported on 03/26/2024) No current facility-administered medications for this visit. Review of patient's allergies indicates: Allergen Reactions Cefdinir Anaphylaxis Alendronate Sodium Abdominal pain GI upset Doxycycline Hives and Rash Heparin Decreased platelets Sulfa Antibiotics Hives and Rash Sulfonylureas Most Recent Immunizations Administered Date(s) Administered COVID-19 mRNA, LNP-s, No Preserve, 2-Dose Series (Moderna) 12/17/2020 COVID-19, MRNA-LNP, 23-24, PF, 30 MCG/0.3 mL, 12 YRS AND ABOVE, IM ([employer]) 08/12/2023 COVID-19, mRNA, LNP-s, PF, Booster, 100mcg/0.5mg (Moderna) 08/28/2021 Covid-19, Mrna, Lnp-s, Pf, Bivalent, 30 Mcg, IM, 12 yrs and above (Pfizer) 01/16/2023 H1N1 2009 Influenza, IM 09/27/2009 Pneumococcal Conjugate Vacc, 13 Valent (Prevnar) 02/15/2016 Pneumococcal Polysaccharide PPV23 (Pneumovax) 04/27/2013 RSV Vac., Bivalent, Perfusion F, Pf,0.5 Ml (Abrysvo) 03/04/2024 Season Influenza, Quad, PF, Adjuvanted, 65+ Yrs, IM (FLUAD) 08/08/2022 Seasonal Influenza, PF, 6 M & above, IM , (FluLaval or Fluzone) 07/28/2018 Seasonal Influenza, Quadrivalent Hd (Fluzone Hd) 07/17/2023 Seasonal Influenza, Quadrivalent Hd, 65+ Yrs 09/03/2020 Seasonal Influenza, Quadrivalent, No Preserve, IM 06/21/2016 Seasonal Influenza, Split, IIV3, With Preserve, Inj 08/14/2015 Seasonal Influenza, Trivalent, High Dose, No Preserve, IM 08/24/2019 Review of Systems: Review of Systems Constitutional: Negative for chills, diaphoresis, fatigue and fever. HENT: Positive for congestion, sinus pressure, sore throat and trouble swallowing. Negative for earpain, postnasal drip and sinus pain. Choking a little on my coughing- she has been drinking it in her lounge chair Respiratory: Positive for wheezing. Negative for cough, chest tightness and shortness of breath. Cardiovascular: Positive for leg swelling. Negative for chest pain and palpitations. Gastrointestinal: Negative for abdominal pain. Physical Exam: Resp 18 | Ht 1.524 m (5') | Wt 90.7 kg (200 lb) | BMI 39.06 kg/m | BSA 1.96 m Physical Exam HENT: Head: Normocephalic. Eyes: Pupils: Pupils are equal, round, and reactive to light. Cardiovascular: Rate and Rhythm: Normal rate and regular rhythm. Pulmonary: Effort: Pulmonary effort is normal. Breath sounds: Examination of the right-upper field reveals wheezing. Examination of the left-upperfield reveals wheezing. Examination of the right- middle field reveals wheezing. Examination of the right-lower field reveals wheezing. Decreased breath sounds and wheezing present. Abdominal: General: Bowel sounds are normal. Palpations: Abdomen is soft. Tenderness: There is no abdominal tenderness. Musculoskeletal: General: Normal range of motion. Cervical back: Normal range of motion. Neurological: General: No focal deficit present. Mental Status: She is alert and oriented to person, place, and time. Psychiatric: Mood and Affect: Mood normal. Behavior: Behavior normal. Thought Content: Thought content normal. Judgment: Judgment normal. Assessment and Plan: 1. Wheezing Aeration exchanged improved s/p neb Suspected RAD Check x ray Add albuterol 2 puffs every 4 hours as needed. - XR CHEST 2 VIEWS Hold on prednisone due to DM for now I have advised the patient to call our office incase of any worsening or new symptoms. I spent a total of 20-29 minutes (exact time 20 mins) on the date of service in preparation, delivery, and documentation of the care provided to Rosemarie Dale excluding any time spent in the performance of separately billed services. Jing, MSN, UNIT ASSISTANT [facility] documented in this encounter Nursing Notes * Reina De León MED ASSIST - 04/01/2024 9:39 AM EDT The patient has been properly identified by confirmation of name and date of . Chief Complaint Patient presents with Re-Check Patient presents in office today for wheezing -- per her GI doctor at her recent appointment they noted wheezing when listening to her lungs and advised she follow-up with PCP office to get checked out/listened to. documented in this encounter Plan of Treatment Upcoming Encounters Date Type Department Care Team (Late st Contact Info) Description 06/08/2024 9:30 AM EDT Imaging Radiology, [address] [place] [address] 07/20/2024 9:40 AM EDT Office Visit Family Practice [facility] [address] [place] [address] Della Mead CRNP [address] [place] [address] 09/15/2024 10:40 AM EST Office Visit Otolaryngology [facility] [address] [place] [address] Graciela Sparrow PA-C [address] [place] [address] 01/11/2025 10:15 AM EDT Imaging Radiology [facility] [address] [place] [address] 01/27/2025 10:00 AM EDT Office Visit Rheumatology [address] [place] [address] Ta Irvin MD [address] [place] [address] [place] [address] 02/01/2025 10:00 AM EDT Office Visit Urology, [facility] [address] [place] [address] Hakeem Bernal MD [address] [place] [address] 03/12/2025 9:20 AM EDT Office Visit Family Practice [facility] [address] [place] [address] Claus Rojas MD [address] [facility] [place] [address] Pending Results Name Type Priority Associated Diagnoses Date /Time XR CHEST 2 VIEWS Medical Imaging Routine Wheezing 04/01/2024 10:36 AM EDT Health Maintenance Due Date Last Done Comments *BISPHONATE OR OTHER ACCEPTABLE MEDICATION NEEDED FOR OSTEOPOROSIS (REFER TO SMARTSET #1146) 04/27/2022 Diabetic Eye Exam 10/12/2023 10/12/2022 Diabetic Foot Exam 10/12/2023 10/12/2022 COVID-19 Vaccine ( season) 2023 08/12/2023, 01/16/2023, 08/28/2021, Additional history exists Depression Screening 12/13/2023 12/12/2022, 06/20/2017 (Declined) DXA Scan 04/25/2024 04/25/2022, 0710/2019, 02/20/2018, Additional history exists HbA1c 07/29/2024 01/28/2024, 0 03/2023, 06/27/2022, Additional history exists Albumin/Creatinine Ratio 01/27/20252 024, 11/19/2022, 06/29/2022, Additional history exists GFR 01/27/2025 01/28/2024, 01/12, 11/16/2022, Additional history exists TSH 01/27/2025 01/28/2024, 01/12, 11/16/2022, Additional history exists Pneumococcal Vaccine: 65+ Years Completed 02/15/2016, 04/27/2013 VITAMIN D LEVEL ONCE IN A LIFETIME-USE SMARTSET# 66210 Completed 08/11/2018, 04/25/2015 Influenza Vaccine (FLU shot) [...] this encounter Medical Devices Implanted Type Area Air Plant Engineer Device Identifier Shelf Expiration Date Model / Serial / Lot Cement Bone Lv G 1119-140-01 - [id number] Implanted:Qty: 1 on 10/20/2018 by Ceasar Taylor MD at OR [facility] Left: Knee [employer] 07/13/2020 [id number] / / [id number] Cement Bone Lv G 1119-140-01 - [id number] Implanted:Qty: 1 on 10/20/2018 by Ceasar Taylor MD at OR [facility] Left: Knee [employer] 07/13/2020 [id number] / / [id number] Tibia Personna Left Sz D - [id number] Implanted:Qty: 1 on 10/20/2018 by Ceasar Taylor MD at OR [facility] Left: Knee [employer] 05/13/2028 [id number] / / [id number] Persona The Personalized Knee System Femur Cemented Cr Standard Left Size 7 Implanted:Qty: 1 on 10/20/2018 by Ceasar Taylor MD at OR [facility] Left: Knee [employer] 07/13/2028 [id number] / / [id number] Patella Reaming System Patella Reamer Blade With Alteration Tailor Hole 38mm Diameter Implanted:Qty: 1 on 10/20/2018 by Ceasar Taylor MD at OR [facility] Left: Knee [employer] 02/11/2028 [id number] / / [id number] Persona The Personalized Knee System Vivacit-E Highly Crosslinked Polyethylene All-Poly Patella Cemented Implanted:Qty: 1 on 10/20/2018 by Ceasar Taylor MD at OR [facility] Left: Knee [employer] 04/12/2023 [id number] / / [id number] Persona The Personalized Knee System Vivacit-E Highly Crosslinked Polyethylene Articular Surface Medial Congruent (Mc) Left Implanted:Qty: 1 on 10/20/2018 by Ceasar Taylor MD at OR [facility] Left: Knee [employer] 02/10/2022 [id number] / / [id number] Description:use with tibia s izes C-D/CR femur sizes 6-7 Lens Intraoc 20.5 - [id number] - [id number] Implanted:Qty: 1 on 11/22/2020 by Arron Titus MD at OR [facility] Left: Eye [employer] 03/13/2025 [id number] / [id number] / [id number] Lens Intraoc 21.0 - [id number] - [id number] Implanted:Qty: 1 on 12/06/2020 by Arron Titus MD at OR [facility] Right: Eye [employer] 07/13/2025 [id number] / [id number] / [id number] Persona Femur Cemented Cruciate Retaining Standard Right Implanted:Qty: 1 on 06/05/2021 by Ceasar Taylor MD at OR [facility] Right: Knee [employer] 04/12/2029 [id number] / / [id number] Component Kn Ptlr Poly Ve 32mm - [id number] Implanted:Qty: 1 on 06/05/2021 by Ceasar Taylor MD at OR [facility] Right: Knee [employer] 02/28/2026 [id number] / / [id number] Tibia Personna Right Sz D - [id number] Implanted:Qty: 1 on 06/05/2021 by Ceasar Taylor MD at OR [facility] Right: Knee [employer] 10/29/2030 [id number] / / [id number] Cement Bone Palacos Lv+G 1x40g - [id number] Implanted:Qty: 2 on 06/05/2021 by Ceasar Taylor MD at OR [facility] Right: Knee [employer] 03/13/2022 [id number] / / [id number] Psn Mc Ve Asf R 10mm 8-11 Ef - [id number] Implanted:Qty: 1 on 06/05/2021 by Ceasar Taylor MD at OR [facility] Right: Knee [employer] 05/17/2025 [id number] / / [id number] documented as of this encounter Visit Diagnoses Diagnosis Wheezing- Primary documented in this encounter Administered Medications Inactive Administered Medications - up to 3 most recent administrations Medication Order MAR Action Action Date Dose Rate Site Albuterol Sulfate (Proventil) (2.5 MG/3ML) 0.083% inhalation solution 2.5 mg 2.5 mg, Nebulizer, ONCE, On Sat04/01/24 at 1045, For 1 dose Given 04/01/2024 10:18 AM EDT 2.5 mg documented in this encounter Advance Directives * [...] and were consensually agreed upon. Care Teams Sales And Leasing Agent Relationship Specialty Start Date End Date Claus Rojas MD [address] [place] [address] PCP - General Family Medicine 10/12/14 documented as of this encounter"
--- OUTSIDE RECORDS SUMMARY | 2024-07-15 20:37 | External Medical Summary | Summary of Care ---
Author Name Unknown Organization [facility] Address [address] [facility] [place] [address] Phone [phone] Care Team Providers Care Provider Relations Consultant Name Role Phone Claus Rojas MD Primary Care Provider + Reason for Visit * Reason Comments Outpatient Testing Encounter Details Date Type Department Care Team (Late st Contact Info) Description 01/28/2024 1:00 PM EDT Laboratory Laboratory, [facility] 132 [facility] [place] [address] [facility] 132 [facility] [place] [address] Type 2 diabetes mellitus with hemoglobin A1c goal of less than 8.0% ([facility]); Acquired hypothyroidism; Encounter for long-term (current) use [...] oxyCODONE HCl 5 MG Oral Tablet (Oxy IR)Indications: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 [...] 01/28/2024 1:30 PM EDT Office Visit Urology, [facility] [address] [place] [address] Hakeem Bernal MD 27 [facility] [address] [place] [address] 03/04/2024 11:40 AM EDT Office Visit Family Practice [facility] [address] [place] [address] Claus Rojas MD [address] [place] [address] 03/11/2024 10:40 AM EDT Office Visit Otolaryngology [facility] 132 [place] [address] Graciela Sparrow PA-C [address] [place] [address] 03/26/2024 10:00 AM EDT Office Visit Gastroenterology, [facility] 132 [place] [address] Ronald Casanova CRNP [address] [place] [address] 06/08/2024 9:30 AM EDT [address], [address] [address] 01/27/2025 10:00 AM EDT Office Visit Rheumatology [facility] [place] [address] [facility] [place] [address] Ta Irvin MD 132[address] [facility] [place] [address] Pending Results Name Type Priority Associated Diagnoses Date /Time HEMOGLOBIN A1C Lab Routine Type 2 diabetes mellitus with hemoglobin A1c goal of less than 8.0% ([facility]) 01/28/2024 9:59 AM EDT LIPID PANEL WITH DIRECT LDL IF TG IS HIGH Lab Routine Type 2 diabetes mellitus with hemoglobin A1c goal of less than 8.0% ([facility]) 01/28/2024 9:59 AM EDT TSH WITH FREE T4 IF INDICATED Lab Routine Acquired hypothyroidism 01/28/2024 9:59 AM EDT VITAMIN B12 Lab Routine Encounter for long-term (current) use of medications 01/28/2024 9:59 AM EDT ALBUMIN / CREATININE RATIO, URINE Lab Routine Type 2 diabetes mellitus with hemoglobin A1c goal of less than 8.0% ([facility]) 01/28/2024 12:52 PM EDT Health Maintenance Due Date Last Done Comments DTaP,Tdap,and Td Vaccines (1 - Tdap) 1959 Zoster Vaccines (1 of 2) 1990 *BISPHONATE OR OTHER ACCEPTABLE MEDICATION NEEDED FOR OSTEOPOROSIS (REFER TO SMARTSET #1146) 04/27/2022 HbA1c 04/18/2023 10/19/2022, 06/14, 12/06/2021, Additional history exists Diabetic Eye Exam 10/12/2023 10/12/2022 Diabetic Foot Exam 10/12/2023 10/12/2022 Albumin/Creatinine Ratio 11/19/2023 022 023, 06/29/2022, 05/24/2021, Additional history exists Depression Screening 12/13/2023 12/12/2022, 06/20/2017 (Declined) TSH 01/26/2024 01/25/2023, 12/2022, 11/14/2021, Additional history exists DXA Scan 04/25/2024 04/25/2022, 10/2019, 02/20/2018, Additional history exists GFR 01/27/2025 01/28/2024, 01/12, 11/16/2022, Additional history exists Pneumococcal Vaccine: 65+ Years Completed 02/15/2016, 04/27/2013 VITAMIN D LEVEL ONCE IN A LIFETIME-USE SMARTSET# 90860 Completed 08/11/2018, 04/25/2015 Influenza Vaccine (FLU shot) [...] this encounter Medical Devices Implanted Type Area Environmental Web Crawler Device Identifier Shelf Expiration Date Model / Serial / Lot Cement Bone G 1119-140-01 - [id number] Implanted:Qty: 1 on 10/20/2018 by Ceasar Taylor MD at OR [facility] Left: Knee [employer] 07/13/2020 [id number] / / [id number] Cement Bone G 1119-140-01 - [id number] Implanted:Qty: 1 on 10/20/2018 by Ceasar Taylor MD at OR [facility] Left: Knee [employer] 07/13/2020 [id number] / / [id number] Tibia Personna Left D - [id number] Implanted:Qty: 1 on 10/20/2018 by Ceasar Taylor MD at OR [facility] Left: Knee [employer] 05/13/2028 [id number] / / [id number] Persona The Personalized Knee System Femur Cemented Cr Standard Left Size 7 Implanted:Qty: 1 on 10/20/2018 by Ceasar Taylor MD at OR [facility] Left: Knee [employer] 07/13/2028 [id number] / / [id number] Patella Reaming System Patella Reamer Blade With Image Processing Engineer Hole 38mm Diameter Implanted:Qty: 1 on 10/20/2018 by Ceasar Taylor MD at OR [facility] Left: Knee [employer] 02/11/2028 [id number] / / [id number] Persona The Personalized Knee System Vivacit-E Highly Crosslinked Polyethylene All-Poly Patella Cemented Implanted:Qty: 1 on 10/20/2018 by Ceasar Taylor MD at OR [facility] Left: Knee [employer] 04/12/2023 [id number] / / [id number] Persona The Personalized Knee System Vivacit-E Highly Crosslinked Polyethylene Articular Surface Medial Congruent (Mc) Left Implanted:Qty: 1 on 10/20/2018 by Ceasar Taylor MD at OR [facility] Left: Knee [employer] 02/10/2022 [id number] / / [id number] Description:use with tibia s izes C-D/CR femur sizes 6-7 Lens Intraoc 20.5 - [id number] - [id number] Implanted:Qty: 1 on 11/22/2020 by Arron Titus MD at OR [facility] Left: Eye [employer] LOM[employer] 03/13/2025 [id number] / [id number] / [id number] Lens Intraoc 21.0 - [id number] - [id number] Implanted:Qty: 1 on 12/06/2020 by Arron Titus MD at OR [facility] Right: Eye BAUSCH [employer] LOMB 07/13/2025 [id number] / [id number] / [id number] Persona Femur Cemented Cruciate Retaining Standard Right Implanted:Qty: 1 on 06/05/2021 by Ceasar Taylor MD at OR [facility] Right: Knee [employer] K[employer] 04/12/2029 [id number] / / [id number] Component Kn Ptlr Poly Ve 32mm - [id number] Implanted:Qty: 1 on 06/05/2021 by Ceasar Taylor MD at OR [facility] Right: Knee [employer] 02/28/2026 [id number] / / [id number] Tibia Personna Right Sz D - [id number] Implanted:Qty: 1 on 06/05/2021 by Ceasar Taylor MD at OR [facility] Right: Knee [employer] 10/29/2030 [id number] / / [id number] Cement Bone Palacos Lv+G 1x40g - [id number] Implanted:Qty: 2 on 06/05/2021 by Ceasar Taylor MD at OR [facility] Right: Knee [employer] 03/13/2022 [id number] / / [id number] Psn Mc Ve Asf R 10mm 8-11 Ef - [id number] Implanted:Qty: 1 on 06/05/2021 by Ceasar Taylor MD at OR [facility] Right: Knee [employer] 05/17/2025 [id number] / / [id number] documented as of this encounter Procedures Procedure Name Priority Date/Time Associated Diagnosis Comments BASIC METABOLIC PANEL Routine 01/28/2024 9:59 AM EDT Type 2 diabetes mellitus with hemoglobin A1c goal of less than 8.0% (HCC) documented in this encounter Results * (ABNORMAL) BASIC METABOLIC PANEL (01/28/2024 9:59 AM EDT) BUN 15 6 - 20 mg/dL 01/28/2024 11:13 AM EDT [facility] Creatinine 0.9 0.5 - 1.0 mg/dL 01/28/2024 11:13 AM EDT [facility] Estimated Glomerular Filtration Rate 64 >=60 mL/min 01/28/2024 11:13 AM EDT [facility] Comment:eGFR is calculated b ased on the CKD-EPI 2020 equation Sodium 137 135 - 146 mmol/L 01/28/2024 11:13 AM EDT [facility] Potassium 4.7 3.5 - 5.1 mmol/L 01/28/2024 11:13 AM EDT [facility] Chloride 100 98 - 107 mmol/L 01/28/2024 11:13 AM EDT [facility] CO2 25 22 - 32 mmol/L 01/28/2024 11:13 AM EDT [facility] Anion Gap 12 7 - 15 mmol/L 01/28/2024 11:13 AM EDT [facility] Glucose 130(H) 70 - 120 mg/dL 01/28/2024 11:13 AM EDT [facility] Calcium 9.5 8.4 - 10.2 mg/dL 01/28/2024 11:13 AM EDT [facility] Blood Venous blood specimen / Unknown Venipuncture / Unknown 01/28/2024 9:59 AM EDT 01/28/2024 9:59 AM EDT Claus Rojas MD LAB BLOOD ORDERA BLES [facility] [place] [facility] [place] [address] documented in this encounter Visit Diagnoses Diagnosis Type 2 [...] and were consensually agreed upon. Care Teams Provider Relations Consultant Relationship Specialty Start Date End Date Claus Rojas MD 132 [place] [address] PCP - General Family Medicine 10/12/14 documented as of this encounter
--- OUTSIDE RECORDS SUMMARY | 2024-07-15 20:37 | External Medical Summary ---
Author Name Unknown Address Unknown Organization [id number]:[facility] - [address] [place] [address] Laboratory Report Ordering Provider Test Date Status СЕРГЕЙ VALDEZ 01/28/2024 12:52:48 Final Normal: <30 mg/g creatinine< br/>High: 30-300 mg/g creatinine
Very High: >300 mg/g creatinine
Nephrotic: >2200 mg/g creatinine Observation Date Value Abnormality Reference (Units ) Status Albumin, Urine 01/28/2024 12:52:48 <1.20 (mg/dL) Final Creatinine, Urine 01/28/2024 12:52:48 68 (mg/dL) Final Albumin/Creatinine [Mass Ratio] in Urine 01/28/2024 12:52:48 <18 <30 (mg/g Creat) Final Performing Location [facility] - [address] [place] [address]
--- OUTSIDE RECORDS SUMMARY | 2024-07-15 20:38 | External Medical Summary ---
Author Name Unknown Address Unknown Organization [id number]:[facility] [place] [address] [place] [address] Laboratory Report Ordering Provider Test Date Status СЕРГЕЙ VALDEZ 01/28/2024 09:59:46 Final Observation Date Value Abnormality Reference (Units ) Status TSH 01/28/2024 09:59:46 2.06 0.27-4.20 (uIU/mL) Final Performing Location [facility] [place] [address] [place] [address]
--- OUTSIDE RECORDS SUMMARY | 2024-07-15 20:38 | External Medical Summary ---
Author Name Unknown Address Unknown Organization [id number]:[facility] [place] [address] [place] [address] Laboratory Report Ordering Provider Test Date Status СЕРГЕЙ VALDEZ 01/28/2024 09:59:46 Final Observation Date Value Abnormality Reference (Units ) Status Vitamin B12 01/28/2024 09:59:46 [phone] (pg/mL) Final Performing Location [facility] [place] [address] [place] [address]
--- OUTSIDE RECORDS SUMMARY | 2024-07-15 20:38 | External Medical Summary ---
Author Name Unknown Address Unknown Organization [id number]:[facility] - [address] [facility] [address] Laboratory Report Ordering Provider Test Date Status СЕРГЕЙ VALDEZ 01/28/2024 09:59:46 Final Observation Date Value Abnormality Reference (Units ) Status Triglyceride 01/28/2024 09:59:46 284 Above high normal <=174 (mg/dL) Final Triglyceride Reference Range s (mg/dL):
<150 Acceptable
150-174 Borderline high
175-499 High
>=500 Very high Cholesterol 01/28/2024 09:59:46 199 <200 (mg /dL) Final Total Cholesterol Reference Ranges (mg/dL):
<200 Desirable
200-239 Borderline high
>=240 High HDL 01/28/2024 09:59:46 42 Below low normal >49 (mg/dL) Final HDL Cholesterol Reference Ra nges (mg/dL):
>=60 High (Desirable)
<50 Low (Undesirable) For Females
<40 Low (Undesirable) For Males NON-HDL CHOLESTEROL 01/28/2024 09:59:46 157 <=159 (mg/dL) Final Non-HDL Cholesterol Referenc e Range (mg/dL):
<100 Target level for high risk ASCVD patient
<130 Optimal for general population
130-159 Near optimal for general population
160-189 Borderline High
190-219 High
>=220 Very High LDL, (calculated) 01/28/2024 09:59:46 100 <= 129 (mg/dL) Final LDL Cholesterol Reference Ra nges (mg/dL):
<70 Target level for high risk ASCVD patient
<100 Optimal for general population
100-129 Near optimal for general population
130-159 Borderline high
160-189 High
>=190 Very high Performing Location [facility] - [address] [facility] [address]
--- OUTSIDE RECORDS SUMMARY | 2024-07-15 20:38 | External Medical Summary | Summary of Care ---
Author Name Unknown Organization [facility] Address [address] [facility] [place] [address] Phone [phone] Care Team Providers Care Program Manager Name Role Phone Claus Rojas MD Primary Care Provider + Reason for Visit * Reason Comments Rheum Follow Up Follow up - osteoart hritis and Encounter Details Date Type Department Care Team (Latest Contact Info) Description 01/27/2024 9:40 AM EDT Office Visit Rheumatology [place] [id number] [place] [address] Ta Irvin MD [facility] [place] [address] Senile osteoporosis*; Spinal stenosis of lumbar region with neurogenic claudication; GENERAL OSTEOARTHROSIS Allergies Active Allergy Reactions Criticality Noted Date Comments Alendronate Sodium Abdominal pain 04/05/2016 GI upset Cefdinir Anaphylaxis High 10/02/2022 Doxycycline Hives,Rash 05/14/2012 Heparin 05/14/2012 Decreased platelets Sulfa Antibiotics Hives,Rash 11/28/2012 Sulfonylureas 04/05/2003 documented as of this encounter (statuses as of 01/27/2024) Medications Medication Sig Dispensed Refills Start Date [...] oxyCODONE HCl 5 MG Oral Tablet (Oxy IR)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 [...] as of this encounter (statuses as of 01/27/2024) Immunizations Name Administration Dates Next Due COVID-19 [...] as of this encounter Progress Notes * Ta Irvin MD - 01/27/2024 9:42 AM EDT Subjective: Patient seen today for further follow up evaluation of osteoarthritis, osteoporosis. Since the lastvisit with Dr Charles - she has been on drug holiday from actonel. She is due for dexa this summer. She has a rolling walker at home. She has spinal stenosis and seeing pain clinic through [facility]. The recent injection helped. She has not [...] time 4. Return to clinic next year Ta Irvin MD Department of Rheumatology documented in this encounter Nursing Notes * Shaylee Post LPN - 01/27/2024 9:35 AM EDT Chief Complaint Patient presents with Rheum Follow Up Follow up - osteoarthritis and documented in this encounter Plan of Treatment Upcoming Encounters Date Type Department Care Team (Late st Contact Info) Description 01/28/2024 1:00 PM EDT Laboratory Laboratory, [facility] [address] [place] [phone] Max Pizano [facility] [place] [address] 01/28/2024 1:30 PM EDT Office Visit Urology, [facility] [address] [place] [address] Hakeem Bernal MD [address] [place] [address] [place] [address] 03/04/2024 11:40 AM EDT Office Visit Family Practice [facility] 132 [facility] [place] [address] Claus Rojas MD 132 [facility] [place] [address] 03/11/2024 10:40 AM EDT Office Visit Otolaryngology [facility] 132 [facility] [place] [address] Graciela Sparrow PA-C 132 [place] [address] 03/26/2024 10:00 AM EDT Office Visit Gastroenterology, [facility] 132 [facility] [place] [address] Ronald Casanova CRNP 132 [place] [address] 06/08/2024 9:30 AM EDT Imaging Radiology, [address] [place] [address] 01/27/2025 10:00 AM EDT Office Visit Rheumatology [address] [place] [address] Ta Irvin MD [address] [place] [address] [place] [address] Scheduled Orders Name Type Priority Associated Diagnoses Orde r Schedule DEXA SCAN/BONE MINERAL AXIAL Medical Imaging Routine Senile osteoporosis Ordered: 01/27/2024 Health Maintenance Due Date Last Done Comments [...] 12/13/2023 12/12/2022, 06/20/2017 (Declined) GFR 01/26/2024 01/25/2023, 02/0 12/2022, 06/27/2022, Additional history exists TSH 01/26/2024 01/25/2023, 02/0 12/2022, 11/14/2021, Additional history exists DXA Scan 04/25/2024 04/25/2022, 10/2019, 02/20/2018, Additional history exists Pneumococcal Vaccine: 65+ Years Completed 02/15/2016, 04/27/2013 VITAMIN D LEVEL ONCE IN A LIFETIME-USE SMARTSET# 80400 Completed 08/11/2018, 04/25/2015 Influenza Vaccine (FLU shot) [...] this encounter Medical Devices Implanted Type Area Proposal Editor Device Identifier Shelf Expiration Date Model / Serial / Lot Cement Bone Lv G 1119-140-01 - [id number] Implanted:Qty: 1 on 10/20/2018 by Ceasar Taylor MD at OR [facility] Left: Knee [employer] 07/13/2020 [id number] / / [id number] Cement Bone Lv G 1119-140-01 - [id number] Implanted:Qty: 1 on 10/20/2018 by Ceasar Taylor MD at OR [facility] Left: Knee [employer] 07/13/2020 [id number] / / [id number] Tibia Personna Left Sz D - [id number] Implanted:Qty: 1 on 10/20/2018 by Ceasar Taylor MD at OR [facility] Left: Knee [employer] 05/13/2028 [id number] / / [id number] Persona The Personalized Knee System Femur Cemented Cr Standard Left Size 7 Implanted:Qty: 1 on 10/20/2018 by Ceasar Taylor MD at OR [facility] Left: Knee [employer] 07/13/2028 [id number] / / [id number] Patella Reaming System Patella Reamer Blade With Cytotechnologist Hole 38mm Diameter Implanted:Qty: 1 on 10/20/2018 by Ceasar Taylor MD at OR [facility] Left: Knee [employer] 02/11/2028 [id number] / / [id number] Persona The Personalized Knee System Vivacit-E Highly Crosslinked Polyethylene All-Poly Patella Cemented Implanted:Qty: 1 on 10/20/2018 by Ceasar Taylor MD at OR [facility] Left: Knee [employer] 04/12/2023 [id number] / / [id number] Persona The Personalized Knee System Vivacit-E Highly Crosslinked Polyethylene Articular Surface Medial Congruent (Mc) Left Implanted:Qty: 1 on 10/20/2018 by Ceasar Taylor MD at OR [facility] Left: Knee [employer] 02/10/2022 [id number] / / [id number] Description:use with tibia s izes C-D/CR femur sizes 6-7 Lens Intraoc 20.5 - [id number] - [id number] Implanted:Qty: 1 on 11/22/2020 by Arron Titus MD at OR [facility] Left: Eye BAUSCH [employer] LOMB 03/13/2025 [id number] / [id number] / [id number] Lens Intraoc 21.0 - [id number] - [id number] Implanted:Qty: 1 on 12/06/2020 by Arron Titus MD at OR [facility] Right: Eye BAUSCH & LOMB 07/13/2025 [id number] / [id number] / [id number] Persona Femur Cemented Cruciate Retaining Standard Right Implanted:Qty: 1 on 06/05/2021 by Ceasar Taylor MD at OR [facility] Right: Knee [employer] KNEE 04/12/2029 [id number] / / [id number] Component Kn Ptlr Poly Ve 32mm - [id number] Implanted:Qty: 1 on 06/05/2021 by Ceasar Taylor MD at OR [facility] Right: Knee [employer] 02/28/2026 [id number] / / [id number] Tibia Personna Right Sz D - [id number] Implanted:Qty: 1 on 06/05/2021 by Ceasar Taylor MD at OR [facility] Right: Knee [employer] 10/29/2030 87-3466-035-02 / / [id number] Cement Bone Palacos Lv+G 1x40g - [id number] Implanted:Qty: 2 on 06/05/2021 by Ceasar Taylor MD at OR [facility] Right: Knee [employer] 03/13/2022 [id number] / / [id number] Psn Mc Ve Asf R 10mm 8-11 Ef - [id number] Implanted:Qty: 1 on 06/05/2021 by Ceasar Taylor MD at OR [facility] Right: Knee [employer] 05/17/2025 [id number] / / [id number] documented as of this encounter Visit Diagnoses Diagnosis Senile osteoporosis- Primary Spinal stenosis of lumbar region with neurogenic claudication Spinal stenosis, lumbar region, with neurogenic claudication GENERAL OSTEOARTHROSIS Generalized osteoarthrosis, unspecified site documented in this encounter Advance Directives Latest [...] and were consensually agreed upon. Care Teams Program Manager Relationship Specialty Start Date End Date Claus Rojas MD [address] [place] [address] PCP - General Family Medicine 10/12/14 documented as of this encounter"
--- OUTSIDE RECORDS SUMMARY | 2024-07-15 20:38 | External Medical Summary ---
Author Name Unknown Address Unknown Organization K0G:[facility] [place] [address] Laboratory Report Ordering Provider Test Date Status СЕРГЕЙ VALDEZ 01/28/2024 09:59:46 Final Observation Date Value Abnormality Reference (Units ) Status BUN 01/28/2024 09:59:46 15 6-20 (mg/dL) Final Creatinine 01/28/2024 09:59:46 0.9 0.5-1.0 (mg/dL) Final Glomerular filtration rate/1.73 sq M.predicted [Volume Rate/Area] in Serum, Plasma or Blood by Creatinine-based formula (CKD-EPI) 01/28/2024 09:59:46 64 >=60 (mL/min) Final eGFR is calculated based on the CKD-EPI 2020 equation Sodium 01/28/2024 09:59:46 137 135-146 (m mol/L) Final Potassium 01/28/2024 09:59:46 4.7 3.5-5.1 (m mol/L) Final Cl 01/28/2024 09:59:46 100 98-107 (mm ol/L) Final CO2 01/28/2024 09:59:46 25 22-32 (mmo l/L) Final Anion gap 01/28/2024 09:59:46 12 7-15 (mmol /L) Final Glucose 01/28/2024 09:59:46 130 Above high normal 70 -120 (mg/dL) Final Calcium 01/28/2024 09:59:46 9.5 8.4-10.2 ( mg/dL) Final Performing Location [facility] 0 - [address] [place] [address]
--- OUTSIDE RECORDS SUMMARY | 2024-07-15 20:38 | External Medical Summary | Summary of Care ---
Author Name Unknown Organization [facility] Address [address] [facility] [place] [address] Phone [phone] Care Team Providers Care Professor Of Business Administration Name Role Phone Claus Rushing MD Primary Care Provider + Reason for Visit * Reason Comments eRx-Medication Refill Encounter Details Date Type Department Care Team (Late st Contact Info) Description 01/20/2024 Refill Family Practice [facility] [address] [facility] [place] [address] Claus Rushing MD [address] [facility] [place] [address] Allergies Active Allergy Reactions Criticality Noted Date Comments Alendronate Sodium Abdominal pain 04/05/2016 GI upset Cefdinir Anaphylaxis High 10/02/2022 Doxycycline Hives,Rash 05/14/2012 Heparin 05/14/2012 Decreased platelets Sulfa Antibiotics Hives,Rash 11/28/2012 Sulfonylureas 04/05/2003 documented as of this encounter (statuses as of 01/21/2024) Medications Medication Sig Dispensed Refills Start Date [...] MOUTH DAILY 90 Capsule 0 4 Active Venlafaxine HCl ER 150 MG Oral Capsule Extended Release 24 Hour (Effexor XR) TAKE 1 CAPSULE BY MOUTH DAILY 90 Capsule 1 3 024 Discontinued documented as of this encounter (statuses as of 01/21/2024) Active Problems Problem Noted Date Diagnosed Date [...] as of this encounter (statuses as of 01/21/2024) Resolved Problems Problem Noted Date Diagnosed Date [...] as of this encounter (statuses as of 01/21/2024) Immunizations Name Administration Dates Next Due COVID-19 [...] encounter Miscellaneous Notes * Telephone Encounter - Titus Obrien PHARM Tech - 01/21/2024 12:17 PM EDT Received message from [facility] regarding patient needing labs. Call Placed, Pt was agreeable to set up lab appointment. Patient scheduled for 01/28/2024. Thank you, Titus Obrien Paste [employer]er [employer] 01/21/2024, 12:17 PM * Telephone Encounter - Sherry Munoz [facility] - 01/21/2024 11:26 AM EDTSigned Prescriptions: Disp Refills Venlafaxine HCl ER 150 MG Oral Capsule Ext*90 Cap*0 Sig: TAKE 1 CAPSULE BY MOUTH DAILY Authorizing Provider: CLAUS RUSHING Ordering User: SHERRY MUNOZ * Telephone Encounter - Sherry Munoz [facility] - 01/21/2024 11:24 AM EDT Provided 90 days supply with 0 refill(s). Per refill protocol patient should have CMP, LDL on file within past year. Reviewed AMP report, Care Gaps/Health Maintenance, medications list, and for any routine labs typically ordered for this patient. Lab orders placed. Please contact patient to advise of labs ordered for blood draw AND URINE specimen (patient will have to be able to void to provide sample). Recommend patient to fast if able for labs. Patient may still have water and regular medications. Advise to obtain labs before her scheduled office visit 03/04/2024. ThanksSherry, PharmD Clinical Pharmacist [facility] ([facility]) (formerly Telepharmacy) [phone] 01/21/2024 11:25 AM documented in this encounter Plan of Treatment Upcoming Encounters Date Type Department Care Team (Late st Contact Info) Description 01/27/2024 9:40 AM EDT Office Visit Rheumatology [address] [place] [address] Ta Irvin MD [address] [place] [address] [place] [address] 01/28/2024 1:00 PM EDT Laboratory Laboratory, [facility] [address] [facility] [place] [phone] [facility] [address] [place] [address] 01/28/2024 1:30 PM EDT Office Visit Urology, [facility] [address] [facility] [place] [address] Hakeem Bernal MD [address] [address] [place] [address] 03/04/2024 11:40 AM EDT Office Visit Family Practice [facility] [address] [place] [address] Claus Rushing MD 132 [facility] [place] [address] 03/11/2024 10:40 AM EDT Office Visit Otolaryngology [facility] [address] [place] [address] Graciela Sparrow PA-C [address] [place] [address] 03/26/2024 10:00 AM EDT Office Visit Gastroenterology, [facility] [address] [place] [address] Ronald Casanova CRNP [address] [place] [address] Health Maintenance Due Date Last Done Comments [...] 06/27/2022, Additional history exists TSH 01/26/2024 01/25/2023, 020 12/2022, 11/14/2021, Additional history exists DXA Scan 04/25/2024 04/25/2022, 10/2019, 02/20/2018, Additional history exists Pneumococcal Vaccine: 65+ Years Completed 02/15/2016, 04/27/2013 VITAMIN D LEVEL ONCE IN A LIFETIME-USE SMARTSET# [id number] Completed 08/11/2018, 04/25/2015 Influenza Vaccine (FLU shot) [...] this encounter Medical Devices Implanted Type Area Draughtsman Device Identifier Shelf Expiration Date Model / Serial / Lot Cement Bone Lv G 1119-140-01 - [id number] Implanted:Qty: 1 on 10/20/2018 by Ceasar Taylor MD at OR [facility] Left: Knee [employer] 07/13/2020 [id number] / / [id number] Cement Bone Lv G 1119-140-01 - [id number] Implanted:Qty: 1 on 10/20/2018 by Ceasar Taylor MD at OR [facility] Left: Knee [employer] 07/13/[id number] / / [id number] Tibia Personna Left Sz D - [id number] Implanted:Qty: 1 on 10/20/2018 by Ceasar Taylor MD at OR [facility] Left: Knee [employer] 05/13/2028 [id number] / / [id number] Persona The Personalized Knee System Femur Cemented Cr Standard Left Size 7 Implanted:Qty: 1 on 10/20/2018 by Ceasar Taylor MD at OR [facility] Left: Knee [employer] 07/13/2028 [id number] / / [id number] Patella Reaming System Patella Reamer Blade With Geophysics Professor Hole 38mm Diameter Implanted:Qty: 1 on 10/20/2018 by Ceasar Taylor MD at OR [facility] Left: Knee [employer] 02/11/2028 [id number] / / [id number] Persona The Personalized Knee System Vivacit-E Highly Crosslinked Polyethylene All-Poly Patella Cemented Implanted:Qty: 1 on 10/20/2018 by Ceasar Taylor MD at OR [facility] Left: Knee [employer] 04/12/2023 [id number] / / [id number] Persona The Personalized Knee System Vivacit-E Highly Crosslinked Polyethylene Articular Surface Medial Congruent (Mc) Left Implanted:Qty: 1 on 10/20/2018 by Ceasar Taylor MD at OR [facility] Left: Knee [employer] 02/10/2022 [id number] / / [id number] Description:use with tibia s izes C-D/CR femur sizes 6-7 Lens Intraoc 20.5 - [id number] - [id number] Implanted:Qty: 1 on 11/22/2020 by Arron Titus MD at OR [facility] Left: Eye [employer] 03/13/2025 [id number] / [id number] / [id number] Lens Intraoc 21.0 - [id number] - [id number] Implanted:Qty: 1 on 12/06/2020 by Arron Titus MD at OR [facility] Right: Eye [employer] 07/13/2025 [id number] / [id number] / [id number] Persona Femur Cemented Cruciate Retaining Standard Right Implanted:Qty: 1 on 06/05/2021 by Ceasar Taylor MD at OR [facility] Right: Knee [employer] 04/12/2029 [id number] / / [id number] Component Kn Ptlr Poly Ve 32mm - [id number] Implanted:Qty: 1 on 06/05/2021 by Ceasar Taylor MD at OR [facility] Right: Knee [employer] 02/28/2026 [id number] / / [id number] Tibia Personna Right Sz D - [id number] Implanted:Qty: 1 on 06/05/2021 by Ceasar Taylor MD at OR [facility] Right: Knee [employer] 10/29/2030 [id number] / / [id number] Cement Bone Palacos Lv+G 1x40g - [id number] Implanted:Qty: 2 on 06/05/2021 by Ceasar Taylor MD at OR [facility] Right: Knee [employer] 03/13/2022 [id number] / / [id number] Psn Mc Ve Asf R 10mm 8-11 Ef - [id number] Implanted:Qty: 1 on 06/05/2021 by Ceasar Taylor MD at OR [facility] Right: Knee [employer] 05/17/2025 [id number] / / [id number] documented as of this encounter Advance Directives Latest Code Status [...] and were consensually agreed upon. Care Teams Professor Of Business Administration Relationship Specialty Start Date End Date Claus Rushing MD [address] [facility] [place] [address] PCP - General Family Medicine 10/12/14 documented as of this encounter
--- OUTSIDE RECORDS SUMMARY | 2024-07-15 20:38 | External Medical Summary ---
Author Name Unknown Address Unknown Organization K01:[facility] [place] [address] [facility] [address] Laboratory Report Ordering Provider Test Date Status СЕРГЕЙ VALDEZ 01/28/2024 09:59:46 Final Observation Date Value Abnormality Reference (Units ) Status HbA1C 01/28/2024 09:59:46 6.7 Above high normal 4. 0-5.6 (%) Final The use of HbA1c to monitor glycemic status is based on normal hemoglobin and HbA composition. This test should not be used in patients with abnormal hemoglobin that affects the half life of the red blood cell or the in vivo glycation rates. Glucose, estimated average 01/28/2024 09:59:46 146 Above high normal <126 (mg/dL) Chidi barillas Performing Location [facility] [place] [address] [facility] [address]
[2024-07-16 05:52] LABS: Hematocrit (blood only) 28.3 % (37.0-47.0); Hemoglobin 9.5 g/dl (12.0-16.0); Mean Corpuscular Hemoglobin 30.2 pg (25.0-34.0); Mean Corpuscular Hgb Conc 33.6 g/dL (32.0-36.0); Mean Corpuscular Volume 89.8 fL (80.0-100.0); Mean Platelet Volume 12.6 fL (9.4-12.4); Platelet Count 129 K/uL (130-400); RDW Coefficient of Variation 14.4 % (11.5-14.5); RDW Standard Deviation 46.6 fL (36.4-46.3); Red Blood Count 3.15 M/uL (4.20-5.40); White Blood Count 7.87 K/ul (4.8-10.8)
[2024-07-16] MEDS: LEVOTHYROXINE SODIUM 75 MCG TABLET PO SCH (05:54)
[2024-07-16 06:02] LABS: Albumin Level 3.3 gm/dl (3.4-5.0); BUN Creatinine Ratio 18.7 (10-20); Bilirubin,Total 0.3 mg/dl (0.2-1.0); Calcium 8.5 mg/dl (8.6-10.3); Creatinine Clr Calc Pharmacy 42.3 ml/min; Globulin 3.2 gm/dl (2.5-4.0); Potassium 4.8 mmol/L (3.5-5.1); Total Protein 6.5 gm/dl (6.0-8.3)
[2024-07-16 08:00] LABS: Estimated Average Glucose 160 mg/dl; Hemoglobin A1C 7.2 % (4.5-5.6)
[2024-07-16] MEDS: ATORVASTATIN 10 MG TAB PO SCH (08:35)
[2024-07-16] MEDS: CHOLECALCIFEROL 25 MCG (1000 UNITS) TAB PO SCH (08:35)
[2024-07-16] MEDS: PANTOprazole 40 MG TAB PO SCH (08:35)
[2024-07-16 12:06] VITALS: BP 124/70; PULSE 76; RESP 14; TEMP 97.9; O2SAT 94
--- NOTE | 2024-07-16 12:07 | Communication Note ---
Date of Service: July 16, 2024 By CMS guidelines, a determination that the admission or continued stay is not medically necessary has been made by a member of the UR committee and a phy sician for this hospital stay, therefore a Code 44 will be completed and the Inpatient admission will be changed to outpatient.
--- NOTE | 2024-07-16 12:10 | Urology Progress Note ---
Date of Service July 16, 2024 Assessment & Plan (1) Ureteral stone with hydronephrosis: Plan - POD #1 s/p Cystoscopy, Right Retrograde Pyelogram with radiographic interpretation, Right Ureteroscopy, Basket Extraction of Stone, Right Stent Placement - Feeling well, tolerating the stent with minimal bother - Remains afebrile and hemodynamically stable - Labs show no leukocytosis and normal renal function - Okay for discharge from perspective - Plan for outpatient stent removal on 07/20/24 as scheduled - Urology will sign-off. Please call with any further questions/concerns. Admission and Anticipated Discharge Date Admission Date: July 15, 2024 Subjective Pt seen at bedside this morning Awake, resting in bed on arrival No acute distress Overall feeling well Tolerating the stent with minimal bother Review of Systems Constitutional: as per Subjective / HPI Genitourinary: as per Subjective / HPI Physical Exam Constitutional: no acute distress Respiratory: no respiratory distress and no labored breathing Skin: No visible rashes or lesions to exposed skin areas Neurologic: awake Psychiatric: A+Ox3, euthymic affect Results & Data Vital Signs (Past 12 Hours) Vital Signs Temp Pulse Pulse Resp BP Pulse Ox O2 Del Method 07/16/24 12:05 36.6 C 76 14 124/70 94 Room Air 07/16/24 07:58 36.5 C 75 18 145/69 H 92 Room Air 07/16/24 07:20 74 07/16/24 03:13 36.8 C 80 20 112/57 L 94 Room Air 07/16/24 00:33 92 H PG Care Time/CCT Total # of Minutes Spent Total Time Spent with Patient: Total time spent is greater than 50% in coordination of care (as documented) at patient's floor/unit and/or counseling patient: Coding Level of Care Code 51728 SUB INP/OBS CARE 2/35MIN Diagnoses Ureteral stone with hydronephrosis N13.2
--- NOTE | 2024-07-16 12:11 | Discharge Summary ---
Date of Service July 16, 2024 Admission HPI Per Admitting Provider The patient is a 83-year-old female with a past medical history of HTN, HLD, spinal stenosison chronic oxy, vitamin D deficiency, prediabetes, GERD who presents to the ED on 07/15/2024 with complaints of right abdominal pain. Reports she began having some pain last night after eating some ice cream. Woke up this morning pain was significantly worse. She reports tenderness with light palpation on exam. She denies any nausea/vomiting. Does report episode of diarrhea which is intermittent for her with her history of IBS. She otherwise denies any acute issues including fever/chills/chest pain/shortness of breath. On exam, patient still reports 5/10 pain after receiving morphine intravenously. On arrival to the ED, her labs remarkable for hemoglobin 10.2, glucose 145. UA unremarkable CT A/P showed: 1. There is a 5 mm obstructing calculus protruding from the right vesicoureteral junction. This causes moderate right hydroureteronephrosis. 2. Additional nonobstructing renal calculi are seen bilaterally. 3. There is irregular/nodular soft tissue thickening and enhancement in left renal pelvis. Although this could be inflammatory, the appearance is more suspicious for urothelial neoplasm. Follow-up with urology is recommended. 4. Colonic diverticulosis without CT evidence of acute diverticulitis. 5. Additional findings as above. The patient will be admitted for pain management consult to urology was placed for obstructing stone Admission Exam Per Admitting Provider Constitutional: WD/WN, vitals as above Eyes: PERRL, conjunctivae normal, anicteric sclerae ENMT: external ear and nose normal, oropharynx normal Neck: trachea midline, no thyromegaly Respiratory: normal respiratory effort, lungs clear to auscultation Cardiovascular: RRR, no murmur, no edema Gastrointestinal (Abdomen): normal bowel sounds, soft, nontender, no hepatosplenomegaly (Right lower quadrant tenderness with light palpation, bowel sounds otherwis) Musculoskeletal: no cyanosis or clubbing, extremities motor strength 5/5 Skin: no rashes, warm and dry Neurologic: patellar DTR's 2+ bilat, sensation intact Psychiatric: A+Ox3, euthymic affect Principal Diagnosis Right obstructing kidney stone/right hydronephrosis 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 NAD, on RA. Obese class III HEENT: No pallor, no icterus. Pupils equal, round and reactive to light. Oral mucosa moist. NECK: No JVD, no neck masses. HEART: S1 and S2 heard. Regular rate and rhythm. No murmur, no gallop. RESPIRATORY SYSTEM: Normal AP diameter. No accessory muscle use. No wheezing, no crackles. ABDOMEN: Soft, bowel sounds present, nontender, no distention. CENTRAL NERVOUS SYSTEM: No facial droop. Speech is clear. Obeys simple commands. Moves extremities. EXTREMITIES: No edema, no erythema seen. Discharge Data Allergies Allergy/AdvReac Type Severity Reaction Status Date / Time cefdinir Allergy Severe ANAPHYLAXIS Verified 07/15/24 14:39 - ED adm 06/03/16 doxycycline Allergy Intermediate Rash/Hives Verified 07/15/24 14:39 Sulfa (Sulfonamide Allergy Intermediate HIVES/RASH Verified 07/15/24 14:39 Antibiotics) Sulfonylureas Allergy Unknown ON [facility] MED Verified 07/15/24 14:39 LIST alendronate sodium AdvReac Intermediate Abdominal Verified 07/15/24 14:39 Pain/ GI Upset heparin AdvReac Unknown AVOID FOR Verified 07/15/24 14:39 LOW PLATELETS Consultations 07/15/24 13:11 ED Decision to Admit Stat 07/15/24 16:48 Consult Urology Routine Procedures Performed Operation Date: 07/15/24 10:40 Actual Procedures p Cystoscopy, Right Retrograde Pyelogram, Right Ureteroscopy, Basket Extraction of Stone, Right Stent Placement(Right) - Raffi Houston MD Ordered Studies 07/15/24 10:55 CT abd pelvis IV con only Stat 07/15/24 14:30 FL retrograde includes kub Routine Hospital Course (1) Right sided abdominal pain: Plan Per prior attending w/ addendum: Right obstructing kidney stone/right hydronephrosis: CT A/P showed obstructing stone and hydronephrosis Urology following, plan for OR on 07/15 for stent placement/possible stone treatment Monitor creatinine, WNL, gentle IV fluids, n.p.o. 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 Full code DVT prophylaxis: Lovenox Addendum 07/16/2024: Patient was seen and examined at bedside as a follow-up of right hydronephrosis/right renal stone and suspected left renal pelvis urothelial mass. Patient underwent stent placement on the right side yesterday, reports resolution of her pain and feels she is back to her baseline and would like to go home. Patient is hemodynamically stable. Patient has been advised to follow-up with urology for further investigation regarding her left kidney mass. She is being discharged home with family support with following instruction at the point of discharge: Follow-up with your primary care physician within a week time and likely you will need labs CBC/CMP/magnesium/phosphorus. You underwent right ureteral stent placement, follow-up with urology in 2 to 4 weeks upon discharge. You also were noted to have left kidney mass, you will need further imaging as an outpatient, coordinate with your urology office to set up the test. Take your medications as prescribed. Please make sure that you are able to get your medications today by calling your pharmacy before you leave the hospital so that your treatment continuity is not broken. By CMS guidelines, a determination that the admission or continued stay is not medically necessary has been made by a member of the Utilization Review committee and a physician for this hospital stay. Therefore, a Code 44 will be completed and the inpatient admission will be changed to outpatient. Home Health Attestation I certify that this patient is under my care and that I, or a physicians animal assistant working with me, had a face to-face encounter that meets the home health [id number]-amie encounter requirements with this patient. The encounter with the patient was in whole, or in part, for the following medical condition, which is the primary reason for home health care (list medical condition): I certify that, based on my findings, the following services are medically necessary home health services: My clinical findings support the need for the above services because: Further, I certify that my clinical findings support that this patient is homebound (i.e. absences from home require considerable and taxing effort and are for medical reasons or anabaptism services or infrequently or of short duration when for other reasons) because: Certification for Home Health Services: Based on the above findings, I certify that this patient is confined to the home and needs intermittent custodial care, physical therapy and/or speech therapy or continues to need occupational therapy. The patient is under my care, and I have initiated the establishment of the plan of care. This patient will be followed by a physician who will periodically review the plan of care. 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 You underwent right ureteral stent placement, follow-up with urology in 2 to 4 weeks upon discharge. You also were noted to have left kidney mass, you will need further imaging as an outpatient, coordinate with your urology office to set up the test. Take your medications as prescribed. Please make sure that you are able to get your medications today by calling your pharmacy before you leave the hospital so that your treatment continuity is not broken. Addtl Automatic Profile Sander Operator Provider Instructions: You are scheduled for stent removal in the urology clinic on 07/20/24 at 11:30AM. Please call our office at [phone] with any questions, concerns or need to reschedule appointments for any reason. We are happy to assist you. Pending Studies at Discharge: No Stand-Alone Forms: My [facility] [employer], Smoking Cessation, Important Visit Information Medications and DC Order Prescriptions: New tamsulosin 0.4 mg Capsule 0.4 mg PO HS Qty: 30 0RF Continued atorvastatin 10 mg tablet 10 mg PO QAM metoprolol succinate 50 mg tablet extended release 24 hr 50 mg PO HS venlafaxine 150 mg capsule,extended release 24hr 150 mg PO HS levothyroxine 75 mcg tablet 75 mcg PO DAILYBB Rx Instructions: take 30 mins before breakfast and prior to any other meds. celecoxib 200 mg capsule 200 mg PO DAILY acetaminophen [Tylenol Extra Strength] 500 mg Tablet 1,000 mg PO Q6H PRN (Reason: Pain) multivitamin Tablet 1 tab PO DAILY pantoprazole 40 mg Tablet,Delayed Release (Dr/Ec) 40 mg PO DAILY cholecalciferol (vitamin D3) [Vitamin D3] 50 mcg (2,000 unit) Capsule 50 mcg PO DAILY oxycodone 5 mg tablet 5 mg PO QAM metformin 500 mg tablet extended release 24 hr 500 mg PO QAM melatonin 3 mg Tablet 3 mg PO HS triamcinolone acetonide 0.1 % Cream 1 applic TOPICAL HS clobetasol 0.05 % ointment 1 applic TOPICAL HS lubiprostone 24 mcg capsule 24 mcg PO BID Discharge Orders: Discharge Order (Routine); Ordered 07/16/24 Ordered By: Hunter Tamayo/Other Patient Handouts: Type 2 Diabetes Admission Data Admit Date/Time: 07/15/24 14:14 Attending Provider: Hunter Durahm Admit Provider: Bob Foote Primary Care Provider: Claus Rojas Other Providers: Bob Foote; Raffi Houston
== END 2024-07-16 14:15 | disposition home or self-care (01) | DRG 660 ==
LOC: ED 10:06 → OR 14:13 → SUATTDRO 14:14 → 2N 14:14